=== PATIENT | male | born 1960 | race Native Hawaiian/Other Pacific Islander ===

== ENCOUNTER 2020-01-05 08:51 | Outpatient (REF) | payer OTHER, SELFPAY | END 2020-01-05 08:52 | disposition home or self-care (01) | LOC: HO.LAB 08:51 | PROVIDERS: Visit Provider Internal Medicine | DX: Z20.828 Contact with and (suspected) exposure to other viral communicable diseases (principal) | CPT/HCPCS: U0003 ==

== ENCOUNTER 2020-05-16 08:17 | Emergency (ER) | payer OTHER, SELFPAY ==
[2020-05-16 08:23] VITALS: BP 184/94; PULSE 60; RESP 16; TEMP 36.6; O2SAT 100; BMI 29.5
--- NOTE | 2020-05-16 08:33 | ED_ITS ---
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 States he had a salad with avocado and a heavy meal last night and feels that the avocado then settle well with him and thinks this is what is causing his symptoms this morning. States he had some mild cramping like discomfort this morning with the diarrhea but no abdominal pain. No fever or recent illness. No recent travel. Onset (ago): hour(s) (12) Radiation: non-radiation Severity: moderate Quality: aching Pain Consistency: constant Relieving factors: none Exacerbating factors: none Associated symptoms: denies other symptoms Treatments prior to arrival: none Related Data Previous Rx's Medication Instructions Recorded ondansetron HCl [Zofran] 4 mg PO Q8H PRN #10 tab 05/16/20 Allergies Allergy/AdvReac Type Severity Reaction Status Date / Time No Known Allergies Allergy Unverified 11/22/19 17:01 Review of Systems Review of Systems: Constitutional: No Weight loss, No Fever, No Chills, No Night Sweats, No Fatigue, No Malaise ENT/Mouth: No Hearing loss, No Ear Pain, No Nasal Congestion, No Sinus Pain, No Hoarseness, No sore throat, No Rhinorrhea, No Swallowing Difficulty Eyes: No Eye Pain, No Swelling, No Redness, No Foreign Body, No Discharge, No Vision Changes Cardiovascular: No Chest Pain, No SOB, No Dyspnea on Exertion, No Orthopnea, No Edema, No Palpitations Respiratory: No Cough, No Sputum, No Wheezing, No Smoke Exposure, No Dyspnea Gastrointestinal: No Nausea, No Vomiting, No Diarrhea, No Constipation, No abdominal Pain, No Hematochezia, No Melena Genitourinary: No Dysuria, No Urinary Frequency, No Hematuria, No Urinary Incontinence, No Urgency, No Flank Pain, No Urinary Flow Changes, No Hesitancy Musculoskeletal: No joint pain, No Myalgias, No Joint Swelling Skin: No Skin Lesions, No rash Neuro: No Weakness, No Numbness, No Paresthesias, No Loss of Consciousness, No Headache Psych: No Social Issues Heme/Lymph: No Bruising, No Bleeding,No Lymphadenopathy Endocrine: No Polyuria, No Polydipsia, No Temperature Intolerance Yes all other systems are reviewed and are negative [facility] Social History Social History Alcohol intake: never Smoking Status: Never smoker Use of substances other than those prescribed or required for medical reasons: No Advance Directives: No Advance Directives Information Provided: No Physical Exam Vital Signs: Vital Signs: Last Vital Signs Temp 97.9 F 05/16/20 08:23 Pulse 60 05/16/20 08:23 Resp 16 05/16/20 08:23 BP 184/94 H 05/16/20 08:23 Pulse Ox 100 05/16/20 08:23 Body Mass Index 29.5 Reviewed Const: Other: Found sitting up position on stretcher, no acute distress. General: cooperative and comfortable; No acute distress or intoxicated appearing Nutritional Appearance: average body habitus Orientation/consciousness: patient oriented x3 HENMT: Head: Yes normal to inspection Ears: hearing grossly normal b ilaterally Eyes: General: appearance normal, both eyes and all related structures Visual Waggoner: normal visual waggoner by confrontation Neck: Neck: Yes normal visual inspection, Yes no meningeal signs, No positive Brudzinski's sign, No positive Kernig's sign and No tender Thyroid: Thyroid normal Chest: Chest palpation & inspection: normal inspection of the chest Resp: Effort & Inspection: normal respiratory effort Auscultation: clear to auscultation bilaterally Cardio: Jugular venous distension: no JVD Rhythm: regular rhythm Heart sounds: S1 normal heart sound present and S2 normal heart sound present GI: Inspection: Yes normal to inspection Palpation (GI): Soft to palpation Percussion: Yes normal to percussion Auscultation: normal bowel sounds : General: Yes no CVA tenderness Back/Spine/Pelvis: Back: no CVA tenderness Skin: General skin exam: no rashes or lesions noted Neuro: General: patient oriented x3, gait normal, tone normal, moves all extremities, Normal light touch and pain sensation, no meningeal signs, no focal motor deficits and CN's II-XI intact bilaterally Cranial nerves: Yes CN's II-XII intact bilaterally Cognition (Neuro): normal cognition Gait exam (Neuro): Normal gait present Motor exam (neuro): 5/5 motor strength present throughout Sensory Exam: Normal double simultaneous stimulation for sensation Extrem: General: Yes normal to inspection NIH Stroke Scale Internal: Initial- Upon Arrival Level of Consciousness: Alert Level of Consciousness Questions: Answers both questions correctly Level of Consciousness Commands: Performs both tasks correctly Best Gaze: Normal Visual: No visual loss Facial Palsy: Normal Motor Arm (Right): No drift Motor Arm (Left): No drift Motor Leg (Right): No drift Motor Leg (Left): No drift Limb Ataxia: Absent Sensory: Normal Best Language: No aphasia Dysarthia: Normal Extinction and Inattention: No abnormality Score: 0 Medical Decision Making MDM Narrative Medical decision making narrative: AP consistent with mild gastroenteritis labs overall stable feels better after 1 L of fluid. BP stable ortho is negative. N o further diarrhea or nausea vomiting here in the ED. no dizziness. Initially said dizziness but that is not like his usual vertigo more in expression of feeling unwell. No focal neurological findings on exam. Will discharge home with supportive care, return, follow-up instructions. He verbalized understanding and comfortable plan. Stable for discharge. Medical Records Medical records reviewed: Yes I reviewed the patient's medical records. Medical records narrative: Similar type symptoms and visit in 12/24/2017 in ED Lab Data Lab results reviewed: Yes I reviewed the patient's lab results. Result diagrams: 05/16/20 09:15 05/16/20 09:15 Labs: Lab Results 05/16/20 05/16/20 05/16/20 Range/Units 09:15 09:15 09:15 WBC 7.9 (4.8-10.8) X10*3/uL RBC 4.57 L (4.60-5.80) X10*6/uL Hgb 14.5 (14.0-18.0) g/dl Hct 41.6 L (42-52) % MCV 91.0 (80-98) fL MCH 31.7 (27.0-33.0) pg MCHC 34.9 (31.0-36.0) g/dl RDW 12.3 (11.0-16.0) % Plt Count 217 (160-400) X10*3/uL MPV 11.1 (9.4-12.4) fL Immature Gran % (Auto) 0.4 (0.0-0.4) % Neut % (Auto) 69.9 (45-73) % Lymph % (Auto) 19.6 L (20-40) % [place] % (Auto) 8.7 (2-11) % Eos % (Auto) 1.0 (0-4) % Baso % (Auto) 0.4 (0-2) % Lymph # (Auto) 1.6 (1.2-4.9) X10*3/uL [place] # (Auto) 0.7 (0.1-1.2) X10*3/uL Eos # (Auto) 0.1 (0.0-0.4) X10*3/uL Baso # (Auto) 0.0 (0.0-0.2) X10*3/uL Abs Immat Gran (auto) 0.03 (0.00-0.03) X10*3/uL Absolute Neuts (auto) 5.5 (2.0-8.3) X10*3/uL Absolute Nucleated RBC 0.000 (0.0-0.012) X10*3/uL Nucleated RBC % (auto) 0.0 (0.0-0.2) /100WBC PT 12.5 (10.8-13.0) SEC INR 1.1 (0.9-1.1) APTT 33.5 (24.1-38.0) SEC Sodium 135 (135-145) mmol/L Potassium 4.5 (3.3-5.1) mmol/L Chloride 100 (96-108) mmol/L Carbon Dioxide 25 (22-29) mmol/L Anion Gap 15 (12-20) BUN 16 (9-16) mg/dL Creatinine 1.11 (0.5-1.4) mg/dL Estim Creat Clear Calc 79.7 Estimated GFR > 60 Random Glucose 192 H (60-115) mg/dL Calcium 9.1 (8.4-10.2) mg/dL Total Bilirubin 0.9 (0.0-1.0) mg/dL AST 18 (5-37) U/L ALT 22 (0-40) U/L Alkaline Phosphatase 113 (39-117) U/L Troponin I High Sens (<3.5-35.0) ng/L Total Protein 7.5 (6.5-8.0) g/dL Albumin 4.3 (3.5-5.0) g/dL Urine Color Urine Appearance Urine pH (5.0-8.0) Ur Specific [place] (1.005-1.025) Urine Protein (NEG-TRACE) MG/DL Urine Glucose (UA) (NEG) MG/DL Urine Ketones (NEG) MG/DL Urine Blood (NEG) Urine Nitrite (NEG) Ur Leukocyte Esterase (NEG) Urine RBC (0) /HPF Urine WBC (0-4) /HPF Ur Squamous Epith Cells /LPF Urine Bacteria /LPF Urine Mucus /LPF Coronavirus (PCR) (Negative) Influenza Type A (PCR) (Negative) Influenza Type B (PCR) (Negative) RSV RNA Qual (PCR) (Negative) 05/16/20 05/16/20 05/16/20 Range/Units 09:15 09:15 09:15 WBC (4.8-10.8) X10*3/uL RBC (4.60-5.80) X10*6/uL Hgb (14.0-18.0) g/dl Hct (42-52) % MCV (80-98) fL MCH (27.0-33.0) pg MCHC (31.0-36.0) g/dl RDW (11.0-16.0) % Plt Count (160-400) X10*3/uL MPV (9.4-12.4) fL Immature Gran % (Auto) (0.0-0.4) % Neut % (Auto) (45-73) % Lymph % (Auto) (20-40) % [place] % (Auto) (2-11) % Eos % (Auto) (0-4) % Baso % (Auto) (0-2) % Lymph # (Auto) (1.2-4.9) X10*3/uL [place] # (Auto) (0.1-1.2) X10*3/uL Eos # (Auto) (0.0-0.4) X10*3/uL Baso # (Auto) (0.0-0.2) X10*3/uL Abs Immat Gran (auto) (0.00-0.03) X10*3/uL Absolute Neuts (auto) (2.0-8.3) X10*3/uL Absolute Nucleated RBC (0.0-0.012) X10*3/uL Nucleated RBC % (auto) (0.0-0.2) /100WBC PT (10.8-13.0) SEC INR (0.9-1.1) APTT (24.1-38.0) SEC Sodium (135-145) mmol/L Potassium (3.3-5.1) mmol/L Chloride (96-108) mmol/L Carbon Dioxide (22-29) mmol/L Anion Gap (12-20) BUN (9-16) mg/dL Creatinine (0.5-1.4) mg/dL Estim Creat Clear Calc Estimated GFR Random Glucose (60-115) mg/dL Calcium (8.4-10.2) mg/dL Total Bilirubin (0.0-1.0) mg/dL AST (5-37) U/L ALT (0-40) U/L Alkaline Phosphatase (39-117) U/L Troponin I High Sens 4.6 (<3.5-35.0) ng/L Total Protein (6.5-8.0) g/dL Albumin (3.5-5.0) g/dL Urine Color YELLOW Urine Appearance CLEAR Urine pH 5.5 (5.0-8.0) Ur Specific [place] <= 1.005 (1.005-1.025) Urine Protein NEG (NEG-TRACE) MG/DL Urine Glucose (UA) NEG (NEG) MG/DL Urine Ketones NEG (NEG) MG/DL Urine Blood TRACE (NEG) Urine Nitrite NEG (NEG) Ur Leukocyte Esterase NEG (NEG) Urine RBC 0-2 (0) /HPF Urine WBC 0 (0-4) /HPF Ur Squamous Epith Cells TRACE /LPF Urine Bacteria NONE /LPF Urine Mucus TRACE /LPF Coronavirus (PCR) NEGATIVE (Negative) Influenza Type A (PCR) NEGATIVE (Negative) Influenza Type B (PCR) NEGATIVE (Negative) RSV RNA Qual (PCR) NEGATIVE (Negative) ECG Data Interpretation: Sinus Tee Rate [address] segment changes NC interval within normal limits No significant change from previous; Discharge Plan Discharge Clinical Impression: Gastroenteritis Patient Disposition: Home, Self-Care Instructions: Gastroenteritis (ED) Additional Instructions: Your blood work was overall stable today The symptoms you are experiencing is likely from the fluid that you ate last night Drink plenty of fluids Gradually increase her diet as tolerated Return if any concerns or worsening symptoms Thank you Prescriptions: New ondansetron HCl [Zofran] 4 mg tablet 4 mg PO Q8H PRN (Reason: nausea and vomiting) Qty: 10 RF: 0 Referrals: Gregg Cota MD [Primary Care Provider] - 1 week Interventions: ED Discharge Assessment Last Done: 05/16/20 11:21 Discharge Date/Time: 05/16/20 11:22
--- NOTE | 2020-05-16 08:35 | ECG_ITS ---
Test Reason : DIZZINESS Blood Pressure : / mmHG Vent. Rate : 057 BPM Atrial Rate : 057 BPM P-R Int : 168 ms QRS Dur : 074 ms QT Int : 412 ms P-R-T Axes : 025 016 011 degrees QTc Int : 401 ms Sinus bradycardia Otherwise normal ECG When compared to the previous EKG of No significant changes seen Referred By: Joaquin Hines Electronically Signed By:CRISPIN CLARKE MD
[2020-05-16 09:23] LABS: MANUAL DIFF FLAG NO
[2020-05-16] MEDS: 0.9 % Sodium Chloride 1,000 ML 999 ML IV (09:25)
[2020-05-16 09:27] LABS: Basophils Percent Auto 0.4 % (0-2); Eosinophils Absolute Auto 0.1 X10*3/uL (0.0-0.4); Hematocrit 41.6 % (42-52); Hemoglobin 14.5 g/dl (14.0-18.0); Imm Gran Abs Auto 0.03 X10*3/uL (0.00-0.03); Imm Gran Pct Auto 0.4 % (0.0-0.4); Lymphocytes Absolute Auto 1.6 X10*3/uL (1.2-4.9); Lymphocytes Percent Auto 19.6 % (20-40); Mean Corpuscular HGB Conc 34.9 g/dl (31.0-36.0); Mean Corpuscular Hemoglobin 31.7 pg (27.0-33.0); Mean Platelet Volume 11.1 fL (9.4-12.4); Monocytes Absolute Auto 0.7 X10*3/uL (0.1-1.2); Monocytes Percent Auto 8.7 % (2-11); Neutrophils Absolute Auto 5.5 X10*3/uL (2.0-8.3); Neutrophils Percent Auto 69.9 % (45-73); Platelet Count 217 X10*3/uL (160-400); Red Blood Count 4.57 X10*6/uL (4.60-5.80); Red Cell Distribution Width 12.3 % (11.0-16.0); White Blood Count 7.9 X10*3/uL (4.8-10.8)
[2020-05-16 09:29] LABS: Glucose Urine UA NEG (NEG); Leukocyte Esterase Urine NEG (NEG); Nitrite Urine NEG (NEG); PH 5.5 (5.0-8.0); Specific Gravity - Urine <= 1.005 (1.005-1.025); Urine Blood TRACE (NEG); Urine Ketones NEG (NEG); Urine Protein NEG (NEG-TRACE)
[2020-05-16 09:30] LABS: Appearance Urine CLEAR; Color Urine YELLOW
[2020-05-16 09:34] LABS: INTERNATIONAL NORM RATIO 1.1 (0.9-1.1); Prothrombin Time 12.5 SEC (10.8-13.0)
[2020-05-16 09:36] LABS: Partial Thromboplastin Time 33.5 SEC (24.1-38.0)
[2020-05-16 09:37] LABS: Mucus Urine TRACE /LPF; RBC Urine 0-2 /HPF (0); Squamous Epithelial Cell Urine TRACE /LPF; WBC Urine 0 /HPF (0-4)
[2020-05-16 10:05] LABS: Troponin-I High Sensitivity 4.6 ng/L (<3.5-35.0)
[2020-05-16 10:26] LABS: Influenza A PCR NEGATIVE (Negative); Influenza B PCR NEGATIVE (Negative); Resp Syncy Virus RNA Qual PCR NEGATIVE (Negative); SARS COV2 PCR INHOUSE NEGATIVE (Negative)
[2020-05-16 10:46] LABS: Alanine Aminotransferase 22 U/L (0-40); Albumin Level 4.3 g/dL (3.5-5.0); Alkaline Phosphatase 113 U/L (39-117); Anion Gap 15 (12-20); Aspartate Amino Transferase 18 U/L (5-37); Bilirubin Total 0.9 mg/dL (0.0-1.0); Blood Urea Nitrogen 16 mg/dL (9-16); Calcium 9.1 mg/dL (8.4-10.2); Carbon Dioxide 25 mmol/L (22-29); Chloride 100 mmol/L (96-108); Creatinine Clr Calc Pharmacy 79.7; Estimated Glomerular Filt Rate > 60; Glucose Random 192 mg/dL (60-115); Potassium 4.5 mmol/L (3.3-5.1); Sodium 135 mmol/L (135-145); Total Protein 7.5 g/dL (6.5-8.0)
== END 2020-05-16 11:22 | disposition home or self-care (01) ==
PROVIDERS: Nurse Practitioner Primary Care; Emergency Provider Emergency Medicine Emergency Medical Services; PCP Internal Medicine
DX: K52.9 Noninfective gastroenteritis and colitis, unspecified (principal); Z20.822 Contact with and (suspected) exposure to COVID-19; E11.9 Type 2 diabetes mellitus without complications; I10 Essential (primary) hypertension; E78.5 Hyperlipidemia, unspecified
CPT/HCPCS: 0241U; 36415; 80053; 81001; 84484; 85025; 85610; 85730; 93005; 96360; 99284

== ENCOUNTER 2020-05-27 08:04 | Inpatient (IN) | payer OTHER, SELFPAY ==
[2020-05-27] VITALS (13 sets, daily range): BP systolic 96–158; BP diastolic 51–117; PULSE 49–124; RESP 16–19; TEMP 36–36.6; O2SAT 97–100; BMI 29.7
--- NOTE | ~2020-05-27 | XR_ITS ---
EXAMINATION: XR CHEST CLINICAL INFORMATION: SOB COMPARISON: None TECHNIQUE: Frontal view of the chest was obtained. FINDINGS: The lungs are well-expanded and clear of acute process. The heart size and pulmonary vascularity is normal. No gross bony abnormality seen. XR/XR chest 1V IMPRESSION: Unremarkable chest exam.
--- NOTE | 2020-05-27 08:22 | ECG_ITS ---
Test Reason : PALP Blood Pressure : / mmHG Vent. Rate : 116 BPM Atrial Rate : 375 BPM P-R Int : 000 ms QRS Dur : 074 ms QT Int : 280 ms P-R-T Axes : 000 013 -11 degrees QTc Int : 389 ms Atrial fibrillation with rapid ventricular response Nonspecific T wave abnormality Abnormal ECG When compared to the previous EKG of 16 may 2020, rhythm change Referred By: Jazz Cain Electronically Signed By:DAVE ECHEVARRIA
[2020-05-27 08:28] LABS: MANUAL DIFF FLAG NO
[2020-05-27 08:29] LABS: Basophils Percent Auto 0.4 % (0-2); Eosinophils Absolute Auto 0.1 X10*3/uL (0.0-0.4); Eosinophils Percent Auto 0.9 % (0-4); Hematocrit 45.6 % (42-52); Hemoglobin 16.1 g/dl (14.0-18.0); Imm Gran Abs Auto 0.02 X10*3/uL (0.00-0.03); Imm Gran Pct Auto 0.3 % (0.0-0.4); Lymphocytes Absolute Auto 2.2 X10*3/uL (1.2-4.9); Lymphocytes Percent Auto 29.2 % (20-40); Mean Corpuscular HGB Conc 35.3 g/dl (31.0-36.0); Mean Corpuscular Hemoglobin 31.6 pg (27.0-33.0); Mean Corpuscular Volume 89.4 fL (80-98); Monocytes Absolute Auto 0.8 X10*3/uL (0.1-1.2); Monocytes Percent Auto 10.5 % (2-11); Neutrophils Absolute Auto 4.5 X10*3/uL (2.0-8.3); Neutrophils Percent Auto 58.7 % (45-73); Platelet Count 210 X10*3/uL (160-400); Red Cell Distribution Width 12.2 % (11.0-16.0); White Blood Count 7.6 X10*3/uL (4.8-10.8)
--- NOTE | 2020-05-27 08:35 | ED.ARRPALP ---
HPI - Arrhythmia/Palpitations General Chief Complaint: Arrhythmia/Palpitations Stated Complaint: rapid heart rate Time Seen by Provider: 05/27/20 08:21 Source: patient Mode of arrival: ambulatory Limitations: language barrier History of Present Illness HPI narrative: 60 y/o male with history of HTN, HLD, DM who presents with acute onset of palpitations that started 45 minutes prior to arrival. He states he was resting on his couch when he suddenly developed racing heartbeat and SOB. It was worse with walking. He states he had an episode similar to this several years ago but none since. He was recently seen here on 05/16 for diarrhea and dizziness, was diagnosed with gastroenteritis at that time. He denies any palpitations during that time. He has since recovered and has been eating and drinking normally. He denies history of heart arrythmias, no history of blood clots. He denies chest pain. His shortness of breath is very mild at rest and increases with exertion. On arrival patient is tachycardic to 120's in what appears to be atrial fibrillation on the monitor. MD complaint: heart racing and palpitations Onset (ago): hour(s) (1) Duration: constant Severity: moderate Context: occurred during rest Associated symptoms: shortness of breath and anxiety Related Data Home Medications Medication Instructions Recorded Confirmed aspirin 81 mg PO DAILY 05/27/20 05/27/20 atorvastatin 80 mg PO BEDTIME 05/27/20 05/27/20 lisinopril 40 mg PO DAILY 05/27/20 05/27/20 metformin 500 mg PO BIDWM 05/27/20 05/27/20 Allergies Allergy/AdvReac Type Severity Reaction Status Date / Time No Known Allergies Allergy Unverified 11/22/19 17:01 Review of Systems Review of Systems: Constitutional: No Fever, No Chills ENT/Mouth: No sore throat, No Rhinorrhea, No Swallowing Difficulty Eyes: No Eye Pain, No Swelling, No Redness Cardiovascular: No Chest Pain, + SOB, No Orthopnea, No Edema Respiratory: No Cough, No Sputum, No Wheezing, + dyspnea Gastrointestinal: No Nausea, No Vomiting, No Diarrhea, + abdominal Pain ( gas pain Genitourinary: No Dysuria, + Urinary Frequency, No Hematuria Musculoskeletal: No joint pain, No Myalgias Skin: No Skin Lesions, No rash Neuro: No Weakness, No Numbness, No Dizziness, No Headache Psych: + Anxiety/Panic, No Depression Heme/Lymph: No Bruising, No Lymphadenopathy Endocrine: No Polyuria, No Polydipsia PMFSH Past Medical History Attestation statement: The following information was validated with the patient. Medical History Diabetes mellitus High cholesterol HTN (hypertension) Social History Social History Alcohol intake: never Smoking Status: Never smoker Use of substances other than those prescribed or required for medical reasons: No Advance Directives: Yes Advance Directives Information Provided: Yes Advance Directives on File: No Physical Exam Vital Signs: Vital Signs: Last Vital Signs Temp 98 F 05/27/20 08:27 Pulse 84 05/27/20 11:25 Resp 16 05/27/20 11:25 BP 123/93 H 05/27/20 11:25 Pulse Ox 97 05/27/20 11:25 Body Mass Index 29.7 Appearance: Alert. Oriented X3. No acute distress. Eyes: Pupils equal, round and reactive to light. ENT: Pharynx normal. Neck: Normal inspection. Neck supple. CVS: trachycardic, irregularly irregular. Pulses normal. Respiratory: No respiratory distress. Breath sounds normal. Abdomen: Soft and nontender. +BS x4 Skin: Skin warm and dry. Normal skin color. Normal skin turgor. No rashes. Extremities: No lower extremity edema. Negative Clarke's sign Neuro: Oriented X 3. No motor deficit. No sensory deficit. Course Course Course Narrative: 60 y/o male presenting with palpitations found to be in new onset atrial fibrillation with rapid ventricular response. Also with BLAIR and SOB. Will check CXR, BNP, DDIMER. HR 110-140's. SBP stable - will give dose of IV Lopressor and reassess. CHADS-VASc score is 2 for HTN and DM - making him moderate-high risk for stroke with 2.2% yearly risk. Reevaluation(s) Reevaluation #1: HR improved to 90's after 5 mg IV Lopressor. SBP 120's. Patient is symptomatically improved. His CXR is negative, BNP normal. Troponin only mildly elevated at 7.1. Case was discussed with Dr. Saba who is recommending inpatient admission to the hospital for workup and management. Will discuss anticoagulation preference with hospitalist prior to initiating. Options were discussed with the patient and he is agreeable to whatever is decided. Consultations Consultation #1: Cardiology Dr. Saba [facility] - Arrhythmia/Palpitations Differential Diagnosis Differential diagnosis: Likely palpitations, anxiety, sinus tachycardia, artial fibrillation, artial flutter, ventricular premature beats and supraventricular tachycardia Medical Records Attestation: I reviewed the patient's medical records. Lab Data Attestation: I reviewed the patient's lab results. Result diagrams: 05/27/20 08:23 05/27/20 08:23 Labs: Lab Results 05/27/20 05/27/20 05/27/20 Range/Units 08:23 08:23 08:23 WBC 7.6 (4.8-10.8) X10*3/uL RBC 5.10 (4.60-5.80) X10*6/uL Hgb 16.1 (14.0-18.0) g/dl Hct 45.6 (42-52) % MCV 89.4 (80-98) fL MCH 31.6 (27.0-33.0) pg MCHC 35.3 (31.0-36.0) g/dl RDW 12.2 (11.0-16.0) % Plt Count 210 (160-400) X10*3/uL MPV 11.0 (9.4-12.4) fL Immature Gran % (Auto) 0.3 (0.0-0.4) % Neut % (Auto) 58.7 (45-73) % Lymph % (Auto) 29.2 (20-40) % [place] % (Auto) 10.5 (2-11) % Eos % (Auto) 0.9 (0-4) % Baso % (Auto) 0.4 (0-2) % Lymph # (Auto) 2.2 (1.2-4.9) X10*3/uL [place] # (Auto) 0.8 (0.1-1.2) X10*3/uL Eos # (Auto) 0.1 (0.0-0.4) X10*3/uL Baso # (Auto) 0.0 (0.0-0.2) X10*3/uL Abs Immat Gran (auto) 0.02 (0.00-0.03) X10*3/uL Absolute Neuts (auto) 4.5 (2.0-8.3) X10*3/uL Absolute Nucleated RBC 0.000 (0.0-0.012) X10*3/uL Nucleated RBC % (auto) 0.0 (0.0-0.2) /100WBC PT 12.1 (10.8-13.0) SEC INR 1.0 (0.9-1.1) APTT 32.9 (24.1-38.0) SEC D-Dimer < 200 NG/ML Hold Blue Top SEE NOTE Sodium 136 (135-145) mmol/L Potassium 3.9 (3.3-5.1) mmol/L Chloride 98 (96-108) mmol/L Carbon Dioxide 24 (22-29) mmol/L Anion Gap 18 (12-20) BUN 21 H (9-16) mg/dL Creatinine 1.33 (0.5-1.4) mg/dL Estim Creat Clear Calc 62.7 Estimated GFR 55 Random Glucose 269 H D (60-115) mg/dL Calcium 9.3 (8.4-10.2) mg/dL Magnesium 2.1 (1.6-2.6) mg/dL Troponin I High Sens (<3.5-35.0) ng/L B-Natriuretic Peptide (<100) pg/mL Hold Yellow Top Urine Color Urine Appearance Urine pH (5.0-8.0) Ur Specific [place] (1.005-1.025) Urine Protein (NEG-TRACE) MG/DL Urine Glucose (UA) (NEG) MG/DL Urine Ketones (NEG) MG/DL Urine Blood (NEG) Urine Nitrite (NEG) Ur Leukocyte Esterase (NEG) Urine RBC (0) /HPF Urine WBC (0-4) /HPF Ur Squamous Epith Cells /LPF Urine Bacteria /LPF COVID-19 ([facility]) (Negative) COVID-19 Clin Com 05/27/20 05/27/20 05/27/20 Range/Units 08:23 08:23 08:23 WBC (4.8-10.8) X10*3/uL RBC (4.60-5.80) X10*6/uL Hgb (14.0-18.0) g/dl Hct (42-52) % MCV (80-98) fL MCH (27.0-33.0) pg MCHC (31.0-36.0) g/dl RDW (11.0-16.0) % Plt Count (160-400) X10*3/uL MPV (9.4-12.4) fL Immature Gran % (Auto) (0.0-0.4) % Neut % (Auto) (45-73) % Lymph % (Auto) (20-40) % [place] % (Auto) (2-11) % Eos % (Auto) (0-4) % Baso % (Auto) (0-2) % Lymph # (Auto) (1.2-4.9) X10*3/uL [place] # (Auto) (0.1-1.2) X10*3/uL Eos # (Auto) (0.0-0.4) X10*3/uL Baso # (Auto) (0.0-0.2) X10*3/uL Abs Immat Gran (auto) (0.00-0.03) X10*3/uL Absolute Neuts (auto) (2.0-8.3) X10*3/uL Absolute Nucleated RBC (0.0-0.012) X10*3/uL Nucleated RBC % (auto) (0.0-0.2) /100WBC PT (10.8-13.0) SEC INR (0.9-1.1) APTT (24.1-38.0) SEC D-Dimer NG/ML Hold Blue Top Sodium (135-145) mmol/L Potassium (3.3-5.1) mmol/L Chloride (96-108) mmol/L Carbon Dioxide (22-29) mmol/L Anion Gap (12-20) BUN (9-16) mg/dL Creatinine (0.5-1.4) mg/dL Estim Creat Clear Calc Estimated GFR Random Glucose (60-115) mg/dL Calcium (8.4-10.2) mg/dL Magnesium (1.6-2.6) mg/dL Troponin I High Sens 7.1 D (<3.5-35.0) ng/L B-Natriuretic Peptide 62 (<100) pg/mL Hold Yellow Top See Note Urine Color Urine Appearance Urine pH (5.0-8.0) Ur Specific [place] (1.005-1.025) Urine Protein (NEG-TRACE) MG/DL Urine Glucose (UA) (NEG) MG/DL Urine Ketones (NEG) MG/DL Urine Blood (NEG) Urine Nitrite (NEG) Ur Leukocyte Esterase (NEG) Urine RBC (0) /HPF Urine WBC (0-4) /HPF Ur Squamous Epith Cells /LPF Urine Bacteria /LPF COVID-19 ([facility]) (Negative) COVID-19 Clin Com 05/27/20 05/27/20 Range/Units 08:55 08:55 WBC (4.8-10.8) X10*3/uL RBC (4.60-5.80) X10*6/uL Hgb (14.0-18.0) g/dl Hct (42-52) % MCV (80-98) fL MCH (27.0-33.0) pg MCHC (31.0-36.0) g/dl RDW (11.0-16.0) % Plt Count (160-400) X10*3/uL MPV (9.4-12.4) fL Immature Gran % (Auto) (0.0-0.4) % Neut % (Auto) (45-73) % Lymph % (Auto) (20-40) % [place] % (Auto) (2-11) % Eos % (Auto) (0-4) % Baso % (Auto) (0-2) % Lymph # (Auto) (1.2-4.9) X10*3/uL [place] # (Auto) (0.1-1.2) X10*3/uL Eos # (Auto) (0.0-0.4) X10*3/uL Baso # (Auto) (0.0-0.2) X10*3/uL Abs Immat Gran (auto) (0.00-0.03) X10*3/uL Absolute Neuts (auto) (2.0-8.3) X10*3/uL Absolute Nucleated RBC (0.0-0.012) X10*3/uL Nucleated RBC % (auto) (0.0-0.2) /100WBC PT (10.8-13.0) SEC INR (0.9-1.1) APTT (24.1-38.0) SEC D-Dimer NG/ML Hold Blue Top Sodium (135-145) mmol/L Potassium (3.3-5.1) mmol/L Chloride (96-108) mmol/L Carbon Dioxide (22-29) mmol/L Anion Gap (12-20) BUN (9-16) mg/dL Creatinine (0.5-1.4) mg/dL Estim Creat Clear Calc Estimated GFR Random Glucose (60-115) mg/dL Calcium (8.4-10.2) mg/dL Magnesium (1.6-2.6) mg/dL Troponin I High Sens (<3.5-35.0) ng/L B-Natriuretic Peptide (<100) pg/mL Hold Yellow Top Urine Color COLORLESS Urine Appearance CLEAR Urine pH 7.0 (5.0-8.0) Ur Specific [place] 1.010 (1.005-1.025) Urine Protein 1+ H (NEG-TRACE) MG/DL Urine Glucose (UA) 500 H (NEG) MG/DL Urine Ketones NEG (NEG) MG/DL Urine Blood TRACE (NEG) Urine Nitrite NEG (NEG) Ur Leukocyte Esterase NEG (NEG) Urine RBC 1-4 (0) /HPF Urine WBC 0 (0-4) /HPF Ur Squamous Epith Cells NONE /LPF Urine Bacteria NONE /LPF COVID-19 ([facility]) Negative (Negative) COVID-19 Clin Com See Note ECG Data Attestation: I personally reviewed and interpreted this ECG as follows: ECG interpretation date: 05/27/20 ECG interpretation time: 10:20 Interpretation: atrial fibrillation with rapid ventricular response, HR 116 bpm, normal QRS, normal QTc Critical Care Time Critical Care Time Critical Care Time: Yes Total Critical Care Time: 40 Attestation: I attest to critical care time spent caring for this patient with rapid afib, requiring IV rate controlling medications, continuous cardiac monitoring and frequent reassessment of cardiopulmonary status & hemodynamics. Time spent reviewing records and coordinating care. Discharge Plan Discharge Clinical Impression: Atrial fibrillation with rapid ventricular response Patient Disposition: Admitted As Inpatient
[2020-05-27] MEDS: Metoprolol Tartrate 5 MG/5 ML VIAL IVPUSH (08:51)
[2020-05-27 08:52] LABS: Anion Gap 18 (12-20); Blood Urea Nitrogen 21 mg/dL (9-16); Calcium 9.3 mg/dL (8.4-10.2); Carbon Dioxide 24 mmol/L (22-29); Chloride 98 mmol/L (96-108); Creatinine Clr Calc Pharmacy 62.7; Estimated Glomerular Filt Rate 55; Glucose Random 269 mg/dL (60-115); Magnesium 2.1 mg/dL (1.6-2.6); Potassium 3.9 mmol/L (3.3-5.1); Sodium 136 mmol/L (135-145)
[2020-05-27 08:58] LABS: Troponin-I High Sensitivity 7.1 ng/L (<3.5-35.0)
[2020-05-27 09:07] LABS: Prothrombin Time 12.1 SEC (10.8-13.0)
[2020-05-27 09:10] LABS: Partial Thromboplastin Time 32.9 SEC (24.1-38.0)
[2020-05-27 09:11] LABS: Glucose Urine UA 500 MG/DL (NEG); Leukocyte Esterase Urine NEG (NEG); Nitrite Urine NEG (NEG); Urine Blood TRACE (NEG); Urine Ketones NEG (NEG); Urine Protein 1+ MG/DL (NEG-TRACE)
[2020-05-27 09:13] LABS: Appearance Urine CLEAR; Color Urine COLORLESS
[2020-05-27 09:15] LABS: D Dimer < 200 NG/ML
[2020-05-27 09:19] LABS: COVID-19 Test Negative (Negative)
[2020-05-27 09:19] LABS: B Type Natriuretic Peptide 62 pg/mL (<100)
[2020-05-27 09:25] LABS: WBC Urine 0 /HPF (0-4)
[2020-05-27] MEDS: Apixaban 5 MG TABLET PO ×2 (11:23→20:56)
--- NOTE | 2020-05-27 12:10 | HP_ITS ---
DATE OF SERVICE: 05/27/2020 CHIEF COMPLAINT: Shortness of breath. HISTORY OF PRESENT ILLNESS: A 60-year-old man, presenting to the ER with complaints of shortness of breath and palpitations. He reports this morning around 6 a.m., he had gotten up from a chair and felt palpitations and also had some shortness of breath. He reports that he has had similar symptoms years ago, but never diagnosed with anything specific. He denies chest pain, fever, recent illness, nausea, vomiting, diarrhea, although he was recently diagnosed with gastroenteritis, which he did recover from. EKG in the ER showed atrial fibrillation with rapid ventricular response. He was treated with IV metoprolol and started on Eliquis. Labs showed flat troponin, BNP of 62. COVID-19 negative. Chest x-ray negative for consolidation or effusion. Magnesium 2.1. Vital signs stable. No signs of hypoxia. His blood pressure was mildly elevated at 144/117. The patient will be admitted for further management and treatment of acute onset of atrial fibrillation with rapid ventricular response. PAST MEDICAL HISTORY: 1. Hypertension. 2. Diabetes mellitus. 3. Hyperlipidemia. 4. Gastritis. PAST SURGICAL HISTORY: Reports none. FAMILY HISTORY: Mother and father with diabetes. Father had LA in his 50s. Grandfather had prostate cancer. SOCIAL HISTORY: Drinks 10 beers on the weekends. Denies tobacco or illicit drug use. LABORATORY DATA: WBC 7.6, hemoglobin 16.1, hematocrit 45.6, platelets 210. Sodium is 136, potassium is 3.9, chloride is 98, bicarb is 24, BUN is 21, creatinine is 1.33, glucose is 269. Troponin is 7.1. COVID-19 is negative. REVIEW OF SYSTEMS: CONSTITUTIONAL: Denies any recent fever, chills, or decrease in appetite. RESPIRATORY: See HPI. CARDIOVASCULAR: See HPI. GASTROINTESTINAL: Denies any dysphagia, abdominal pain, nausea, vomiting, or diarrhea. GENITOURINARY: Denies any dysuria, frequency, or hematuria. MUSCULOSKELETAL: Denies any joint pain or swelling. NEUROPSYCH: Denies any weakness or seizures. All other systems are reviewed and are negative. PHYSICAL EXAMINATION: CONSTITUTIONAL: Resting in bed, appearing in no acute distress. VITAL SIGNS: 120/87, 91, 16, 98% on room air. SKIN: Intact without rash or open sores. HEENT: Head is normocephalic, atraumatic. Eyes, pupils are PERRLA. Sclerae anicteric. Mouth and Throat: Mucous membranes are intact and moist. NECK: Supple. No lymphadenopathy. No JVD noted. CHEST: Clear to auscultation without wheezes, rhonchi, or rales. HEART: Irregularly irregular. ABDOMEN: Positive bowel sounds. No hepatomegaly or splenomegaly noted. NEURO: The patient is alert and oriented x3. Cranial nerves II through XII are grossly intact without focal deficits. ASSESSMENT AND PLAN: A 60-year-old man, who is being admitted with acute onset of atrial fibrillation with rapid ventricular response. The patient reports that he has been checking his blood pressures at home and they have seemed to be a little bit more elevated, however, reports compliance with his home medications. He also reports that he drinks about 10 beers on the weekends and denies daily heavy drinking. He denies any history of atrial fibrillation in the past, however, reports that he has had palpitations, but never diagnosed with anything. 1. Acute atrial fibrillation with rapid ventricular response. Heart rate better controlled. New onset. Blood pressure was elevated while in the ER. a. Start Cardizem 30 mg q.6 hours. b. Echocardiogram. c. Cardiology consultation. d. Eliquis, CHADS-VASc score is 2. 2. Hypertension. Elevated. a. Continue lisinopril. 3. Hyperlipidemia. a. Continue aspirin and statin. 4. Diabetes mellitus. a. Sliding scale, ADA diet, continue metformin. 5. Deep venous thrombosis prophylaxis with Eliquis. 6. Attending physician, Dr. Burt. 7. Full code. STEPHEN Torrez MD JR/TEJINDER / [phone]
[2020-05-27 12:36] LABS: Thyroid Stimulating Hormone 1.79 uIU/mL (0.32-4.0)
[2020-05-27 12:46] LABS: Glucose, Whole Blood 155 mg/dL (60-115)
[2020-05-27] MEDS: Insulin Lispro 100 UNIT/ML 3 ML VIAL SUBCUT ×2 (12:50→20:56)
--- NOTE | 2020-05-27 13:36 | PC.NURSE ---
call placed to c, will call back for report
[2020-05-27] MEDS: dilTIAZem HCL 30 MG TABLET PO ×2 (14:13→17:03)
--- NOTE | 2020-05-27 15:04 | PC.NURSE ---
echo being performed at bedside. awaiting call from floor to give report
--- NOTE | 2020-05-27 16:07 | PM.EVENT ---
Event Note Date of Service: 05/27/20 Event Note: Patient seen and examined independently and was present during mayorga portion of E/M service. Agree with Dao Ye NP''s history, physical, assessment, and plan. In brief, 60-year-old diabetic and hypertensive who presents to the hospital with palpitations and chest pressure when he woke up this morning. Patient denies any prior episodes of this. Found to be in AFib with RVR in the emergency room which responded to IV metoprolol. Has been subsequently started on oral Cardizem and Eliquis. Case discussed by the ED providers with Cardiology who recommended admission. Will need further workup.
[2020-05-27 16:15] LABS: Glucose, Whole Blood 134 mg/dL (60-115)
--- NOTE | 2020-05-27 17:00 | CA_ITS ---
Transthoracic Echocardiogram Patient (Last, First, Middle): Kanu Strong, Gender: Male Date of : 1960 Age: 60 Procedure Date: 05/27/2020 Procedure Type: Transthoracic Echocardiogram Location: ER Height: 170.18 cm Weight: 86.18 kg BSA: 1.98 m2 Heart Rate: bpm BP: 135 / 99 mmHg Pathology Tech: Referring MD: Babak Saba MD Symptoms: Atrial fibrillation Study Quality: Good ECG Rhythm: Atrial Fibrillation Conclusions: - The left ventricular systolic function is normal. The visually estimated ejection fraction is between 55-60%. - No obvious valvular pathology seen on this study. Findings Left Ventricle Normal left ventricular cavity size. There is severely increased left ventricular wall thickness. The left ventricular systolic function is normal. The visually estimated ejection fraction is between 55-60%. There is no evidence of regional wall motion abnormalities. Diastolic function is indeterminate on the basis of available data. Right Ventricle Normal right ventricular cavity size and systolic function. Atria Both atria are normal in size. Aortic Valve There is a normal trileaflet aortic valve. There is no aortic valve stenosis. There is trace (trivial) aortic valve regurgitation. Mitral Valve The mitral valve appears normal. There is trace mitral valve regurgitation. There is no mitral valve stenosis. Pulmonic Valve The pulmonic valve was not well visualized. Tricuspid Valve Normal tricuspid valve structure. There is trace tricuspid valve regurgitation. The pulmonary artery systolic pressure is normal. Great Vessels The aortic annulus, sinuses of valsalva, and asc aorta are normal in size. Venous The inferior vena cava is normal in size and collapses less than 50% with inspiration. Pericardium/Pleural There is no evidence of pericardial effusion. Prior Study Comparison No significant change compared to prior study dated: 02/09/2011. Recommendations, Care & Conclusions No obvious valvular pathology seen on this study. Measurements 2D Linear Measurements IVSd: 1.46 0.6-0.9/0.6-1.0 cm LVIDd: 3.85 3.9-5.3/4.2-5.9 cm LVIDd Index: 1.94 2.4-3.2/2.2-3.1 cm/m2 LVIDs: 2.43 2.0-3.6 cm LVPWd: 1.42 0.7-1.1 cm Ao Root: 3.20 2.1-3.5 cm LA Diam: 4.00 2.7-3.8/3.0-4.0 cm LAIDs Index: 2.02 1.5-2.3 cm/m2 LV Mass: 257.66 67-162/88-224 g LV Mass Index: 130.13 43-95/49-115 g/m2 LVOT Diam: 2.10 3.0+(-)1.3 cm Mitral Valve MV Pk E: 0.58 MV Decel Time: 148.00 E'Lateral: 14.50 E'Medial: 8.22 E/E' Med: 7.00 E/E' Lat: 4.00 PHT: 43.00 MVA PHT: 5.12 Decel [place]: 3.90 Aortic Valve AoV Pk Chas: 1.30 AoV Mn Chas: 0.84 AoV VTI: 0.23 AoV Pk Grad: 7.00 Aov Mn Grad: 3.00 CHIP Cont.VTI: 2.25 LVOT LVOT Pk Chas: 0.88 LVOT Mn Chas: 0.63 LVOT VTI: 0.15 LVOT Pk Grad: 3.00 LVOT Mn Grad: 2.00 LVOT Diam: 2.10 LVOT Area: 3.46 Diastolic Function MV Pk E: 0.58 E'Medial: 8.22 E/E' Med: 7.00 E' Laterial: 14.50 E/E' Lat: 4.00 Tricuspid Valve TR Pk Chas: 1.96 TR Pk Grad: 15.00 RA Press: 3.00 RVSP: 18.00 Great Vessels Aorta Ao Root-2D: 3.20 2.0-3.7 cm Ao Asc: 3.20 2.1-3.4 cm Pulmonary Valve PV Pk Chas: 0.77 Peak PV Grad: 2.00 Updated in Other Vendor System with Status of Final Babak Saab MD electronically signed on 05/27/2020 4:44:25 PM with status of Final
[2020-05-27] MEDS: metFORMIN HCl 500 MG TABLET PO (17:03)
[2020-05-27] MEDS: 0.9 % Sodium Chloride Flush 3 ML SYRINGE IVFLUSH ×2 (17:04→20:57)
[2020-05-27 19:34] LABS: Glucose, Whole Blood 180 mg/dL (60-115)
[2020-05-27] MEDS: Atorvastatin Calcium 80 MG TABLET PO (20:56)
[2020-05-28] VITALS: BP 109/72; PULSE 72; RESP 18; TEMP 36.5; O2SAT 97
[2020-05-28 03:59] VITALS: BP 108/64; PULSE 88; RESP 18; TEMP 36.5; O2SAT 97
[2020-05-28 05:02] LABS: MANUAL DIFF FLAG NO
[2020-05-28 05:05] LABS: Basophils Percent Auto 0.4 % (0-2); Eosinophils Absolute Auto 0.1 X10*3/uL (0.0-0.4); Eosinophils Percent Auto 1.1 % (0-4); Hematocrit 46.7 % (42-52); Hemoglobin 15.9 g/dl (14.0-18.0); Imm Gran Abs Auto 0.02 X10*3/uL (0.00-0.03); Imm Gran Pct Auto 0.3 % (0.0-0.4); Lymphocytes Absolute Auto 2.2 X10*3/uL (1.2-4.9); Lymphocytes Percent Auto 29.3 % (20-40); Mean Corpuscular Hemoglobin 30.8 pg (27.0-33.0); Mean Corpuscular Volume 90.5 fL (80-98); Mean Platelet Volume 11.2 fL (9.4-12.4); Monocytes Absolute Auto 0.8 X10*3/uL (0.1-1.2); Monocytes Percent Auto 10.6 % (2-11); Neutrophils Absolute Auto 4.4 X10*3/uL (2.0-8.3); Neutrophils Percent Auto 58.3 % (45-73); Platelet Count 226 X10*3/uL (160-400); Red Blood Count 5.16 X10*6/uL (4.60-5.80); Red Cell Distribution Width 12.4 % (11.0-16.0); White Blood Count 7.6 X10*3/uL (4.8-10.8)
[2020-05-28 05:44] LABS: Anion Gap 18 (12-20); Blood Urea Nitrogen 19 mg/dL (9-16); Calcium 8.7 mg/dL (8.4-10.2); Carbon Dioxide 23 mmol/L (22-29); Chloride 101 mmol/L (96-108); Cholesterol 192 mg/dL; Creatinine Clr Calc Pharmacy 71.8; Estimated Glomerular Filt Rate > 60; Glucose Random 151 mg/dL (60-115); HDL Cholesterol 37 mg/dL; LDL Cholesterol Calculated 128 mg/dl; Sodium 138 mmol/L (135-145); Triglycerides 136 mg/dL
[2020-05-28 07:26] LABS: Glucose, Whole Blood 151 mg/dL (60-115)
[2020-05-28 07:50] VITALS: BP 113/84; PULSE 81; RESP 20; TEMP 36.5; O2SAT 95
[2020-05-28] MEDS: Insulin Lispro 100 UNIT/ML 3 ML VIAL SUBCUT ×2 (08:23→11:47)
[2020-05-28 08:50] VITALS: BP 113/84; PULSE 81
[2020-05-28] MEDS: metFORMIN HCl 500 MG TABLET PO (08:50)
[2020-05-28] MEDS: Apixaban 5 MG TABLET PO (08:50)
[2020-05-28] MEDS: Aspirin Enteric Coated 81 MG TABLET.DR PO (08:50)
[2020-05-28] MEDS: dilTIAZem HCL 30 MG TABLET PO (08:50)
[2020-05-28] MEDS: lisinopriL 40 MG TABLET PO (08:50)
[2020-05-28] MEDS: 0.9 % Sodium Chloride Flush 3 ML SYRINGE IVFLUSH (08:51)
--- NOTE | 2020-05-28 09:28 | PC.NURSE ---
This RN ambulated with pt >200 ft. without assistance. Pt denies SOB. Pt back to bed with bed alarm on.
--- NOTE | 2020-05-28 10:26 | P.CONCA_ITS ---
History of Present Illness History of Present Illness Date of Service: 05/28/20 Consult reason: atrial fibrillation Chief complaint: AFIB RVR Narrative: This is a cardiology consultation regarding atrial fibrillation. Patient has a history of diabetes and hypertension. He also has some gastritis and hence constant sensation of bloating extra. However, there is no history of coronary disease or myocardial infarction or cardiomyopathy or any other cardiac issues. He states that he started having palpitations and shortness of breath that started yesterday morning. He presented to the ER for this. He has had some brief palpitations in the past but not this profound. He was detected to have atrial fibrillation with rapid rate. He has been given oral diltiazem and his rate has slowed down. He has also been commenced on anticoagulation. Today, he states that he is feeling better. Review of Systems Review of Systems: Yes all other systems are reviewed and are negative Cardiovascular: Cardiovascular: Reports as per HPI, Reports no additional c ardiovascular complaints, Denies acrocyanosis, Denies cool extremities, Denies painful fingertips, Denies chest pain, Denies chest pain at rest, Denies diap horesis, Denies syncope, Denies irregular heart rhythm, Denies claudication, Denies leg edema, Denies lightheadedness, Reports palpitations and Reports dyspnea Respiratory: Respiratory: Reports dyspnea Neurologic: Denies syncope Endocrine: Endocrine: Reports palpitations [facility] Past Medical History Medical History (Updated 05/28/20 @ 10:30 by Babak Saba MD) Diabetes mellitus Essential hypertension High cholesterol HTN (hypertension) Type 2 diabetes mellitus with unspecified complications Family History Pertinent family history: Mother and father with diabetes. Father had DC in his 50s. Social History Social History Household Members: Spouse Household Members Other:: 1 Housing: House Do you presently have visiting nurse or other home services: No Alcohol intake: never Smoking Status: Never smoker Use of substances other than those prescribed or required for medical reasons: No Have you been hit, kicked, punched, or otherwise hurt by someone within the past year? If so, by whom?: No Do you feel safe in your current relationship?: No Is there a partner from a previous relationship who is making you feel unsafe now?: No Are you made to feel afraid or neglected: No Advance Directives: Yes Advance Directives Information Provided: Yes Advance Directives on File: No Advance Directives Date on File: 05/27/20 Do you have thoughts of harming others: None Do you have a plan to hurt others: No Plan Recently lost weight without trying: No Meds Allergies Allergy/AdvReac Type Severity Reaction Status Date / Time No Known Allergies Allergy Unverified 11/22/19 17:01 Active Medications: Current Medications Generic Name Dose Route Start Last Admin Trade Name Freq PRN Reason Stop Dose Admin Acetaminophen 650 mg 05/27/20 11:28 Acetaminophen 325 Mg Tablet PO Q6H PRN Pain, Mild (Pain Scale 1-3) Apixaban 5 mg 05/27/20 10:35 05/28/20 08:50 Apixaban 5 Mg Tablet PO 5 mg BID QAMAR Administration Aspirin 81 mg 05/28/20 09:00 05/28/20 08:50 Aspirin Enteric Coated 81 Mg Tablet.Dr PO 81 mg DAILY QAMAR Administration Atorvastatin Calcium 80 mg 05/27/20 21:00 05/27/20 20:56 Atorvastatin Calcium 80 Mg Tablet PO 80 mg BEDTIME QAMAR Administration Diltiazem HCl 30 mg 05/27/20 13:00 05/28/20 08:50 Diltiazem Hcl 30 Mg Tablet PO 30 mg QID [facility] Administration Protocol Insulin Human Lispro 0 unit 05/27/20 11:30 05/28/20 08:23 Insulin Lispro 100 Unit/Ml 3 Ml Vial SUBCUT 2 unit QIDACHS [facility] Administration Protocol Lisinopril 40 mg 05/28/20 09:00 05/28/20 08:50 Lisinopril 40 Mg Tablet PO 40 mg DAILY QAMAR Administration Protocol Metformin HCl 500 mg 05/27/20 17:00 05/28/20 08:50 Metformin Hcl 500 Mg Tablet PO 500 mg BIDWM QAMAR Administration Ondansetron HCl 4 mg 05/27/20 11:28 Ondansetron Hcl 4 Mg/2 Ml Vial IVPUSH Q8H PRN Nausea and Vomiting Pharmacy Consult 1 each 05/27/20 10:07 Consult Rx Perform Med Rec MISCELLANE ONCE PRN Consult order Sodium Chloride 3 ml 05/27/20 16:00 05/28/20 08:51 0.9 % Sodium Chloride Flush 3 Ml Syringe IVFLUSH 3 ml QSHIFT QAMAR Administration Home Medications Medication Instructions Recorded Confirmed Last Taken Type aspirin 81 mg PO DAILY 05/27/20 05/27/20 Unknown History atorvastatin 80 mg PO BEDTIME 05/27/20 05/27/20 Unknown History lisinopril 40 mg PO DAILY 05/27/20 05/27/20 05/27/20 History metformin 500 mg PO BIDWM 05/27/20 05/27/20 Unknown History Physical Exam Vital Signs: Vital Signs: Last Vital Signs Temp 97.7 F 05/28/20 07:50 Pulse 81 05/28/20 08:50 Resp 20 05/28/20 07:50 BP 113/84 05/28/20 08:50 Pulse Ox 95 05/28/20 07:50 Body Mass Index 29.7 Const: General: cooperative, comfortable and no acute distress Orientation/consciousness: patient oriented x3 HENMT: Other: Unremarkable Neck: Neck: Yes normal visual inspection Chest: Chest palpation & inspection: normal inspection of the chest Resp: Auscultation: clear to auscultation bilaterally, no crackles and no wheezes Cardio: Jugular venous distension: no JVD Palpation: normal PMI Heart sounds: S1 normal heart sound present, S2 normal heart sound present, no gallops, no murmurs and no rubs GI: Palpation (GI): Soft to palpation Back/Spine/Pelvis: Other: unremarkable Skin: General skin exam: no rashes or lesions noted Neuro: General: patient oriented x3 Extrem: General: Yes no clubbing, cyanosis or edema Psych: Mental Status: mental status grossly normal Results Labs and Meds Result diagrams: 05/28/20 04:05 05/28/20 04:05 Lab results: Laboratory Results - last 24 hr 05/27/20 05/27/20 05/27/20 08:23 12:42 16:08 WBC RBC Hgb Hct MCV MCH MCHC RDW Plt Count MPV Immature Gran % (Auto) Neut % (Auto) Lymph % (Auto) Snyder % (Auto) Eos % (Auto) Baso % (Auto) Lymph # (Auto) Snyder # (Auto) Eos # (Auto) Baso # (Auto) Abs Immat Gran (auto) Absolute Neuts (auto) Absolute Nucleated RBC Nucleated RBC % (auto) Sodium Potassium Chloride Carbon Dioxide Anion Gap BUN Creatinine Estim Creat Clear Calc Estimated GFR POC Glucose 155 H 134 H Random Glucose Calcium Triglycerides Cholesterol LDL Cholesterol, Calc HDL Cholesterol TSH 1.79 05/27/20 05/28/20 05/28/20 19:27 04:05 04:05 WBC 7.6 RBC 5.16 Hgb 15.9 Hct 46.7 MCV 90.5 MCH 30.8 MCHC 34.0 RDW 12.4 Plt Count 226 MPV 11.2 Immature Gran % (Auto) 0.3 Neut % (Auto) 58.3 Lymph % (Auto) 29.3 Snyder % (Auto) 10.6 Eos % (Auto) 1.1 Baso % (Auto) 0.4 Lymph # (Auto) 2.2 Snyder # (Auto) 0.8 Eos # (Auto) 0.1 Baso # (Auto) 0.0 Abs Immat Gran (auto) 0.02 Absolute Neuts (auto) 4.4 Absolute Nucleated RBC 0.000 Nucleated RBC % (auto) 0.0 Sodium 138 Potassium 4.0 Chloride 101 Carbon Dioxide 23 Anion Gap 18 BUN 19 H Creatinine 1.16 Estim Creat Clear Calc 71.8 Estimated GFR > 60 POC Glucose 180 H Random Glucose 151 H D Calcium 8.7 D Triglycerides 136 Cholesterol 192 LDL Cholesterol, Calc 128 HDL Cholesterol 37 TSH 05/28/20 07:16 WBC RBC Hgb Hct MCV MCH MCHC RDW Plt Count MPV Immature Gran % (Auto) Neut % (Auto) Lymph % (Auto) Snyder % (Auto) Eos % (Auto) Baso % (Auto) Lymph # (Auto) Snyder # (Auto) Eos # (Auto) Baso # (Auto) Abs Immat Gran (auto) Absolute Neuts (auto) Absolute Nucleated RBC Nucleated RBC % (auto) Sodium Potassium Chloride Carbon Dioxide Anion Gap BUN Creatinine Estim Creat Clear Calc Estimated GFR POC Glucose 151 H Random Glucose Calcium Triglycerides Cholesterol LDL Cholesterol, Calc HDL Cholesterol TSH ECG Attestation: I personally reviewed and interpreted this ECG as follows: Interpretation: EKGs reviewed and show atrial fibrillation with rapid rate. Previously, he was in sinus rhythm based on EKG from 05/16/2020. Assessment and Plan (1) Atrial fibrillation with rapid ventricular response: Status: Acute (2) Essential hypertension: Status: Acute (3) Type 2 diabetes mellitus with unspecified complications: Status: Acute Shortness of breath and palpitations due to atrial fibrillation with rapid rate which is new onset. He may have had some paroxysmal episodes before based on periodic palpitations. Continue long-acting diltiazem. Continue Eliquis. It seems that he may have had some hemorrhoidal bleed at times and hence we will need to watch for any recurrences. Echocardiogram with preserved LVEF and no significant valvular pathology. May be discharged home today. We will arrange followup.
--- NOTE | 2020-05-28 11:18 | MHC.CM.PN ---
IMM 05/28/20 MALE 60 DX AFIB RVR. Pt lives with his . He is independent all functional mobility. DP home with [facility] private transport.
[2020-05-28 11:19] LABS: Glucose, Whole Blood 190 mg/dL (60-115)
[2020-05-28 11:40] VITALS: BP 141/97; PULSE 95; RESP 18; TEMP 36.3; O2SAT 96
--- NOTE | 2020-05-28 11:51 | PM.DS ---
DS: Providers Provider Date of Service: 05/28/20 <LEIDY Mcfarlane - Last Filed: 05/28/20 13:13> 05/28/20 <Sander Burt MD - Last Filed: 05/28/20 14:28> Date of admission: 05/27/20 11:28 <LEIDY Mcfarlane - Last Filed: 05/28/20 13:13> Primary care physician: Gregg Cota MD <LEIDY Mcfarlane - Last Filed: 05/28/20 13:13> Consults: 05/27/20 11:28 Consult to Cardiology Routine Consulting Provider: Babak Saba Reason for consultation: new onset afib rvr Has provider been notified: No <LEIDY Mcfarlane - Last Filed: 05/28/20 13:13> DS: Diagnosis Discharge Diagnosis (1) Atrial fibrillation with rapid ventricular response: Status: Acute <LEDIY Mcfarlane - Last Filed: 05/28/20 13:13> (2) Essential hypertension: Status: Acute <LEIDY Mcfarlane - Last Filed: 05/28/20 13:13> (3) Type 2 diabetes mellitus with unspecified complications: Status: Acute <LEIDY Mcfarlane - Last Filed: 05/28/20 13:13> DS: Medications Discharge Medications Home Medications: Home Medications Medication Instructions Recorded Confirmed aspirin 81 mg PO DAILY 05/27/20 05/27/20 atorvastatin 80 mg PO BEDTIME 05/27/20 05/27/20 lisinopril 40 mg PO DAILY 05/27/20 05/27/20 metformin 500 mg PO BIDWM 05/27/20 05/27/20 <LEIDY Mcfarlane - Last Filed: 05/28/20 13:13> DS: Summary Hospital Course Hospital Course: This is a 60 year old male admitted with new onset rapid afib. New onset atrial fibrillation: He was given IV metoprolol in the ED in his heart rate improved. He was started on oral diltiazem. His heart rate has remained controlled since admission. He was seen by Cardiology, who recommended to start long-acting diltiazem and anticoagulation with Eliquis and to stop aspirin. The benefits and risks of anticoagulation were discussed with the patient and he understands and is in agreement. He underwent an echocardiogram which showed preserved LVEF and no significant valvular pathology. He should follow up with Cardiology as an outpatient. Attending Attestation: Patient seen and examined independently and I was present during [place] portion of E/M service. Agree with LEIDY Carney's history, physical, assessment, and plan. 60 yo M admitted for new-onset A. Fib wit RVR. Required IV metoprolol and subsequently transitioned to oral cardizem. OAC with Eliquzahra, CHADSVASC 2 (HTN + DM), asa discontinued. F/u with cardiology in the clinic. <LEIDY Mcfarlane Last Filed: 05/28/20 13:13> Time Spent with Patient Time attestation: Total time spent providing and/or coordinating discharge services: <LEIDY Mcfarlane - Last Filed: 05/28/20 13:13> Discharge coordination time: Greater than 30 minutes <LEIDY Mcfarlane Last Filed: 05/28/20 13:13> Physical Exam Vital Signs: Vital Signs: Last Vital Signs Temp 97.3 F 05/28/20 11:40 Pulse 95 05/28/20 11:40 Resp 18 05/28/20 11:40 BP 141/97 H 05/28/20 11:40 Pulse Ox 96 05/28/20 11:40 Body Mass Index 29.7 <LEIDY Mcfarlane - Last Filed: 05/28/20 13:13> Const: Nutritional Appearance: well nourished <LEIDY Mcfarlane Last Filed: 05/28/20 13:13> Orientation/consciousness: patient oriented x3 <LEIDY Mcfarlane Last Filed: 05/28/20 13:13> HENMT: Head: Yes normocephalic and Yes atraumatic <LEIDY Mcfarlane Last Filed: 05/28/20 13:13> Eyes: Sclerae: sclerae normal <LEIDY Mcfarlane Last Filed: 05/28/20 13:13> Chest: Chest palpation & inspection: normal inspection of the chest <LEIDY Mcfarlane Last Filed: 05/28/20 13:13> Resp: Effort & Inspection: normal respiratory effort and no respiratory distress <LEIDY Mcfarlane - Last Filed: 05/28/20 13:13> Cardio: Rhythm: abnormal rhythm (irregular) <LEIDY Mcfarlane - Last Filed: 05/28/20 13:13> GI: Palpation (GI): Soft to palpation and nontender <LEIDY Mcfarlane - Last Filed: 05/28/20 13:13> Neuro: General: patient oriented x3 <LEIDY Mcfarlane - Last Filed: 05/28/20 13:13> Cranial nerves: Yes CN's II-XII intact bilaterally and Yes Bilaterally intact EOM present <LEIDY Mcfarlane - Last Filed: 05/28/20 13:13> Extrem: General: Yes normal to inspection <LEIDY Mcfarlane - Last Filed: 05/28/20 13:13> DS: Data Data Completed and Pending Labs on day of discharge: Laboratory Results - last 24 hr 05/27/20 05/27/20 05/27/20 08:23 12:42 16:08 WBC RBC Hgb Hct MCV MCH MCHC RDW Plt Count MPV Immature Gran % (Auto) Neut % (Auto) Lymph % (Auto) [place] % (Auto) Eos % (Auto) Baso % (Auto) Lymph # (Auto) [place] # (Auto) Eos # (Auto) Baso # (Auto) Abs Immat Gran (auto) Absolute Neuts (auto) Absolute Nucleated RBC Nucleated RBC % (auto) Sodium Potassium Chloride Carbon Dioxide Anion Gap BUN Creatinine Estim Creat Clear Calc Estimated GFR POC Glucose 155 H 134 H Random Glucose Calcium Triglycerides Cholesterol LDL Cholesterol, Calc HDL Cholesterol TSH 1.79 05/27/20 05/28/20 05/28/20 19:27 04:05 04:05 WBC 7.6 RBC 5.16 Hgb 15.9 Hct 46.7 MCV 90.5 MCH 30.8 MCHC 34.0 RDW 12.4 Plt Count 226 MPV 11.2 Immature Gran % (Auto) 0.3 Neut % (Auto) 58.3 Lymph % (Auto) 29.3 [place] % (Auto) 10.6 Eos % (Auto) 1.1 Baso % (Auto) 0.4 Lymph # (Auto) 2.2 [place] # (Auto) 0.8 Eos # (Auto) 0.1 Baso # (Auto) 0.0 Abs Immat Gran (auto) 0.02 Absolute Neuts (auto) 4.4 Absolute Nucleated RBC 0.000 Nucleated RBC % (auto) 0.0 Sodium 138 Potassium 4.0 Chloride 101 Carbon Dioxide 23 Anion Gap 18 BUN 19 H Creatinine 1.16 Estim Creat Clear Calc 71.8 Estimated GFR > 60 POC Glucose 180 H Random Glucose 151 H D Calcium 8.7 D Triglycerides 136 Cholesterol 192 LDL Cholesterol, Calc 128 HDL Cholesterol 37 TSH 05/28/20 05/28/20 07:16 11:10 WBC RBC Hgb Hct MCV MCH MCHC RDW Plt Count MPV Immature Gran % (Auto) Neut % (Auto) Lymph % (Auto) [place] % (Auto) Eos % (Auto) Baso % (Auto) Lymph # (Auto) [place] # (Auto) Eos # (Auto) Baso # (Auto) Abs Immat Gran (auto) Absolute Neuts (auto) Absolute Nucleated RBC Nucleated RBC % (auto) Sodium Potassium Chloride Carbon Dioxide Anion Gap BUN Creatinine Estim Creat Clear Calc Estimated GFR POC Glucose 151 H 190 H Random Glucose Calcium Triglycerides Cholesterol LDL Cholesterol, Calc HDL Cholesterol TSH <LEIDY Mcfarlane - Last Filed: 05/28/20 13:13> Discharge Plan Discharge Patient Disposition: Home, Self-Care <LEIDY Mcfarlane - Last Filed: 05/28/20 13:13> Referrals: Gregg Cota MD [Primary Care Provider] - <LEIDY Mcfarlane - Last Filed: 05/28/20 13:13> Discharge Medications: New Eliquis 5 mg Tablet 5 mg PO BID 30 Days Qty: 60 RF: 0 diltiazem HCl [Cardizem CD] 120 mg Capsule,Extended Release 24hr 120 mg PO DAILY 30 Days Qty: 30 RF: 0 Continued lisinopril 40 mg Tablet 40 mg PO DAILY RF: 0 atorvastatin 80 mg Tablet 80 mg PO BEDTIME RF: 0 metformin 500 mg Tablet 500 mg PO BIDWM RF: 0 Discontinued aspirin 81 mg Tablet,Delayed Release (Dr/Ec) 81 mg PO DAILY RF: 0 <LEIDY Mcfarlane - Last Filed: 05/28/20 13:13> Discharge Orders: Discharge Order (Routine); Ordered 05/28/20 Ordered By: Ailyn Xie <LEIDY Mcfarlane - Last Filed: 05/28/20 13:13> Diet: advance to usual diet <LEIDY Mcfarlane - Last Filed: 05/28/20 13:13> advance to usual diet <Sander Burt MD - Last Filed: 05/28/20 14:28> Activity on Discharge: As tolerated <LEIDY Mcfarlane - Last Filed: 05/28/20 13:13> As tolerated <Sander Burt MD - Last Filed: 05/28/20 14:28> Stand Alone Forms: Patient Portal Discharge page <LEIDY Mcfarlane - Last Filed: 05/28/20 13:13> Care Plan Goals: See Below <LEIDY Mcfarlane - Last Filed: 05/28/20 13:13> Health Concerns: Atrial fibrillation <LEIDY Mcfarlane - Last Filed: 05/28/20 13:13> Plan of Treatment: Atrial fibrillation with rapid ventricular response. Your heart rate is now controlled. You have been started on a blood thinner Eliquis and a medication to control your heart rate. The microbiology lab manager office will call you to schedule a follow-up appointment. <LEIDY Mcfarlane - Last Filed: 05/28/20 13:13>
--- NOTE | 2020-05-28 13:20 | MHC.CM.PN ---
IMM 05/28/20 Male 60 DX AFIB RVR is discharged to home today no services family will provide transportation.
== END 2020-05-28 15:00 | disposition home or self-care (01) | DRG 310 ==
LOC: HO.ED 10:25 → HO.EDOVER 11:38 → HO.IMC 12:54
PROVIDERS: Nurse Practitioner Acute Care; Physician Assistant; Admitting Provider Family Medicine; Emergency Provider Emergency Medicine Emergency Medical Services; PCP Internal Medicine; Visit Provider Family Medicine
DX: I48.91 Unspecified atrial fibrillation (principal); E78.5 Hyperlipidemia, unspecified; K29.70 Gastritis, unspecified, without bleeding; I10 Essential (primary) hypertension; E11.9 Type 2 diabetes mellitus without complications; Z20.822 Contact with and (suspected) exposure to COVID-19; Z79.01 Long term (current) use of anticoagulants; Z79.84 Long term (current) use of oral hypoglycemic drugs; Z79.899 Other long term (current) drug therapy
CPT/HCPCS: 36415; 71045; 80048; 80061; 81001; 82947; 83735; 83880; 84443; 84484; 85025; 85379; 85610; 85730; 87635; 93005; 93306; 96374; 99285; 99291

== ENCOUNTER → 2020-06-17 14:26 | Outpatient (BNVA) | payer OTHER, SELFPAY | PROVIDERS: PCP Internal Medicine; Visit Provider Internal Medicine | DX: I48.0 Paroxysmal atrial fibrillation (principal); I10 Essential (primary) hypertension; E11.8 Type 2 diabetes mellitus with unspecified complications | CPT/HCPCS: 99212 ==

== ENCOUNTER 2020-08-06 13:46 | Emergency (ER) | payer OTHER, SELFPAY ==
[2020-08-06 14:52] VITALS: BP 155/89; PULSE 62; RESP 18; TEMP 36.7; O2SAT 99; BMI 29.7
--- NOTE | 2020-08-06 14:56 | ECG_ITS ---
Test Reason : WEAK Blood Pressure : / mmHG Vent. Rate : 056 BPM Atrial Rate : 056 BPM P-R Int : 156 ms QRS Dur : 072 ms QT Int : 398 ms P-R-T Axes : 044 -02 001 degrees QTc Int : 384 ms Sinus bradycardia Nonspecific T wave abnormality Abnormal ECG When compared to the previous EKG of Sinus bradycardia present Referred By: Generic ED Physician Electronically Signed By:Henrique Wolfe
[2020-08-06 14:57] LABS: Glucose, Whole Blood 196 mg/dL (60-115)
[2020-08-06 15:07] LABS: MANUAL DIFF FLAG NO
[2020-08-06 15:10] LABS: Basophils Percent Auto 0.2 % (0-2); Eosinophils Absolute Auto 0.1 X10*3/uL (0.0-0.4); Eosinophils Percent Auto 0.8 % (0-4); Hematocrit 39.2 % (42-52); Hemoglobin 13.3 g/dl (14.0-18.0); Imm Gran Abs Auto 0.01 X10*3/uL (0.00-0.03); Imm Gran Pct Auto 0.2 % (0.0-0.4); Lymphocytes Absolute Auto 1.2 X10*3/uL (1.2-4.9); Lymphocytes Percent Auto 19.3 % (20-40); Mean Corpuscular HGB Conc 33.9 g/dl (31.0-36.0); Mean Corpuscular Hemoglobin 30.9 pg (27.0-33.0); Mean Platelet Volume 11.2 fL (9.4-12.4); Monocytes Absolute Auto 0.7 X10*3/uL (0.1-1.2); Monocytes Percent Auto 10.8 % (2-11); Neutrophils Absolute Auto 4.3 X10*3/uL (2.0-8.3); Neutrophils Percent Auto 68.7 % (45-73); Platelet Count 178 X10*3/uL (160-400); Red Blood Count 4.31 X10*6/uL (4.60-5.80); Red Cell Distribution Width 12.8 % (11.0-16.0); White Blood Count 6.3 X10*3/uL (4.8-10.8)
[2020-08-06 15:15] LABS: INTERNATIONAL NORM RATIO 1.2 (0.9-1.1); Prothrombin Time 14.1 SEC (10.8-13.0)
[2020-08-06 15:39] LABS: Anion Gap 13 (12-20); Blood Urea Nitrogen 16 mg/dL (9-16); Calcium 8.6 mg/dL (8.4-10.2); Carbon Dioxide 26 mmol/L (22-29); Chloride 100 mmol/L (96-108); Creatinine Clr Calc Pharmacy 56.3; Estimated Glomerular Filt Rate 51; Glucose Random 211 mg/dL (60-115); Potassium 3.9 mmol/L (3.3-5.1); Sodium 135 mmol/L (135-145)
[2020-08-06 15:41] LABS: Troponin-I High Sensitivity 5.8 ng/L (<3.5-35.0)
[2020-08-06 16:00] VITALS: BP 149/85; PULSE 57; RESP 17; O2SAT 97
--- NOTE | 2020-08-06 16:12 | ED_ITS ---
HPI - Weakness General Chief complaint: Weakness Stated complaint: diabetic, no energy Time Seen by Provider: 08/06/20 16:11 Source: patient Mode of arrival: ambulatory Limitations: language barrier History of Present Illness HPI Narrative: Patient with history of diabetes atrial fibrillation been feeling weak for last few days with cold symptoms also having diarrhea today had 3 bowel movements feel nauseated no focal abdominal pain is diffuse cramping, no fever no chills no cough or shortness of breath patient's is also sick with same symptoms patient has not received COVID vaccine Related Data Home Medications Medication Instructions Recorded Confirmed atorvastatin 80 mg PO BEDTIME 05/27/20 06/17/20 lisinopril 40 mg PO DAILY 05/27/20 06/17/20 metformin 500 mg PO BIDWM 05/27/20 06/17/20 Previous Rx's Medication Instructions Recorded diltiazem HCl 120 mg 120 mg PO DAILY 90 Days #90 cap 06/26/20 capsule,extended release 24 hr apixaban 5 mg tablet 5 mg PO BID 90 Days #180 tab 06/30/20 ondansetron 4 mg PO Q6-8H PRN #12 tab 08/06/20 Allergies Allergy/AdvReac Type Severity Reaction Status Date / Time No Known Allergies Allergy Verified 06/17/20 15:03 Review of Systems Review of Systems: Constitutional : No Weight loss, No Fever, No Chills ENT/Mouth : No sore throat, No Rhinorrhea Eyes: No Eye Pain, No Swelling Cardiovascular : No Chest Pain, no palpitations Respiratory : No Cough, No Sputum, no shortness of breath Gastrointestinal : + Nausea, No Vomiting, + Diarrhea, + abdominal Pain, no black stools Genitourinary : No Dysuria, No Urinary Frequency Musculoskeletal : No joint pain, No Myalgias, No Joint Swelling Skin : No Skin Lesions, No rash Neuro : +Weakness, No Numbness, No Dizziness, No Headache Psych : No Anxiety/Panic, No Depression Heme/Lymph: No Bruising, No Lymphadenopathy Endocrine : No Polyuria, No Polydipsia All other systems reviewed and are negative [facility] Past Medical History Medical History Diabetes mellitus Essential hypertension High cholesterol HTN (hypertension) PAF (paroxysmal atrial fibrillation) Type 2 diabetes mellitus with unspecified complications Social History Social History Household Members: Spouse Household Members Other:: 1 Housing: House Do you presently have visiting nurse or other home services: No Alcohol intake: never Patient Tobacco Use Status: Never used Tobacco Use of substances other than those prescribed or required for medical reasons: No Advance Directives: Yes Advance Directives on File: Yes Advance Directives Date on File: 05/27/20 service: No Current occupational status: unemployed Physical Exam Vital Signs: Vital Signs: Last Vital Signs Temp 98.0 F 08/06/20 14:52 Pulse 54 08/06/20 17:08 Resp 16 08/06/20 17:08 BP 147/84 H 08/06/20 17:08 Pulse Ox 98 08/06/20 17:08 Body Mass Index 29.7 Appearance: Alert. Oriented X3. No acute distress. Eyes: PERRLA, No Nystagmus ENT: Pharynx normal. Oral Mucosa moist Neck: Normal inspection. Neck supple. CVS: Normal heart rate and rhythm. Pulses normal. Respiratory: No respiratory distress. Equal air entry bilateral, no wheezing/rales/rhonchi Abdomen: Soft and nontender. Bowel sounds are present, no mass palpable, no CVA tenderness Skin: Skin warm and dry. Normal skin color. Normal skin turgor. Extremities: No lower extremity edema. No calf tenderness Neuro: Oriented X 3. No motor deficit. No sensory deficit.No cerebellar signs , cranial nerves II-XII intact MDM - Weakness MDM Narrative Medical decision making narrative: Patient COVID positive saturating 99% at room air lungs are clear patient advised to self isolate report to the ER if shortnes s of breath Lab Data Attestation: I reviewed the patient's lab results. Result diagrams: 08/06/20 15:02 08/06/20 15:02 Labs: Lab Results 08/06/20 08/06/20 08/06/20 Range/Units 14:50 15:02 15:02 WBC 6.3 (4.8-10.8) X10*3/uL RBC 4.31 L (4.60-5.80) X10*6/uL Hgb 13.3 L (14.0-18.0) g/dl Hct 39.2 L (42-52) % MCV 91.0 (80-98) fL MCH 30.9 (27.0-33.0) pg MCHC 33.9 (31.0-36.0) g/dl RDW 12.8 (11.0-16.0) % Plt Count 178 (160-400) X10*3/uL MPV 11.2 (9.4-12.4) fL Immature Gran % (Auto) 0.2 (0.0-0.4) % Neut % (Auto) 68.7 (45-73) % Lymph % (Auto) 19.3 L (20-40) % [place] % (Auto) 10.8 (2-11) % Eos % (Auto) 0.8 (0-4) % Baso % (Auto) 0.2 (0-2) % Lymph # (Auto) 1.2 (1.2-4.9) X10*3/uL [place] # (Auto) 0.7 (0.1-1.2) X10*3/uL Eos # (Auto) 0.1 (0.0-0.4) X10*3/uL Baso # (Auto) 0.0 (0.0-0.2) X10*3/uL Abs Immat Gran (auto) 0.01 (0.00-0.03) X10*3/uL Absolute Neuts (auto) 4.3 (2.0-8.3) X10*3/uL Absolute Nucleated RBC 0.000 (0.0-0.012) X10*3/uL Nucleated RBC % (auto) 0.0 (0.0-0.2) /100WBC PT (10.8-13.0) SEC INR (0.9-1.1) Sodium 135 (135-145) mmol/L Potassium 3.9 (3.3-5.1) mmol/L Chloride 100 (96-108) mmol/L Carbon Dioxide 26 (22-29) mmol/L Anion Gap 13 (12-20) BUN 16 (9-16) mg/dL Creatinine 1.43 H (0.5-1.4) mg/dL Estim Creat Clear Calc 56.3 Estimated GFR 51 POC Glucose 196 H (60-115) mg/dL Random Glucose 211 H D (60-115) mg/dL Calcium 8.6 (8.4-10.2) mg/dL Troponin I High Sens (<3.5-35.0) ng/L COVID-19 ([facility]) (Negative) COVID-19 Clin Com 08/06/20 08/06/20 08/06/20 Range/Units 15:02 15:02 17:48 WBC (4.8-10.8) X10*3/uL RBC (4.60-5.80) X10*6/uL Hgb (14.0-18.0) g/dl Hct (42-52) % MCV (80-98) fL MCH (27.0-33.0) pg MCHC (31.0-36.0) g/dl RDW (11.0-16.0) % Plt Count (160-400) X10*3/uL MPV (9.4-12.4) fL Immature Gran % (Auto) (0.0-0.4) % Neut % (Auto) (45-73) % Lymph % (Auto) (20-40) % [place] % (Auto) (2-11) % Eos % (Auto) (0-4) % Baso % (Auto) (0-2) % Lymph # (Auto) (1.2-4.9) X10*3/uL [place] # (Auto) (0.1-1.2) X10*3/uL Eos # (Auto) (0.0-0.4) X10*3/uL Baso # (Auto) (0.0-0.2) X10*3/uL Abs Immat Gran (auto) (0.00-0.03) X10*3/uL Absolute Neuts (auto) (2.0-8.3) X10*3/uL Absolute Nucleated RBC (0.0-0.012) X10*3/uL Nucleated RBC % (auto) (0.0-0.2) /100WBC PT 14.1 H (10.8-13.0) SEC INR 1.2 H (0.9-1.1) Sodium (135-145) mmol/L Potassium (3.3-5.1) mmol/L Chloride (96-108) mmol/L Carbon Dioxide (22-29) mmol/L Anion Gap (12-20) BUN (9-16) mg/dL Creatinine (0.5-1.4) mg/dL Estim Creat Clear Calc Estimated GFR POC Glucose (60-115) mg/dL Random Glucose (60-115) mg/dL Calcium (8.4-10.2) mg/dL Troponin I High Sens 5.8 (<3.5-35.0) ng/L COVID-19 ([facility]) Positive A (Negative) COVID-19 Clin Com See Note Discharge Plan Discharge Clinical Impression: COVID-19 Patient Disposition: Home, Self-Care Instructions: COVID-19 (Coronavirus Disease 2019) (ED) Additional Instructions: Drink plenty of fluids report to ER if increased shortness of breath Prescriptions: New ondansetron 4 mg tablet,disintegrating 4 mg PO Q6-8H PRN (Reason: Vomiting) Qty: 12 RF: 0 No Action diltiazem HCl [Cardizem CD] 120 mg capsule,extended release 24hr 120 mg PO DAILY 90 Days Qty: 90 RF: 3 Eliquis 5 mg tablet 5 mg PO BID 90 Days Qty: 180 RF: 1 lisinopril 40 mg Tablet 40 mg PO DAILY RF: 0 atorvastatin 80 mg Tablet 80 mg PO BEDTIME RF: 0 metformin 500 mg Tablet 500 mg PO BIDWM RF: 0 Print Language: [place]
[2020-08-06 17:08] VITALS: BP 147/84; PULSE 54; RESP 16; O2SAT 98
[2020-08-06] MEDS: 0.9 % Sodium Chloride 1,000 ML 999 ML IVCONT (17:08)
[2020-08-06 18:08] LABS: COVID-19 Test Positive (Negative); IDNOW Serial# 9DD0AD1C
== END 2020-08-06 18:33 | disposition home or self-care (01) ==
PROVIDERS: Emergency Provider Internal Medicine; PCP Internal Medicine
DX: U07.1 COVID-19 (principal); R53.1 Weakness; E11.9 Type 2 diabetes mellitus without complications; I10 Essential (primary) hypertension; E78.5 Hyperlipidemia, unspecified; I48.0 Paroxysmal atrial fibrillation; Z79.02 Long term (current) use of antithrombotics/antiplatelets; Z79.84 Long term (current) use of oral hypoglycemic drugs; Z79.899 Other long term (current) drug therapy
CPT/HCPCS: 36415; 80048; 82947; 84484; 85025; 85610; 87635; 93005; 96360; 99284

== ENCOUNTER 2020-08-13 07:30 | Inpatient (IN) | payer OTHER, SELFPAY ==
--- NOTE | ~2020-08-13 | CT_ITS ---
EXAMINATION: CT CHEST WITHOUT CONTRAST CLINICAL INFORMATION: Shortness of breath and hypoxia. COVID infection. COMPARISON: Previous chest x-rays most recent earlier the same day. TECHNIQUE: Multidetector volumetric CT imaging of the chest was done. Axial MIP volume rendering provided. Sagittal and coronal reformatted images were obtained. This CT examination was performed using dose optimization techniques as appropriate, variously including the following: *Automated exposure control *Adjustment of mA and/or kV according to patient size (this includes techniques or standardized protocols for targeted exams where dose is matched to indication/reason for exam; i.e. extremities or head) *Use of iterative reconstruction technique DLP: 277 mGy-cm. FINDINGS: LUNGS: There are bilateral peripheral mixed ground-glass attenuation and more solid-appearing infiltrates. This is greatest at the lung bases. Findings are compatible with COVID infection. MEDIASTINUM: The heart is upper normal in size. There are small mediastinal lymph nodes. There is very minimal coronary artery calcification. The mediastinum is otherwise normal. PLEURA: There is no pleural effusion. No pleural mass or thickening. AXILLA: No lymphadenopathy. UPPER ABDOMEN: The spleen is not completely imaged but appears prominent. OSSEOUS STRUCTURES: There are degenerative changes of the spine. CT/CT chest wo con IMPRESSION: Bilateral peripheral ground-glass attenuation and more solid-appearing infiltrates compatible with COVID infection. Upper normal-size heart. Question prominent spleen.
--- NOTE | ~2020-08-13 | XR_ITS ---
EXAMINATION: XR CHEST CLINICAL INFORMATION: Hypoxia.] Positive. COMPARISON: Chest 05/27/2020 TECHNIQUE: Frontal view of the chest was obtained. FINDINGS: The lungs are hypoexpanded with new bibasilar patchy opacities suggestive of developing infiltrates. The upper lungs are clear. The heart size is borderline normal. Pulmonary vascularity is normal. No gross bony abnormality. XR/XR chest 1V IMPRESSION: Bibasilar patchy opacities developing infiltrates. There are new since previous study 05/27/2020 and
--- NOTE | ~2020-08-13 | XR_ITS ---
EXAMINATION: XR CHEST CLINICAL INFORMATION: Shortness of breath COMPARISON: 08/13/2020 TECHNIQUE: Frontal view of the chest was obtained. FINDINGS: Lung volumes are symmetric. Patchy opacities in the left lung base appear mildly decreased from 08/13/2020. Persistent patchy opacities of the mid to lower right lung. No evidence of pneumothorax or significant pleural effusion. The cardiomediastinal contour is unremarkable. No acute osseous findings are seen. XR/XR chest 1V IMPRESSION: Redemonstrated patchy bibasilar opacities, slightly improved on the left since 08/13/2020.
--- NOTE | ~2020-08-13 | CT_ITS ---
EXAMINATION: CT ABDOMEN AND PELVIS WITHOUT CONTRAST CLINICAL INFORMATION: Left-sided abdominal pain, nausea, vomiting, diarrhea for 9 days. COMPARISON: Chest radiographs 08/13/2020, abdominal ultrasound 01/22/2015 TECHNIQUE: Multidetector volumetric imaging was performed from the superior aspect of the liver through the pubic symphysis. Sagittal and coronal reformatted images were obtained on the technologist's workstation. CT chest also performed and described in separate report. This CT examination was performed using dose optimization techniques as appropriate, variously including the following: *Automated exposure control *Adjustment of mA and/or kV according to patient size (this includes techniques or standardized protocols for targeted exams where dose is matched to indication/reason for exam; i.e. extremities or head) *Use of iterative reconstruction technique DLP: 277 mGy-cm FINDINGS: LUNG BASES: There are patchy bilateral basilar airspace opacities extending beyond field of view. No effusion. See CT chest for further evaluation. LIVER, GALLBLADDER, AND BILIARY TREE: The liver is normal in size, shape, and attenuation. No focal hepatic lesion or biliary ductal dilatation is present. The gallbladder is unremarkable with no evidence of radiopaque gallstones, gallbladder wall thickening, or obvious pericholecystic inflammatory changes. PANCREAS: Unremarkable. SPLEEN: Unremarkable. ADRENAL GLANDS: Unremarkable. KIDNEYS AND URETERS: The kidneys are normal in size and contour. There are no urinary tract calculi. No hydronephrosis or perinephric stranding. There are 2 probable small cysts left kidney, each just under 1 cm. BLADDER: Unremarkable. GASTROINTESTINAL TRACT: There is no bowel obstruction or focal inflammatory changes. No bowel wall thickening and pneumatosis or free air. Appendix unremarkable. No ascites or fluid collection. ABDOMINAL WALL: No significant hernia is appreciated. LYMPH NODES: No lymphadenopathy. VASCULAR: Unremarkable. PELVIC VISCERA: Unremarkable. OSSEOUS STRUCTURES: No acute bony abnormality. CT/CT abdomen pelvis wo con IMPRESSION: 1. No bowel obstruction or inflammatory changes in abdomen or pelvis. 2. No urinary tract calculi, hydronephrosis, or perinephric stranding. 3. Bibasilar patchy airspace opacities. See CT chest for further information.
[2020-08-13 07:44] VITALS: BP 128/72; PULSE 78; RESP 18; TEMP 39.3; O2SAT 92; BMI 29.8
[2020-08-13] MEDS: 0.9 % Sodium Chloride 1,000 ML 999 ML IVCONT (08:12)
[2020-08-13] MEDS: Acetaminophen 325 MG TABLET 975 MG PO (08:13)
--- NOTE | 2020-08-13 08:27 | ED.GENADULT ---
HPI - General Adult General Chief complaint: General Medical Stated complaint: abd pain, weakness, covid + Time Seen by Provider: 08/13/20 08:01 Source: patient Mode of arrival: ambulatory Limitations: no limitations History of Present Illness HPI narrative: 60 y/o male with history of paroxysmal atrial fibrillation on Eliquis, HTN, HLD, DM who was diagnosed with COVID-19 on 08/06 presents to the ER with ongoing abdominal pain, nausea, vomiting, diarrhea for the last 8 days. He also reports SOB, cough and post tussive vomiting episodes. He has a pounding headache as well. He has not been able to eat in several days. He is short of breath with exertion and bringing up clear phlegm. No chest pain. SpO2 90-92% on room air at rest on arrival. No respiratory distress. MD complaint: abdominal pain, N/V/D, SOB Onset (ago): day(s) (10-13) Location: head Radiation: non-radiation Severity: moderate Quality: aching Pain Consistency: constant Relieving factors: none Exacerbating factors: none Associated symptoms: cough, fever/chills, headaches, loss of appetite, malaise, nausea/vomiting, shortness of breath and weakness Treatments prior to arrival: none Related Data Home Medications Medication Instructions Recorded Confirmed atorvastatin 80 mg PO BEDTIME 05/27/20 06/17/20 lisinopril 40 mg PO DAILY 05/27/20 06/17/20 metformin 500 mg PO BIDWM 05/27/20 06/17/20 Previous Rx's Medication Instructions Recorded diltiazem HCl 120 mg 120 mg PO DAILY 90 Days #90 cap 06/26/20 capsule,extended release 24 hr apixaban 5 mg tablet 5 mg PO BID 90 Days #180 tab 06/30/20 ondansetron 4 mg PO Q6-8H PRN #12 tab 08/06/20 Allergies Allergy/AdvReac Type Severity Reaction Status Date / Time No Known Allergies Allergy Verified 06/17/20 15:03 Review of Systems Review of Systems: Constitutional: +Fever, + Chills ENT/Mouth: No sore throat, No Rhinorrhea, No Swallowing Difficulty Eyes: No Eye Pain, No Swelling, No Redness Cardiovascular: No Chest Pain, No SOB, No Orthopnea, No Edema Respiratory: + Cough, + Sputum, No Wheezing, + dyspnea Gastrointestinal: + Nausea, + Vomiting, + Diarrhea, + abdominal Pain, No Hematochezia, No Melena Genitourinary: No Dysuria, No Urinary Frequency, No Hematuria Musculoskeletal: No joint pain, + Myalgias Skin: No Skin Lesions, No rash Neuro: + Weakness, No Numbness, No Dizziness, + Headache Psych: No Anxiety/Panic, No Depression Heme/Lymph: No Bruising, No Lymphadenopathy Endocrine: No Polyuria, No Polydipsia [facility] Past Medical History Attestation statement: The following information was validated with the patient. Medical History Diabetes mellitus Essential hypertension High cholesterol HTN (hypertension) PAF (paroxysmal atrial fibrillation) Type 2 diabetes mellitus with unspecified complications Social History Social History Household Members: Spouse Household Members Other:: 1 Housing: House Do you presently have visiting nurse or other home services: No Alcohol intake: never Patient Tobacco Use Status: Never used Tobacco Advance Directives: No Advance Directives Information Provided: No Advance Directives Date on File: 05/27/20 service: No Current occupational status: unemployed Physical Exam Vital Signs: Vital Signs: Last Vital Signs Temp 101.4 F H 08/13/20 09:10 Pulse 68 08/13/20 09:10 Resp 18 08/13/20 09:10 BP 118/65 08/13/20 09:10 Pulse Ox 94 08/13/20 09:12 Body Mass Index 29.8 Appearance: Alert. Oriented X3. Diaphoretic Eyes: Pupils equal, round and reactive to light. ENT: Pharynx with dry mucus membranes. Neck: Normal inspection. Neck supple. CVS: Normal heart rate and rhythm. Pulses normal. Respiratory: No respiratory distress. Breath sounds coarse at the bilateral bases. Abdomen: Softly distended with epigastric tenderness to deep palpation. +BS x4 Skin: Skin warm and dry. Normal skin color. Normal skin turgor. No rashes. Extremities: No lower extremity edema. Negative Clarke's sign Neuro: Oriented X 3. No motor deficit. No sensory deficit. Generalized weakness noted. Course Course Course Narrative: 60 y/o male with known COVID-19 diagnosed on 08/06 (had symptoms for several day prior to diagnosis) presenting with ongoing abdominal pain, inability to tolerate PO and hypoxia. SpO2 90% at rest on room air, placed on supplemental oxygen. He is anticoagulated with Eliquis for PAF and has been compliant. Doubt PE. Will get CXR, labs and CT scans for further evalution. Febrile to 102.7 on arrival - due to COVID infection, not bacterial process. No evidence of severe sepsis at this time. Will require admission. Reevaluation(s) Reevaluation #1: CXR with patchy opacities. IV decadron ordered as well as GI cocktail for burning abdominal pain. CT abd is unremarkable. CT chest showing patchy infiltrates. On 1-2L NC with SpO2 in the low-mid 90's. Will plan for admission. TT Dr. Valero for admission. Medical Decision Making Lab Data Result diagrams: 08/13/20 08:58 08/13/20 08:57 Labs: Lab Results 08/13/20 08/13/20 08/13/20 Range/Units 08:56 08:57 08:57 WBC (4.8-10.8) X10*3/uL RBC (4.60-5.80) X10*6/uL Hgb (14.0-18.0) g/dl Hct (42-52) % MCV (80-98) fL MCH (27.0-33.0) pg MCHC (31.0-36.0) g/dl RDW (11.0-16.0) % Plt Count (160-400) X10*3/uL MPV (9.4-12.4) fL Immature Gran % (Auto) (0.0-0.4) % Neut % (Auto) (45-73) % Lymph % (Auto) (20-40) % [place] % (Auto) (2-11) % Eos % (Auto) (0-4) % Baso % (Auto) (0-2) % Lymph # (Auto) (1.2-4.9) X10*3/uL [place] # (Auto) (0.1-1.2) X10*3/uL Eos # (Auto) (0.0-0.4) X10*3/uL Baso # (Auto) (0.0-0.2) X10*3/uL Abs Immat Gran (auto) (0.00-0.03) X10*3/uL Absolute Neuts (auto) (2.0-8.3) X10*3/uL Absolute Nucleated RBC (0.0-0.012) X10*3/uL Nucleated RBC % (auto) (0.0-0.2) /100WBC Hold Blue Top SEE NOTE Sodium 136 (135-145) mmol/L Potassium 3.6 (3.3-5.1) mmol/L Chloride 101 (96-108) mmol/L Carbon Dioxide 27 (22-29) mmol/L Anion Gap 12 (12-20) BUN 10 (9-16) mg/dL Creatinine 1.14 (0.5-1.4) mg/dL Estim Creat Clear Calc 70.9 Estimated GFR > 60 Random Glucose 128 H D (60-115) mg/dL Lactic Acid 1.2 (0.5-2.0) mmol/L Calcium 7.8 L D (8.4-10.2) mg/dL Magnesium 1.6 (1.6-2.6) mg/dL Total Bilirubin 0.6 (0.0-1.0) mg/dL Direct Bilirubin 0.3 (0.0-0.5) mg/dL AST 64 H (5-37) U/L ALT 55 H (0-40) U/L Alkaline Phosphatase 78 D (39-117) U/L Total Protein 6.5 (6.5-8.0) g/dL Albumin 3.5 (3.5-5.0) g/dL Procalcitonin ng/mL Urine Color Urine Appearance Urine pH (5.0-8.0) Ur Specific [place] (1.005-1.025) Urine Protein (NEG-TRACE) MG/DL Urine Glucose (UA) (NEG) MG/DL Urine Ketones (NEG) MG/DL Urine Blood (NEG) Urine Nitrite (NEG) Ur Leukocyte Esterase (NEG) Urine RBC (0) /HPF Urine WBC (0-4) /HPF Ur Squamous Epith Cells /LPF Urine Bacteria /LPF COVID-19 (TAIWO) (Negative) COVID-19 Clin Com 08/13/20 08/13/20 08/13/20 Range/Units 08:57 08:57 08:57 WBC (4.8-10.8) X10*3/uL RBC (4.60-5.80) X10*6/uL Hgb (14.0-18.0) g/dl Hct (42-52) % MCV (80-98) fL MCH (27.0-33.0) pg MCHC (31.0-36.0) g/dl RDW (11.0-16.0) % Plt Count (160-400) X10*3/uL MPV (9.4-12.4) fL Immature Gran % (Auto) (0.0-0.4) % Neut % (Auto) (45-73) % Lymph % (Auto) (20-40) % [place] % (Auto) (2-11) % Eos % (Auto) (0-4) % Baso % (Auto) (0-2) % Lymph # (Auto) (1.2-4.9) X10*3/uL [place] # (Auto) (0.1-1.2) X10*3/uL Eos # (Auto) (0.0-0.4) X10*3/uL Baso # (Auto) (0.0-0.2) X10*3/uL Abs Immat Gran (auto) (0.00-0.03) X10*3/uL Absolute Neuts (auto) (2.0-8.3) X10*3/uL Absolute Nucleated RBC (0.0-0.012) X10*3/uL Nucleated RBC % (auto) (0.0-0.2) /100WBC Hold Blue Top Sodium (135-145) mmol/L Potassium (3.3-5.1) mmol/L Chloride (96-108) mmol/L Carbon Dioxide (22-29) mmol/L Anion Gap (12-20) BUN (9-16) mg/dL Creatinine (0.5-1.4) mg/dL Estim Creat Clear Calc Estimated GFR Random Glucose (60-115) mg/dL Lactic Acid (0.5-2.0) mmol/L Calcium (8.4-10.2) mg/dL Magnesium (1.6-2.6) mg/dL Total Bilirubin (0.0-1.0) mg/dL Direct Bilirubin (0.0-0.5) mg/dL AST (5-37) U/L ALT (0-40) U/L Alkaline Phosphatase (39-117) U/L Total Protein (6.5-8.0) g/dL Albumin (3.5-5.0) g/dL Procalcitonin 0.20 ng/mL Urine Color YELLOW Urine Appearance CLEAR Urine pH 6.0 (5.0-8.0) Ur Specific [place] <= 1.005 (1.005-1.025) Urine Protein 1+ H (NEG-TRACE) MG/DL Urine Glucose (UA) NEG (NEG) MG/DL Urine Ketones NEG (NEG) MG/DL Urine Blood 1+ H (NEG) Urine Nitrite NEG (NEG) Ur Leukocyte Esterase NEG (NEG) Urine RBC 1-4 (0) /HPF Urine WBC 0-2 (0-4) /HPF Ur Squamous Epith Cells TRACE /LPF Urine Bacteria NONE /LPF COVID-19 (TAIWO) Positive A (Negative) COVID-19 Clin Com See Note 08/13/20 Range/Units 08:58 WBC 7.4 (4.8-10.8) X10*3/uL RBC 3.72 L (4.60-5.80) X10*6/uL Hgb 11.4 L (14.0-18.0) g/dl Hct 33.2 L (42-52) % MCV 89.2 (80-98) fL MCH 30.6 (27.0-33.0) pg MCHC 34.3 (31.0-36.0) g/dl RDW 12.9 (11.0-16.0) % Plt Count 144 L (160-400) X10*3/uL MPV 10.8 (9.4-12.4) fL Immature Gran % (Auto) 0.4 (0.0-0.4) % Neut % (Auto) 79.6 H (45-73) % Lymph % (Auto) 13.3 L (20-40) % [place] % (Auto) 6.6 (2-11) % Eos % (Auto) 0.0 (0-4) % Baso % (Auto) 0.1 (0-2) % Lymph # (Auto) 1.0 L (1.2-4.9) X10*3/uL [place] # (Auto) 0.5 (0.1-1.2) X10*3/uL Eos # (Auto) 0.0 (0.0-0.4) X10*3/uL Baso # (Auto) 0.0 (0.0-0.2) X10*3/uL Abs Immat Gran (auto) 0.03 (0.00-0.03) X10*3/uL Absolute Neuts (auto) 5.9 (2.0-8.3) X10*3/uL Absolute Nucleated RBC 0.000 (0.0-0.012) X10*3/uL Nucleated RBC % (auto) 0.0 (0.0-0.2) /100WBC Hold Blue Top Sodium (135-145) mmol/L Potassium (3.3-5.1) mmol/L Chloride (96-108) mmol/L Carbon Dioxide (22-29) mmol/L Anion Gap (12-20) BUN (9-16) mg/dL Creatinine (0.5-1.4) mg/dL Estim Creat Clear Calc Estimated GFR Random Glucose (60-115) mg/dL Lactic Acid (0.5-2.0) mmol/L Calcium (8.4-10.2) mg/dL Magnesium (1.6-2.6) mg/dL Total Bilirubin (0.0-1.0) mg/dL Direct Bilirubin (0.0-0.5) mg/dL AST (5-37) U/L ALT (0-40) U/L Alkaline Phosphatase (39-117) U/L Total Protein (6.5-8.0) g/dL Albumin (3.5-5.0) g/dL Procalcitonin ng/mL Urine Color Urine Appearance Urine pH (5.0-8.0) Ur Specific [place] (1.005-1.025) Urine Protein (NEG-TRACE) MG/DL Urine Glucose (UA) (NEG) MG/DL Urine Ketones (NEG) MG/DL Urine Blood (NEG) Urine Nitrite (NEG) Ur Leukocyte Esterase (NEG) Urine RBC (0) /HPF Urine WBC (0-4) /HPF Ur Squamous Epith Cells /LPF Urine Bacteria /LPF COVID-19 (TAIWO) (Negative) COVID-19 Clin Com Discharge Plan Discharge Clinical Impression: COVID-19 Patient Disposition: Admitted As Inpatient
[2020-08-13] MEDS: dexAMETHasone sod phosphate 4 MG/ML VIAL 6 MG IVPUSH (09:08)
[2020-08-13] MEDS: ondansetron HCL 4 MG/2 ML VIAL IVPUSH (09:08)
[2020-08-13 09:10] VITALS: BP 118/65; PULSE 68; RESP 18; TEMP 38.6; O2SAT 90
[2020-08-13 09:12] VITALS: O2SAT 94
[2020-08-13 09:15] LABS: MANUAL DIFF FLAG NO
[2020-08-13 09:16] LABS: Basophils Percent Auto 0.1 % (0-2); Hematocrit 33.2 % (42-52); Hemoglobin 11.4 g/dl (14.0-18.0); Imm Gran Abs Auto 0.03 X10*3/uL (0.00-0.03); Imm Gran Pct Auto 0.4 % (0.0-0.4); Lymphocytes Percent Auto 13.3 % (20-40); Mean Corpuscular HGB Conc 34.3 g/dl (31.0-36.0); Mean Corpuscular Hemoglobin 30.6 pg (27.0-33.0); Mean Corpuscular Volume 89.2 fL (80-98); Mean Platelet Volume 10.8 fL (9.4-12.4); Monocytes Absolute Auto 0.5 X10*3/uL (0.1-1.2); Monocytes Percent Auto 6.6 % (2-11); Neutrophils Absolute Auto 5.9 X10*3/uL (2.0-8.3); Neutrophils Percent Auto 79.6 % (45-73); Platelet Count 144 X10*3/uL (160-400); Red Blood Count 3.72 X10*6/uL (4.60-5.80); Red Cell Distribution Width 12.9 % (11.0-16.0); White Blood Count 7.4 X10*3/uL (4.8-10.8)
[2020-08-13 09:18] LABS: Glucose Urine UA NEG (NEG); Leukocyte Esterase Urine NEG (NEG); Nitrite Urine NEG (NEG); Specific Gravity - Urine <= 1.005 (1.005-1.025); Urine Blood 1+ (NEG); Urine Ketones NEG (NEG); Urine Protein 1+ MG/DL (NEG-TRACE)
[2020-08-13 09:19] LABS: Appearance Urine CLEAR; Color Urine YELLOW
[2020-08-13 09:29] LABS: Squamous Epithelial Cell Urine TRACE /LPF; WBC Urine 0-2 /HPF (0-4)
[2020-08-13 09:33] LABS: Lactic Acid 1.2 mmol/L (0.5-2.0)
[2020-08-13 09:37] LABS: COVID-19 Test Positive (Negative)
[2020-08-13 10:12] LABS: Alanine Aminotransferase 55 U/L (0-40); Albumin Level 3.5 g/dL (3.5-5.0); Alkaline Phosphatase 78 U/L (39-117); Anion Gap 12 (12-20); Aspartate Amino Transferase 64 U/L (5-37); Bilirubin Direct 0.3 mg/dL (0.0-0.5); Bilirubin Total 0.6 mg/dL (0.0-1.0); Blood Urea Nitrogen 10 mg/dL (9-16); Calcium 7.8 mg/dL (8.4-10.2); Carbon Dioxide 27 mmol/L (22-29); Chloride 101 mmol/L (96-108); Creatinine Clr Calc Pharmacy 70.9; Estimated Glomerular Filt Rate > 60; Glucose Random 128 mg/dL (60-115); Magnesium 1.6 mg/dL (1.6-2.6); Potassium 3.6 mmol/L (3.3-5.1); Sodium 136 mmol/L (135-145); Total Protein 6.5 g/dL (6.5-8.0)
[2020-08-13 12:00] VITALS: BP 118/66; PULSE 67; RESP 18; TEMP 37.1; O2SAT 97
[2020-08-13 18:39] LABS: Lactate Dehydrogenase 420 U/L (118-273)
[2020-08-13 19:02] LABS: Ferritin 701 ng/mL (20-250)
[2020-08-13 20:09] VITALS: BP 149/78; PULSE 80; RESP 20; TEMP 36.8; O2SAT 93
[2020-08-13 20:21] LABS: Glucose, Whole Blood 313 mg/dL (60-115)
[2020-08-13 20:44] LABS: D Dimer 389 NG/ML
--- NOTE | 2020-08-13 20:54 | HP_ITS ---
DATE OF SERVICE: 08/13/2020 CHIEF COMPLAINT: Cough and general malaise. HISTORY OF PRESENT ILLNESS: 60-year-old [place]ican-speaking male presenting with complaint of shortness of breath, cough with white sputum, abdominal pain, nausea, vomiting, and diarrhea. He was diagnosed with COVID-19 on 08/06/2020, and had symptoms several days prior to that. He was not noted to be hypoxic. He was placed on supplemental oxygen in the ER. He was febrile to 102.7, stable blood pressure. All other labs within acceptable limits. Chest CT showed bilateral peripheral ground-glass attenuation and more solid-appearing infiltrates compatible with COVID-19 infection. Abdominal and pelvic CT showed no bowel obstruction or inflammatory changes. The patient was given Decadron, Zofran, Tylenol, 1 L of IV fluids. PAST MEDICAL HISTORY: 1. Atrial fibrillation. 2. Hypertension. 3. Diabetes. 4. Hyperlipidemia. 5. Gastritis. SURGICAL HISTORY: He reports none. FAMILY HISTORY: Mother and father with diabetes. Father had NE in his 50s. Grandfather had prostate cancer. SOCIAL HISTORY: He drinks 4 beers usually on the weekends. Denies tobacco or illicit drug use. ALLERGIES: NO KNOWN ALLERGIES. MEDICATIONS: 1. Apixaban 5 mg b.i.d. 2. Atorvastatin 80 mg at bedtime. 3. Diltiazem 120 mg daily. 4. Lisinopril 20 mg p.o. daily. 5. Metformin 1000 mg p.o. daily. 6. Ondansetron 4 mg p.o. q.6-8 hours p.r.n. for nausea and vomiting. REVIEW OF SYSTEMS: CONSTITUTIONAL: Reports fever and chills. No decrease in appetite. RESPIRATORY: See HPI. CARDIOVASCULAR: No chest pain, orthopnea, PND, or edema. GASTROINTESTINAL: See HPI. GENITOURINARY: Denies any dysuria, frequency, or hematuria. MUSCULOSKELETAL: Denies joint pain or swelling. NEUROPSYCH: Denies any weakness or seizures. All other systems are reviewed and are negative. PHYSICAL EXAMINATION: CONSTITUTIONAL: Resting in bed. No acute distress. VITAL SIGNS: 98.7, 67, 18, 118/66, 97% on 1 L. HEENT: Head is normocephalic, atraumatic. Eyes, pupils are PERRLA. Sclerae anicteric. Mouth and throat, mucous membranes are intact and moist. NECK: Supple. No lymphadenopathy. No JVD noted. CHEST: Clear to auscultation without wheezes, rhonchi, or rales. HEART: Regular rate and rhythm. ABDOMEN: Positive bowel sounds. No tenderness. NEURO: The patient is alert and oriented x3. No focal deficits noted. LABORATORY DATA: WBC 7.4, hemoglobin 11.4, hematocrit 33.2, platelets 144. Sodium is 136, potassium 3.6, chloride is 101, bicarb 27, BUN is 12, creatinine is 1.14. Procalcitonin 0.20. ASSESSMENT AND PLAN: 60-year-old [place]ican-speaking male admitted with COVID-19. with no hypoxia or difficulty breathing at this time. We will monitor patient closely for worsening symptoms including hypoxia, since have multiple risk factors of hypertension hyperlipidemia diabetes. 1. COVID-19 infection with high-grade fever, weakness decreased by mouth intake, nausea and vomiting We will check LDH, ferritin, D-dimer. Procalcitonin is 0.20. Continue IV Decadron,will order some DuoNeb which may help Consult ID. 2. Atrial fibrillation. Continue apixaban and diltiazem. Continue tele monitor 3. Hypertension. Continue lisinopril follow blood pressure. 4. Hyperlipidemia. Continue statin. 5. Diabetes mellitus. Sliding scale. ADA diet. Hold metformin for now . 6. Deep vein thrombosis prophylaxis with Eliquis. 7. Case discussed with Dr. Head. 8. Full code. STEPHEN Torrez MD JR/MODL / [id number] Patient seen examined with APC, plan of care discussed agree with above plan 60-year-old gentleman with multiple medical issues including newly diagnosed atrial fibrillation on Eliquis, diabetes mellitus hypertension hyperlipidemia diagnosed to have COVID 1 week ago presented with high-grade fever generalized weakness decreased by mouth intake Continue IV Decadron ,symptomatic care obtain ID consult MTDD
[2020-08-13] MEDS: Atorvastatin Calcium 80 MG TABLET PO (21:45)
[2020-08-13] MEDS: Insulin Lispro 100 UNIT/ML 3 ML VIAL SUBCUT (21:45)
[2020-08-13] MEDS: Apixaban 5 MG TABLET PO (21:45)
[2020-08-13 23:09] VITALS: PULSE 80; O2SAT 93
[2020-08-13] MEDS: traMADoL HCL 50 MG TABLET 25 MG PO (23:09)
[2020-08-13] MEDS: Albuterol Sulfate 90 MCG 8 GM INHALER 4 PUFF INHALE (23:09)
[2020-08-14] VITALS (7 sets, daily range): BP systolic 116–147; BP diastolic 66–75; PULSE 52–92; RESP 18–30; TEMP 36–37.5; O2SAT 91–99
[2020-08-14] MEDS: 0.9 % Sodium Chloride Flush 3 ML SYRINGE IVFLUSH ×4 (00:32→21:26)
[2020-08-14 07:12] LABS: MANUAL DIFF FLAG NO
[2020-08-14 07:14] LABS: Basophils Percent Auto 0.1 % (0-2); Hematocrit 37.8 % (42-52); Hemoglobin 12.9 g/dl (14.0-18.0); Imm Gran Abs Auto 0.07 X10*3/uL (0.00-0.03); Imm Gran Pct Auto 0.6 % (0.0-0.4); Lymphocytes Percent Auto 8.4 % (20-40); Mean Corpuscular HGB Conc 34.1 g/dl (31.0-36.0); Mean Corpuscular Hemoglobin 30.5 pg (27.0-33.0); Mean Corpuscular Volume 89.4 fL (80-98); Mean Platelet Volume 10.7 fL (9.4-12.4); Monocytes Absolute Auto 0.8 X10*3/uL (0.1-1.2); Monocytes Percent Auto 6.5 % (2-11); Neutrophils Percent Auto 84.4 % (45-73); Platelet Count 163 X10*3/uL (160-400); Red Blood Count 4.23 X10*6/uL (4.60-5.80); Red Cell Distribution Width 12.6 % (11.0-16.0); White Blood Count 11.8 X10*3/uL (4.8-10.8)
[2020-08-14 07:42] LABS: Anion Gap 13 (12-20); Blood Urea Nitrogen 13 mg/dL (9-16); Calcium 8.5 mg/dL (8.4-10.2); Carbon Dioxide 29 mmol/L (22-29); Chloride 98 mmol/L (96-108); Creatinine Clr Calc Pharmacy 84.1; Estimated Glomerular Filt Rate > 60; Glucose Random 201 mg/dL (60-115); Potassium 3.7 mmol/L (3.3-5.1); Sodium 136 mmol/L (135-145)
[2020-08-14 07:48] LABS: Glucose, Whole Blood 208 mg/dL (60-115)
[2020-08-14] MEDS: Insulin Lispro 100 UNIT/ML 3 ML VIAL SUBCUT ×4 (07:52→21:26)
[2020-08-14] MEDS: dilTIAZem HCL CD 120 MG CAP.ER.DEG PO (07:55)
[2020-08-14] MEDS: lisinopriL 40 MG TABLET PO (07:56)
[2020-08-14] MEDS: Apixaban 5 MG TABLET PO ×2 (07:56→21:26)
--- NOTE | 2020-08-14 10:08 | P.PNIM_ITS ---
Subjective Subjective Date of Service: 08/14/20 Interval History: Complaining of shortness of breath, cough, unable to take deep breath, denies fever, chills, no fevers since admission, no nausea vomiting. General no headache , no dizziness no fever chills. CVS no chest pain, no palpitation. Respiratory cough,+ sob . Gastrointestinal no nausea, no vomiting, no abdominal pain Physical Exam Vital Signs: Vital Signs: Last Vital Signs Temp 98.4 F 08/14/20 07:43 Pulse 66 08/14/20 07:43 Resp 22 H 08/14/20 07:43 BP 122/75 08/14/20 07:43 Pulse Ox 95 08/14/20 07:43 Body Mass Index 29.8 General sick appearing, no acute distress. Neck supple no JVD. CVS regular rate rhythm, Respiratory lungs coarse breath sound, rhonchorous, diminished at bases. Gastrointestinal abdomen soft, nontender, bowel sounds audible,no guarding , no rigidity. Extremities no edema. Neuro nonfocal Skin no rash Objective Data Current Medications Generic Name Dose Route Start Last Admin Trade Name Freq PRN Reason Stop Dose Admin Albuterol Sulfate 2.5 mg 08/13/20 17:13 Albuterol Sulfate (0.083%) 2.5 Mg/3 Ml Vial.Neb INHALE RQ4H PRN Wheezing Albuterol Sulfate 4 puff 08/13/20 21:57 08/13/20 23:09 Albuterol Sulfate 90 Mcg 8 Gm Inhaler INHALE 4 puff Q2H PRN Administration Shortness of Breath/Wheezing Apixaban 5 mg 08/13/20 21:00 08/14/20 07:56 Apixaban 5 Mg Tablet PO 5 mg BID QAMAR Administration Atorvastatin Calcium 80 mg 08/13/20 21:00 08/13/20 21:45 Atorvastatin Calcium 80 Mg Tablet PO 80 mg BEDTIME QAMAR Administration Diltiazem HCl 120 mg 08/14/20 09:00 08/14/20 07:55 Diltiazem Hcl Cd 120 Mg Cap.Er.Deg PO 120 mg DAILY QAMAR Administration Protocol Guaifenesin/Dextromethorphan 10 ml 08/14/20 10:15 Guaifenesin Dm 200/20/10 Ml 10 Ml Syrup PO Q6H [facility] Dexamethasone Sodium Phosphate 50.6 mls @ 208 mls/hr 08/14/20 10:15 6 mg/ Sodium Chloride IV DAILY [facility] Insulin Human Lispro 0 unit 08/13/20 21:00 08/14/20 07:52 Insulin Lispro 100 Unit/Ml 3 Ml Vial SUBCUT 4 unit QIDACHS QAMAR Administration Protocol Lisinopril 40 mg 08/14/20 09:00 08/14/20 07:56 Lisinopril 40 Mg Tablet PO 40 mg DAILY QAMAR Administration Protocol Pharmacy Consult 1 each 08/13/20 11:04 Consult Rx Perform Med Rec MISCELLANE ONCE PRN Consult order Sodium Chloride 3 ml 08/14/20 00:00 08/14/20 07:52 0.9 % Sodium Chloride Flush 3 Ml Syringe IVFLUSH 3 ml QSHIFT QAMAR Administration Tramadol HCl 25 mg 08/13/20 22:52 08/13/20 23:09 Tramadol Hcl 50 Mg Tablet PO 25 mg Q6H PRN Administration [facility] Labs CBC & Chem 7: 08/14/20 06:53 08/14/20 06:53 Assessment and Plan (1) Acute respiratory failure with hypoxia: Status: Acute (2) COVID-19: Status: Acute (3) PAF (paroxysmal atrial fibrillation): Status: Acute Assessment and Plan: 60-year-old [place] Leonean-speaking male admitted with COVID-19. with no hypoxia or difficulty breathing at this time. We will monitor patient closely for worsening symptoms including hypoxia, since have multiple risk factors of hypertension hyperlipidemia diabetes. 1. Acute hypoxic respiratory failure due to COVID-19 infection Patient oxygenation dropped to 90 last night, complaining of shortness of breath and difficulty taking deep breath No recurrent high-grade fever since admission, elevated WBC likely due to steroids,Procalcitonin is 0.20 hold antibiotic. Continue IV Decadron day 2, add cough medication, incentive spirometry Recommend frequent position change. Elevated D-dimer ferritin and LDH, on Eliquis follow labs Consult ID for need for remdesivir 2. Atrial fibrillation. Stable ventricular rate Continue apixaban and diltiazem. Continue tele monitor 3. Hypertension. Continue lisinopril stable blood pressure. 4. Hyperlipidemia. Continue statin. 5. Diabetes mellitus. Blood sugar around 200 likely due to steroids, Continue Sliding scale. ADA diet, take metformin at home currently on hold . 6. Deep vein thrombosis prophylaxis with Eliquis. 7. Full code.
[2020-08-14] MEDS: Albuterol Sulfate 90 MCG 8 GM INHALER 4 PUFF INHALE ×2 (10:59→16:27)
[2020-08-14] MEDS: guaiFENesin DM 200/20/10 ML 10 ML SYRUP PO ×3 (11:03→21:26)
[2020-08-14 11:34] LABS: Glucose, Whole Blood 206 mg/dL (60-115)
--- NOTE | 2020-08-14 13:23 | MHC.CM.PN ---
Patient is COVID POSITIVE and unreachable by phone; CM spoke with /HCP/Olga Lidia at [phone] and addressed IMM with her with the assistance of a [employer]. The original IMM will be mailed certified letter to Olga Lidia and a copy has been placed on the chart.Patient lives in a house with his and he was functionally independent (no prior services nor DME). Home/no services is the goal for dc and CM has initiated and will follow for dc planning. PCP is Dr. Gregg Cota.
[2020-08-14 14:24] LABS: Glucose, Whole Blood 175 mg/dL (60-115)
[2020-08-14 16:21] LABS: Glucose, Whole Blood 250 mg/dL (60-115)
[2020-08-14 20:08] LABS: Glucose, Whole Blood 247 mg/dL (60-115)
[2020-08-14] MEDS: Atorvastatin Calcium 80 MG TABLET PO (21:26)
--- NOTE | 2020-08-14 21:48 | P.CNID_ITS ---
History of Present Illness Data of Consult Service Date: 08/14/20 Requesting physician: Nitesh Valero Primary Care Provider: Gregg Cota MD [facility] Reason for consult: shortness of breath He started with COVID symptoms around 08/04-08/05 He tested positive COVID on 08/06 He presents with GI discomfort,diarrhea He is hypoxic on admission but now 98% 3l He has no fever or chills now Review of Systems Review of Systems: Yes all other systems are reviewed and are negative [facility] Past Medical History Medical History Diabetes mellitus Essential hypertension High cholesterol HTN (hypertension) PAF (paroxysmal atrial fibrillation) Type 2 diabetes mellitus with unspecified complications Family History Family history: reviewed and not pertinent Social History Social History Household Members: Spouse Household Members Other:: 1 Housing: Unknown / Unable to assess Do you presently have visiting nurse or other home services: No Alcohol intake: never Patient Tobacco Use Status: Never used Tobacco Smoked in Last 30 Days: No Second Hand Smoke Exposure: No Use of substances other than those prescribed or required for medical reasons: No Currently Displaying Signs/Symptoms of Drug Intoxication Withdrawal: No Have you been hit, kicked, punched, or otherwise hurt by someone within the past year? If so, by whom?: No Do you feel safe in your current relationship?: No Is there a partner from a previous relationship who is making you feel unsafe now?: No Are you made to feel afraid or neglected: No Advance Directives: No Advance Directives Information Provided: No Advance Directives on File: No Advance Directives Date on File: 05/27/20 Do you have thoughts of harming others: None Do you have a plan to hurt others: No Plan Recently lost weight without trying: Unsure Nutrition Risks: No Nutritional Risk Poor oral hygiene: No service: No Current occupational status: unemployed Meds Allergies Allergy/AdvReac Type Severity Reaction Status Date / Time No Known Allergies Allergy Verified 06/17/20 15:03 Active Medications: Current Medications Generic Name Dose Route Start Last Admin Trade Name Freq PRN Reason Stop Dose Admin Albuterol Sulfate 2.5 mg 08/13/20 17:13 Albuterol Sulfate (0.083%) 2.5 Mg/3 Ml Vial.Neb INHALE RQ4H PRN Wheezing Albuterol Sulfate 4 puff 08/13/20 21:57 08/14/20 16:27 Albuterol Sulfate 90 Mcg 8 Gm Inhaler INHALE 4 puff Q2H PRN Administration Shortness of Breath/Wheezing Apixaban 5 mg 08/13/20 21:00 08/14/20 21:26 Apixaban 5 Mg Tablet PO 5 mg BID QAMAR Administration Atorvastatin Calcium 80 mg 08/13/20 21:00 08/14/20 21:26 Atorvastatin Calcium 80 Mg Tablet PO 80 mg BEDTIME QAMAR Administration Diltiazem HCl 120 mg 08/14/20 09:00 08/14/20 07:55 Diltiazem Hcl Cd 120 Mg Cap.Er.Deg PO 120 mg DAILY QAMAR Administration Protocol Guaifenesin/Dextromethorphan 10 ml 08/14/20 10:15 08/14/20 21:26 Guaifenesin Dm 200/20/10 Ml 10 Ml Syrup PO 10 ml Q6H QAMAR Administration Dexamethasone Sodium Phosphate 50.6 mls @ 208 mls/hr 08/14/20 11:00 08/14/20 11:16 6 mg/ Sodium Chloride IV Infused DAILY QAMAR Infusion Insulin Human Lispro 0 unit 08/13/20 21:00 08/14/20 21:26 Insulin Lispro 100 Unit/Ml 3 Ml Vial SUBCUT 4 unit QIDACHS QAMAR Administration Protocol Lisinopril 40 mg 08/14/20 09:00 08/14/20 07:56 Lisinopril 40 Mg Tablet PO 40 mg DAILY QAMAR Administration Protocol Pharmacy Consult 1 each 08/13/20 11:04 Consult Rx Perform Med Rec MISCELLANE ONCE PRN Consult order Sodium Chloride 3 ml 08/14/20 00:00 08/14/20 21:26 0.9 % Sodium Chloride Flush 3 Ml Syringe IVFLUSH 3 ml QSHIFT QAMAR Administration Tramadol HCl 25 mg 08/13/20 22:52 08/13/20 23:09 Tramadol Hcl 50 Mg Tablet PO 25 mg Q6H PRN Administration Breakthrough Pain Home Medications Medication Instructions Recorded Confirmed Last Taken Type atorvastatin 80 mg PO BEDTIME 05/27/20 08/13/20 Unknown History lisinopril 40 mg PO DAILY 05/27/20 08/13/20 05/27/20 History metformin 1,000 mg PO DAILY@1700 05/27/20 08/13/20 Unknown History Physical Exam Vital Signs: Vital Signs: Last Vital Signs Temp 96.8 F 08/14/20 19:08 Pulse 57 08/14/20 19:08 Resp 20 08/14/20 19:08 BP 120/73 08/14/20 19:08 Pulse Ox 98 08/14/20 19:08 Body Mass Index 29.8 Const: General: cooperative HENMT: Head: Yes normal to inspection Mouth: Normal oral and palatal mucosa present Resp: Effort & Inspection: able to speak in complete sentences Cardio: Rate: regular rate Rhythm: regular rhythm GI: Palpation (GI): Soft to palpation and nontender Skin: General skin exam: no rashes or lesions noted Results Labs CBC & Chem 7: 08/14/20 06:53 08/14/20 06:53 Labs: Short CBC 08/14/20 Range/Units 06:53 WBC 11.8 H (4.8-10.8) X10*3/uL Hgb 12.9 L (14.0-18.0) g/dl Hct 37.8 L (42-52) % Plt Count 163 (160-400) X10*3/uL BMP 08/14/20 06:53 Sodium 136 Potassium 3.7 Chloride 98 Carbon Dioxide 29 BUN 13 Creatinine 0.96 Calcium 8.5 D Microbiology Microbiology Results: Microbiology 08/13/20 08:59 Blood - Venous Blood Culture - Preliminary No growth after 24 hours. 08/13/20 08:57 Blood - Venous Blood Culture - Preliminary No growth after 24 hours. Assessment and Plan (1) Acute respiratory failure with hypoxia: Status: Acute He is over 10 days initiation of symptoms of COVID He has some hypoxia Would give Dexamethasone but no Remdesivir due to duration symptoms Oxygen as needed to maintain saturation over 93% (2) COVID-19: Status: Acute
[2020-08-15] VITALS (9 sets, daily range): BP systolic 127–151; BP diastolic 69–87; PULSE 55–68; RESP 18–20; TEMP 36–36.8; O2SAT 90–98
[2020-08-15] MEDS: guaiFENesin DM 200/20/10 ML 10 ML SYRUP PO ×4 (02:20→21:38)
[2020-08-15 07:54] LABS: Glucose, Whole Blood 211 mg/dL (60-115)
[2020-08-15] MEDS: lisinopriL 40 MG TABLET PO (08:06)
[2020-08-15] MEDS: Insulin Lispro 100 UNIT/ML 3 ML VIAL SUBCUT ×4 (08:06→21:39)
[2020-08-15] MEDS: 0.9 % Sodium Chloride Flush 3 ML SYRINGE IVFLUSH ×3 (08:07→23:47)
[2020-08-15] MEDS: dilTIAZem HCL CD 120 MG CAP.ER.DEG PO (08:07)
[2020-08-15] MEDS: Apixaban 5 MG TABLET PO ×2 (08:07→21:38)
[2020-08-15] MEDS: dexAMETHasone sod phosphate 4 MG/ML VIAL 6 MG IVPUSH (08:10)
[2020-08-15 11:52] LABS: Glucose, Whole Blood 218 mg/dL (60-115)
--- NOTE | 2020-08-15 14:56 | MHC.CM.PN ---
EMR REVIEWED, PER ID RECOMMENDATIONS PT STARTED ON IV DEXAMETHASONE, PT CONT'S ON 4L O2 VIA NC, NO PLAN FOR D/C TODAY, CM TO CONT TO FOLLOW D/C NEEDS. D/C PLAN: HOME NO SERVICES, TO TRANSPORT.
[2020-08-15 16:11] LABS: Glucose, Whole Blood 237 mg/dL (60-115)
--- NOTE | 2020-08-15 16:13 | P.PNIM_ITS ---
Subjective Subjective Date of Service: 08/15/20 Interval History: pt seen and examined at bedside. he still requiring 3 L of O2. No abdominal pain, no chest pain. still has SOB. Physical Exam Vital Signs: Vital Signs: Last Vital Signs Temp 96.8 F 08/15/20 15:20 Pulse 66 08/15/20 15:20 Resp 20 08/15/20 15:20 BP 140/83 H 08/15/20 15:20 Pulse Ox 92 08/15/20 15:20 Body Mass Index 29.8 Const: General: cooperative and no acute distress Eyes: General: appearance normal, both eyes and all related structures Resp: Effort & Inspection: normal respiratory effort and able to speak in complete sentences Cardio: Rate: regular rate Rhythm: regular rhythm GI: Palpation (GI): Soft to palpation Auscultation: normal bowel sounds Neuro: Cognition (Neuro): normal cognition Extrem: General: Yes normal to inspection and Yes no pedal edema Objective Data Current Medications Generic Name Dose Route Start Last Admin Trade Name Freq PRN Reason Stop Dose Admin Albuterol Sulfate 2.5 mg 08/13/20 17:13 Albuterol Sulfate (0.083%) 2.5 Mg/3 Ml Vial.Neb INHALE RQ4H PRN Wheezing Albuterol Sulfate 4 puff 08/13/20 21:57 08/14/20 16:27 Albuterol Sulfate 90 Mcg 8 Gm Inhaler INHALE 4 puff Q2H PRN Administration Shortness of Breath/Wheezing Apixaban 5 mg 08/13/20 21:00 08/15/20 08:07 Apixaban 5 Mg Tablet PO 5 mg BID QAMAR Administration Atorvastatin Calcium 80 mg 08/13/20 21:00 08/14/20 21:26 Atorvastatin Calcium 80 Mg Tablet PO 80 mg BEDTIME QAMAR Administration Dexamethasone Sodium Phosphate 6 mg 08/15/20 09:00 08/15/20 08:10 Dexamethasone Sod Phosphate 4 Mg/Ml Vial IVPUSH 6 mg DAILY QAMAR Administration Diltiazem HCl 120 mg 08/14/20 09:00 08/15/20 08:07 Diltiazem Hcl Cd 120 Mg Cap.Er.Deg PO 120 mg DAILY QAMAR Administration Protocol Guaifenesin/Dextromethorphan 10 ml 08/14/20 10:15 08/15/20 08:11 Guaifenesin Dm 200/20/10 Ml 10 Ml Syrup PO 10 ml Q6H QAMAR Administration Insulin Human Lispro 0 unit 08/13/20 21:00 08/15/20 12:03 Insulin Lispro 100 Unit/Ml 3 Ml Vial SUBCUT 4 unit QIDACHS QAMAR Administration Protocol Lisinopril 40 mg 08/14/20 09:00 08/15/20 08:06 Lisinopril 40 Mg Tablet PO 40 mg DAILY QAMAR Administration Protocol Pharmacy Consult 1 each 08/13/20 11:04 Consult Rx Perform Med Rec MISCELLANE ONCE PRN Consult order Sodium Chloride 3 ml 08/14/20 00:00 08/15/20 08:07 0.9 % Sodium Chloride Flush 3 Ml Syringe IVFLUSH 3 ml QSHIFT QAMAR Administration Tramadol HCl 25 mg 08/13/20 22:52 08/13/20 23:09 Tramadol Hcl 50 Mg Tablet PO 25 mg Q6H PRN Administration Breakthrough [facility] Labs CBC & Chem 7: 08/14/20 06:53 08/14/20 06:53 Microbiology Microbiology Results: Microbiology 08/13/20 08:59 Blood - Venous Blood Culture - Preliminary No growth after 48 hours. 08/13/20 08:57 Blood - Venous Blood Culture - Preliminary No growth after 48 hours. Assessment and Plan (1) Acute respiratory failure with hypoxia: Status: Acute (2) COVID-19: Status: Acute (3) PAF (paroxysmal atrial fibrillation): Status: Acute Assessment and Plan: 60-year-old Cameroonian-speaking male admitted with COVID-19. with no hypoxia or difficulty breathing at this time. We will monitor patient closely for worsening symptoms including hypoxia, since have multiple risk factors of hypertension hyperlipidemia diabetes. # Acute hypoxic respiratory failure due to COVID-19 infection - Pt currently on 4 L of O2. continues to be SOB - Continue IV Decadron day 3/7, add cough medication, incentive spirometry - Continue frequent position change. - Elevated D-dimer, ferritin and LDH, most likely due to COVID infection- pt already on therapeutic Eliquis - ID seen pt- recommends against Remdesivir given the duration of his symptoms # Atrial fibrillation - Stable ventricular rate - Continue apixaban and diltiazem - Continue tele monitor # Hypertension. Continue lisinopril stable blood pressure. # Hyperlipidemia. Continue statin. # Diabetes mellitus. Blood sugar around 200 likely due to steroids, Continue Sliding scale. ADA diet, take metformin at home currently on hold . Deep vein thrombosis prophylaxis with Eliquis. Full code.
[2020-08-15 20:17] LABS: Glucose, Whole Blood 266 mg/dL (60-115)
[2020-08-15] MEDS: Atorvastatin Calcium 80 MG TABLET PO (21:38)
[2020-08-16] VITALS (9 sets, daily range): BP systolic 114–163; BP diastolic 58–88; PULSE 50–87; RESP 18–19; TEMP 36.4–37; O2SAT 90–96
--- NOTE | 2020-08-16 03:43 | PC.NURSE ---
vs reported to o2 sat 89-90 on 4 l pt is having large amounts of phlegm ORDER RCVED FOR IV ABX LEVOQUIN AND X-RAY
[2020-08-16] MEDS: levoFLOXacin/D5W 750 MG/150 ML PIGGYBACK 100 MG IV (04:24)
[2020-08-16] MEDS: guaiFENesin DM 200/20/10 ML 10 ML SYRUP PO ×4 (04:24→20:55)
[2020-08-16 07:17] LABS: Glucose, Whole Blood 197 mg/dL (60-115)
[2020-08-16] MEDS: 0.9 % Sodium Chloride Flush 3 ML SYRINGE IVFLUSH ×3 (07:40→20:55)
[2020-08-16] MEDS: Insulin Lispro 100 UNIT/ML 3 ML VIAL SUBCUT ×4 (07:40→20:55)
[2020-08-16] MEDS: lisinopriL 40 MG TABLET PO (07:40)
[2020-08-16] MEDS: Apixaban 5 MG TABLET PO ×2 (07:40→20:55)
[2020-08-16] MEDS: dexAMETHasone sod phosphate 4 MG/ML VIAL 6 MG IVPUSH (07:40)
[2020-08-16 09:50] LABS: Hematocrit 39.6 % (42-52); Hemoglobin 13.4 g/dl (14.0-18.0); Imm Gran Abs Auto 0.08 X10*3/uL (0.00-0.03); Imm Gran Pct Auto 0.6 % (0.0-0.4); Lymphocytes Absolute Auto 0.9 X10*3/uL (1.2-4.9); Lymphocytes Percent Auto 7.2 % (20-40); MANUAL DIFF FLAG SCAN; Mean Corpuscular HGB Conc 33.8 g/dl (31.0-36.0); Mean Corpuscular Hemoglobin 30.4 pg (27.0-33.0); Mean Corpuscular Volume 89.8 fL (80-98); Monocytes Absolute Auto 0.9 X10*3/uL (0.1-1.2); Monocytes Percent Auto 7.4 % (2-11); Neutrophils Absolute Auto 10.6 X10*3/uL (2.0-8.3); Neutrophils Percent Auto 84.8 % (45-73); Platelet Count 259 X10*3/uL (160-400); Red Blood Count 4.41 X10*6/uL (4.60-5.80); Red Cell Distribution Width 12.3 % (11.0-16.0); SCAN SMEAR FLAG 1; White Blood Count 12.5 X10*3/uL (4.8-10.8)
[2020-08-16 10:11] LABS: SLIDE REVIEW VERIFIED
[2020-08-16 10:16] LABS: Anion Gap 15 (12-20); Blood Urea Nitrogen 16 mg/dL (9-16); Calcium 8.3 mg/dL (8.4-10.2); Carbon Dioxide 29 mmol/L (22-29); Chloride 96 mmol/L (96-108); Creatinine Clr Calc Pharmacy 89.8; Estimated Glomerular Filt Rate > 60; Glucose Random 261 mg/dL (60-115); Potassium 4.3 mmol/L (3.3-5.1); Sodium 136 mmol/L (135-145)
[2020-08-16 11:45] LABS: Glucose, Whole Blood 224 mg/dL (60-115)
--- NOTE | 2020-08-16 14:08 | P.PNIM_ITS ---
Subjective Subjective Date of Service: 08/16/20 Interval History: Patient seen and examined at bedside. He is complaining chest pain that is below the left breast that only occurs with coughing. The pain is burning in sensation. He otherwise denies any palpitations, no worsening shortness of breath. He feels that his shortness of breath is improving. He has no abdominal pain, no diarrhea. No urinary symptoms. Physical Exam Vital Signs: Vital Signs: Last Vital Signs Temp 97.5 F 08/16/20 12:37 Pulse 64 08/16/20 12:37 Resp 18 08/16/20 12:37 BP 141/75 H 08/16/20 12:37 Pulse Ox 94 08/16/20 12:43 Body Mass Index 29.8 Const: General: cooperative and no acute distress Orientation/consciousness: patient oriented x3 Resp: Effort & Inspection: normal respiratory effort and able to speak in complete sentences Cardio: Rate: regular rate Rhythm: regular rhythm GI: Palpation (GI): Soft to palpation Auscultation: normal bowel sounds Neuro: General: patient oriented x3 Cognition (Neuro): normal cognition Extrem: General: Yes normal to inspection and Yes no pedal edema Objective Data Current Medications Generic Name Dose Route Start Last Admin Trade Name Freq PRN Reason Stop Dose Admin Albuterol Sulfate 2.5 mg 08/13/20 17:13 Albuterol Sulfate (0.083%) 2.5 Mg/3 Ml Vial.Neb INHALE RQ4H PRN Wheezing Albuterol Sulfate 4 puff 08/13/20 21:57 08/14/20 16:27 Albuterol Sulfate 90 Mcg 8 Gm Inhaler INHALE 4 puff Q2H PRN Administration Shortness of Breath/Wheezing Apixaban 5 mg 08/13/20 21:00 08/16/20 07:40 Apixaban 5 Mg Tablet PO 5 mg BID QAMAR Administration Atorvastatin Calcium 80 mg 08/13/20 21:00 08/15/20 21:38 Atorvastatin Calcium 80 Mg Tablet PO 80 mg BEDTIME QAMAR Administration Dexamethasone Sodium Phosphate 6 mg 08/15/20 09:00 08/16/20 07:40 Dexamethasone Sod Phosphate 4 Mg/Ml Vial IVPUSH 6 mg DAILY QAMAR Administration Diltiazem HCl 120 mg 08/14/20 09:00 08/16/20 07:41 Diltiazem Hcl Cd 120 Mg Cap.Er.Deg PO Not Given DAILY QAMAR Protocol Guaifenesin/Dextromethorphan 10 ml 08/14/20 10:15 08/16/20 09:27 Guaifenesin Dm 200/20/10 Ml 10 Ml Syrup PO 10 ml Q6H [facility] Administration Levofloxacin 750 mg in 150 mls @ 100 mls/hr 08/16/20 03:15 08/16/20 07:27 Levaquin IV Infused Q24H QAMAR Infusion Insulin Human Lispro 0 unit 08/13/20 21:00 08/16/20 12:08 Insulin Lispro 100 Unit/Ml 3 Ml Vial SUBCUT 4 unit QIDACHS [facility] Administration Protocol Lisinopril 40 mg 08/14/20 09:00 08/16/20 07:40 Lisinopril 40 Mg Tablet PO 40 mg DAILY [facility] Administration Protocol Pharmacy Consult 1 each 08/13/20 11:04 Consult Rx Perform Med Rec MISCELLANE ONCE PRN Consult order Sodium Chloride 3 ml 08/14/20 00:00 08/16/20 07:40 0.9 % Sodium Chloride Flush 3 Ml Syringe IVFLUSH 3 ml QSHIFT [facility] Administration Tramadol HCl 25 mg 08/13/20 22:52 08/13/20 23:09 Tramadol Hcl 50 Mg Tablet PO 25 mg Q6H PRN Administration [facility] Labs CBC & Chem 7: 08/16/20 09:35 08/16/20 09:35 Microbiology Microbiology Results: Microbiology 08/13/20 08:59 Blood - Venous Blood Culture - Preliminary No growth after 48 hours. 08/13/20 08:57 Blood - Venous Blood Culture - Preliminary No growth after 48 hours. Assessment and Plan (1) COVID-19: Status: Acute (2) Acute respiratory failure with hypoxia: Status: Acute (3) PAF (paroxysmal atrial fibrillation): Status: Acute Assessment and Plan: 60-year-old Albanian-speaking male admitted with COVID-19 pneumonia # Acute hypoxic respiratory failure due to COVID-19 infection - Pt currently on 2 L of O2. with improvement of his O2 requirements - Continue IV Decadron day 4, add cough medication, incentive spirometry - Continue frequent position change. - Elevated D-dimer, ferritin and LDH, most likely due to COVID infection- pt already on therapeutic Eliquis - ID seen pt- recommends against Remdesivir given the duration of his symptoms # Atrial fibrillation - Stable ventricular rate - Continue apixaban and diltiazem - Continue tele monitor # pleuretic chest pain - possibly to covid pna vs heart burn - burning in sensation and occurs only with coughing - will start him on maalox prn as well as adding additional cough medicine # Hypertension. Continue lisinopril stable blood pressure. # Hyperlipidemia. Continue statin. # Diabetes mellitus. Blood sugar around 200 likely due to steroids, Continue Sliding scale. ADA diet, take metformin at home currently on hold . Deep vein thrombosis prophylaxis with Eliquis. Full code. Dispo: If Able to titrate off O2, can be discharge home tomorrow vs Mnday
--- NOTE | 2020-08-16 14:48 | PM.EVENT ---
Event Note Date of Service: 08/16/20 Event Note: He was started on Levaquin Do not see very high leukocytosis or fever with COVID (on steroids) CXR better Hold antibiotics unless lobar infiltrate,new fever Can give po steroids
[2020-08-16 16:30] LABS: Glucose, Whole Blood 266 mg/dL (60-115)
[2020-08-16 20:23] LABS: Glucose, Whole Blood 305 mg/dL (60-115)
[2020-08-16] MEDS: Atorvastatin Calcium 80 MG TABLET PO (20:55)
[2020-08-16] MEDS: Magnesium Hydrox/Alum Hydrox 30 ML ORAL.SUSP 15 ML PO (20:57)
[2020-08-17 03:58] VITALS: BP 147/78; PULSE 61; RESP 18; TEMP 36.8; O2SAT 91
[2020-08-17] MEDS: guaiFENesin DM 200/20/10 ML 10 ML SYRUP PO ×2 (03:58→09:36)
[2020-08-17 07:54] LABS: Glucose, Whole Blood 159 mg/dL (60-115)
[2020-08-17 08:00] VITALS: BP 139/78; PULSE 67; RESP 20; TEMP 36.4; O2SAT 94
[2020-08-17] MEDS: Insulin Lispro 100 UNIT/ML 3 ML VIAL SUBCUT ×2 (09:36→11:43)
[2020-08-17] MEDS: lisinopriL 40 MG TABLET PO (09:37)
[2020-08-17] MEDS: dexAMETHasone 6 MG TABLET PO (09:37)
[2020-08-17] MEDS: Apixaban 5 MG TABLET PO (09:37)
[2020-08-17] MEDS: dilTIAZem HCL CD 120 MG CAP.ER.DEG PO (09:37)
[2020-08-17] MEDS: 0.9 % Sodium Chloride Flush 3 ML SYRINGE IVFLUSH (09:37)
--- NOTE | 2020-08-17 09:59 | P.DS_ITS ---
DS: Providers Provider Date of Service: 08/17/20 Date of admission: 08/14/20 09:15 Primary care physician: Gregg Cota MD Consults: 08/14/20 08:34 Consult to Infectious Diseases Routine Consulting Provider: Tania Hillman Reason for consultation: covid Has provider been notified: No DS: Diagnosis Discharge Diagnosis (1) COVID-19: Status: Acute (2) Acute respiratory failure with hypoxia: Status: Acute (3) PAF (paroxysmal atrial fibrillation): Status: Acute DS: Medications Discharge Medications Home Medications: Home Medications Medication Instructions Recorded Confirmed atorvastatin 80 mg PO BEDTIME 05/27/20 08/13/20 lisinopril 40 mg PO DAILY 05/27/20 08/13/20 metformin 1,000 mg PO DAILY@1700 05/27/20 08/13/20 Previous Rx's Medication Instructions Recorded diltiazem HCl 120 mg 120 mg PO DAILY 90 Days #90 cap 06/26/20 capsule,extended release 24 hr apixaban 5 mg tablet 5 mg PO BID 90 Days #180 tab 06/30/20 ondansetron 4 mg PO Q6-8H PRN #12 tab 08/06/20 dexamethasone 6 mg PO DAILY #3 tab 08/17/20 DS: Summary Hospital Course Hospital Course: History of presenting illness 60-year-old Faroese-speaking male presenting with complaint of shortness of breath, cough with white sputum, abdominal pain, nausea, vomiting, and diarrhea. He was diagnosed with COVID-19 on 08/06/2020, and had symptoms several days prior to that. He was not noted to be hypoxic. He was placed on supplemental oxygen in the ER. He was febrile to 102.7, stable blood pressure. All other labs within acceptable limits. Chest CT showed bilateral peripheral ground-glass attenuation and more solid-appearing infiltrates compatible with COVID-19 infection. Abdominal and pelvic CT showed no bowel obstruction or inflammatory changes. The patient was given Decadron, Zofran, Tylenol, 1 L of IV fluids. PAST MEDICAL HISTORY: 1. Atrial fibrillation. 2. Hypertension. 3. Diabetes. 4. Hyperlipidemia. 5. Gastritis. Hospital course 60-year-old Faroese-speaking male admitted with COVID-19 pneumonia and Acute hypoxic respiratory failure patient treated with IV Decadron , cough medication and oxygen patient's symptoms gradually improved with above treatment patient procalcitonin level was low did not require antibiotic treatment was seen by infectious disease and did not qualify for remdesivir Patient currently is doing well room-air oxygenation is being discharged home on 3 more days of by mouth Decadron recommended to continue isolation for few more days drink plenty of fluids and rest In regard to chronic medical issues including atrial fibrillation, hypertension, diabetes and hyperlipidemia he has been continued on all of his baseline medications. Time Spent with Patient Time attestation: Total time spent providing and/or coordinating discharge services: Discharge coordination time: Greater than 30 minutes Quality: Stroke Does the patient have a stroke diagnosis?: No Physical Exam Vital Signs: Vital Signs: Last Vital Signs Temp 97.6 F 08/17/20 08:00 Pulse 67 08/17/20 08:00 Resp 20 08/17/20 08:00 BP 139/78 08/17/20 08:00 Pulse Ox 94 08/17/20 08:00 Body Mass Index 29.8 General no acute distress. Neck supple no JVD. CVS regular rate rhythm, Respiratory lungs coarse breath sound, no respiratory distress Gastrointestinal abdomen soft, nontender, bowel sounds audible Extremities no edema. Neuro nonfocal ,speech clear. Skin no rash Psych appropriate affect DS: Data Data Completed and Pending Labs on day of discharge: Laboratory Results - last 24 hr 08/16/20 08/16/20 08/16/20 09:35 09:35 11:25 WBC 12.5 H RBC 4.41 L Hgb 13.4 L Hct 39.6 L MCV 89.8 MCH 30.4 MCHC 33.8 RDW 12.3 Plt Count 259 D MPV 11.0 Immature Gran % (Auto) 0.6 H Neut % (Auto) 84.8 H Lymph % (Auto) 7.2 L Schleicher % (Auto) 7.4 Eos % (Auto) 0.0 Baso % (Auto) 0.0 Lymph # (Auto) 0.9 L Schleicher # (Auto) 0.9 Eos # (Auto) 0.0 Baso # (Auto) 0.0 Abs Immat Gran (auto) 0.08 H Absolute Neuts (auto) 10.6 H Absolute Nucleated RBC 0.000 Nucleated RBC % (auto) 0.0 Smear Tech's Comments VERIFIED Sodium 136 Potassium 4.3 Chloride 96 Carbon Dioxide 29 Anion Gap 15 BUN 16 Creatinine 0.90 Estim Creat Clear Calc 89.8 Estimated GFR > 60 POC Glucose 224 H Random Glucose 261 H Calcium 8.3 L 08/16/20 08/16/20 08/17/20 16:23 20:00 07:50 WBC RBC Hgb Hct MCV MCH MCHC RDW Plt Count MPV Immature Gran % (Auto) Neut % (Auto) Lymph % (Auto) Schleicher % (Auto) Eos % (Auto) Baso % (Auto) Lymph # (Auto) Schleicher # (Auto) Eos # (Auto) Baso # (Auto) Abs Immat Gran (auto) Absolute Neuts (auto) Absolute Nucleated RBC Nucleated RBC % (auto) Smear Tech's Comments Sodium Potassium Chloride Carbon Dioxide Anion Gap BUN Creatinine Estim Creat Clear Calc Estimated GFR POC Glucose 266 H 305 H 159 H Random Glucose Calcium Preliminary micro results at discharge 08/13/20 08:59 Blood Culture - Preliminary Blood - Venous No growth after 48 hours. 08/13/20 08:57 Blood Culture - Preliminary Blood - Venous No growth after 48 hours. Discharge Plan Discharge Patient Disposition: Home, Self-Care Discharge Diagnosis: Acute respiratory failure with hypoxia COVID-19 infection Referrals: Gregg Cota MD [Primary Care Provider] - 1 Week Discharge Medications: New dexamethasone 6 mg Tablet 6 mg PO DAILY Qty: 3 RF: 0 Continued diltiazem HCl [Cardizem CD] 120 mg capsule,extended release 24hr 120 mg PO DAILY 90 Days Qty: 90 RF: 3 Eliquis 5 mg tablet 5 mg PO BID 90 Days Qty: 180 RF: 1 ondansetron 4 mg tablet,disintegrating 4 mg PO Q6-8H PRN (Reason: Vomiting) Qty: 12 RF: 0 lisinopril 40 mg Tablet 40 mg PO DAILY RF: 0 atorvastatin 80 mg Tablet 80 mg PO BEDTIME RF: 0 metformin 500 mg Tablet 1,000 mg PO DAILY@1700 RF: 0 Discharge Orders: Discharge Order (Routine); Ordered 08/17/20 Ordered By: Helena Head Diet: diabetic diet and low fat, low cholesterol Activity on Discharge: As tolerated Stand Alone Forms: Patient Portal Discharge page Care Plan Goals: You have COVID-19 infection, Take Decadron for 3 more days drink plenty of fluids, rest, continue isolation 5 more days Health Concerns: Continue all home medications as before Plan of Treatment: Outpatient follow-up with primary care physician Assessment: As above
--- NOTE | 2020-08-17 10:15 | MHC.CM.PN ---
PT CLEARED TO DC HOME TODAY WITH NO SERVICES. PT TO SELF ARRANGE TRANSPORT
[2020-08-17 11:22] LABS: Glucose, Whole Blood 245 mg/dL (60-115)
== END 2020-08-17 12:30 | disposition home or self-care (01) | DRG 177 ==
LOC: HO.ED 10:59 → HO.EDOVER 17:16 → HO.IMC 17:24
PROVIDERS: Internal Medicine; Physician Assistant; Admitting Provider Nurse Practitioner Acute Care; Emergency Provider Emergency Medicine; PCP Internal Medicine; Visit Provider Hospitalist
DX: U07.1 COVID-19 (principal); J96.01 Acute respiratory failure with hypoxia; J12.82 Pneumonia due to coronavirus disease 2019; I48.0 Paroxysmal atrial fibrillation; E78.5 Hyperlipidemia, unspecified; I10 Essential (primary) hypertension; E11.9 Type 2 diabetes mellitus without complications; Z79.01 Long term (current) use of anticoagulants; Z79.899 Other long term (current) drug therapy
CPT/HCPCS: 36415; 71045; 71250; 74176; 80048; 80076; 81001; 82728; 82947; 83605; 83615; 83735; 84145; 85025; 85379; 87040; 87635; 94640; 94664; 99285; J1100; J1956; J2405; J8540

== ENCOUNTER 2020-12-14 04:08 | Emergency (ER) | payer OTHER, SELFPAY ==
--- NOTE | ~2020-12-14 | XR_ITS ---
EXAMINATION: XR CHEST CLINICAL INFORMATION: Palpitations. Dyspnea. COMPARISON: 08/16/2020 TECHNIQUE: Frontal view of the chest was obtained. FINDINGS: Cardiac leads overlie the chest. The lungs are well expanded. Minimal left basilar opacity. No dense consolidation. No edema or effusion. No pneumothorax. The cardiomediastinal silhouette is normal in size with a tortuous aorta. Mild degenerative changes of the spine. XR/XR chest 1V IMPRESSION: Minimal opacity at the left base is nonspecific. This may be infectious or inflammatory.
[2020-12-14 04:12] VITALS: BP 159/98; PULSE 106; RESP 16; TEMP 37; O2SAT 100; BMI 23.6
--- NOTE | 2020-12-14 04:20 | ECG_ITS ---
Test Reason : PALPATATIONS Blood Pressure : / mmHG Vent. Rate : 093 BPM Atrial Rate : 326 BPM P-R Int : 000 ms QRS Dur : 088 ms QT Int : 352 ms P-R-T Axes : 000 028 053 degrees QTc Int : 437 ms Atrial fibrillation Nonspecific T wave abnormality Abnormal ECG Atrial fibrillation is new Referred By: Generic ED Physician Electronically Signed By:ROSALINDA FLOWER MD
--- NOTE | 2020-12-14 04:34 | ED.ARRPALP ---
HPI - Arrhythmia/Palpitations General Chief Complaint: Arrhythmia/Palpitations Stated Complaint: chest pain Time Seen by Provider: 12/14/20 04:25 Source: patient and family Mode of arrival: ambulatory Limitations: no limitations History of Present Illness HPI narrative: Patient comes emergency room complaining of palpitations and shortness of breath. Patient states that approximately 1 hour ago patient was sleeping, he turned around from side to side, started feeling palpitations and shortness of breath. Patient denies chest pain. Patient states that he has noticed that with exertion he feels short of breath and it has been going on for several months. At this time, patient states that he does not have palpitations. Patient states that he takes diltiazem 120 mg in the afternoon and 180 mg at night. Reviewing patient's supervisor electronic coils's note, patient is supposed to take only 120 mg. Related Data Home Medications Medication Instructions Recorded Confirmed atorvastatin 80 mg tablet 80 mg PO BEDTIME 05/27/20 08/13/20 lisinopril 40 mg tablet 40 mg PO DAILY 05/27/20 08/13/20 metformin 500 mg tablet 1,000 mg PO DAILY@1700 05/27/20 08/13/20 Previous Rx's Medication Instructions Recorded diltiazem HCl 120 mg 120 mg PO DAILY 90 Days #90 cap 06/26/20 capsule,extended release 24 hr (Cardizem CD) apixaban 5 mg tablet (Eliquis) 5 mg PO BID 90 Days #180 tab 06/30/20 ondansetron 4 mg disintegrating 4 mg PO Q6-8H PRN #12 tab 08/06/20 tablet dexamethasone 6 mg tablet 6 mg PO DAILY #3 tab 08/17/20 diltiazem HCl 300 mg 300 mg PO DAILY #30 cap 12/14/20 capsule,extended release 24 hr Allergies Allergy/AdvReac Type Severity Reaction Status Date / Time No Known Allergies Allergy Verified 12/14/20 04:11 Review of Systems Review of Systems: Constitutional : No Weight loss, No Fever, No Chills, No Night Sweats, No Fatigue, No Malaise ENT/Mouth : No Hearing loss, No Ear Pain, No Nasal Congestion, No Sinus Pain, No Hoarseness, No sore throat, No Rhinorrhea, No Swallowing Difficulty Eyes: No Eye Pain, No Swelling, No Redness, No Foreign Body, No Discharge, No Vision Changes Cardiovascular : No Chest Pain, complaining of exertional shortness of breath, no orthopnea, complaining of palpitations Respiratory : No Cough, No Sputum, No Wheezing, No Smoke Exposure, No Dyspnea Gastrointestinal : No Nausea, No Vomiting, No Diarrhea, No Constipation, No abdominal Pain, No Hematochezia, No Melena Genitourinary : no irregular bleeding, No Dysuria, No Urinary Frequency, No Hematuria, No Urinary Incontinence, No Urgency, No Flank Pain, No Urinary Flow Changes, No Hesitancy Musculoskeletal : No joint pain, No Myalgias, No Joint Swelling Skin : No Skin Lesions, No rash Neuro : No Weakness, No Numbness, No Paresthesias, No Loss of Consciousness, No Dizziness, No Headache Psych : No Anxiety/Panic, No Depression, No SI/HI/AH/VH, No Social Issues, Heme/Lymph: No Bruising, No Bleeding,No Lymphadenopathy Endocrine : No Polyuria, No Polydipsia, No Temperature Intolerance PMFSH Past Medical History Medical History Diabetes mellitus Essential hypertension High cholesterol HTN (hypertension) PAF (paroxysmal atrial fibrillation) Type 2 diabetes mellitus with unspecified complications Social History Social History Household Members: Spouse Household Members Other:: 1 Housing: Unknown / Unable to assess Do you presently have visiting nurse or other home services: No Alcohol intake: never Patient Tobacco Use Status: Never used Tobacco Second Hand Smoke Exposure: No Advance Directives: No Advance Directives Information Provided: Yes Advance Directives Date on File: 05/27/20 service: No Current occupational status: unemployed Physical Exam Vital Signs: Vital Signs: Last Vital Signs Temp 97.7 F 12/14/20 06:00 Pulse 90 12/14/20 06:00 Resp 18 12/14/20 06:00 BP 134/99 H 12/14/20 06:00 Pulse Ox 97 12/14/20 06:00 Body Mass Index 23.6 Const: Other: Appearance: Alert. Oriented X3. No acute distress. Eyes: Pupils equal, round and reactive to light. ENT: Pharynx normal. Neck: Normal inspection. Neck supple. No lymph nodes noted. No crepitus CVS: Irregularly irregular heart rate, Pulses normal. Normal S1 and S2 Respiratory: No respiratory distress. Breath sounds normal. No Wheezing. No rales Abdomen: Soft and nontender. No rigidity. No distention. good BS x4 Skin: Skin warm and dry. Normal skin color. Normal skin turgor. Extremities: No lower extremity edema. No Lacerations. No Rash Neuro: Oriented X 3. No motor deficit. No sensory deficit. Moving all extermities. No slurred speech. Course Course Course Narrative: Patient is asymptomatic. I discussed the patient with Dr. Wolfe. Patient is supposed to be taking 180 mg of Cardizem, but as stated above, patient has accidentally been taking 300 mg in total (120 mg in the morning and 180 mg in the afternoon). Patient will be discharged with a prescription of 300 mg Cardizem and will follow up with Dr. Sarah MAGDALENO - Arrhythmia/Palpitations Lab Data Result diagrams: 12/14/20 04:46 12/14/20 04:46 Labs: Lab Results 12/14/20 12/14/20 12/14/20 Range/Units 04:46 04:46 04:46 WBC 7.4 (4.8-10.8) X10*3/uL RBC 4.69 (4.60-5.80) X10*6/uL Hgb 14.8 (14.0-18.0) g/dl Hct 41.2 L (42-52) % MCV 87.8 (80-98) fL MCH 31.6 (27.0-33.0) pg MCHC 35.9 (31.0-36.0) g/dl RDW 12.5 (11.0-16.0) % Plt Count 208 (160-400) X10*3/uL MPV 10.9 (9.4-12.4) fL Immature Gran % (Auto) 0.3 (0.0-0.4) % Neut % (Auto) 64.0 (45-73) % Lymph % (Auto) 25.0 (20-40) % [place] % (Auto) 9.5 (2-11) % Eos % (Auto) 0.9 (0-4) % Baso % (Auto) 0.3 (0-2) % Lymph # (Auto) 1.8 (1.2-4.9) X10*3/uL [place] # (Auto) 0.7 (0.1-1.2) X10*3/uL Eos # (Auto) 0.1 (0.0-0.4) X10*3/uL Baso # (Auto) 0.0 (0.0-0.2) X10*3/uL Abs Immat Gran (auto) 0.02 (0.00-0.03) X10*3/uL Absolute Neuts (auto) 4.7 (2.0-8.3) X10*3/uL Absolute Nucleated RBC 0.000 (0.0-0.012) X10*3/uL Nucleated RBC % (auto) 0.0 (0.0-0.2) /100WBC Sodium 136 (135-145) mmol/L Potassium 3.6 (3.3-5.1) mmol/L Chloride 102 (96-108) mmol/L Carbon Dioxide 21 L (22-29) mmol/L Anion Gap 17 (12-20) BUN 15 (9-16) mg/dL Creatinine 1.16 (0.5-1.4) mg/dL Estim Creat Clear Calc 66.3 Estimated GFR > 60 Random Glucose 326 H (60-115) mg/dL Calcium 9.0 D (8.4-10.2) mg/dL Total Bilirubin 1.0 (0.0-1.0) mg/dL Direct Bilirubin 0.3 (0.0-0.5) mg/dL AST 16 D (5-37) U/L ALT 18 (0-40) U/L Alkaline Phosphatase 102 D (39-117) U/L Troponin I High Sens 5.2 (<3.5-35.0) ng/L B-Natriuretic Peptide 38 (<100) pg/mL Total Protein 7.6 (6.5-8.0) g/dL Albumin 4.4 D (3.5-5.0) g/dL TSH 2.68 (0.32-4.0) uIU/mL Imaging Data Chest x-ray: Radiologist's impression: Cardiac leads overlie the chest. The lungs are well expanded. Minimal left basilar opacity. No dense consolidation. No edema or effusion. No pneumothorax. The cardiomediastinal silhouette is normal in size with a tortuous aorta. Mild degenerative changes of the spine. XR/XR chest 1V IMPRESSION: Minimal opacity at the left base is nonspecific. This may be infectious or inflammatory. Discharge Plan Discharge Clinical Impression: Palpitations, Acute hyperglycemia Patient Disposition: Home, Self-Care Instructions: Heart Palpitations (ED) Additional Instructions: Please only take the newly prescribed dose of diltiazem (300mg). Please discard her other tablets of diltiazem. follow-up with your primary care physician tomorrow. If you have any worsening or new symptoms, please return to the emergency room or call 911 Prescriptions: New diltiazem HCl 300 mg capsule,extended release 24hr 300 mg PO DAILY Qty: 30 RF: 0 No Action diltiazem HCl [Cardizem CD] 120 mg capsule,extended release 24hr 120 mg PO DAILY 90 Days Qty: 90 RF: 3 Eliquis 5 mg tablet 5 mg PO BID 90 Days Qty: 180 RF: 1 ondansetron 4 mg tablet,disintegrating 4 mg PO Q6-8H PRN (Reason: Vomiting) Qty: 12 RF: 0 lisinopril 40 mg Tablet 40 mg PO DAILY RF: 0 atorvastatin 80 mg Tablet 80 mg PO BEDTIME RF: 0 metformin 500 mg Tablet 1,000 mg PO DAILY@1700 RF: 0 dexamethasone 6 mg Tablet 6 mg PO DAILY Qty: 3 RF: 0 Referrals: Babak Saba MD [Physician] - 2 days
[2020-12-14 04:50] VITALS: PULSE 95
[2020-12-14 04:56] LABS: Basophils Percent Auto 0.3 % (0-2); Eosinophils Absolute Auto 0.1 X10*3/uL (0.0-0.4); Eosinophils Percent Auto 0.9 % (0-4); Hematocrit 41.2 % (42-52); Hemoglobin 14.8 g/dl (14.0-18.0); Imm Gran Abs Auto 0.02 X10*3/uL (0.00-0.03); Imm Gran Pct Auto 0.3 % (0.0-0.4); Lymphocytes Absolute Auto 1.8 X10*3/uL (1.2-4.9); MANUAL DIFF FLAG NO; Mean Corpuscular HGB Conc 35.9 g/dl (31.0-36.0); Mean Corpuscular Hemoglobin 31.6 pg (27.0-33.0); Mean Corpuscular Volume 87.8 fL (80-98); Mean Platelet Volume 10.9 fL (9.4-12.4); Monocytes Absolute Auto 0.7 X10*3/uL (0.1-1.2); Monocytes Percent Auto 9.5 % (2-11); Neutrophils Absolute Auto 4.7 X10*3/uL (2.0-8.3); Platelet Count 208 X10*3/uL (160-400); Red Blood Count 4.69 X10*6/uL (4.60-5.80); Red Cell Distribution Width 12.5 % (11.0-16.0); White Blood Count 7.4 X10*3/uL (4.8-10.8)
[2020-12-14 05:11] LABS: Alanine Aminotransferase 18 U/L (0-40); Albumin Level 4.4 g/dL (3.5-5.0); Alkaline Phosphatase 102 U/L (39-117); Anion Gap 17 (12-20); Aspartate Amino Transferase 16 U/L (5-37); Bilirubin Direct 0.3 mg/dL (0.0-0.5); Blood Urea Nitrogen 15 mg/dL (9-16); Carbon Dioxide 21 mmol/L (22-29); Chloride 102 mmol/L (96-108); Creatinine Clr Calc Pharmacy 66.3; Estimated Glomerular Filt Rate > 60; Glucose Random 326 mg/dL (60-115); Potassium 3.6 mmol/L (3.3-5.1); Sodium 136 mmol/L (135-145); Total Protein 7.6 g/dL (6.5-8.0)
[2020-12-14 05:15] LABS: B Type Natriuretic Peptide 38 pg/mL (<100); Troponin-I High Sensitivity 5.2 ng/L (<3.5-35.0)
[2020-12-14 05:30] LABS: TSH reflex Free T4 2.68 uIU/mL (0.32-4.0)
[2020-12-14 06:00] VITALS: BP 134/99; PULSE 90; RESP 18; TEMP 36.5; O2SAT 97
[2020-12-14] MEDS: Insulin Regular, Human 100 UNIT/ML 3 ML VIAL 10 UNIT IVPUSH (06:11)
[2020-12-14 06:51] LABS: Glucose, Whole Blood 84 mg/dL (60-115)
[2020-12-14 07:01] VITALS: BP 135/94; PULSE 70; RESP 14; TEMP 37.1; O2SAT 98
[2020-12-14 07:21] LABS: Glucose, Whole Blood 109 mg/dL (60-115)
== END 2020-12-14 07:23 | disposition home or self-care (01) ==
PROVIDERS: Emergency Medicine; Emergency Provider Emergency Medicine
DX: R00.2 Palpitations (principal); E11.65 Type 2 diabetes mellitus with hyperglycemia; R06.02 Shortness of breath; I48.0 Paroxysmal atrial fibrillation; I10 Essential (primary) hypertension; Z79.01 Long term (current) use of anticoagulants; Z79.84 Long term (current) use of oral hypoglycemic drugs; Z79.899 Other long term (current) drug therapy
CPT/HCPCS: 36415; 71045; 80048; 80076; 82947; 83880; 84443; 84484; 85025; 93005; 96374; 99284

== ENCOUNTER 2021-05-26 04:38 | Emergency (ER) | payer OTHER, SELFPAY ==
--- NOTE | ~2021-05-26 | CT_ITS ---
CT ANGIOGRAM NECK WITH CONTRAST CT ANGIOGRAM BRAIN WITH CONTRAST CLINICAL INFORMATION: Dizziness. COMPARISON: Head CT 12/24/2017. TECHNIQUE: Test bolus sequences followed by intravenous administration 70 mL of Omnipaque 350. Helical imaging was performed in the axial plane from the thoracic inlet to the skull vertex. Delayed postcontrast imaging of the head was also performed. The data was processed at the mining engineering technologist workstation for generation of MIP sequences. Angled MIPs and volume rendered reformatted images were also generated at an offline 3D workstation under concurrent supervision. Stenoses are assessed in accordance with NASCET criteria unless otherwise indicated. This CT examination was performed using dose optimization techniques as appropriate, variously including the following: *Automated exposure control *Adjustment of mA and/or kV according to patient size (this includes techniques or standardized protocols for targeted exams where dose is matched to indication/reason for exam; i.e. extremities or head) *Use of iterative reconstruction technique FINDINGS: BRAIN: [There is no intracranial hemorrhage, hydrocephalus, extra-axial surface collection, midline shift, or other herniation pattern. [place] to white matter differentiation is diffusely maintained without evidence of an evolved acute territorial infarct. The basilar cisterns are preserved. No significant soft tissue abnormality. No acute osseous abnormality. The paranasal sinuses and the mastoid air cells are well aerated.] CERVICAL SOFT TISSUES AND LUNG APICES: [Unremarkable. ] NECK CTA: [There is a classic 3 vessel configuration of the aortic arch. Proximal arch vessels are non-stenotic. The vertebral arteries are codominant. No significant ostial stenosis is visualized on either side. Both vertebral arteries are widely patent throughout their extracranial cervical course. Both common and internal carotid arteries are normal in course and caliber.] BRAIN CTA: [There is normal opacification of major intracranial arteries. No focal flow-limiting stenosis nor discrete proximal large artery occlusion. No aneurysm. Timing of the contrast bolus allows assessment of the major dural venous sinuses, which all opacify normally] CT/CT angio head neck IMPRESSION: No acute intracranial findings. No acute arterial occlusions and no significant arterial stenoses within the head or neck.
--- NOTE | ~2021-05-26 | XR_ITS ---
EXAMINATION: XR CHEST CLINICAL INFORMATION: Chest pain COMPARISON: 08/16/2020 TECHNIQUE: Frontal view of the chest was obtained. FINDINGS: EKG leads overlie the chest. Lungs are clear. No consolidation, pneumothorax, or pleural effusion. Cardiac and mediastinal contours are normal. Pulmonary vasculature is normal. Minor degenerative spondylosis in the thoracic spine. XR/XR chest 1V IMPRESSION: No acute cardiopulmonary findings.
[2021-05-26 04:47] VITALS: BP 154/92; PULSE 63; RESP 16; TEMP 37.2; O2SAT 98; BMI 29.4
--- NOTE | 2021-05-26 05:09 | ECG_ITS ---
Test Reason : DIZZNESS Blood Pressure : / mmHG Vent. Rate : 054 BPM Atrial Rate : 054 BPM P-R Int : 190 ms QRS Dur : 082 ms QT Int : 406 ms P-R-T Axes : 012 -01 005 degrees QTc Int : 385 ms Sinus bradycardia Otherwise normal ECG When compared with ECG of 14-DEC-2020 04:33, Sinus rhythm has replaced Atrial fibrillation Vent. rate has decreased BY 39 BPM QT has shortened Referred By: Mimi Sanchez Electronically Signed By:Henrique Wolfe
--- NOTE | 2021-05-26 05:14 | ED_ITS ---
HPI - Dizziness General Chief Complaint: Dizziness Stated Complaint: dizziness Time Seen by Provider: 05/26/21 05:07 Source: patient Mode of arrival: EMS History of Present Illness HPI Narrative: 61-year-old male with history diabetes, hypertension, currently on anticoagulation who presents via EMS for recurrent and worsening feeling as t danielle the room is spinning the point that he has difficulty walking in a straight line and has to ?hang onto something? or he may fall. This has not been associated with any double vision/blurry vision/loss of vision and he denies any change in hearing or speech and denies any extremity numbness/ti ngling/weakness. Patient otherwise denies any recent fever, chills, shortness of breath/chest pain/palpitations and states that although this has been a recurring feeling for him he has not discussed of his primary care provider, has never been prescribed medication for, and states that at this time it is worse. Related Data Home Medications Medication Instructions Recorded Confirmed atorvastatin 80 mg tablet 80 mg PO BEDTIME 05/27/20 08/13/20 lisinopril 40 mg tablet 40 mg PO DAILY 05/27/20 08/13/20 metformin 500 mg tablet 1,000 mg PO DAILY@1700 05/27/20 08/13/20 Previous Rx's Medication Instructions Recorded diltiazem HCl 120 mg 120 mg PO DAILY 90 Days #90 cap 06/26/20 capsule,extended release 24 hr (Cardizem CD) apixaban 5 mg tablet (Eliquis) 5 mg PO BID 90 Days #180 tab 06/30/20 ondansetron 4 mg disintegrating 4 mg PO Q6-8H PRN #12 tab 08/06/20 tablet dexamethasone 6 mg tablet 6 mg PO DAILY #3 tab 08/17/20 diltiazem HCl 300 mg 300 mg PO DAILY #30 cap 12/14/20 capsule,extended release 24 hr Allergies Allergy/AdvReac Type Severity Reaction Status Date / Time No Known Allergies Allergy Verified 05/26/21 04:57 Review of Systems Review of Systems: Pertinent positives and negatives as stated in HPI 10 point review of systems is otherwise negative. PMFSH Past Medical History Source: nursing notes reviewed Medical History Diabetes mellitus Essential hypertension High cholesterol HTN (hypertension) PAF (paroxysmal atrial fibrillation) Type 2 diabetes mellitus with unspecified complications Social History Social History Household Members: Spouse Household Members Other:: 1 Housing: Unknown / Unable to assess Do you presently have visiting nurse or other home services: No Alcohol intake: never Patient Tobacco Use Status: Never used Tobacco Second Hand Smoke Exposure: No Advance Directives: Yes Advance Directives on File: Yes Advance Directives Date on File: 05/27/20 service: No Current occupational status: unemployed Physical Exam Vital Signs: Vital Signs: Last Vital Signs Temp 99 F 05/26/21 04:47 Pulse 56 05/26/21 06:09 Resp 16 05/26/21 06:09 BP 135/83 05/26/21 06:09 Pulse Ox 98 05/26/21 04:47 BMI result Body Mass Index 29.4 VITAL SIGNS: Reviewed. GENERAL: Well developed, well nourished, in no acute distress. HEAD: Normocephalic/atraumatic EYES: PERRLA, EOMI without nystagmus EARS: Ext canals without abnormality, TMs non-bulging and non-erythematous on the right, but noted cerumen impaction on the left NOSE: Nares patent bilateral OROPHARYNX: no oral lesions noted, posterior pharynx clear NECK: Supple, no adenopathy LUNGS: Normal breath sounds. No adventitious sounds or accessory muscle use. SpO2<98> CARDIOVASCULAR: Regular rate and rhythm without noted murmurs, no JVD or lower extremity edema. ABDOMEN: Soft, non-tender, non-distended with bowel sounds. MUSCULOSKELETAL: No tenderness, deformities, or effusions noted on gross ins pection. EXTREMITIES: No cyanosis, clubbing or edema. SKIN: Inspection of the skin reveals no rashes NEUROLOGIC: Alert and oriented x 4. Strength and sensation to light touch were grossly intact x 4, no facial asymmetry, no pronator drift, cranial nerves 2-12 are grossly intact, heel to nathan is without deficit as well as pass pointing being intact. In addition, when patient asked to lift his head off of the pillow he does not report any dizziness, on asking patient to set up there is no evidence of truncal ataxia. Course Course Course Narrative: 61-year-old male with history and clinical presentation dizziness/vertigo, low clinical suspicion for posterior event given current exam. Will evaluate for evidence of infection, anemia, metabolic derangement, as well as obtaining imaging studies of the head. Review of all investigations without acute findings to suggest infection, anemia, volume depletion. Patient provided with initial dose meclizine and will re-evaluate Signed out to Dr Molina: f/u CT head, CTA angio head/neck, re-eval if meclizine helped. MDM - Dizziness Lab Data Result diagrams: 05/26/21 05:27 05/26/21 05:27 Labs: Lab Results 05/26/21 05/26/21 05/26/21 Range/Units 05:27 05:27 05:27 WBC 7.0 (4.8-10.8) X10*3/uL RBC 4.44 L (4.60-5.80) X10*6/uL Hgb 13.9 L (14.0-18.0) g/dl Hct 40.7 L (42.0-52.0) % MCV 91.7 (80.0-98.0) fL MCH 31.3 (27.0-33.0) pg MCHC 34.2 (31.0-36.0) g/dl RDW 12.7 (11.0-16.0) % Plt Count 206 (160-400) X10*3/uL MPV 10.7 (9.4-12.4) fL Immature Gran % (Auto) 0.3 (0.0-0.4) % Neut % (Auto) 63.2 (45-73) % Lymph % (Auto) 25.9 (20-40) % [place] % (Auto) 9.3 (2-11) % Eos % (Auto) 0.9 (0-4) % Baso % (Auto) 0.4 (0-2) % Lymph # (Auto) 1.8 (1.2-4.9) X10*3/uL [place] # (Auto) 0.7 (0.1-1.2) X10*3/uL Eos # (Auto) 0.1 (0.0-0.4) X10*3/uL Baso # (Auto) 0.0 (0.0-0.2) X10*3/uL Abs Immat Gran (auto) 0.02 (0.00-0.03) X10*3/uL Absolute Neuts (auto) 4.4 (2.0-8.3) x10*3/uL Absolute Nucleated RBC 0.000 (0.0-0.012) X10*3/uL Nucleated RBC % (auto) 0.0 (0.0-0.2) /100WBC PT (9.9-13.0) SEC INR (0.9-1.1) Sodium 138 (135-145) mmol/L Potassium 4.3 (3.3-5.1) mmol/L Chloride 101 (96-108) mmol/L Carbon Dioxide 29 (22-29) mmol/L Anion Gap 12 (12-20) BUN 19 H (9-16) mg/dL Creatinine 1.12 (0.5-1.4) mg/dL Estim Creat Clear Calc 73.1 Estimated GFR > 60 Random Glucose 172 H D (60-115) mg/dL Calcium 9.4 (8.4-10.2) mg/dL Total Bilirubin 1.0 (0.0-1.0) mg/dL AST 15 (5-37) U/L ALT 19 (0-40) U/L Alkaline Phosphatase 107 (39-117) U/L Troponin I High Sens 3.6 (<3.5-35.0) ng/L Total Protein 7.6 (6.5-8.0) g/dL Albumin 4.4 (3.5-5.0) g/dL Urine Color Urine Appearance Urine pH (5.0-8.0) Ur Specific [place] (1.005-1.025) Urine Protein (NEG-TRACE) MG/DL Urine Glucose (UA) (NEG) MG/DL Urine Ketones (NEG) MG/DL Urine Blood (NEG) Urine Nitrite (NEG) Ur Leukocyte Esterase (NEG) Urine RBC (0) /HPF Urine WBC (0-4) /HPF Ur Squamous Epith Cells /LPF Urine Bacteria /LPF Acetone, Qual (Negative) Influenza Type A (PCR) (Negative) Influenza Type B (PCR) (Negative) RSV RNA Qual (PCR) (Negative) SARS-CoV-2 RNA (RT-PCR) (Negative) 05/26/21 05/26/21 05/26/21 Range/Units 05:27 05:27 05:27 WBC (4.8-10.8) X10*3/uL RBC (4.60-5.80) X10*6/uL Hgb (14.0-18.0) g/dl Hct (42.0-52.0) % MCV (80.0-98.0) fL MCH (27.0-33.0) pg MCHC (31.0-36.0) g/dl RDW (11.0-16.0) % Plt Count (160-400) X10*3/uL MPV (9.4-12.4) fL Immature Gran % (Auto) (0.0-0.4) % Neut % (Auto) (45-73) % Lymph % (Auto) (20-40) % [place] % (Auto) (2-11) % Eos % (Auto) (0-4) % Baso % (Auto) (0-2) % Lymph # (Auto) (1.2-4.9) X10*3/uL [place] # (Auto) (0.1-1.2) X10*3/uL Eos # (Auto) (0.0-0.4) X10*3/uL Baso # (Auto) (0.0-0.2) X10*3/uL Abs Immat Gran (auto) (0.00-0.03) X10*3/uL Absolute Neuts (auto) (2.0-8.3) x10*3/uL Absolute Nucleated RBC (0.0-0.012) X10*3/uL Nucleated RBC % (auto) (0.0-0.2) /100WBC PT 14.5 H (9.9-13.0) SEC INR 1.3 H (0.9-1.1) Sodium (135-145) mmol/L Potassium (3.3-5.1) mmol/L Chloride (96-108) mmol/L Carbon Dioxide (22-29) mmol/L Anion Gap (12-20) BUN (9-16) mg/dL Creatinine (0.5-1.4) mg/dL Estim Creat Clear Calc Estimated GFR Random Glucose (60-115) mg/dL Calcium (8.4-10.2) mg/dL Total Bilirubin (0.0-1.0) mg/dL AST (5-37) U/L ALT (0-40) U/L Alkaline Phosphatase (39-117) U/L Troponin I High Sens (<3.5-35.0) ng/L Total Protein (6.5-8.0) g/dL Albumin (3.5-5.0) g/dL Urine Color Urine Appearance Urine pH (5.0-8.0) Ur Specific [place] (1.005-1.025) Urine Protein (NEG-TRACE) MG/DL Urine Glucose (UA) (NEG) MG/DL Urine Ketones (NEG) MG/DL Urine Blood (NEG) Urine Nitrite (NEG) Ur Leukocyte Esterase (NEG) Urine RBC (0) /HPF Urine WBC (0-4) /HPF Ur Squamous Epith Cells /LPF Urine Bacteria /LPF Acetone, Qual Negative (Negative) Influenza Type A (PCR) NEGATIVE (Negative) Influenza Type B (PCR) NEGATIVE (Negative) RSV RNA Qual (PCR) NEGATIVE (Negative) SARS-CoV-2 RNA (RT-PCR) NEGATIVE (Negative) 05/26/21 Range/Units 06:20 WBC (4.8-10.8) X10*3/uL RBC (4.60-5.80) X10*6/uL Hgb (14.0-18.0) g/dl Hct (42.0-52.0) % MCV (80.0-98.0) fL MCH (27.0-33.0) pg MCHC (31.0-36.0) g/dl RDW (11.0-16.0) % Plt Count (160-400) X10*3/uL MPV (9.4-12.4) fL Immature Gran % (Auto) (0.0-0.4) % Neut % (Auto) (45-73) % Lymph % (Auto) (20-40) % [place] % (Auto) (2-11) % Eos % (Auto) (0-4) % Baso % (Auto) (0-2) % Lymph # (Auto) (1.2-4.9) X10*3/uL [place] # (Auto) (0.1-1.2) X10*3/uL Eos # (Auto) (0.0-0.4) X10*3/uL Baso # (Auto) (0.0-0.2) X10*3/uL Abs Immat Gran (auto) (0.00-0.03) X10*3/uL Absolute Neuts (auto) (2.0-8.3) x10*3/uL Absolute Nucleated RBC (0.0-0.012) X10*3/uL Nucleated RBC % (auto) (0.0-0.2) /100WBC PT (9.9-13.0) SEC INR (0.9-1.1) Sodium (135-145) mmol/L Potassium (3.3-5.1) mmol/L Chloride (96-108) mmol/L Carbon Dioxide (22-29) mmol/L Anion Gap (12-20) BUN (9-16) mg/dL Creatinine (0.5-1.4) mg/dL Estim Creat Clear Calc Estimated GFR Random Glucose (60-115) mg/dL Calcium (8.4-10.2) mg/dL Total Bilirubin (0.0-1.0) mg/dL AST (5-37) U/L ALT (0-40) U/L Alkaline Phosphatase (39-117) U/L Troponin I High Sens (<3.5-35.0) ng/L Total Protein (6.5-8.0) g/dL Albumin (3.5-5.0) g/dL Urine Color YELLOW Urine Appearance CLEAR Urine pH 6.0 (5.0-8.0) Ur Specific [place] 1.010 (1.005-1.025) Urine Protein NEG (NEG-TRACE) MG/DL Urine Glucose (UA) NEG (NEG) MG/DL Urine Ketones NEG (NEG) MG/DL Urine Blood TRACE (NEG) Urine Nitrite NEG (NEG) Ur Leukocyte Esterase NEG (NEG) Urine RBC 0-2 (0) /HPF Urine WBC 0-2 (0-4) /HPF Ur Squamous Epith Cells TRACE /LPF Urine Bacteria NONE /LPF Acetone, Qual (Negative) Influenza Type A (PCR) (Negative) Influenza Type B (PCR) (Negative) RSV RNA Qual (PCR) (Negative) SARS-CoV-2 RNA (RT-PCR) (Negative) ECG Data Attestation: I personally reviewed and interpreted this ECG as follows: Prior ECG tracings: available for review Interpretation: Sinus bradycardia, HR-54, no STEMI, PA/QRS/QTC are within normal limits. Discharge Plan Discharge Clinical Impression: Vertigo Patient Disposition: Still a Patient Prescriptions: No Action diltiazem HCl [Cardizem CD] 120 mg capsule,extended release 24hr 120 mg PO DAILY 90 Days Qty: 90 3RF Protocol: Hold for SBP/HR < HOLD for SBP < : 90 HOLD for HR < : 60 Eliquis 5 mg tablet 5 mg PO BID 90 Days Qty: 180 1RF ondansetron 4 mg tablet,disintegrating 4 mg PO Q6-8H PRN (Reason: Vomiting) Qty: 12 0RF lisinopril 40 mg Tablet 40 mg PO DAILY 0RF atorvastatin 80 mg Tablet 80 mg PO BEDTIME 0RF metformin 500 mg Tablet 1,000 mg PO DAILY@1700 0RF dexamethasone 6 mg Tablet 6 mg PO DAILY Qty: 3 0RF diltiazem HCl 300 mg capsule,extended release 24hr 300 mg PO DAILY Qty: 30 0RF
[2021-05-26 05:33] LABS: Basophils Percent Auto 0.4 % (0-2); Eosinophils Absolute Auto 0.1 X10*3/uL (0.0-0.4); Eosinophils Percent Auto 0.9 % (0-4); Hematocrit 40.7 % (42.0-52.0); Hemoglobin 13.9 g/dl (14.0-18.0); Imm Gran Abs Auto 0.02 X10*3/uL (0.00-0.03); Imm Gran Pct Auto 0.3 % (0.0-0.4); Lymphocytes Absolute Auto 1.8 X10*3/uL (1.2-4.9); Lymphocytes Percent Auto 25.9 % (20-40); MANUAL DIFF FLAG NO; Mean Corpuscular HGB Conc 34.2 g/dl (31.0-36.0); Mean Corpuscular Hemoglobin 31.3 pg (27.0-33.0); Mean Corpuscular Volume 91.7 fL (80.0-98.0); Mean Platelet Volume 10.7 fL (9.4-12.4); Monocytes Absolute Auto 0.7 X10*3/uL (0.1-1.2); Monocytes Percent Auto 9.3 % (2-11); Neutrophils Absolute Auto 4.4 x10*3/uL (2.0-8.3); Neutrophils Percent Auto 63.2 % (45-73); Platelet Count 206 X10*3/uL (160-400); Red Blood Count 4.44 X10*6/uL (4.60-5.80); Red Cell Distribution Width 12.7 % (11.0-16.0)
[2021-05-26 05:39] LABS: INTERNATIONAL NORM RATIO 1.3 (0.9-1.1); Prothrombin Time 14.5 SEC (9.9-13.0)
[2021-05-26 05:44] LABS: Acetone, serum QL Negative (Negative)
[2021-05-26 05:54] LABS: Alanine Aminotransferase 19 U/L (0-40); Albumin Level 4.4 g/dL (3.5-5.0); Alkaline Phosphatase 107 U/L (39-117); Anion Gap 12 (12-20); Aspartate Amino Transferase 15 U/L (5-37); Blood Urea Nitrogen 19 mg/dL (9-16); Calcium 9.4 mg/dL (8.4-10.2); Carbon Dioxide 29 mmol/L (22-29); Chloride 101 mmol/L (96-108); Creatinine Clr Calc Pharmacy 73.1; Estimated Glomerular Filt Rate > 60; Glucose Random 172 mg/dL (60-115); Potassium 4.3 mmol/L (3.3-5.1); Sodium 138 mmol/L (135-145); Total Protein 7.6 g/dL (6.5-8.0)
[2021-05-26 05:55] LABS: Troponin-I High Sensitivity 3.6 ng/L (<3.5-35.0)
[2021-05-26 06:09] VITALS: BP 135/83; PULSE 56; RESP 16
[2021-05-26 06:11] LABS: Influenza A PCR NEGATIVE (Negative); Influenza B PCR NEGATIVE (Negative); Resp Syncy Virus RNA Qual PCR NEGATIVE (Negative); SARS COV2 PCR INHOUSE NEGATIVE (Negative)
--- NOTE | 2021-05-26 06:20 | PC.NURSE ---
pt ambulated to BR with standby contact guard. pt demonstrated steady gait
[2021-05-26 06:33] LABS: Appearance Urine CLEAR; Color Urine YELLOW; Glucose Urine UA NEG (NEG); Leukocyte Esterase Urine NEG (NEG); Nitrite Urine NEG (NEG); UACC Culture Trigger NO; Urine Blood TRACE (NEG); Urine Ketones NEG (NEG); Urine Protein NEG (NEG-TRACE)
[2021-05-26 06:39] LABS: RBC Urine 0-2 /HPF (0); Squamous Epithelial Cell Urine TRACE /LPF; WBC Urine 0-2 /HPF (0-4)
[2021-05-26] MEDS: iohexoL 350 MG/ML 100 ML INFUS..BTL 70 ML IV (06:48)
[2021-05-26] MEDS: Meclizine HCl 25 MG TABLET PO (07:02)
[2021-05-26 08:53] VITALS: BP 139/75; PULSE 53; RESP 16; O2SAT 98
--- NOTE | 2021-05-26 08:55 | PC.NURSE ---
PATIENT REPORTS NO LONGER DIZZY AFTER TAKING MECLIZINE
== END 2021-05-26 09:38 | disposition home or self-care (01) ==
PROVIDERS: Student in an Organized Health Care Education/Training Program; Emergency Provider Emergency Medicine Emergency Medical Services
DX: R42 Dizziness and giddiness (principal); Z20.822 Contact with and (suspected) exposure to COVID-19; E11.9 Type 2 diabetes mellitus without complications; I11.0 Hypertensive heart disease with heart failure; E78.5 Hyperlipidemia, unspecified; I48.0 Paroxysmal atrial fibrillation; Z79.01 Long term (current) use of anticoagulants; Z79.02 Long term (current) use of antithrombotics/antiplatelets
CPT/HCPCS: 0241U; 36415; 70496; 70498; 71045; 80053; 81001; 82009; 84484; 85025; 85610; 93005; 99284; Q9967

== ENCOUNTER 2021-09-30 07:45 | Emergency (ER) | payer OTHER, SELFPAY ==
[2021-09-30 07:51] VITALS: BP 128/81; PULSE 120; RESP 18; TEMP 36.9; O2SAT 99; BMI 28.5
--- NOTE | 2021-09-30 07:57 | ECG_ITS ---
Test Reason : palp Blood Pressure : / mmHG Vent. Rate : 096 BPM Atrial Rate : 000 BPM P-R Int : 000 ms QRS Dur : 082 ms QT Int : 328 ms P-R-T Axes : 000 025 022 degrees QTc Int : 414 ms Atrial fibrillation Nonspecific T wave abnormality Abnormal ECG When compared to the previous EKG of 26 may 2021, rhythm change Referred By: Generic ED Physician Electronically Signed By:DAVE ECHEVARRIA
[2021-09-30 09:02] LABS: MANUAL DIFF FLAG NO
[2021-09-30 09:05] LABS: Basophils Percent Auto 0.3 % (0-2); Eosinophils Absolute Auto 0.1 X10*3/uL (0.0-0.4); Eosinophils Percent Auto 0.6 % (0-4); Hematocrit 42.6 % (42.0-52.0); Imm Gran Abs Auto 0.03 X10*3/uL (0.00-0.03); Imm Gran Pct Auto 0.3 % (0.0-0.4); Mean Corpuscular HGB Conc 35.2 g/dl (31.0-36.0); Mean Corpuscular Hemoglobin 31.9 pg (27.0-33.0); Mean Corpuscular Volume 90.6 fL (80.0-98.0); Mean Platelet Volume 10.7 fL (9.4-12.4); Monocytes Absolute Auto 0.9 X10*3/uL (0.1-1.2); Monocytes Percent Auto 9.2 % (2-11); Neutrophils Absolute Auto 6.5 x10*3/uL (2.0-8.3); Neutrophils Percent Auto 68.6 % (45-73); Platelet Count 238 X10*3/uL (160-400); Red Cell Distribution Width 12.5 % (11.0-16.0); White Blood Count 9.4 X10*3/uL (4.8-10.8)
[2021-09-30 09:30] LABS: Anion Gap 13 (12-20); Blood Urea Nitrogen 22 mg/dL (9-16); Calcium 8.8 mg/dL (8.4-10.2); Carbon Dioxide 26 mmol/L (22-29); Chloride 99 mmol/L (96-108); Creatinine Clr Calc Pharmacy 56.4; Estimated Glomerular Filt Rate 50; Glucose Random 272 mg/dL (60-115); Potassium 4.1 mmol/L (3.3-5.1); Sodium 134 mmol/L (135-145)
[2021-09-30 09:32] LABS: Troponin-I High Sensitivity 5.4 ng/L (<3.5-35.0)
[2021-09-30 11:10] VITALS: BP 107/76; PULSE 70; RESP 16; O2SAT 98
--- NOTE | 2021-09-30 12:02 | ED.ARRPALP ---
HPI - Arrhythmia/Palpitations General Chief Complaint: Arrhythmia/Palpitations Stated Complaint: irr heart beat sob Time Seen by Provider: 09/30/21 11:33 Source: patient and family Mode of arrival: ambulatory Limitations: no limitations History of Present Illness HPI narrative: Patient comes to the emergency room complaining of palpitations intermittently. Patient states that he does not get any chest pain or shortness of breath, it is just uncomfortable to feel the intermittent palpitations that last for a few seconds to a few minutes and then the self resolve. Patient is on Eliquis b.i.d.. Patient states that he does not take any medication for rate control. Related Data Home Medications Medication Instructions Recorded Confirmed atorvastatin 80 mg tablet 80 mg PO BEDTIME 05/27/20 08/13/20 lisinopril 40 mg tablet 40 mg PO DAILY 05/27/20 08/13/20 metformin 500 mg tablet 1,000 mg PO DAILY@1700 05/27/20 08/13/20 Previous Rx's Medication Instructions Recorded diltiazem HCl 120 mg 120 mg PO DAILY 90 days #90 caps 06/26/20 capsule,extended release 24 hr (Cardizem CD) ondansetron 4 mg disintegrating 4 mg PO Q6-8H PRN Vomiting #12 tabs 08/06/20 tablet dexamethasone 6 mg tablet 6 mg PO DAILY #3 tabs 08/17/20 diltiazem HCl 300 mg 300 mg PO DAILY #30 caps 12/14/20 capsule,extended release 24 hr meclizine 25 mg tablet (Dramamine 25 mg PO TID PRN dizziness #20 tabs 05/26/21 Less Drowsy) apixaban 5 mg tablet (Eliquis) 5 mg PO BID 90 days #180 tabs 08/20/21 diltiazem HCl 120 mg 120 mg PO DAILY #30 caps 09/30/21 capsule,extended release 24 hr Allergies Allergy/AdvReac Type Severity Reaction Status Date / Time No Known Allergies Allergy Verified 05/26/21 04:57 Review of Systems Review of Systems: Constitutional : No Weight loss, No Fever, No Chills, No Night Sweats, No Fatigue, No Malaise ENT/Mouth : No Hearing loss, No Ear Pain, No Nasal Congestion, No Sinus Pain, No Hoarseness, No sore throat, No Rhinorrhea, No Swallowing Difficulty Eyes: No Eye Pain, No Swelling, No Redness, No Foreign Body, No Discharge, No Vision Changes Cardiovascular : No Chest Pain, No SOB, No Dyspnea on Exertion, No Orthopnea, No Edema, complaining of intermittent Palpitations Respiratory : No Cough, No Sputum, No Wheezing, No Smoke Exposure, No Dyspnea Gastrointestinal : No Nausea, No Vomiting, No Diarrhea, No Constipation, No abdominal Pain, No Hematochezia, No Melena Genitourinary : no irregular bleeding, No Dysuria, No Urinary Frequency, No Hematuria, No Urinary Incontinence, No Urgency, No Flank Pain, No Urinary Flow Changes, No Hesitancy Musculoskeletal : No joint pain, No Myalgias, No Joint Swelling Skin : No Skin Lesions, No rash Neuro : No Weakness, No Numbness, No Paresthesias, No Loss of Consciousness, No Dizziness, No Headache Psych : No Anxiety/Panic, No Depression, No SI/HI/AH/VH, No Social Issues, Heme/Lymph: No Bruising, No Bleeding,No Lymphadenopathy Endocrine : No Polyuria, No Polydipsia, No Temperature Intolerance [facility] Past Medical History Medical History Diabetes mellitus Essential hypertension High cholesterol HTN (hypertension) PAF (paroxysmal atrial fibrillation) Type 2 diabetes mellitus with unspecified complications Social History Social History Household Members: Spouse Household Members Other:: 1 Housing: Unknown / Unable to assess Do you presently have visiting nurse or other home services: No Alcohol intake: never Patient Tobacco Use Status: Never used Tobacco Second Hand Smoke Exposure: No Use of substances other than those prescribed or required for medical reasons: No Advance Directives: No Advance Directives Information Provided: Yes Advance Directives Date on File: 05/27/20 service: No Current occupational status: unemployed Physical Exam Vital Signs: Vital Signs: Last Vital Signs Temp 98.5 F 09/30/21 07:51 Pulse 70 09/30/21 11:10 Resp 16 09/30/21 11:10 BP 107/76 09/30/21 11:10 Pulse Ox 98 09/30/21 11:10 O2 Del Method 09/30/21 11:10 BMI result Body Mass Index 28.5 Const: Other: Appearance: Alert. Oriented X3. No acute distress. Eyes: Pupils equal, round and reactive to light. ENT: Pharynx normal. Neck: Normal inspection. Neck supple. No lymph nodes noted. No crepitus CVS: Irregularly irregular, rate control in the 80s. Pulses normal. Normal S1 and S2 Respiratory: No respiratory distress. Breath sounds normal. No Wheezing. No rales Abdomen: Soft and nontender. No rigidity. No distention. Skin: Skin warm and dry. Normal skin color. Normal skin turgor. Extremities: No lower extremity edema. No Lacerations. No Rash Neuro: Oriented X 3. No motor deficit. No sensory deficit. Moving all extremities. No slurred speech. CN 2 through 12 grossly intact Psych: calm, cooperative, normal affect Course Course Course Narrative: Patient's EKG does show atrial fibrillation, rate controlled. Patient does not have any chest pain or shortness of breath, troponin is at baseline. I discussed with the patient to continue taking Eliquis b.i.d. patient does not take any medication for rate control, which seems a bit strange. I reviewed patient's records, patient was seen by Cardiology in June of 2020. Back then, patient was on Cardizem 120 mg daily. Patient states that he was not aware that he was supposed to continue taking this medications. Patient never followed up with his primary care physician or Cardiology and never had refills for this medication. We will go ahead and start Cardizem 120 mg, and he will be provided with the phone number for Cardiology for follow-up. MDM - Arrhythmia/Palpitations Lab Data Result diagrams: 09/30/21 08:57 09/30/21 08:57 Labs: Lab Results 09/30/21 09/30/21 09/30/21 Range/Units 08:57 08:57 08:57 WBC 9.4 (4.8-10.8) X10*3/uL RBC 4.70 (4.60-5.80) X10*6/uL Hgb 15.0 (14.0-18.0) g/dl Hct 42.6 (42.0-52.0) % MCV 90.6 (80.0-98.0) fL MCH 31.9 (27.0-33.0) pg MCHC 35.2 (31.0-36.0) g/dl RDW 12.5 (11.0-16.0) % Plt Count 238 (160-400) X10*3/uL MPV 10.7 (9.4-12.4) fL Immature Gran % (Auto) 0.3 (0.0-0.4) % Neut % (Auto) 68.6 (45-73) % Lymph % (Auto) 21.0 (20-40) % Towns % (Auto) 9.2 (2-11) % Eos % (Auto) 0.6 (0-4) % Baso % (Auto) 0.3 (0-2) % Lymph # (Auto) 2.0 (1.2-4.9) X10*3/uL Towns # (Auto) 0.9 (0.1-1.2) X10*3/uL Eos # (Auto) 0.1 (0.0-0.4) X10*3/uL Baso # (Auto) 0.0 (0.0-0.2) X10*3/uL Abs Immat Gran (auto) 0.03 (0.00-0.03) X10*3/uL Absolute Neuts (auto) 6.5 (2.0-8.3) x10*3/uL Absolute Nucleated RBC 0.000 (0.0-0.012) X10*3/uL Nucleated RBC % (auto) 0.0 (0.0-0.2) /100WBC Sodium 134 L (135-145) mmol/L Potassium 4.1 (3.3-5.1) mmol/L Chloride 99 (96-108) mmol/L Carbon Dioxide 26 (22-29) mmol/L Anion Gap 13 (12-20) BUN 22 H (9-16) mg/dL Creatinine 1.43 H (0.5-1.4) mg/dL Estim Creat Clear Calc 56.4 Estimated GFR 50 Random Glucose 272 H D (60-115) mg/dL Calcium 8.8 D (8.4-10.2) mg/dL Troponin I High Sens 5.4 (<3.5-35.0) ng/L Discharge Plan Discharge Clinical Impression: Atrial fibrillation Patient Disposition: Home, Self-Care Instructions: A-fib (Atrial Fibrillation) (ED) Additional Instructions: Por favor llame a la oficina de cardiologia para hacer bhavna shaye. Please follow-up with your primary care physician tomorrow. If you have any worsening or new symptoms, please return to the emergency room or call 911 Prescriptions: New diltiazem HCl 120 mg capsule,extended release 24hr 120 mg PO DAILY Qty: 30 3RF No Action diltiazem HCl [Cardizem CD] 120 mg capsule,extended release 24hr 120 mg PO DAILY 90 Days Qty: 90 3RF Protocol: Hold for SBP/HR < HOLD for SBP < : 90 HOLD for HR < : 60 Eliquis 5 mg tablet 5 mg PO BID 90 Days Qty: 180 0RF Rx Instructions: Please call and schedule cardiology appt for refills ondansetron 4 mg tablet,disintegrating 4 mg PO Q6-8H PRN (Reason: Vomiting) Qty: 12 0RF lisinopril 40 mg Tablet 40 mg PO DAILY atorvastatin 80 mg Tablet 80 mg PO BEDTIME metformin 500 mg Tablet 1,000 mg PO DAILY@1700 dexamethasone 6 mg Tablet 6 mg PO DAILY Qty: 3 0RF diltiazem HCl 300 mg capsule,extended release 24hr 300 mg PO DAILY Qty: 30 0RF meclizine [Dramamine Less Drowsy] 25 mg tablet 25 mg PO TID PRN (Reason: dizziness) Qty: 20 0RF Referrals: Babak Saba MD [Physician] - 2 days (Atrial fibrillation)
== END 2021-09-30 12:32 | disposition home or self-care (01) ==
PROVIDERS: Emergency Provider Emergency Medicine; PCP Internal Medicine
DX: I48.0 Paroxysmal atrial fibrillation (principal); R00.2 Palpitations; E11.9 Type 2 diabetes mellitus without complications; I10 Essential (primary) hypertension; E78.5 Hyperlipidemia, unspecified; Z79.02 Long term (current) use of antithrombotics/antiplatelets; Z79.84 Long term (current) use of oral hypoglycemic drugs; Z79.899 Other long term (current) drug therapy; Z79.01 Long term (current) use of anticoagulants
CPT/HCPCS: 36415; 80048; 84484; 85025; 93005; 99283; 99285

== ENCOUNTER → 2021-10-28 13:33 | Outpatient (BNVA) | payer OTHER, SELFPAY | PROVIDERS: PCP Internal Medicine; Referring Provider Internal Medicine; Visit Provider Internal Medicine | DX: I48.0 Paroxysmal atrial fibrillation (principal); I10 Essential (primary) hypertension; E11.8 Type 2 diabetes mellitus with unspecified complications; Z79.01 Long term (current) use of anticoagulants; Z79.899 Other long term (current) drug therapy | CPT/HCPCS: 99212 ==

== ENCOUNTER → 2021-12-17 11:02 | Outpatient (REF) | payer OTHER, SELFPAY ==
--- NOTE | 2021-12-17 11:04 | HM_ITS ---
* Total monitoring time 2 days and 16 hours. * Underlying rhythm is sinus. * Average rate 62/Min. Range 44 to 125/Min. * Rare supraventricular and ventricular ectopy. * No atrial fibrillation noted. * No significant pauses or AV blocks. * No patient diary. MTDD
== END ==
LOC: HO.CARD 11:02
PROVIDERS: Visit Provider Internal Medicine
DX: I48.0 Paroxysmal atrial fibrillation (principal); R00.2 Palpitations
CPT/HCPCS: 93242

== ENCOUNTER → 2022-01-13 09:44 | Outpatient (BNVA) | payer OTHER, SELFPAY | PROVIDERS: PCP Internal Medicine; Referring Provider Internal Medicine; Visit Provider Internal Medicine | DX: I48.0 Paroxysmal atrial fibrillation (principal); E11.8 Type 2 diabetes mellitus with unspecified complications; I10 Essential (primary) hypertension | CPT/HCPCS: 99212 ==

== ENCOUNTER 2022-12-07 08:24 | Outpatient (REF) | payer OTHER, SELFPAY ==
[2022-12-07 12:23] LABS: Alanine Aminotransferase 23 U/L (0-40); Albumin Level 4.4 g/dL (3.5-5.0); Alkaline Phosphatase 92 U/L (39-117); Anion Gap 13 (12-20); Aspartate Amino Transferase 21 U/L (5-37); Bilirubin Direct 0.3 mg/dL (0.0-0.5); Bilirubin Total 0.8 mg/dL (0.0-1.0); Blood Urea Nitrogen 20 mg/dL (9-16); Calcium 9.6 mg/dL (8.4-10.2); Carbon Dioxide 30 mmol/L (22-29); Chloride 100 mmol/L (96-108); Estimated Glomerular Filt Rate 58; Glucose Random 124 mg/dL (60-115); Potassium 4.1 mmol/L (3.3-5.1); Sodium 139 mmol/L (135-145); Total Protein 7.8 g/dL (6.5-8.0)
[2022-12-07 12:26] LABS: Cholesterol 176 mg/dL (<200); HDL Cholesterol 41 mg/dL (>40); LDL Cholesterol Calculated 116 mg/dL (<100); Triglycerides 95 mg/dL (<150)
[2022-12-07 12:28] LABS: Reflex LDLD? No
[2022-12-07 12:33] LABS: Microalbum/Creatinine Ratio Ur 5.2 ug/mg cr (<30)
[2022-12-07 12:37] LABS: HIV AB/AG Nonreactive (Nonreactive); HIV Num 1 0.05 S/CO (0.00-0.99); ~Hepatitis C Antibody Nonreactive (Nonreactive)
[2022-12-07 12:41] LABS: Prostate Specific Antigen 1.52 ng/mL (<0.05-4.0); TSH reflex Free T4 1.25 uIU/mL (0.32-4.0)
== END 2022-12-07 08:25 | disposition home or self-care (01) ==
LOC: HO.HHCL 08:24
PROVIDERS: Visit Provider Internal Medicine
DX: I10 Essential (primary) hypertension (principal); E11.9 Type 2 diabetes mellitus without complications; E78.2 Mixed hyperlipidemia; Z12.5 Encounter for screening for malignant neoplasm of prostate
CPT/HCPCS: 36415; 80048; 80061; 80076; 82043; 82570; 84153; 84443; 86803; 87389

== ENCOUNTER 2023-02-01 08:44 | Outpatient (AMB) | payer OTHER, SELFPAY ==
--- NOTE | 2023-02-01 09:04 | A.OFFVIS_ITS ---
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 In May 2020, admitted for the same. Then was taking Diltiazem, but it seemed he may not have taken it consistently. More recently came to the ER for palpitations and again found to be in atrial fibrillation. He has been on a higher dose of diltiazem at 300 mg daily. He is also on Eliquis. Overall, he feels fine. Still gets occasional palpitations but nothing persistent or profound. Otherwise no chest pains or any other cardiac symptoms. [facility] Medical History PAF (paroxysmal atrial fibrillation) Type 2 diabetes mellitus with unspecified complications Essential hypertension High cholesterol Diabetes mellitus HTN (hypertension) Surgical History (Updated 02/01/23 @ 09:08 by Lore Parker) No pertinent past surgical history Family History Mother Hyperlipidemia Hypertension Diabetes Father Diabetes (Updated 02/01/23 @ 09:08 by Lore Parker) Household Members: Spouse Household Members Other:: 1 Housing: Unknown / Unable to assess Do you presently have visiting nurse or other home services: No Alcohol intake: current Alcohol intake frequency: a few times a week Alcohol type: beer and hard liquor Patient Tobacco Use Status: Never used Tobacco Second Hand Smoke Exposure: No Advance Directives Date on File: 05/27/20 service: No Current occupational status: unemployed Review of Systems Const Denies weakness ENT Denies dizziness Card Denies chest pain, Denies chest pain with activity, Denies syncope, Denies rapid heart rate, Denies pedal edema, Denies edema, Denies leg edema, Denies lightheadedness, Denies palpitations, Denies dyspnea, Denies dyspnea on exertion and Denies orthopnea Resp Denies cough, Denies dyspnea and Denies dyspnea on exertion GI Denies hematochezia and Denies change in stool character Musc Denies abnormal gait, Denies muscle cramps, Denies muscle weakness, Denies numbness, Denies radiating pain into limb and Denies tingling Neuro Denies abnormal gait, Denies dizziness, Denies syncope, Denies numbness, Denies tingling and Denies weakness Endo Denies palpitations Physical Exam Vital Signs: Last Vital Signs Pulse 64 02/01/23 09:05 BP 120/66 02/01/23 09:05 BMI result Body Mass Index 29.0 Const General: comfortable and no acute distress Orientation/consciousness: patient oriented x3 HEENT Other: Unremarkable Head: Yes normal to inspection Neck Neck: Yes normal visual inspection Chest Chest palpation & inspection: normal inspection of the chest Resp Auscultation: clear to auscultation bilaterally Cardio Palpation: normal PMI Heart sounds: S1 normal heart sound present, S2 normal heart sound present, no gallops, Murmur heart sound present systolic I/ and at the right sternal border and no rubs GI Palpation (GI): Soft to palpation Back/Spine/Pelvis Other: unremarkable Skin General skin exam: no rashes or lesions noted Neuro General: patient oriented x3 Extrem General: Yes normal to inspection Psych Mental Status: mental status grossly normal Office Procedures EKG Details: EKG with sinus rhythm at 64/Min; no significant ST-T changes and otherwise unremarkable. [place]. [id number], Complete Assessment & Plan Assessment & Plan (1) PAF (paroxysmal atrial fibrillation): Code(s): I48.0 - Paroxysmal atrial fibrillation Plan: Echocardiogram from 2020 with LVEF of 55-60%; severe left ventricular hypertrophy but otherwise unremarkable. Last Holter shows underlying sinus rhythm with an average rate of 62/Min but no evidence of atrial fibrillation. Rare supraventricular/ventricular ectopy. Overall, continue diltiazem without changes. Continue Eliquis. Due to recurrent palpitations, we will repeat his Holter. (2) Essential hypertension: Code(s): I10 - Essential (primary) hypertension Plan: Prior echocardiogram at shown severe left ventricular hypertrophy. He does have hypertension. No clinical symptoms or signs of congestive heart failure. (3) Type 2 diabetes mellitus with unspecified complications: Code(s): E11.8 - Type 2 diabetes mellitus with unspecified complications Plan: On metformin. No recent hemoglobin A1c in our system. Recorded random sugars have high as well as normal values at different times. Plan Total time spent including review of data, counseling, documentation, coordination of care-33 minutes. Orders: Orders ECG 14 day holter monitor Today I48.0 - Paroxysmal atrial fibrillation, R00.2 - Palpitations CA echo transthoracic complete Today I48.0 - Paroxysmal atrial fibrillation Coding Level of Care Code Est Pt Level 4 (94309) Diagnoses PAF (paroxysmal atrial fibrillation) I48.0 Essential hypertension I10 Type 2 diabetes mellitus with unspecified complications E11.8 CPT Codes EKG - CPT: 70041-[id number], Complete ([id number])
[2023-02-01 09:05] VITALS: BP 120/66; PULSE 64; BMI 29.0
== END 2023-02-01 09:24 | disposition home or self-care (01) ==
PROVIDERS: PCP Internal Medicine; Visit Provider Internal Medicine
DX: I48.0 Paroxysmal atrial fibrillation (principal); I10 Essential (primary) hypertension; E11.8 Type 2 diabetes mellitus with unspecified complications
CPT/HCPCS: 93010; 99214

== ENCOUNTER → 2023-02-01 08:44 | Outpatient (BNVA) | payer OTHER, SELFPAY | PROVIDERS: PCP Internal Medicine; Visit Provider Internal Medicine | DX: I48.0 Paroxysmal atrial fibrillation (principal); I10 Essential (primary) hypertension; E11.8 Type 2 diabetes mellitus with unspecified complications | CPT/HCPCS: 93005; 99212 ==

== ENCOUNTER → 2023-02-23 12:40 | Outpatient (REF) | payer OTHER, SELFPAY ==
--- NOTE | 2023-02-23 12:44 | CA_ITS ---
Transthoracic Echocardiogram Patient (Last, First, Middle): Kanu Jain, Gender: Male Date of : 1960 Age: 62 Procedure Date: 02/23/2023 Procedure Type: Transthoracic Echocardiogram Location: OP Height: 170.18 cm Weight: 84.37 kg BSA: 1.96 m2 Heart Rate: 65 bpm BP: 122 / 64 mmHg Cutter Apprentice Hand: CLEVE Referring MD: Babak Saba MD Network Operations Specialist: Rosendo Smith MD Symptoms: I48.0 - Paroxysmal atrial fibrillation Study Quality: Adequate ECG Rhythm: Sinus Conclusions: - Essentially normal study Findings Left Ventricle Normal left ventricular size, thickness, and systolic function. The visually estimated ejection fraction is between 60-65%. Spectral Doppler is indicative of a normal filling pattern. Peak GLS is -19.4%, within normal limits. Right Ventricle Normal right ventricular cavity size and systolic function. Atria The left atrium is likely dilated. Interatrial shunt cannot be excluded. The right atrium is normal in size. Aortic Valve Normal aortic valve structure and function. There is no aortic valve stenosis. There is no aortic valve regurgitation. Mitral Valve Normal mitral valve structure and function. There is trace mitral valve regurgitation. There is no mitral valve stenosis. Pulmonic Valve The pulmonic valve is likely normal. Tricuspid Valve Normal tricuspid valve structure. There is trace tricuspid valve regurgitation. The right ventricular systolic pressure is normal. The right ventricular systolic pressure is 26 mmHg. Normal right atrial pressure. There is no evidence of pulmonary hypertension. Great Vessels All visible segments of the aorta are normal in size. The pulmonary artery was not well visualized. Venous The inferior vena cava is normal in size and collapses greater than 50% with inspiration. Pericardium/Pleural There is no evidence of pericardial effusion. Measurements 2D Linear Measurements IVSd: 1.03 0.6-0.9/0.6-1.0 cm LVIDd: 5.14 3.9-5.3/4.2-5.9 cm LVIDd Index: 2.62 2.4-3.2/2.2-3.1 cm/m2 LVIDs: 3.32 2.0-3.6 cm LVPWd: 1.06 0.7-1.1 cm LA Diam: 4.10 2.7-3.8/3.0-4.0 cm LAIDs Index: 2.09 1.5-2.3 cm/m2 LV Mass: 251.82 67-162/88-224 g LV Mass Index: 128.48 43-95/49-115 g/m2 LVOT Diam: 2.10 3.0+(-)1.3 cm 2D Systolic Function EF 4C: 64.40 >55% EF 2C: 58.50 >55% EF BiP: 60.70 >55% Mitral Valve MV Pk E: 0.81 MV PK A: 0.79 MV Decel Time: 173.00 E/A: 1.00 E'Lateral: 10.40 E'Medial: 8.16 E/E' Med: 9.90 E/E' Lat: 7.80 PHT: 51.00 MVA PHT: 4.31 Decel [place]: 4.67 Aortic Valve AoV Pk Chas: 1.46 AoV Pk Grad: 9.00 CHIP: 3.20 LVOT LVOT Pk Chas: 1.42 LVOT Mn Chas: 0.95 LVOT VTI: 0.28 LVOT Pk Grad: 8.00 LVOT Mn Grad: 4.00 LVOT Diam: 2.10 LVOT Area: 3.46 Diastolic Function MV Pk E: 0.81 MV Pk A: 0.79 E/A: 1.00 E'Medial: 8.16 E/E' Med: 9.90 E' Laterial: 10.40 E/E' Lat: 7.80 Right Ventricle TAPSE (mm): 23.80 TVS' Chas: 12.50 Tricuspid Valve TR Pk Chas: 2.42 TR Pk Grad: 23.00 RA Press: 3.00 RVSP: 26.00 Great Vessels Aorta Sinus of Valsalva: 3.40 2.0-3.5 cm Ao Asc: 3.00 2.1-3.4 cm Pulmonary Veins Pulm Vein S/D 1.50 Pulmonary Valve PV Pk Chas: 0.94 Peak PV Grad: 4.00 Updated in Other Vendor System with Status of Final Rosendo Smith MD electronically signed on 02/24/2023 1:03:38 PM with status of Final
== END ==
LOC: HO.CARD 12:40
PROVIDERS: PCP Internal Medicine; Visit Provider Internal Medicine
DX: I48.0 Paroxysmal atrial fibrillation (principal); R00.2 Palpitations
CPT/HCPCS: 93246; 93306; 93356

== ENCOUNTER → 2023-02-23 12:44 | Outpatient (BNV) | payer OTHER, SELFPAY | PROVIDERS: PCP Internal Medicine; Visit Provider Internal Medicine Cardiovascular Disease | DX: I49.1 Atrial premature depolarization (principal) | CPT/HCPCS: 93248; 93306 ==

== ENCOUNTER 2023-03-22 10:12 | Observation (INO) | payer OTHER, SELFPAY ==
[2023-03-22] VITALS (14 sets, daily range): BP systolic 99–144; BP diastolic 61–89; PULSE 48–100; RESP 12–20; TEMP 36–36.8; O2SAT 94–107; BMI 29.1
--- NOTE | 2023-03-22 10:15 | ECG_ITS ---
Test Reason : palpitations Blood Pressure : / mmHG Vent. Rate : 113 BPM Atrial Rate : 000 BPM P-R Int : 000 ms QRS Dur : 074 ms QT Int : 312 ms P-R-T Axes : 000 008 009 degrees QTc Int : 427 ms Atrial fibrillation with rapid ventricular response Abnormal ECG When compared with ECG of 30-SEP-2021 08:14, No significant changes seen Referred By: Generic ED Physician Electronically Signed By:DAVE ECHEVARRIA
[2023-03-22 10:33] LABS: MANUAL DIFF FLAG NO
[2023-03-22 10:44] LABS: Basophils Absolute Auto 0.1 X10*3/uL (0.0-0.2); Basophils Percent Auto 0.6 % (0-2); Eosinophils Absolute Auto 0.1 X10*3/uL (0.0-0.4); Eosinophils Percent Auto 0.8 % (0-4); Hematocrit 40.7 % (42.0-52.0); Hemoglobin 14.6 g/dl (14.0-18.0); Imm Gran Abs Auto 0.01 X10*3/uL (0.00-0.03); Imm Gran Pct Auto 0.1 % (0.0-0.4); Lymphocytes Absolute Auto 2.8 X10*3/uL (1.2-4.9); Lymphocytes Percent Auto 36.5 % (20-40); Mean Corpuscular HGB Conc 35.9 g/dl (31.0-36.0); Mean Corpuscular Hemoglobin 32.2 pg (27.0-33.0); Mean Corpuscular Volume 89.8 fL (80.0-98.0); Mean Platelet Volume 11.1 fL (9.4-12.4); Monocytes Absolute Auto 0.9 X10*3/uL (0.1-1.2); Monocytes Percent Auto 10.9 % (2-11); Neutrophils Percent Auto 51.1 % (45-73); Platelet Count 242 X10*3/uL (160-400); Red Blood Count 4.53 X10*6/uL (4.60-5.80); Red Cell Distribution Width 12.7 % (11.0-16.0); White Blood Count 7.8 X10*3/uL (4.8-10.8)
[2023-03-22 10:50] LABS: Anion Gap 17 (12-20); Blood Urea Nitrogen 18 mg/dL (9-16); Calcium 10.1 mg/dL (8.4-10.2); Carbon Dioxide 27 mmol/L (22-29); Chloride 98 mmol/L (96-108); Creatinine Clr Calc Pharmacy 61.4; Estimated Glomerular Filt Rate 56; Glucose Random 143 mg/dL (60-115); Magnesium 1.9 mg/dL (1.6-2.6); Potassium 3.8 mmol/L (3.3-5.1); Sodium 138 mmol/L (135-145)
[2023-03-22 10:54] LABS: INTERNATIONAL NORM RATIO 1.2 (0.9-1.1)
[2023-03-22 10:56] LABS: Partial Thromboplastin Time 31.6 SEC (26.0-36.4); Troponin-I High Sensitivity 7.5 ng/L (<3.5-35.0)
--- NOTE | 2023-03-22 12:10 | ECG_ITS ---
Test Reason : AFIB Blood Pressure : / mmHG Vent. Rate : 053 BPM Atrial Rate : 000 BPM P-R Int : 000 ms QRS Dur : 082 ms QT Int : 400 ms P-R-T Axes : 000 -04 010 degrees QTc Int : 375 ms Atrial fibrillation with slow ventricular response Abnormal ECG When compared with ECG of 22-MAR-2023 10:19, Vent. rate has decreased BY 60 BPM Referred By: Inocencio Tim Electronically Signed By:DAVE ECHEVARRIA
--- NOTE | 2023-03-22 12:15 | ED.GENADULT ---
HPI - General Adult General Chief complaint: General Medical Stated complaint: Heart palpitations Time Seen by Provider: 03/22/23 11:35 Source: patient, family (Spouse) and medical interpreter Mode of arrival: ambulatory Limitations: no limitations History of Present Illness HPI narrative: A 62-year-old male came in for evaluation of dizziness and feeling palpitation since this morning patient is known to have paroxysmal atrial fibrillation already on apixaban 5 mg daily with diltiazem 300 mg and lisinopril 40 mg, patient found initially to have heart rate of 101st EKG showed atrial fibrillation at 113, that is resolved shortly while being in the emergency department. Patient also reported high blood pressure in the morning at home. No CP, no SOB, improvement of of the patient's symptoms. Related Data Home Medications Medication Instructions Recorded Confirmed atorvastatin 80 mg tablet 80 mg PO BEDTIME 05/27/20 02/01/23 lisinopril 40 mg tablet 40 mg PO BEDTIME 05/27/20 02/01/23 apixaban 5 mg tablet (Eliquis) 5 mg PO BID@1200,2100 03/22/23 cetirizine 10 mg tablet 10 mg PO DAILY 03/22/23 diltiazem HCl 300 mg 300 mg PO DAILY@1200 03/22/23 capsule,extended release 24 hr famotidine 40 mg tablet 40 mg PO BEDTIME 03/22/23 fluticasone propionate 50 1 spray intranasal DAILY 03/22/23 mcg/actuation nasal spray,suspension hydrochlorothiazide 12.5 mg tablet 12.5 mg PO DAILY@1200 03/22/23 metformin 500 mg tablet,extended 1,000 mg PO BID 03/22/23 release 24 hr omeprazole 20 mg capsule,delayed 20 mg PO BID 03/22/23 release Allergies Allergy/AdvReac Type Severity Reaction Status Date / Time No Known Allergies Allergy Verified 02/01/23 09:06 Review of Systems Review of Systems: All other systems are reviewed and are negative Constitutional: Reports as per HPI and Reports no additional constitutional complaints Eyes: Reports as per HPI and Reports no additional eye complaints Reports system reviewed and no additional complaints, except as documented Cardiovascular: Reports as per HPI and Reports no additional cardiovascular complaints Respiratory: Reports as per HPI and Reports no additional respiratory complaints Gastrointestinal: Reports as per HPI and Reports no additional gastrointestinal complaints Genitourinary: Reports no additional female genitourinary complaints Musculoskeletal: Reports no additional musculoskeletal complaints Skin/Breast: Reports system reviewed and no additional complaints, except as docu Psychiatric: Reports no additional psychiatric complaints Endocrine: Reports no additional endocrine complaints Hematologic/Lymphatic: Reports no additional hematologic/lymphatic complaints Allergic/Immunologic: Reports no additional allergic/immunologic complaints Reports system reviewed and no additional complaints, except as documented and Reports Abnormal speech present PMFSH Past Medical History Onset Date is defined in the Problem List Problems that require an onset date and time if occurred within 24 hrs of arrival to the ED Aortic Dissection and Rupture; Neurologic impairment; Cardiopulmonary Arrest; Endotracheal Intubation; Insertion or Replacement of Mechanical Circulatory Assist Device Medical History PAF (paroxysmal atrial fibrillation) Type 2 diabetes mellitus with unspecified complications Essential hypertension High cholesterol Diabetes mellitus HTN (hypertension) Surgical History No pertinent past surgical history Family History Family History Mother Hyperlipidemia Hypertension Diabetes Father Diabetes Social History Social History Household Members: Spouse Household Members Other:: 1 Housing: Unknown / Unable to assess Do you presently have visiting nurse or other home services: No Alcohol intake: current Alcohol intake frequency: a few times a week Alcohol type: beer and hard liquor Patient Tobacco Use Status: Never used Tobacco Second Hand Smoke Exposure: No Advance Directives: Yes Advance Directives on File: Yes Advance Directives Date on File: 05/27/20 service: No Current occupational status: unemployed Physical Exam ED Vital Signs: Vital Signs - 24 hr 03/22/23 10:23 03/22/23 11:21 03/22/23 11:59 Temperature 98.3 F Pulse Rate 100 71 67 Respiratory Rate 16 20 18 Blood Pressure 144/89 H 103/73 111/80 Pulse Oximetry 107 H 94 97 Oxygen Delivery Method Room Air Room Air Room Air 03/22/23 13:01 03/22/23 13:13 03/22/23 13:15 Temperature Pulse Rate 60 58 65 Respiratory Rate 14 12 Blood Pressure 112/62 100/64 105/69 Pulse Oximetry 94 96 96 Oxygen Delivery Method Room Air Room Air Room Air 03/22/23 13:30 03/22/23 13:45 03/22/23 14:00 Temperature Pulse Rate 48 L 60 63 Respiratory Rate 16 16 14 Blood Pressure 101/66 111/61 105/73 Pulse Oximetry 97 95 97 Oxygen Delivery Method Room Air Room Air Room Air BMI result Body Mass Index 29.1 Vital signs have been reviewed and appear to be correct. Blood pressure elevated. Heart rate normal. Respiratory rate normal. Temperature normal. Oxygen saturation normal. Appearance: Alert. Oriented X3. No acute distress. Head: Normal external exam. Normocephalic. Atraumatic. No Morales signs noted. No raccoon eyes noted Eyes: PERRLA. EOMI. Conjunctiva and sclera normal. Eyelids normal. ENT: TM's Normal. Pharynx normal. Uvula midline. Moist mucous membranes. No trismus noted. No drooling noted. No muffled voice noted. Neck: Normal inspection. Neck supple. FROM. No adenopathy. Thyroid Normal. No meningeal signs. No neck mass noted. CVS: Irregular irregular rate. Respiratory: No respiratory distress. Painless inspiration. Breath sounds normal. No wheezes/rales/rhonchi noted. Chest nontender. No accessory muscle usage noted or decreased air movement noted. Abdomen: Soft and nontender. Bowel sounds normal in all 4 quadrants. No distention noted. No organomegaly noted. No visible injury noted. Back: No CVA tenderness. Full range of motion noted. Skin: Skin warm and dry. Normal skin color. Normal skin turgor. No rashes/lesions/lacerations noted. Extremities: No lower extremity edema. Extremities exhibit normal range of motion. Extremities nontender. Neuro: Oriented X 3. Cranial nerve exam: II-XII are grossly intact No motor deficit. No sensory deficit. Reflexes normal. Course Reevaluation(s) Reevaluation #1: Patient presented for evaluation of dizziness and palpitation patient with a history of paroxysmal AFib initially patient had AFib with RVR then slowed down without administrating any medication or intervention, while patient was on the monitor had multiple pause of asystole the longest one was 3.2 seconds. The case was discussed with Dr. Saba who recommended to admit the patient. Time: 14:46 Medical Decision Making Differential Diagnosis Differential Diagnoses: The differential diagnosis associated with the presentation includes (AFib with RVR, ACS, electrolyte abnormality, dehydration, severe anemia, ventricular dysrhythmia, SSS.) Admission/Observation Consideration of admission/observation: Escalation of care including admission/observation considered Consult Healthcare Provider Management of the patient was discussed with: Hospitalist (Dr. Trent) and Field Checker (Dr. Saba.) Lab Data MDM Lab Attestation statement: I reviewed the patient's lab results. 03/22/23 10:28 03/22/23 10: Labs: Lab Results 03/22/23 03/22/23 Range/Units 10: 13:37 WBC 7.8 (4.8-10.8) X10*3/uL RBC 4.53 L (4.60-5.80) X10*6/uL Hgb 14.6 (14.0-18.0) g/dl Hct 40.7 L (42.0-52.0) % MCV 89.8 (80.0-98.0) fL MCH 32.2 (27.0-33.0) pg MCHC 35.9 (31.0-36.0) g/dl RDW 12.7 (11.0-16.0) % Plt Count 242 (160-400) X10*3/uL MPV 11.1 (9.4-12.4) fL Immature Gran % (Auto) 0.1 (0.0-0.4) % Neut % (Auto) 51.1 (45-73) % Lymph % (Auto) 36.5 (20-40) % [place] % (Auto) 10.9 (2-11) % Eos % (Auto) 0.8 (0-4) % Baso % (Auto) 0.6 (0-2) % Lymph # (Auto) 2.8 (1.2-4.9) X10*3/uL [place] # (Auto) 0.9 (0.1-1.2) X10*3/uL Eos # (Auto) 0.1 (0.0-0.4) X10*3/uL Baso # (Auto) 0.1 (0.0-0.2) X10*3/uL Abs Immat Gran (auto) 0.01 (0.00-0.03) X10*3/uL Absolute Neuts (auto) 4.0 (2.0-8.3) x10*3/uL Absolute Nucleated RBC 0.000 (0.0-0.012) X10*3/uL Nucleated RBC % (auto) 0.0 (0.0-0.2) /100WBC PT 15.0 H (11.1-13.3) SEC INR 1.2 H (0.9-1.1) APTT 31.6 (26.0-36.4) SEC Sodium 138 (135-145) mmol/L Potassium 3.8 (3.3-5.1) mmol/L Chloride 98 (96-108) mmol/L Carbon Dioxide 27 (22-29) mmol/L Anion Gap 17 (12-20) BUN 18 H (9-16) mg/dL Creatinine 1.31 (0.5-1.4) mg/dL Estim Creat Clear Calc 61.4 Estimated GFR 56 Random Glucose 143 H (60-115) mg/dL Calcium 10.1 (8.4-10.2) mg/dL Magnesium 1.9 (1.6-2.6) mg/dL Troponin I High Sens 7.5 7.2 (<3.5-35.0) ng/L Independent Interpretation I performed an independent interpretation of an: Rhythm Strip and Plain X-Ray (Chest no acute intrathoracic pathology.) Radiology Impression Discussion of test interpretation with radiology: I have reviewed the radiologist's reading. Discharge Plan Discharge Clinical Impression: PAF (paroxysmal atrial fibrillation), Cardiac asystole Patient Disposition: Admitted As Inpatient
[2023-03-22 14:21] LABS: Troponin-I High Sensitivity 7.2 ng/L (<3.5-35.0)
--- NOTE | 2023-03-22 15:23 | PHA.MEDREC ---
Pharmacy Consult ? Medication Reconciliation Pharmacy has completed the medication reconciliation. Risk Assessment Analyst Thor confirmed medications with patient with Supply Chain Logistics Manager services. Lizett De La Cruz, IrlandaD
--- NOTE | 2023-03-22 15:40 | P.HPHOSP_ITS ---
<Statement entered by Arnaldo Trent MD - 03/30/23 15:55> The patient was seen and evaluated with LEIDY Velez. I agree with her note, assessment and plan with the following. In summary, a 62-year-old male with history of HTN, HLD, DMII, Afib on Eliquis to be observed for symptomatic bradycardia. Symtomatic bradycardia in setting of afib with tachy/nivia syndrome patient asymptomatic HR in high 40s with associated lightheadedness and 3.2 sec pause Hold diltiazen, continue eliquis Cardiology consult monitor on tele Rest of evaluations by LEIDY note. History of Present Illness Date of Service: 03/22/23 Attending physician on admission: Arnaldo Trent Chief Complaint: palpitations, htn 62-year-old male with history of hypertension, hyperlipidemia, [id number] type 2 diabetes, and paroxysmal atrial fibrillation anticoagulated with Eliquis presented to the ED earlier today for evaluation of fatigue, palpitations, and elevated blood pressure of 187/105. He also describes some mild air hunger. Denies any headache, vision changes, chest pain. On arrival, was found to be in AFib RVR with EKG showing AFib, rate 115. Without intervention, patient developed AFib with slow ventricular rate with heart rates down to 48. Patient reports associated lightheadedness during this episodes. He is currently asymptomatic. Vitals otherwise stable, blood pressure is somewhat soft at 105/73 on admission. Patient reports compliance with all medications. He does reports excess alcohol use on weekends with up to 10 beers consumed per day but otherwise does not consume any alcohol during the week. He denies any cigarette smoking or illicit drug use. Hematology studies unremarkable. Renal function baseline, electrolyte levels normal. Troponins flat and within normal limits. ED provider did discuss case with Cardiology recommending admission to medicine. Review of Systems 2 Review of Systems: General: No fevers, malaise, unintentional weight loss HEENT: No blurred vision, diplopia. No sore throat, nasal congestion, rhinorrhea, sinus pain, ear pain Cardiovascular: +cp, +lightheadedness, +palpitations. No leg edema Respiratory: +sob. No wheezing, cough GI: No abdominal pain, nausea, vomiting, diarrhea : No dysuria, hematuria, increased urinary frequency MSK: No myalgia, back pain Neuro: No headaches, weakness, paresthesias Skin: No rashes or lesions [facility] Medical History PAF (paroxysmal atrial fibrillation) Type 2 diabetes mellitus with unspecified complications Essential hypertension High cholesterol Diabetes mellitus HTN (hypertension) Family History Mother Hyperlipidemia Hypertension Diabetes Father Diabetes Surgical History No pertinent past surgical history Social History Household Members: Spouse Household Members Other:: 1 Housing: Unknown / Unable to assess Do you presently have visiting nurse or other home services: No Alcohol intake: current Alcohol intake frequency: a few times a week Alcohol type: beer and hard liquor Patient Tobacco Use Status: Never used Tobacco Second Hand Smoke Exposure: No Advance Directives: Yes Advance Directives on File: Yes Advance Directives Date on File: 05/27/20 service: No Current occupational status: unemployed Meds Allergies Allergy/AdvReac Type Severity Reaction Status Date / Time No Known Allergies Allergy Verified 02/01/23 09:06 Active Medications: Current Medications Acetaminophen (Acetaminophen 325 Mg Tablet) 650 mg PO Q6H PRN PRN Reason: Pain, Mild (Pain Scale 1-3) Ondansetron HCl (Ondansetron Hcl 4 Mg/2 Ml Vial) 4 mg IVPUSH Q8H PRN PRN Reason: Nausea and Vomiting Senna (Sennosides 8.6 Mg Tablet) 17.2 mg PO BEDTIME PRN PRN Reason: Constipation Sodium Chloride (0.9 % Sodium Chloride Flush 3 Ml Syringe) 3 [facility] Medications Medication Instructions Recorded Confirmed Last Taken Type atorvastatin 80 mg tablet 80 mg PO BEDTIME 05/27/20 03/22/23 03/21/22 History lisinopril 40 mg tablet 40 mg PO BEDTIME 05/27/20 03/22/23 03/21/22 History apixaban 5 mg tablet (Eliquis) 5 mg PO BID@1200,2100 03/22/23 03/22/23 03/21/22 History cetirizine 10 mg tablet 10 mg PO DAILY 03/22/23 03/22/23 03/22/22 History diltiazem HCl 300 mg 300 mg PO DAILY@1200 03/22/23 03/22/23 03/21/22 History capsule,extended release 24 hr famotidine 40 mg tablet 40 mg PO BEDTIME 03/22/23 03/22/23 03/21/22 History fluticasone propionate 50 1 spray intranasal DAILY 03/22/23 03/22/23 03/22/22 History mcg/actuation nasal spray,suspension hydrochlorothiazide 12.5 mg tablet 12.5 mg PO DAILY@1200 03/22/23 03/22/23 03/21/22 History metformin 500 mg tablet,extended 1,000 mg PO BID 03/22/23 03/22/23 03/22/22 History release 24 hr omeprazole 20 mg capsule,delayed 20 mg PO BID 03/22/23 03/22/23 03/22/22 History release Physical Exam 2 Vital Signs and Narrative: Vital Signs: Last Vital Signs Temp 98.3 F 03/22/23 10:23 Pulse 63 03/22/23 14:00 Resp 14 03/22/23 14:00 BP 105/73 03/22/23 14:00 Pulse Ox 97 03/22/23 14:00 O2 Del Method Room Air 03/22/23 14:00 BMI result Body Mass Index 29.1 Constitutional - Awake and Alert, No apparent distress Eyes - PERRLA, EOMI Cardiovascular - S1S2, RRR, No edema Respiratory - Normal lung expansion, Normal respiratory effort, No respiratory distress, CTA bilaterally Gastrointestinal - NT / ND; +BS; No rebound or guarding Extremities - no calf tenderness bilaterally, no swelling Skin - Warm/Dry Neurological - Alert & oriented x3 Results Labs 03/22/23 10:28 03/22/23 10:28 Labs: Laboratory Results - last 24 hr 03/22/23 10:28 MCV 89.8 MCH 32.2 MCHC 35.9 RDW 12.7 Plt Count 242 MPV 11.1 Immature Gran % (Auto) 0.1 Neut % (Auto) 51.1 Lymph % (Auto) 36.5 [place] % (Auto) 10.9 Eos % (Auto) 0.8 Baso % (Auto) 0.6 Lymph # (Auto) 2.8 [place] # (Auto) 0.9 Eos # (Auto) 0.1 Baso # (Auto) 0.1 Abs Immat Gran (auto) 0.01 Absolute Neuts (auto) 4.0 Absolute Nucleated RBC 0.000 Nucleated RBC % (auto) 0.0 PT 15.0 H INR 1.2 H APTT 31.6 Anion Gap 17 Estim Creat Clear Calc 61.4 Estimated GFR 56 Random Glucose 143 H Calcium 10.1 Magnesium 1.9 Assessment and Plan (1) Symptomatic bradycardia: Status: Acute (2) PAF (paroxysmal atrial fibrillation): Status: Acute Plan 62-year-old male with history of hypertension, hyperlipidemia, [id number] type 2 diabetes, and paroxysmal atrial fibrillation anticoagulated with Eliquis to be observed for symptomatic bradycardia. #Symtomatic bradycardia in setting of afib with tachy/nivia syndrome -rate currently controlled, patient asymptomatic -HR in high 40s with associated lightheadedness and 3.2 sec pause -Hold diltiazen -continue eliquis -last echo 02/26 with normal LV systolic fx with EF 55-60% -Cardiology consult -[facility] -monitor on tele #HTN -bp's soft -hold diltiazem as above -continue lisinopril and hctz #HLD -continue statin #Non insulin dependent type 2 diabetes- without hyperglycemia -poc glucose, diabetic diet -humalog on sliding scale -hold metformin DVT prophylaxis- on eliquis Full code Quality Stroke Does the patient have a stroke diagnosis?: No VTE Prior VTE?: No VTE Risk Level:: Medical - moderate - high VTE Device Contraindication: Treatment Not Indicated VTE Drug Contraindication: N/A - Med Ordered
[2023-03-22 18:00] LABS: Glucose, Whole Blood 203 mg/dL (60-115)
[2023-03-22] MEDS: Insulin Lispro 100 UNIT/ML 3 ML VIAL SUBCUT ×2 (18:20→20:56)
[2023-03-22] MEDS: Omeprazole 20 MG CAPSULE.DR PO (18:20)
[2023-03-22] MEDS: 0.9 % Sodium Chloride Flush 3 ML SYRINGE IVFLUSH (18:21)
--- NOTE | 2023-03-22 19:47 | MHC.EDTECH ---
Patient received dinner tray
[2023-03-22 20:40] LABS: Glucose, Whole Blood 263 mg/dL (60-115)
[2023-03-22] MEDS: Atorvastatin Calcium 80 MG TABLET PO (20:55)
[2023-03-22] MEDS: Famotidine 20 MG TABLET 40 MG PO (20:55)
[2023-03-22] MEDS: lisinopriL 40 MG TABLET PO (20:55)
[2023-03-22] MEDS: Apixaban 5 MG TABLET PO (20:55)
[2023-03-23] MEDS: 0.9 % Sodium Chloride Flush 3 ML SYRINGE IVFLUSH ×4 (00:15→20:53)
[2023-03-23 03:36] VITALS: BP 107/70; PULSE 67; RESP 20; TEMP 36.3; O2SAT 97
[2023-03-23] MEDS: Omeprazole 20 MG CAPSULE.DR PO ×2 (06:04→17:01)
[2023-03-23 07:30] LABS: MANUAL DIFF FLAG NO
[2023-03-23 07:36] VITALS: BP 111/84; PULSE 98; RESP 18; TEMP 36.3; O2SAT 95
[2023-03-23 07:44] LABS: Basophils Percent Auto 0.3 % (0-2); Eosinophils Absolute Auto 0.1 X10*3/uL (0.0-0.4); Eosinophils Percent Auto 0.6 % (0-4); Hematocrit 45.9 % (42.0-52.0); Hemoglobin 16.1 g/dl (14.0-18.0); Imm Gran Abs Auto 0.03 X10*3/uL (0.00-0.03); Imm Gran Pct Auto 0.4 % (0.0-0.4); Lymphocytes Percent Auto 25.7 % (20-40); Mean Corpuscular HGB Conc 35.1 g/dl (31.0-36.0); Mean Corpuscular Volume 91.3 fL (80.0-98.0); Mean Platelet Volume 11.2 fL (9.4-12.4); Monocytes Absolute Auto 0.8 X10*3/uL (0.1-1.2); Monocytes Percent Auto 10.6 % (2-11); Neutrophils Absolute Auto 4.9 x10*3/uL (2.0-8.3); Neutrophils Percent Auto 62.4 % (45-73); Platelet Count 246 X10*3/uL (160-400); Red Blood Count 5.03 X10*6/uL (4.60-5.80); Red Cell Distribution Width 12.7 % (11.0-16.0); White Blood Count 7.8 X10*3/uL (4.8-10.8)
[2023-03-23 07:45] LABS: Glucose, Whole Blood 171 mg/dL (60-115)
[2023-03-23 07:58] LABS: Anion Gap 14 (12-20); Blood Urea Nitrogen 18 mg/dL (9-16); Carbon Dioxide 32 mmol/L (22-29); Chloride 97 mmol/L (96-108); Creatinine Clr Calc Pharmacy 56.7; Estimated Glomerular Filt Rate 51; Glucose Random 174 mg/dL (60-115); Potassium 4.3 mmol/L (3.3-5.1); Sodium 139 mmol/L (135-145)
[2023-03-23] MEDS: Loratadine 10 MG TABLET PO (08:14)
[2023-03-23] MEDS: Insulin Lispro 100 UNIT/ML 3 ML VIAL SUBCUT ×4 (08:14→20:53)
--- NOTE | 2023-03-23 09:35 | P.CONCA_ITS ---
History of Present Illness History of Present Illness Date of Service: 03/23/23 Chief complaint: symptomatic bradycardia Narrative: This is a cardiology consultation regarding atrial fibrillation. Patient was last seen in the clinic about 2 months ago. History of atrial fibrillation. He has had a few episodes over the last couple of years. Most recently, he is made on diltiazem 300 mg daily and also on Eliquis. He was doing fine but apparently he suddenly noticed palpitations, elevated blood pressure. Then found to be in atrial fibrillation with slightly rapid rate. Then there was spontaneously slowing of the rate into the 40s. However, he remained in atrial fibrillation then he was subsequently admitted. He has not gotten any further diltiazem it seems. He still feels the palpitations but otherwise okay. States that he is very compliant with medications. Review of Systems 2 Review of Systems: Yes all other systems are reviewed and are negative Constitutional: Constitutional: Reports as per HPI and Reports no additional constitutional complaints Eyes: Eyes: Reports as per HPI and Denies no additional eye complaints ENT: Denies system reviewed and no additional complaints, except as documented and Reports as per HPI Cardiovascular: Cardiovascular: Reports as per HPI, Reports no additional cardiovascular complaints, Denies acrocyanosis, Denies cool extremities, Denies chest pain, Denies leg edema, Denies lightheadedness, Reports palpitations and Denies dyspnea Respiratory: Respiratory: Reports as per HPI, Denies no additional respiratory complaints and Denies dyspnea Gastrointestinal: Gastrointestinal: Reports as per HPI and Denies no additional gastrointestinal complaints Genitourinary: Genitourinary: Reports no additional male genitourinary complaints and Reports as per HPI Musculoskeletal: Musculoskeletal: Reports no additional musculoskeletal complaints and Reports as per HPI Integumentary/Breasts: Skin/Breast: Reports system reviewed and no additional complaints, except as docu Neurologic: Reports system reviewed and no additional complaints, except as documented and Reports as per HPI Psychiatric: Psychiatric: Reports no additional psychiatric complaints and Reports as per HPI Endocrine: Endocrine: Reports no additional endocrine complaints, Reports as per HPI and Reports palpitations Hematologic/Lymphatic: Hematologic/Lymphatic: Reports no additional hematologic/lymphatic complaints and Reports as per HPI Allergic/Immunologic: Allergic/Immunologic: Reports no additional allergic/immunologic complaints and Reports as per HPI PMFSH Past Medical History Medical History PAF (paroxysmal atrial fibrillation) Type 2 diabetes mellitus with unspecified complications Essential hypertension High cholesterol Diabetes mellitus HTN (hypertension) Family History Family History Mother Hyperlipidemia Hypertension Diabetes Father Diabetes Surgical History Surgical History No pertinent past surgical history Social History Social History Household Members: Spouse Household Members Other:: 1 Housing: Unknown / Unable to assess Do you presently have visiting nurse or other home services: No Alcohol intake: current Alcohol intake frequency: a few times a week Alcohol type: beer and hard liquor Patient Tobacco Use Status: Never used Tobacco Second Hand Smoke Exposure: No Advance Directives: Yes Advance Directives on File: Yes Advance Directives Date on File: 05/27/20 Nutrition Risks: No Nutritional Risk service: No Current occupational status: unemployed Meds Allergies Allergy/AdvReac Type Severity Reaction Status Date / Time No Known Allergies Allergy Verified 02/01/23 09:06 Active Medications: Current Medications Acetaminophen (Acetaminophen 325 Mg Tablet) 650 mg PO Q6H PRN PRN Reason: Pain, Mild (Pain Scale 1-3) Apixaban (Apixaban 5 Mg Tablet) 5 mg PO BID@1200,2100 [facility] Last Admin: 03/22/23 20:55 Dose: 5 mg Atorvastatin Calcium (Atorvastatin Calcium 80 Mg Tablet) 80 mg PO BEDTIME [facility] Last Admin: 03/22/23 20:55 Dose: 80 mg Dextrose (Dextrose 50 % 25 Gm/50 Ml Syringe) 25 gm IVPUSH Q15M PRN; Protocol PRN Reason: per Hypoglycemia Standing Ord. Famotidine (Famotidine 20 Mg Tablet) 40 mg PO BEDTIME [facility] Last Admin: 03/22/23 20:55 Dose: 40 mg Fluticasone Propionate (Fluticasone Propionate Nasal 16 Gm [place]) 1 spray NOSTRIL-B DAILY [facility] Glucose (Glucose Gel 15 Gm Gel..Gram.) 15 gm PO Q15M PRN; Protocol PRN Reason: per Hypoglycemia Standing Ord. Hydrochlorothiazide (Hydrochlorothiazide 12.5 Mg Tablet) 12.5 mg PO DAILY@1200 [facility]; Protocol Insulin Human Lispro (Insulin Lispro 100 Unit/Ml 3 Ml Vial) 0 unit SUBCUT QIDACHS [facility]; Protocol Last Admin: 03/23/23 08:14 Dose: 2 unit Lisinopril (Lisinopril 40 Mg Tablet) 40 mg PO BEDTIME [facility]; Protocol Last Admin: 03/22/23 20:55 Dose: 40 mg Loratadine (Loratadine 10 Mg Tablet) 10 mg PO DAILY [facility] Last Admin: 03/23/23 08:14 Dose: 10 mg Omeprazole (Omeprazole 20 Mg Capsule.Dr) 20 mg PO BID@0630,1630 [facility] Last Admin: 03/23/23 06:04 Dose: 20 mg Ondansetron HCl (Ondansetron Hcl 4 Mg/2 Ml Vial) 4 mg IVPUSH Q8H PRN PRN Reason: Nausea and Vomiting Senna (Sennosides 8.6 Mg Tablet) 17.2 mg PO BEDTIME PRN PRN Reason: Constipation Sodium Chloride (0.9 % Sodium Chloride Flush 3 Ml Syringe) 3 ml IVFLUSH QSHIFT [facility] Last Admin: 03/23/23 08:14 Dose: 3 ml Home Medications Medication Instructions Recorded Confirmed Last Taken Type atorvastatin 80 mg tablet 80 mg PO BEDTIME 05/27/20 03/22/23 03/21/22 History lisinopril 40 mg tablet 40 mg PO BEDTIME 05/27/20 03/22/23 03/21/22 History apixaban 5 mg tablet (Eliquis) 5 mg PO BID@1200,2100 03/22/23 03/22/23 03/21/22 History cetirizine 10 mg tablet 10 mg PO DAILY 03/22/23 03/22/23 03/22/22 History diltiazem HCl 300 mg 300 mg PO DAILY@1200 03/22/23 03/22/23 03/21/22 History capsule,extended release 24 hr famotidine 40 mg tablet 40 mg PO BEDTIME 03/22/23 03/22/23 03/21/22 History fluticasone propionate 50 1 spray intranasal DAILY 03/22/23 03/22/23 03/22/22 History mcg/actuation nasal spray,suspension hydrochlorothiazide 12.5 mg tablet 12.5 mg PO DAILY@1200 03/22/23 03/22/23 03/21/22 History metformin 500 mg tablet,extended 1,000 mg PO BID 01/03/22/23 03/22/22 History release 24 hr omeprazole 20 mg capsule,delayed 20 mg PO BID 03/22/23 03/22/23 03/22/22 History release Physical Exam 2 Vital Signs: Vital Signs: Last Vital Signs Temp 97.4 F 03/23/23 07:36 Pulse 98 03/23/23 07:36 Resp 18 03/23/23 07:36 BP 111/84 03/23/23 07:36 Pulse Ox 95 03/23/23 07:36 O2 Del Method Room Air 03/23/23 07:36 BMI result Body Mass Index 29.1 Const: General: comfortable and no acute distress O rientation/consciousness: patient oriented x3 HEENT: Other: Unremarkable Head: Yes normal to inspection Neck: Neck: Yes normal visual inspection Chest: Chest palpation & inspection: normal inspection of the chest Resp: Auscultation: clear to auscultation bilaterally Cardio: Palpation: normal PMI Heart sounds: S1 normal heart sound present, S2 normal heart sound present, no gallops, no murmurs and no rubs GI: Palpation (GI): Soft to palpation Back/Spine/Pelvis: Other: unremarkable Skin: General skin exam: no rashes or lesions noted Neuro: General: patient oriented x3 Extrem: General: Yes normal to inspection Psych: Mental Status: mental status grossly normal Objective Labs and Meds 03/23/23 07:24 03/23/23 07:24 Lab results: Laboratory Results - last 24 hr 03/22/23 03/22/23 03/22/23 10:28 13:37 17:55 WBC 7.8 RBC 4.53 L Hgb 14.6 Hct 40.7 L MCV 89.8 MCH 32.2 MCHC 35.9 RDW 12.7 Plt Count 242 MPV 11.1 Immature Gran % (Auto) 0.1 Neut % (Auto) 51.1 Lymph % (Auto) 36.5 [place] % (Auto) 10.9 Eos % (Auto) 0.8 Baso % (Auto) 0.6 Lymph # (Auto) 2.8 [place] # (Auto) 0.9 Eos # (Auto) 0.1 Baso # (Auto) 0.1 Abs Immat Gran (auto) 0.01 Absolute Neuts (auto) 4.0 Absolute Nucleated RBC 0.000 Nucleated RBC % (auto) 0.0 PT 15.0 H INR 1.2 H APTT 31.6 Sodium 138 Potassium 3.8 Chloride 98 Carbon Dioxide 27 Anion Gap 17 BUN 18 H Creatinine 1.31 Estim Creat Clear Calc 61.4 Estimated GFR 56 POC Glucose 203 H Random Glucose 143 H Calcium 10.1 Magnesium 1.9 Troponin I High Sens 7.5 7.2 03/22/23 03/23/23 03/23/23 20:37 07:24 07:35 WBC 7.8 RBC 5.03 Hgb 16.1 Hct 45.9 MCV 91.3 MCH 32.0 MCHC 35.1 RDW 12.7 Plt Count 246 MPV 11.2 Immature Gran % (Auto) 0.4 Neut % (Auto) 62.4 Lymph % (Auto) 25.7 [place] % (Auto) 10.6 Eos % (Auto) 0.6 Baso % (Auto) 0.3 Lymph # (Auto) 2.0 [place] # (Auto) 0.8 Eos # (Auto) 0.1 Baso # (Auto) 0.0 Abs Immat Gran (auto) 0.03 Absolute Neuts (auto) 4.9 Absolute Nucleated RBC 0.000 Nucleated RBC % (auto) 0.0 PT INR APTT Sodium 139 Potassium 4.3 Chloride 97 Carbon Dioxide 32 H Anion Gap 14 BUN 18 H Creatinine 1.42 H Estim Creat Clear Calc 56.7 Estimated GFR 51 POC Glucose 263 H 171 H Random Glucose 174 H Calcium 10.0 Magnesium Troponin I High Sens ECG Interpretation: EKG on admission shows atrial fibrillation with slightly rapid rate at 113/Min. In the subsequent EKG, rate was much slower at 53/Min. Assessment and Plan (1) PAF (paroxysmal atrial fibrillation): Status: Acute (2) Symptomatic bradycardia: Status: Acute Plan Most recent echocardiogram with LVEF of 60-65% with normal wall thickness and normal peak global longitudinal strain. Otherwise unremarkable. Recent Holter shows underlying sinus rhythm with an average rate of 64/Min. Rare PACs. Currently, he is in atrial fibrillation with slightly rapid rate but not too rapid. At times, he does slow down but again not too bradycardic. No significant pauses. We can try to use flecainide and see if he converts. If not, may need cardioversion. Continue anticoagulation. Discussed with Dr. Valero. Procedures Date of Service Date of Service: 03/23/23
[2023-03-23] MEDS: Flecainide Acetate 50 MG TABLET 150 MG PO (09:54)
--- NOTE | 2023-03-23 09:59 | MHC.CM.PN ---
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 PT'S GOAL FOR DC IS HOME NO SERVICES. PT EDUCATED ON AND COMPLETED A HCP NAMING HIS ANTONIO HIS HCA AND NO ALTERNATE, PT PROVIDED W/EDUCATIONAL HANDOUT IN [place], ORIGINAL AND 2 COPIES, COPY UPLOADED TO [facility] AND PLACED IN CHART. PT COVID VACC X2 AND PCP ON FILE VERIFIED.
--- NOTE | 2023-03-23 10:50 | HO.PM.IMPN ---
Subjective Subjective Date of Service: 03/23/23 Interval History: palpitations Physical Exam Vital Signs: Vital Signs: Last Vital Signs Temp 97.4 F 03/23/23 07:36 Pulse 98 03/23/23 07:36 Resp 18 03/23/23 07:36 BP 111/84 03/23/23 07:36 Pulse Ox 95 03/23/23 07:36 O2 Del Method Room Air 03/23/23 07:36 BMI result Body Mass Index 29.1 General: AO X 3, no acute distress Resp: CTA bilateral, no accessory muscles used CVS: S1,S2, irregular GI: soft, non tender, non distended Neuro: motor grossly intact, alert Psych: appropriate affect, appropriate insight Objective Data Active Medications Acetaminophen (Acetaminophen 325 Mg Tablet) 650 mg PO Q6H PRN PRN Reason: Pain, Mild (Pain Scale 1-3) Apixaban (Apixaban 5 Mg Tablet) 5 mg PO BID@1200,2100 ON [facility] OF [facility] Last Admin: 03/22/23 20:55 Dose: 5 mg Documented By: SHARRON Atorvastatin Calcium (Atorvastatin Calcium 80 Mg Tablet) 80 mg PO BEDTIME ON LICENSE OF [facility] Last Admin: 03/22/23 20:55 Dose: 80 mg Documented By: SHARRON Dextrose (Dextrose 50 % 25 Gm/50 Ml Syringe) 25 gm IVPUSH Q15M PRN; Protocol PRN Reason: per Hypoglycemia Standing Ord. Famotidine (Famotidine 20 Mg Tablet) 40 mg PO BEDTIME ON [facility] OF [facility] Last Admin: 03/22/23 20:55 Dose: 40 mg Documented By: SHARRON Fluticasone Propionate (Fluticasone Propionate Nasal 16 Gm [place]) 1 spray NOSTRIL-B DAILY [facility] OF [facility] Last Admin: 03/23/23 10:45 Dose: Not Given Documented By: ALEX Non-Admin Reason: Not In Room Glucose (Glucose Gel 15 Gm Gel..Gram.) 15 gm PO Q15M PRN; Protocol PRN Reason: per Hypoglycemia Standing Ord. Hydrochlorothiazide (Hydrochlorothiazide 12.5 Mg Tablet) 12.5 mg PO DAILY@1200 ON [facility] OF [facility]; Protocol Insulin Human Lispro (Insulin Lispro 100 Unit/Ml 3 Ml Vial) 0 unit SUBCUT QIDACHS ON [facility] OF [facility]; Protocol Last Admin: 03/23/23 08:14 Dose: 2 unit Documented By: ALEX Lisinopril (Lisinopril 40 Mg Tablet) 40 mg PO BEDTIME [facility] OF [facility]; Protocol Last Admin: 03/22/23 20:55 Dose: 40 mg Documented By: SHARRON Loratadine (Loratadine 10 Mg Tablet) 10 mg PO DAILY [facility] OF [facility] Last Admin: 03/23/23 08:14 Dose: 10 mg Documented By: ALEX Omeprazole (Omeprazole 20 Mg Capsule.Dr) 20 mg PO BID@0630,1630 ON [facility] OF [facility] Last Admin: 03/23/23 06:04 Dose: 20 mg Documented By: ZULEYKA Ondansetron HCl (Ondansetron Hcl 4 Mg/2 Ml Vial) 4 mg IVPUSH Q8H PRN PRN Reason: Nausea and Vomiting Senna (Sennosides 8.6 Mg Tablet) 17.2 mg PO BEDTIME PRN PRN Reason: Constipation Sodium Chloride (0.9 % Sodium Chloride Flush 3 Ml Syringe) 3 ml IVFLUSH QSHIFT ON LICENSE OF [facility] Last Admin: 03/23/23 08:14 Dose: 3 ml Documented By: ALEX Labs 03/23/23 07:24 03/23/23 07:24 Labs: Laboratory Results - last 24 hr 03/22/23 03/22/23 03/22/23 10:28 17:55 20:37 MCV MCH MCHC RDW Plt Count MPV Immature Gran % (Auto) Neut % (Auto) Lymph % (Auto) [place] % (Auto) Eos % (Auto) Baso % (Auto) Lymph # (Auto) [place] # (Auto) Eos # (Auto) Baso # (Auto) Abs Immat Gran (auto) Absolute Neuts (auto) Absolute Nucleated RBC Nucleated RBC % (auto) PT 15.0 H INR 1.2 H APTT 31.6 Anion Gap 17 Estim Creat Clear Calc 61.4 Estimated GFR 56 POC Glucose 203 H 263 H Random Glucose 143 H Calcium 10.1 Magnesium 1.9 03/23/23 03/23/23 07:24 07:35 MCV 91.3 MCH 32.0 MCHC 35.1 RDW 12.7 Plt Count 246 MPV 11.2 Immature Gran % (Auto) 0.4 Neut % (Auto) 62.4 Lymph % (Auto) 25.7 [place] % (Auto) 10.6 Eos % (Auto) 0.6 Baso % (Auto) 0.3 Lymph # (Auto) 2.0 [place] # (Auto) 0.8 Eos # (Auto) 0.1 Baso # (Auto) 0.0 Abs Immat Gran (auto) 0.03 Absolute Neuts (auto) 4.9 Absolute Nucleated RBC 0.000 Nucleated RBC % (auto) 0.0 PT INR APTT Anion Gap 14 Estim Creat Clear Calc 56.7 Estimated GFR 51 POC Glucose 171 H Random Glucose 174 H Calcium 10.0 Magnesium Assessment and Plan (1) PAF (paroxysmal atrial fibrillation): Status: Acute Plan 62M PMH hypertension, hyperlipidemia, [id number] type 2 diabetes, and paroxysmal atrial fibrillation anticoagulated with Eliquis presented with palpitations, found to have afib with svr Symtomatic bradycardia in setting of paroxysmal afib with tachy/nivia syndrome holding diltiazem, continue eliquis heart rate now high-normal cardio appreciated, plan for flecainide 150mg once, if doesnt convert may need cardioversion HTN hold diltiazem as above lisinopril and hctz HLD continue statin Non insulin dependent type 2 diabetes- without hyperglycemia poc glucose, diabetic diet humalog on sliding scale hold metformin DVT prophylaxis- on eliquis Full code reason for continued hospitalization:symptomatic afib Quality Stroke Does the patient have a stroke diagnosis?: No VTE Prior VTE?: No VTE Risk Level:: Medical - moderate - high VTE Device Contraindication: Treatment Not Indicated VTE Drug Contraindication: N/A - Med Ordered
[2023-03-23 11:14] VITALS: BP 119/74; PULSE 66; RESP 18; TEMP 36.4; O2SAT 98
[2023-03-23 11:28] LABS: Glucose, Whole Blood 196 mg/dL (60-115)
[2023-03-23] MEDS: hydroCHLOROthiazide 12.5 MG TABLET PO (12:08)
[2023-03-23] MEDS: Apixaban 5 MG TABLET PO ×2 (12:08→20:51)
[2023-03-23 15:16] VITALS: BP 116/78; PULSE 63; RESP 18; TEMP 36.8; O2SAT 99
[2023-03-23 16:18] LABS: Glucose, Whole Blood 182 mg/dL (60-115)
[2023-03-23 19:40] VITALS: BP 116/72; PULSE 56; RESP 20; TEMP 36.6; O2SAT 97
[2023-03-23 19:49] LABS: Glucose, Whole Blood 204 mg/dL (60-115)
[2023-03-23] MEDS: Famotidine 20 MG TABLET 40 MG PO (20:51)
[2023-03-23] MEDS: Flecainide Acetate 50 MG TABLET PO (20:51)
[2023-03-23] MEDS: Atorvastatin Calcium 80 MG TABLET PO (20:51)
[2023-03-23] MEDS: lisinopriL 40 MG TABLET PO (20:51)
[2023-03-23 23:33] VITALS: BP 116/71; PULSE 60; RESP 18; TEMP 36.7; O2SAT 99
[2023-03-24 03:22] VITALS: BP 95/57; PULSE 52; RESP 18; TEMP 36.6; O2SAT 98
[2023-03-24] MEDS: Omeprazole 20 MG CAPSULE.DR PO (05:27)
[2023-03-24] MEDS: Acetaminophen 325 MG TABLET 650 MG PO (05:27)
[2023-03-24 07:08] LABS: Hematocrit 42.5 % (42.0-52.0); Hemoglobin 14.6 g/dl (14.0-18.0); Mean Corpuscular HGB Conc 34.4 g/dl (31.0-36.0); Mean Corpuscular Hemoglobin 31.1 pg (27.0-33.0); Mean Corpuscular Volume 90.6 fL (80.0-98.0); Platelet Count 244 X10*3/uL (160-400); Red Blood Count 4.69 X10*6/uL (4.60-5.80); Red Cell Distribution Width 12.8 % (11.0-16.0); White Blood Count 6.8 X10*3/uL (4.8-10.8)
[2023-03-24 07:09] LABS: Glucose, Whole Blood 155 mg/dL (60-115)
[2023-03-24 07:25] LABS: Anion Gap 13 (12-20); Blood Urea Nitrogen 21 mg/dL (9-16); Calcium 9.7 mg/dL (8.4-10.2); Carbon Dioxide 30 mmol/L (22-29); Chloride 99 mmol/L (96-108); Creatinine Clr Calc Pharmacy 54.7; Estimated Glomerular Filt Rate 49; Glucose Fasting 167 mg/dL (60-99); Potassium 4.1 mmol/L (3.3-5.1); Sodium 138 mmol/L (135-145)
[2023-03-24 07:31] VITALS: BP 102/74; PULSE 54; RESP 18; TEMP 36.1; O2SAT 98
[2023-03-24] MEDS: Loratadine 10 MG TABLET PO (08:51)
[2023-03-24] MEDS: Insulin Lispro 100 UNIT/ML 3 ML VIAL SUBCUT (08:51)
[2023-03-24] MEDS: Flecainide Acetate 50 MG TABLET PO (08:51)
--- NOTE | 2023-03-24 08:59 | PM.DS ---
DS: Providers Provider Date of Service: 03/24/23 Date of admission: 03/22/23 15:34 Primary care physician: rGegg Cota MD Consults: 03/22/23 15:34 Consult to Cardiology Routine Consulting Provider: [facility] Cardi[facility] Services Reason for consultation: symptomatic nivia, afib tachy/nivia DS: Diagnosis Discharge Diagnosis (1) PAF (paroxysmal atrial fibrillation): Status: Acute DS: Summary Hospital Course Hospital Course: from initial hpi: 62-year-old male with history of hypertension, hyperlipidemia, cly-seutufp-yhtxlcrmh type 2 diabetes, and paroxysmal atrial fibrillation anticoagulated with Eliquis presented to the ED earlier today for evaluation of fatigue, palpitations, and elevated blood pressure of 187/105. He also describes some mild air hunger. Denies any headache, vision changes, chest pain. On arrival, was found to be in AFib RVR with EKG showing AFib, rate 115. Without intervention, patient developed AFib with slow ventricular rate with heart rates down to 48. Patient reports associated lightheadedness during this episodes. He is currently asymptomatic. Vitals otherwise stable, blood pressure is somewhat soft at 105/73 on admission. Patient reports compliance with all medications. He does reports excess alcohol use on weekends with up to 10 beers consumed per day but otherwise does not consume any alcohol during the week. He denies any cigarette smoking or illicit drug use. Hematology studies unremarkable. Renal function baseline, electrolyte levels normal. Troponins flat and within normal limits. ED provider did discuss case with Cardiology recommending admission to medicine. hospital course: Patient was admitted for symptomatic paroxysmal atrial fibrillation with tachy-nivia syndrome. He was continued on apixaban, his diltiazem was held. He was seen by Cardiology recommended flecainide. Patient converted to normal sinus rhythm and will continue on flecainide 50 mg b.i.d. for hypertension was continued on lisinopril and hydrochlorothiazide. For hyperlipidemia is continue on statin. For diabetes was continued on insulin sliding scale. Patient is feeling better will be discharged home. Time Attestation Discharge coordination time: Greater than 30 minutes Quality: Safe Use of Opioids Does Pt have an Active Cancer Diagnosis on the Problem List?: No Quality: Stroke Does the patient have a stroke diagnosis?: No Physical Exam Vital Signs: Vital Signs: Last Vital Signs Temp 97.0 F 03/24/23 07:31 Pulse 54 03/24/23 07:31 Resp 18 03/24/23 07:31 BP 102/74 03/24/23 07:31 Pulse Ox 98 03/24/23 07:31 O2 Del Method Room Air 03/24/23 07:31 BMI result Body Mass Index 29.1 General: AO X 3, no acute distress Resp: CTA bilateral, no accessory muscles used CVS: S1,S2,RRR GI: soft, non tender, non distended Neuro: motor grossly intact, alert Psych: appropriate affect, appropriate insight DS: Data Data Completed and Pending Labs on day of discharge: Laboratory Results - last 24 hr 03/23/23 03/23/23 03/23/23 11:13 16:14 19:46 WBC RBC Hgb Hct MCV MCH MCHC RDW Plt Count MPV Absolute Nucleated RBC Nucleated RBC % (auto) Sodium Potassium Chloride Carbon Dioxide Anion Gap BUN Creatinine Estim Creat Clear Calc Estimated GFR POC Glucose 196 H 182 H 204 H Fasting Glucose Calcium 03/24/23 03/24/23 06:28 07:05 WBC 6.8 RBC 4.69 Hgb 14.6 Hct 42.5 MCV 90.6 MCH 31.1 MCHC 34.4 RDW 12.8 Plt Count 244 MPV 11.0 Absolute Nucleated RBC 0.000 Nucleated RBC % (auto) 0.0 Sodium 138 Potassium 4.1 Chloride 99 Carbon Dioxide 30 H Anion Gap 13 BUN 21 H Creatinine 1.47 H Estim Creat Clear Calc 54.7 Estimated GFR 49 POC Glucose 155 H Fasting Glucose 167 H Calcium 9.7 Discharge Plan Discharge Anticipated Discharge Date/Time: 03/24/23 08:57 Patient Disposition: Home, Self-Care Discharge Diagnosis: afib tachy nivia Referrals: Gregg Cota MD [Primary Care Provider] - 1 Week Discharge Medications: New flecainide 50 mg Tablet 50 mg PO BID Qty: 60 0RF Continued lisinopril 40 mg Tablet 40 mg PO BEDTIME atorvastatin 80 mg Tablet 80 mg PO BEDTIME cetirizine 10 mg tablet 10 mg PO DAILY famotidine 40 mg tablet 40 mg PO BEDTIME omeprazole 20 mg capsule,delayed release(DR/EC) 20 mg PO BID fluticasone propionate 50 mcg/actuation spray,suspension 1 spray intranasal DAILY metformin 500 mg tablet extended release 24 hr 1,000 mg PO BID hydrochlorothiazide 12.5 mg tablet 12.5 mg PO DAILY@1200 Eliquis 5 mg tablet 5 mg PO BID@1200,2100 Discontinued diltiazem HCl 300 mg capsule,extended release 24hr 300 mg PO DAILY@1200 Discharge Orders: Discharge Order (Routine); Ordered 03/24/23 Ordered By: Nitesh Valero Diet: Advance to usual diet Activity on Discharge: As tolerated Stand Alone Forms: Patient Portal Discharge page Care Plan Goals: avoid afib Health Concerns: afib tachy nivia Plan of Treatment: dc diltiazem, start flecanide Assessment: see above
--- NOTE | 2023-03-24 09:05 | MHC.CM.PN ---
PT MEDICALLY CLEARED FOR DC HOME SELF CARE, PT WILL ARRANGE TRANSPORT
[2023-03-24 10:56] LABS: Glucose, Whole Blood 245 mg/dL (60-115)
--- NOTE | 2023-03-24 11:02 | PM.PNCARD ---
Subjective Subjective Date of Service: 03/24/23 Interval history: He states he is feeling fine. He got flecainide and then went back to sinus rhythm. No new symptoms. Review of Systems Review of Systems Yes all other systems are reviewed and are negative Constitutional: Reports as per HPI and Reports no additional constitutional complaints Eyes: Reports as per HPI and Denies no additional eye complaints Denies system reviewed and no additional complaints, except as documented and Reports as per HPI Cardiovascular: Reports as per HPI, Reports no additional cardiovascular complaints, Denies acrocyanosis, Denies cool extremities, Denies chest pain, Denies leg edema, Denies lightheadedness, Denies palpitations and Denies dyspnea Respiratory: Reports as per HPI, Denies no additional respiratory complaints and Denies dyspnea Gastrointestinal: Reports as per HPI and Denies no additional gastrointestinal complaints Genitourinary: Reports no additional male genitourinary complaints and Reports as per HPI Musculoskeletal: Reports no additional musculoskeletal complaints and Reports as per HPI Skin/Breast: Reports system reviewed and no additional complaints, except as docu Reports system reviewed and no additional complaints, except as documented and Reports as per HPI Psychiatric: Reports no additional psychiatric complaints and Reports as per HPI Endocrine: Reports no additional endocrine complaints, Reports as per HPI and Denies palpitations Hematologic/Lymphatic: Reports no additional hematologic/lymphatic complaints and Reports as per HPI Allergic/Immunologic: Reports no additional allergic/immunologic complaints and Reports as per HPI Physical Exam Vital Signs: Last Vital Signs Temp 97.0 F 03/24/23 07:31 Pulse 54 03/24/23 07:31 Resp 18 03/24/23 07:31 BP 102/74 03/24/23 07:31 Pulse Ox 98 03/24/23 07:31 O2 Del Method Room Air 03/24/23 07:31 BMI result Body Mass Index 29.1 Const General: comfortable and no acute distress Orientation/consciousness: patient oriented x3 HEENT Other: Unremarkable Head: Yes normal to inspection Neck Neck: Yes normal visual inspection Chest Chest palpation & inspection: normal inspection of the chest Resp Auscultation: clear to auscultation bilaterally Cardio Palpation: normal PMI Heart sounds: S1 normal heart sound present, S2 normal heart sound present, no gallops, no murmurs and no rubs GI Palpation (GI): Soft to palpation Back/Spine/Pelvis Other: unremarkable Skin General skin exam: no rashes or lesions noted Neuro General: patient oriented x3 Extrem General: Yes normal to inspection Psych Mental Status: mental status grossly normal Objective Labs and Meds 03/24/23 06:28 03/24/23 06:28 Lab results: Laboratory Results - last 24 hr 03/23/23 03/23/23 03/23/23 11:13 16:14 19:46 WBC RBC Hgb Hct MCV MCH MCHC RDW Plt Count MPV Absolute Nucleated RBC Nucleated RBC % (auto) Sodium Potassium Chloride Carbon Dioxide Anion Gap BUN Creatinine Estim Creat Clear Calc Estimated GFR POC Glucose 196 H 182 H 204 H Fasting Glucose Calcium 03/24/23 03/24/23 03/24/23 06:28 07:05 10:52 WBC 6.8 RBC 4.69 Hgb 14.6 Hct 42.5 MCV 90.6 MCH 31.1 MCHC 34.4 RDW 12.8 Plt Count 244 MPV 11.0 Absolute Nucleated RBC 0.000 Nucleated RBC % (auto) 0.0 Sodium 138 Potassium 4.1 Chloride 99 Carbon Dioxide 30 H Anion Gap 13 BUN 21 H Creatinine 1.47 H Estim Creat Clear Calc 54.7 Estimated GFR 49 POC Glucose 155 H 245 H Fasting Glucose 167 H Calcium 9.7 Progress Note: A&P Assessment and plan (1) Atrial fibrillation with rapid ventricular response: Status: Resolved (2) Symptomatic bradycardia: Status: Acute Plan He had initially atrial fibrillation with slightly rapid rate and then spontaneous slowing of ventricular rates but no major pauses. Then got flecainide 150 mg and converted back to sinus rhythm. He has essentially been in sinus rhythm/mild sinus bradycardia over the last 24 hours or so. We can keep him on flecainide 50 mg b.i.d. for now. Due to bradycardia, hold off on the diltiazem till we can get a Holter. Continue anticoagulation with Eliquis. Follow-up will be arranged. Discussed with Dr. Valero. Time Spent With Patient Time: Total time managing care of this patient today ____ minutes. Progress Note: Quality Stroke Does the patient have a stroke diagnosis?: No Procedures Date of Service Date of Service: 03/24/23
[2023-03-24 11:15] VITALS: BP 118/70; PULSE 59; RESP 18; TEMP 36.4; O2SAT 97
== END 2023-03-24 13:01 | disposition home or self-care (01) ==
LOC: HO.ED 14:46 → HO.EDOVER 16:20 → HO.IMC 18:22
PROVIDERS: Admitting Provider Physician Assistant; Emergency Provider Emergency Medicine; PCP Internal Medicine; Visit Provider Internal Medicine
DX: I48.0 Paroxysmal atrial fibrillation (principal); I49.5 Sick sinus syndrome; R00.2 Palpitations; E11.9 Type 2 diabetes mellitus without complications; E78.5 Hyperlipidemia, unspecified; R53.83 Other fatigue; I10 Essential (primary) hypertension; R42 Dizziness and giddiness; I46.2 Cardiac arrest due to underlying cardiac condition; Z79.01 Long term (current) use of anticoagulants; Z79.899 Other long term (current) drug therapy
CPT/HCPCS: 36415; 80048; 82947; 83735; 84484; 85025; 85027; 85610; 85730; 93005; 99222; 99285

== ENCOUNTER → 2023-03-22 10:15 | Outpatient (BNV) | payer OTHER, SELFPAY | PROVIDERS: Emergency Provider Emergency Medicine; PCP Internal Medicine; Visit Provider Internal Medicine | DX: I48.91 Unspecified atrial fibrillation (principal) | CPT/HCPCS: 93010 ==

== ENCOUNTER → 2023-03-22 15:34 | Outpatient (BNV) | payer OTHER, SELFPAY | PROVIDERS: Admitting Provider Physician Assistant; Emergency Provider Emergency Medicine; PCP Internal Medicine; Visit Provider Internal Medicine | DX: R00.1 Bradycardia, unspecified (principal); I48.0 Paroxysmal atrial fibrillation | CPT/HCPCS: 99223; 99232; 99239 ==

== ENCOUNTER → 2023-03-22 15:34 | Outpatient (BNV) | payer OTHER, SELFPAY | PROVIDERS: Admitting Provider Physician Assistant; Emergency Provider Emergency Medicine; PCP Internal Medicine; Visit Provider Internal Medicine | DX: I48.91 Unspecified atrial fibrillation (principal); R00.1 Bradycardia, unspecified | CPT/HCPCS: 99223; 99233 ==

== ENCOUNTER → 2023-03-30 09:14 | Outpatient (REF) | payer OTHER, SELFPAY ==
--- NOTE | 2023-03-30 09:16 | HM_ITS ---
* Total monitoring time 2 days. * Underlying rhythm is sinus with an average rate of 63/Min. Range 41 to 113/min. * No supraventricular or ventricular ectopy. * No sustained arrhythmias. * No significant pauses or AV blocks. * Patient marker used once, in association with sinus rhythm. * No diary events. MTDD
== END ==
LOC: HO.CARD 09:14
PROVIDERS: PCP Internal Medicine; Visit Provider Internal Medicine
DX: R00.2 Palpitations (principal); I48.0 Paroxysmal atrial fibrillation; R00.1 Bradycardia, unspecified
CPT/HCPCS: 93242

== ENCOUNTER → 2023-03-30 09:16 | Outpatient (BNV) | payer OTHER, SELFPAY | PROVIDERS: PCP Internal Medicine; Visit Provider Internal Medicine | DX: R00.2 Palpitations (principal) | CPT/HCPCS: 93244 ==

== ENCOUNTER 2023-05-09 09:28 | Outpatient (AMB) | payer OTHER, SELFPAY ==
--- NOTE | 2023-05-09 10:11 | MHC.OFFVIS ---
Intake Vital Signs 05/09/23 10:12 Height 5 ft 7 in Weight 180 lb 12.465 oz BMI 28.3 BP 114/72 Blood Pressure Location Lt brachial Position Sitting Pulse 74 Pulse Source Monitor Intake Visit Reasons: f/u per HS Home Health Care Physician Required: Yes Home Health Care Physician Language: Thai Behaviour Support Teacher: Behaviour Support Teacher Present Allergies No Known Allergies Allergy (Verified 05/09/23 10:16) Medication List - Last Reconciled 05/09/23 by Caren Olivia NP-C apixaban (Eliquis) 5 mg PO BID@1200,2100 atorvastatin 80 mg PO BEDTIME cetirizine 10 mg PO DAILY famotidine 40 mg PO BEDTIME flecainide 50 mg PO BID fluticasone propionate 50 mcg/actuation 1 spray intranasal DAILY hydrochlorothiazide 12.5 mg PO DAILY@1200 lisinopril 40 mg PO BEDTIME metformin ER 1,000 mg PO BID omeprazole 20 mg PO BID HPI f/u per HS HPI Details Kanu is a 63-year-old male with past medical history of hypertension, hyperlipidemia, paroxysmal atrial fibrillation who was recently admitted to [facility] with heart palpitations and treated for AFib RVR. Prior to treatment he did have a slowing of his heart rate down to 48. His diltiazem was then stopped and was given a dose of flecainide which converted him to sinus rhythm. He was then put on maintenance dose of 50 mg b.i.d.. Today he reports that since his hospital discharge he has had a few episodes where he feels anxious and fluttering in his chest that can last seconds. He has not had any longer sustained episodes. No chest discomfort at rest or with activity. No lightheadedness, presyncope, syncope, falls. No concerning shortness of breath, PND, orthopnea or edema. No bleeding issues reported. Taking the flecainide 50 mg b.i.d. as well as his anticoagulation without interruption. Leaving for [place] tomorrow and will be gone till 05/25/2023. present. Certified butadiene converter utility operator used. [facility] Medical History (Updated 05/09/23 @ 10:44 by JHON ChristopherC) PAF (paroxysmal atrial fibrillation) Type 2 diabetes mellitus with unspecified complications Essential hypertension High cholesterol Diabetes mellitus HTN (hypertension) Surgical History No pertinent past surgical history Family History Mother Hyperlipidemia Hypertension Diabetes Father Diabetes Social History Household Members: Spouse Household Members Other:: 1 Housing: Unknown / Unable to assess Do you presently have visiting nurse or other home services: No Alcohol intake: current Alcohol intake frequency: a few times a week Alcohol type: beer and hard liquor Patient Tobacco Use Status: Never used Tobacco Second Hand Smoke Exposure: No Advance Directives Date on File: 05/27/20 service: No Current occupational status: unemployed Review of Systems Const All systems reviewed & are unremarkable except as noted in HPI and below ENT Denies dizziness Card Denies chest pain, Denies chest pain at rest, Denies chest pain with activity, Reports rapid heart rate, Denies pedal edema, Denies edema, Denies leg edema, Denies lightheadedness, Denies palpitations, Denies dyspnea, Denies dyspnea on exertion and Denies orthopnea Resp Denies cough, Denies dyspnea and Denies dyspnea on exertion GI Denies hematochezia and Denies change in stool character Musc Denies abnormal gait, Denies limited range of motion, Reports muscle cramps, Denies muscle weakness, Denies numbness, Denies radiating pain into limb, Denies stiffness and Denies tingling Neuro Denies abnormal gait, Denies dizziness, Denies numbness and Denies tingling Endo Denies palpitations Physical Exam Vital Signs: Last Vital Signs Pulse 74 05/09/23 10:12 BP 114/72 05/09/23 10:12 BMI result Body Mass Index 28.3 Const General: cooperative, healthy appearing, comfortable and no acute distress Orientation/consciousness: patient oriented x3 Neck Neck: Yes normal visual inspection and Yes no JVD Resp Effort & Inspection: normal respiratory effort Auscultation: clear to auscultation bilaterally, no crackles, no rales, no rhonchi and no wheezes Cardio Jugular venous distension: no JVD Rate: regular rate Rhythm: regular rhythm Heart sounds: S1 normal heart sound present, S2 normal heart sound present, no murmurs and no rubs Neuro General: patient oriented x3 Extrem General: Yes normal to inspection, No no pedal edema and No calf tenderness Psych Appearance: grossly normal Mental Status: mental status grossly normal Speech and movement: Normal speech and movement present Office Procedures EKG Details: Today, read by me, SR with nonspecific T wave abn, rate 74 [id number], Complete Assessment & Plan Assessment & Plan (1) PAF (paroxysmal atrial fibrillation): Code(s): I48.0 - Paroxysmal atrial fibrillation Plan: History of paroxysmal atrial fibrillation. Previously suppressed with just diltiazem. He did have recurrent symptoms and presented to [facility] [id number]. He initially had AFib RVR then had a slowing of his rate down to 48. His diltiazem was stopped. He was given flecainide and he converted to sinus rhythm. He was then started on flecainide 50 mg b.i.d.. Diltiazem was not restarted. An outpatient Holter monitor done on 03/30/2023 4 2 days showed sinus rhythm with average heart rate 63, heart rate range 41 to 113. Today he reports he has had a few episodes of brief heart palpitations since his hospital discharge, lasting seconds. EKG done today showing normal sinus rhythm, nonspecific T-wave abnormality, rate 74, QTC [address] Saba. Will start on metoprolol XL 25 mg daily in addition to the current flecainide. Continue Eliquis. Will check a CTA of the coronary arteries to evaluate for any significant coronary artery stenosis. He denies any anginal symptoms. Emergency care if needed for sustained heart palpitations. Cardiology follow-up 3 months, sooner if needed. (2) Symptomatic bradycardia: Code(s): R00.1 - Bradycardia, unspecified Plan: Brief episode in the emergency room as above with AFib slow ventricular response. Currently denies any lightheadedness, presyncope, syncope, falls. (3) HTN (hypertension): Code(s): I10 - Essential (primary) hypertension Plan: Well controlled at present. Adding low-dose metoprolol as above (4) High cholesterol: Code(s): E78.00 - Pure hypercholesterolemia, unspecified Plan: [place] LDL goal less than 70 in patient with diabetes. No known history of CAD at this time. Labs done 12/07/2022 showed LDL 116. He is currently on atorvastatin 80 mg daily. Recommend start of Zetia 10 mg daily. Will forward this to his PCP Plan Time spent on chart review, documentation, interview and assessment Orders: Orders CT Cardiac Coronary Angio Today I48.0 - Paroxysmal atrial fibrillation Basic Metabolic Panel Today I48.0 - Paroxysmal atrial fibrillation Medications: New metoprolol succinate ER 25 mg PO DAILY 90 tabs 3RF Coding Level of Care Code Est Pt Level 4 (96015) Diagnoses PAF (paroxysmal atrial fibrillation) I48.0 Symptomatic bradycardia R00.1 HTN (hypertension) I10 High cholesterol E78.00 CPT Codes EKG - CPT: 71741-[id number], Complete ([id number]) Time Spent (min) 30
[2023-05-09 10:12] VITALS: BP 114/72; PULSE 74; BMI 28.3
== END 2023-05-09 10:51 | disposition home or self-care (01) ==
PROVIDERS: PCP Internal Medicine; Visit Provider Nurse Practitioner Family
DX: I48.0 Paroxysmal atrial fibrillation (principal); R00.1 Bradycardia, unspecified; I10 Essential (primary) hypertension; E78.00 Pure hypercholesterolemia, unspecified
CPT/HCPCS: 93010; 99214

== ENCOUNTER → 2023-05-09 09:28 | Outpatient (BNVA) | payer OTHER, SELFPAY | PROVIDERS: PCP Internal Medicine; Visit Provider Nurse Practitioner Family | DX: I48.0 Paroxysmal atrial fibrillation (principal); I10 Essential (primary) hypertension; R00.1 Bradycardia, unspecified; E78.00 Pure hypercholesterolemia, unspecified | CPT/HCPCS: 93005; 99212 ==

== ENCOUNTER 2023-08-12 08:59 | Outpatient (REF) | payer OTHER, SELFPAY ==
[2023-08-12 11:31] LABS: Anion Gap 10 (12-20); Blood Urea Nitrogen 21 mg/dL (9-16); Calcium 9.3 mg/dL (8.4-10.2); Carbon Dioxide 32 mmol/L (22-29); Chloride 100 mmol/L (96-108); Estimated Glomerular Filt Rate 55; Glucose Random 193 mg/dL (60-115); Potassium 3.6 mmol/L (3.3-5.1); Sodium 138 mmol/L (135-145)
== END 2023-08-12 09:00 | disposition home or self-care (01) ==
LOC: HO.HHCL 08:59
PROVIDERS: Visit Provider Nurse Practitioner Family
DX: I48.0 Paroxysmal atrial fibrillation (principal)
CPT/HCPCS: 36415; 80048

== ENCOUNTER 2023-08-29 09:15 | Outpatient (AMB) | payer OTHER, SELFPAY ==
--- NOTE | 2023-08-29 10:09 | MHC.OFFVIS ---
Vital Signs 08/29/23 10:10 Height 5 ft 7 in Weight 178 lb 9.191 oz BMI 28.0 BP 114/60 Blood Pressure Location Lt brachial Position Sitting Pulse 61 Pulse Source Monitor Intake Visit Reasons: f/u after CTA Producer Assistant Required: Yes Producer Assistant Language: Georgian Security Assurance Specialist: Security Assurance Specialist Present Allergies No Known Allergies Allergy (Verified 08/29/23 10:12) Medication List - Last Reconciled 08/29/23 by MARIA T Christopher apixaban (Eliquis) 5 mg PO BID 90 days atorvastatin 80 mg PO BEDTIME cetirizine 10 mg PO DAILY famotidine 40 mg PO BEDTIME flecainide 50 mg PO BID 90 days fluticasone propionate 50 mcg/actuation 1 spray intranasal DAILY hydrochlorothiazide 12.5 mg PO DAILY@1200 lisinopril 40 mg PO BEDTIME metformin ER 1,000 mg PO BID metoprolol succinate ER 25 mg PO DAILY omeprazole 20 mg PO BID HPI HPI f/u after CTA: Details: Kanu is a 63-year-old male with past medical history of hypertension, hyperlipidemia, paroxysmal atrial fibrillation who was recently admitted to [facility] with heart palpitations and treated for AFib RVR. Prior to treatment he did have a slowing of his heart rate down to 48. His diltiazem was then stopped and was given a dose of flecainide which converted him to sinus rhythm. He was then put on maintenance dose of 50 mg b.i.d.. On follow-up visit metoprolol XL was added and a CTA of the coronary arteries was ordered. Today he reports that he will notice brief heart palpitations lasting only seconds. This does not occur daily but can happen 2 to 3 times a week. Has not had any episodes that last a minute or more. No chest discomfort at rest or with activity. No lightheadedness, presyncope, syncope, falls. No concerning shortness of breath, PND, orthopnea or edema. No bleeding issues reported. Taking meds as directed. Admits to drinking 2-3 caffeinated beverages per day. present. Certified quarantine officer used. [facility] Medical History PAF (paroxysmal atrial fibrillation) Type 2 diabetes mellitus with unspecified complications Essential hypertension High cholesterol Diabetes mellitus HTN (hypertension) Surgical History No pertinent past surgical history Family History Mother Hyperlipidemia Hypertension Diabetes Father Diabetes Social History Household Members: Spouse Household Members Other:: 1 Housing: Unknown / Unable to assess Do you presently have visiting nurse or other home services: No Alcohol intake: current Alcohol intake frequency: a few times a week Alcohol type: beer and hard liquor Patient Tobacco Use Status: Never used Tobacco Second Hand Smoke Exposure: No Advance Directives Date on File: 05/27/20 service: No Current occupational status: unemployed Review of Systems Const All systems reviewed & are unremarkable except as noted in HPI and below ENT Denies dizziness Card Details: brief palpitations Denies chest pain, Denies chest pain at rest, Denies chest pain with activity, Denies rapid heart rate, Denies pedal edema, Denies edema, Denies leg edema, Denies lightheadedness, Denies palpitations, Denies dyspnea, Denies dyspnea on exertion and Denies orthopnea Resp Denies cough, Denies dyspnea and Denies dyspnea on exertion GI Denies hematochezia and Denies change in stool character Musc Denies abnormal gait, Denies limited range of motion, Denies muscle cramps, Denies muscle weakness, Denies numbness, Denies radiating pain into limb, Denies stiffness and Denies tingling Neuro Denies abnormal gait, Denies dizziness, Denies numbness and Denies tingling Endo Denies palpitations Physical Exam Vital Signs: Last Vital Signs Pulse 61 08/29/23 10:10 BP 114/60 08/29/23 10:10 BMI result Body Mass Index 28.0 Const General: cooperative, healthy appearing, comfortable and no acute distress Orientation/consciousness: patient oriented x3 Neck Neck: Yes normal visual inspection and Yes no JVD Resp Effort & Inspection: normal respiratory effort Auscultation: clear to auscultation bilaterally, no crackles, no rales, no rhonchi and no wheezes Cardio Jugular venous distension: no JVD Rate: regular rate Rhythm: regular rhythm Heart sounds: S1 normal heart sound present, S2 normal heart sound present, no murmurs and no rubs Neuro General: patient oriented x3 Extrem General: Yes normal to inspection, No no pedal edema and No calf tenderness Psych Appearance: grossly normal Mental Status: mental status grossly normal Speech and movement: Normal speech and movement present Office Procedures EKG Details: Today, read by me, SR, nonspecific T wave abn, rate 61, QTc 396ms [id number], Complete Assessment & Plan Assessment & Plan (1) PAF (paroxysmal atrial fibrillation): Code(s): I48.0 - Paroxysmal atrial fibrillation Category: Medical Plan: History of paroxysmal atrial fibrillation. Previously suppressed with just diltiazem. He did have recurrent symptoms and presented to [facility] 03/22/23. He initially had AFib RVR then had a slowing of his rate down to 48 prior to administration of meds. His diltiazem was stopped. He was given flecainide and he converted to sinus rhythm. He was then started on flecainide 50 mg b.i.d.. Diltiazem was not restarted. An outpatient Holter monitor done on 03/30/2023 for 2 days showed sinus rhythm with average heart rate 63, heart rate range 41 to 113. On last visit he continued to report brief heart palpitations, lasting seconds. Reviewed with Dr. Saba and he was started on metoprolol XL 25 mg daily in addition to the current flecainide. Today he continues to report brief heart palpitations, lasting seconds. Pulse is regular on examination. EKG today showing sinus rhythm with nonspecific T-wave abnormality, rate 61, QTC 396 milliseconds. Last echo done 02/23/2023 was normal study. He did have a CTA of the coronary arteries done on 08/17/2023 showing no hemodynamically significant coronary artery disease, mild calcific plaque in the proximal LAD causing less than 25% stenosis. Since he is prone to have bradycardia will avoid increase in meds at this time. Will continue on same metoprolol XL and flecainide. Instructed him to call this office or seek emergency care if needed for sustained rapid palpitations. No bleeding issues reported. Will have him continue Eliquis for anticoagulation. Labs done 08/12/2023 showed creatinine 1.31. Due to his AFib Will check a CTA of the coronary arteries to evaluate for any significant coronary artery stenosis. He denies any anginal symptoms. Emergency care if needed for sustained heart palpitations. Cardiology follow-up 3 months, sooner if needed. (2) Symptomatic bradycardia: Code(s): R00.1 - Bradycardia, unspecified Category: Medical Plan: Brief episode in the emergency room as above with AFib slow ventricular response. Currently denies any lightheadedness, presyncope, syncope, falls. (3) HTN (hypertension): Code(s): I10 - Essential (primary) hypertension Category: Medical Plan: Well controlled at present. Adding low-dose metoprolol as above (4) High cholesterol: Code(s): E78.00 - Pure hypercholesterolemia, unspecified Category: Medical Plan: [place] LDL goal less than 70 in patient with diabetes. Labs done 12/07/2022 showed LDL 116. He is currently on atorvastatin 80 mg daily. New finding of mild nonobstructive CAD. Recommend recheck of lipid profile and add Zetia if LDL not at goal. Will forward this to his PCP (5) CAD (coronary artery disease): Code(s): I25.10 - Atherosclerotic heart disease of [place] coronary artery without angina pectoris Category: Medical Plan: Mild nonobstructive LAD stenosis as seen on recent CTA of the coronary arteries. Continue with risk factor modification. LDL goal less than 70. Hemoglobin A1c goal less than 7. Blood pressure goal less than 130/85. Plan Time spent on chart review, documentation, interview and assessment Coding Level of Care Code Est Pt Level 4 (91756) Diagnoses PAF (paroxysmal atrial fibrillation) I48.0 Symptomatic bradycardia R00.1 HTN (hypertension) I10 High cholesterol E78.00 CAD (coronary artery disease) I25.10 CPT Codes EKG - CPT: [id number], Complete ([id number]) Time Spent (min) 28
[2023-08-29 10:10] VITALS: BP 114/60; PULSE 61; BMI 28.0
== END 2023-08-29 10:29 | disposition home or self-care (01) ==
PROVIDERS: PCP Internal Medicine; Visit Provider Nurse Practitioner Family
DX: I48.0 Paroxysmal atrial fibrillation (principal); R00.1 Bradycardia, unspecified; I10 Essential (primary) hypertension; E78.00 Pure hypercholesterolemia, unspecified; I25.10 Atherosclerotic heart disease of native coronary artery without angina pectoris
CPT/HCPCS: 93010; 99214

== ENCOUNTER → 2023-08-29 09:15 | Outpatient (BNVA) | payer OTHER, SELFPAY | PROVIDERS: PCP Internal Medicine; Visit Provider Nurse Practitioner Family | DX: I48.0 Paroxysmal atrial fibrillation (principal); I10 Essential (primary) hypertension; R00.1 Bradycardia, unspecified; E78.00 Pure hypercholesterolemia, unspecified; I25.10 Atherosclerotic heart disease of native coronary artery without angina pectoris; Z79.899 Other long term (current) drug therapy | CPT/HCPCS: 93005; 99212 ==

== ENCOUNTER → 2023-12-07 11:10 | Outpatient (REF) | payer OTHER, SELFPAY ==
--- NOTE | 2023-12-07 11:15 | HM_ITS ---
Conclusion: 1. Patient was monitored for total period of 13 days 2. Baseline was normal sinus rhythm with average heart rate of 64 beats per minute 3. No significant pauses noted 4. Occasional PACs noted 5. No patient reported events MTDD
== END ==
LOC: HO.CARD 11:10
PROVIDERS: Visit Provider Internal Medicine
DX: I48.0 Paroxysmal atrial fibrillation (principal)
CPT/HCPCS: 93242

== ENCOUNTER → 2023-12-07 11:15 | Outpatient (BNV) | payer OTHER, SELFPAY | PROVIDERS: Visit Provider Internal Medicine Cardiovascular Disease | DX: I49.1 Atrial premature depolarization (principal) | CPT/HCPCS: 93248 ==

== ENCOUNTER 2024-06-07 09:14 | Outpatient (AMB) | payer OTHER, SELFPAY ==
--- NOTE | 2024-06-07 09:35 | A.OFFVIS_ITS ---
Vital Signs 06/07/24 09:36 Height 5 ft 7 in Weight 180 lb 12.465 oz BMI 28.3 BP 100/72 Blood Pressure Location Lt brachial Position Sitting Pulse 60 Pulse Source Monitor Intake Visit Reasons: CAD (coronary artery disease) Timber Appraiser Required: Yes Timber Appraiser Language: Spa Receptionist Name: voice umaña [phone] Parts And Service Manager: Parts And Service Manager Present Allergies No Known Allergies Allergy (Verified 06/07/24 09:38) Medication List - Last Reconciled 06/07/24 by Caren Olivia NP-C apixaban (Eliquis) 5 mg PO BID 90 days atorvastatin 80 mg PO BEDTIME cetirizine 10 mg PO DAILY famotidine 40 mg PO BEDTIME flecainide 50 mg PO BID fluticasone propionate 50 mcg/actuation 1 spray intranasal DAILY hydrochlorothiazide 12.5 mg PO DAILY@1200 lisinopril 40 mg PO BEDTIME metformin ER 1,000 mg PO BID metoprolol succinate ER 25 mg PO DAILY omeprazole 20 mg PO BID HPI HPI CAD (coronary artery disease): Details: Kanu is a 64-year-old male with past medical history of hypertension, hyperlipidemia, paroxysmal atrial fibrillation who presents for follow-up. Today he reports that he will still notice brief heart palpitations lasting only seconds. This happens periodically and does not cause him much concern. He has not had any sustained rapid or irregular heart rates. No chest discomfort at rest or with activity. No lightheadedness, presyncope, syncope, falls. No concerning shortness of breath, PND, orthopnea or edema. No bleeding issues reported. Taking meds as directed. Admits to still drinking 2-3 caffeinated beverages per day. present. 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 [facility] Medical History PAF (paroxysmal atrial fibrillation) Type 2 diabetes mellitus with unspecified complications Essential hypertension High cholesterol Diabetes mellitus HTN (hypertension) Surgical History No pertinent past surgical history Family History Mother Hyperlipidemia Hypertension Diabetes Father Diabetes Social History Household Members: Spouse Household Members Other:: 1 Housing: Unknown / Unable to assess Do you presently have visiting nurse or other home services: No Alcohol intake: current Alcohol intake frequency: a few times a week Alcohol type: beer and hard liquor Patient Tobacco Use Status: Never used Tobacco Second Hand Smoke Exposure: No Advance Directives Date on File: 05/27/20 service: No Current occupational status: unemployed Review of Systems Const All systems reviewed & are unremarkable except as noted in HPI and below ENT Denies dizziness Card Details: brief palpitations Denies chest pain, Denies chest pain at rest, Denies chest pain with activity, Denies rapid heart rate, Denies pedal edema, Denies edema, Denies leg edema, Denies lightheadedness, Denies palpitations, Denies dyspnea, Denies dyspnea on exertion and Denies orthopnea Resp Denies cough, Denies dyspnea and Denies dyspnea on exertion GI Denies hematochezia and Denies change in stool character Musc Denies abnormal gait, Denies limited range of motion, Denies muscle cramps, Denies muscle weakness, Denies numbness, Denies radiating pain into limb, Denies stiffness and Denies tingling Neuro Denies abnormal gait, Denies dizziness, Denies numbness and Denies tingling Endo Denies palpitations Physical Exam Vital Signs: Last Vital Signs Pulse 60 06/07/24 09:36 BP 100/72 06/07/24 09:36 BMI result Body Mass Index 28.3 Const General: cooperative, healthy appearing, comfortable and no acute distress Orientation/consciousness: patient oriented x3 Neck Neck: Yes normal visual inspection and Yes no JVD Resp Effort & Inspection: normal respiratory effort Auscultation: clear to auscultation bilaterally, no crackles, no rales, no rhonchi and no wheezes Cardio Jugular venous distension: no JVD Rate: regular rate Rhythm: regular rhythm Heart sounds: S1 normal heart sound present, S2 normal heart sound present, no murmurs and no rubs Neuro General: patient oriented x3 Extrem General: Yes normal to inspection, No no pedal edema and No calf tenderness Psych Appearance: grossly normal Mental Status: mental status grossly normal Speech and movement: Normal speech and movement present Office Procedures EKG Details: Today, read by me, normal sinus rhythm, possible inferior infarct, rate 60, QTC 388 millisecond [id number], Complete Assessment & Plan Assessment & Plan (1) PAF (paroxysmal atrial fibrillation): Code(s): I48.0 - Paroxysmal atrial fibrillation Category: Medical Plan: History of paroxysmal atrial fibrillation that is currently suppressed with flecainide and metoprolol. EKG done today shows sinus rhythm, rate 60, QTC 388 milliseconds. He will get very brief heart palpitations lasting seconds. Last echo done 02/23/2023 was normal study. CTA of the coronary arteries done on 08/17/2023 showing no hemodynamically significant coronary artery disease, mild calcific plaque in the proximal LAD causing less than 25% stenosis. Since he is prone to have bradycardia will avoid increase in meds at this time. Will continue on same flecainide 50 mg b.i.d. and metoprolol XL 25 mg daily. He is on Eliquis for anticoagulation. Biannual renal function nathan should be pursued. Labs 12/16/2023 showed creatinine 1.21. Instructed to reduce caffiene intake to 1 daily. Cardiology follow-up 6 months, sooner if needed. (2) Symptomatic bradycardia: Code(s): R00.1 - Bradycardia, unspecified Category: Medical Plan: Has had in the past. No recent episodes. (3) HTN (hypertension): Code(s): I10 - Essential (primary) hypertension Category: Medical Plan: Well controlled at present. Currently low normal, asymptomatic. Continue metoprolol, lisinopril, hydrochlorothiazide. (4) High cholesterol: Code(s): E78.00 - Pure hypercholesterolemia, unspecified Category: Medical Plan: [place] LDL goal less than 70 in patient with diabetes. Labs done 12/16/23 showed LDL 99. He is currently on atorvastatin 80 mg daily. Will add Zetia 10 mg daily for optimal LDL control. (5) CAD (coronary artery disease): Code(s): I25.10 - Atherosclerotic heart disease of [place] coronary artery without angina pectoris Category: Medical Plan: Mild nonobstructive LAD stenosis as seen on recent CTA of the coronary arteries. Continue with risk factor modification. LDL goal less than 70. Hemoglobin A1c goal less than 7. Blood pressure goal less than 130/80. Plan Time spent on chart review, documentation, interview and assessment Medications: New ezetimibe (Zetia) Cholesterol lowering agent 10 mg PO DAILY 90 tabs 3RF Coding Level of Care Code Est Pt Level 4 (48866) Complex EM visit Add On G2211 Diagnoses PAF (paroxysmal atrial fibrillation) I48.0 Symptomatic bradycardia R00.1 HTN (hypertension) I10 High cholesterol E78.00 CAD (coronary artery disease) I25.10 CPT Codes EKG - CPT: 13720-[id number], Complete ([id number])
[2024-06-07 09:36] VITALS: BP 100/72; PULSE 60; BMI 28.3
== END 2024-06-07 10:06 | disposition home or self-care (01) ==
PROVIDERS: PCP Internal Medicine; Visit Provider Nurse Practitioner Family
DX: I48.0 Paroxysmal atrial fibrillation (principal); R00.1 Bradycardia, unspecified; I10 Essential (primary) hypertension; E78.00 Pure hypercholesterolemia, unspecified; I25.10 Atherosclerotic heart disease of native coronary artery without angina pectoris
CPT/HCPCS: 93010; 99214; G2211

== ENCOUNTER → 2024-06-07 09:14 | Outpatient (BNVA) | payer OTHER, SELFPAY | PROVIDERS: PCP Internal Medicine; Visit Provider Nurse Practitioner Family | DX: I25.10 Atherosclerotic heart disease of native coronary artery without angina pectoris (principal); I48.0 Paroxysmal atrial fibrillation; I10 Essential (primary) hypertension; R00.1 Bradycardia, unspecified; E78.00 Pure hypercholesterolemia, unspecified | CPT/HCPCS: 93005; 99212 ==

== ENCOUNTER 2024-08-05 08:30 | Emergency (ER) | payer OTHER, SELFPAY ==
--- NOTE | ~2024-08-05 | CT_ITS ---
CLINICAL HISTORY: abdominal bloating, eoth use CT abdomen and pelvis with contrast Comparison: None Findings: Mild dependent right basilar atelectasis. Unremarkable gallbladder. Hoxv-pu-hvnkjqfq pancreatic atrophy. A few left renal cysts and too small to characterize right renal hypodensities. No hydronephrosis or urinary tract stone. No bowel obstruction, pneumoperitoneum, or pneumatosis. Borderline prostatomegaly measuring 50 mm in width. Distended urinary bladder. Mild colonic diverticulosis without diverticulitis. Normal appendix. The bones are intact. Spinal degenerative changes. Mild atherosclerotic calcifications. Rest of the abdominopelvic viscera are unremarkable. IMPRESSION: No acute findings. No bowel obstruction. Borderline prostatomegaly. This document has been electronically signed by: Katya Elizondo MD on 08/05/2024 10:55:30
--- NOTE | ~2024-08-05 | XR_ITS ---
CLINICAL HISTORY: palpitations 2 view chest x-ray Comparison: None Findings: The lungs are clear. Heart size is normal. No acute fracture. IMPRESSION: 1. No acute findings. This document has been electronically signed by: Katya Elizondo MD on 08/05/2024 11:24:46
--- NOTE | 2024-08-05 08:31 | ECG_ITS ---
Test Reason : PAPL Blood Pressure : */* mmHG Vent. Rate : 69 BPM Atrial Rate : 69 BPM P-R Int : 168 ms QRS Dur : 82 ms QT Int : 394 ms P-R-T Axes : 44 -4 21 degrees QTcB Int : 422 ms Normal sinus rhythm Possible Inferior infarct , age undetermined Abnormal ECG When compared with ECG of 22-Mar-2023 12:47, Sinus rhythm has replaced Atrial fibrillation Referred By: Generic ED Physician Electronically Signed By: CRISPIN CLARKE MD
[2024-08-05 08:50] VITALS: BP 112/77; PULSE 72; RESP 18; TEMP 36.2; O2SAT 100; BMI 28.3
--- NOTE | 2024-08-05 08:55 | ED_ITS ---
HPI - Arrhythmia/Palpitations General Chief Complaint: Arrhythmia/Palpitations Stated Complaint: palpitations Time Seen by Provider: 08/05/24 08:54 Source: patient Mode of arrival: ambulatory Limitations: no limitations History of Present Illness ED Provider: GEOVANNA VILLALBA PA-C HPI narrative: 64 year old Lithuanian-speaking male with pmhx significant for paroxysmal T2DM, atrial fibrillation, HTN, HLD and CAD presents to the ED today for evaluation of palpitations. Reports intermittent palpitations x7 years. Reports history of atrial fibrillation. He is compliant with his metoprolol and Eliquis. No missed doses. He does state that over the last week, his palpitations have been becoming more frequent, occurring at random times. Palpitations will last anywhere from 5-10 minutes before completely resolving. Denies any associated chest pain/discomfort. No recent travel or long car rides. Additionally reports abdominal bloating x1 week. Admits to history of similar, resolved on its own, was never medically evaluated for this. Admits to heavy drinking on the weekends only. Reports consuming approximately 10 beers a day. Reports his abdomen feels so distended that it is making him feel short of breath. Denies any nausea, vomiting, diarrhea or constipation. Reports normal BM this morning. Related Data Home Medications ?Medication ?Instructions ?Recorded ?Confirmed atorvastatin 80 mg tablet 80 mg PO BEDTIME 05/27/20 06/07/24 lisinopril 40 mg tablet 40 mg PO BEDTIME 05/27/20 06/07/24 cetirizine 10 mg tablet 10 mg PO DAILY 03/22/23 06/07/24 famotidine 40 mg tablet 40 mg PO BEDTIME 03/22/23 06/07/24 fluticasone propionate 50 1 spray intranasal DAILY 03/22/23 06/07/24 mcg/actuation nasal spray,suspension hydrochlorothiazide 12.5 mg tablet 12.5 mg PO DAILY@1200 03/22/23 06/07/24 metformin 500 mg tablet,extended 1,000 mg PO BID 03/22/23 06/07/24 release 24 hr omeprazole 20 mg capsule,delayed 20 mg PO BID 03/22/23 06/07/24 release Previous Rx's ?Medication ?Instructions ?Recorded metoprolol succinate 25 mg 25 mg PO DAILY for blood pressure 05/11/24 tablet,extended release 24 hr #90 tabs flecainide 50 mg tablet 50 mg PO BID for blood pressure 05/31/24 #180 tabs ezetimibe 10 mg tablet (Zetia) 10 mg PO DAILY #90 tabs 06/07/24 apixaban 5 mg tablet (Eliquis) 5 mg PO BID #180 tabs 08/03/24 dicyclomine 10 mg capsule 10 mg PO BID PRN abdominal pain #5 08/05/24 caps Allergies Allergy/AdvReac Type Severity Reaction Status Date / Time No Known Allergies Allergy Verified 08/05/24 08:53 Review of Systems 2 Review of Systems: Constitutional: No fever, chills, fatigue, night sweats, weight changes ENT/Mouth: No ear pain, hearing loss, nasal congestion, sinus pain, rhinorrhea, sore throat Eyes: No eye pain, swelling, redness, vision changes, discharge Cardio: No chest pain, palpitations, BLAIR, orthopnea, peripheral edema, + palpitations Pulm: No SOB, cough, sputum, wheezing, dyspnea, hemoptysis GI: No nausea, vomiting, hematemesis, abdominal pain, diarrhea, constipation, hematochezia, melena, +abd distension : No irregular bleeding, dysuria, frequency, urgency, hesitancy, hematuria, flank pain, urinary flow changes, urinary incontinence or retention MSK: No back pain, neck pain, joint pain, myalgias Skin: No lesions, rashes Neuro: No weakness, numbness, paresthesias, LOC, dizziness, headache Psych: No anxiety/panic, depression, SI/HI, AH/VH All other systems reviewed and are negative. Yes all other systems are reviewed and are negative [facility] Past Medical History Attestation statement: The following information was validated with the patient. Source: old records reviewed and nursing notes reviewed Medical History PAF (paroxysmal atrial fibrillation) Type 2 diabetes mellitus with unspecified complications Essential hypertension High cholesterol Diabetes mellitus HTN (hypertension) Surgical History No pertinent past surgical history Family History Family History Mother Hyperlipidemia Hypertension Diabetes Father Diabetes Social History Social History Household Members: Spouse Household Members Other:: 1 Housing: Unknown / Unable to assess Do you presently have visiting nurse or other home services: No Alcohol intake: current Alcohol intake frequency: a few times a week Alcohol type: beer and hard liquor Patient Tobacco Use Status: Never used Tobacco Second Hand Smoke Exposure: No Advance Directives Date on File: 05/27/20 service: No Current occupational status: unemployed Physical Exam 2 Vital Signs: Vital Signs: Last Vital Signs Temp 97.1 F 08/05/24 12:06 Pulse 69 08/05/24 12:06 Resp 18 08/05/24 12:06 BP 111/75 08/05/24 12:06 Pulse Ox 98 08/05/24 12:06 O2 Del Method Room Air 08/05/24 12:06 BMI result Body Mass Index 28.3 Vital signs stable General: Well appearing, in no acute distress. Skin: Warm, dry, intact. No rashes or lesions. Head: Normocephalic, atraumatic. EENT: Hearing is intact b/l. Conjunctiva clear. Sclera is anicteric. PERRLA. EOM intact. Moist mucous membranes.? Neck: Supple without LA Cardiac: Chest wall symmetric. RRR Lungs: Normal respiratory effort without accessory muscle use. CTA bilaterally Abdomen: Soft, mildly distended, nontender to palpation. No rebound or guarding. Active bowel sounds throughout. No CVAT. Back: No midline spinous or paraspinal tenderness. No step off deformity. Ext: Upper and lower extremities atraumatic, without tenderness, deformity, swelling or erythema. No peripheral edema. No calf tenderness bilaterally. Neuro: AOx3. Normal speech. Ambulating with steady gait. Course Course Course Narrative: CBC without leukocytosis or left shift. H&H stable. Chemistry without acute electrolyte abnormality requiring intervention. BUN slightly elevated to 21 with normal creatinine. Appears to be around patient's baseline. Random glucose 204, no anion gap. Normal liver function. BNP wnl - no concern for fluid overload, CHF. Troponin WNL at 4.8. EKG showing normal sinus rhythm, rate of 69 beats per minute, no acute ischemic changes or ST elevations. No evidence of atrial fibrillation. Lipase WNL. Normal TSH/free T4. Unlikely thyroid etiology. Urine negative for infection. Negative COVID, flu, RSV. Chest x-ray without evidence of pneumonia or effusion. CT a/p without evidence of acute process, no bowel obstruction, no liver pathology. > vital signs are stable. he is not tachycardic or hypoxic. he has not had any episodes of afib while in ED. he is well appearing, in NAD. no pain at present. > discussed all work up results with patient. advised cardiology follow up as I have suspicion he is going in/out of afib. he is rate controlled and compliant with his AC. he states he plans to see his hot metal mixer operator helper tomorrow. > will trial bentyl for abdominal bloating/ gas pain. patient agreeable. > Patient has remained stable throughout ED visit today. Discussed worrisome signs and symptoms and when to return to the ED. All questions answered at this time. Patient is agreeable with disposition and stable for discharge. Medications Administered Discontinued Medications Generic Name Dose Route Start Last Admin Trade Name Freq PRN Reason Stop Dose Admin Iohexol 100 ml 08/05/24 10:16 08/05/24 10:16 Iohexol 350 Mg/Ml 100 Ml Infus..Btl IV 08/05/24 10:17 85 ml ONCE ONE Administration Medical Decision Making Medical Decision Making MDM Narrative: 64 year old Lithuanian-speaking male with pmhx significant for paroxysmal T2DM, atrial fibrillation, HTN, HLD and CAD presents to the ED today for evaluation of palpitations and abdominal bloating. vitals are stable. he is well appearing and in NAD. RRR, no peripheral edema, no calf tenderness b/l. no respiratory distress, no tripoding. No increased effort of breathing. Lungs are CTA bilaterally, no adventitious breath sounds. Abdomen is soft, mildly distended, nontender to palpation. No rebound or guarding. Active bowel sounds throughout. Differential diagnosis includes anemia, electrolyte abnormality, arrhythmia, atrial fibrillation, ACS, constipation, etoh hepatitis Unlikely bowel obstruction, viscous perforation, ischemic bowel, acute abdomen. Unlikely PE. Plan for labs, ekg, imaging, re-evaluation. Placed on continuous cardiac monitoring. Differential Diagnosis Differential Diagnoses: The differential diagnosis associated with the presentation includes as above Admission/Observation Not indicated Lab Data MDM Lab Attestation statement: I reviewed the patient's lab results. As above 08/05/24 09:05 08/05/24 09:05 Labs: Lab Results 08/05/24 08/05/24 Range/Units 09:05 09:55 WBC 9.2 (4.8-10.8) X10*3/uL RBC 4.53 L (4.60-5.80) X10*6/uL Hgb 14.2 (14.0-18.0) g/dl Hct 39.7 L (42.0-52.0) % MCV 87.6 (80.0-98.0) fL MCH 31.3 (27.0-33.0) pg MCHC 35.8 (31.0-36.0) g/dl RDW 13.2 (11.0-16.0) % Plt Count 206 (160-400) X10*3/uL MPV 10.7 (9.4-12.4) fL Immature Gran % (Auto) 0.2 (0.0-0.4) % Neut % (Auto) 64.0 (45-73) % Lymph % (Auto) 24.2 (20-40) % Burt % (Auto) 10.5 (2-11) % Eos % (Auto) 0.8 (0-4) % Baso % (Auto) 0.3 (0-2) % Lymph # (Auto) 2.2 (1.2-4.9) X10*3/uL Burt # (Auto) 1.0 (0.1-1.2) X10*3/uL Eos # (Auto) 0.1 (0.0-0.4) X10*3/uL Baso # (Auto) 0.0 (0.0-0.2) X10*3/uL Abs Immat Gran (auto) 0.02 (0.00-0.03) X10*3/uL Absolute Neuts (auto) 5.9 (2.0-8.3) x10*3/uL Absolute Nucleated RBC 0.000 (0.0-0.012) X10*3/uL Nucleated RBC % (auto) 0.0 (0.0-0.2) /100WBC Sodium 137 (135-145) mmol/L Potassium 4.0 (3.3-5.1) mmol/L Chloride 102 (96-108) mmol/L Carbon Dioxide 25 (22-29) mmol/L Anion Gap 14 (12-20) BUN 21 H (9-16) mg/dL Creatinine 1.25 (0.5-1.4) mg/dL Estim Creat Clear Calc 61.9 Estimated GFR 58 Random Glucose 204 H (60-115) mg/dL Calcium 9.1 (8.4-10.2) mg/dL Total Bilirubin 0.6 (0.0-1.0) mg/dL Direct Bilirubin 0.2 (0.0-0.5) mg/dL AST 26 (5-37) U/L ALT 25 (0-40) U/L Alkaline Phosphatase 114 (39-117) U/L Troponin I High Sens 4.8 (<3.5-35.0) ng/L B-Natriuretic Peptide 12 (<100) pg/mL Total Protein 7.8 (6.5-8.0) g/dL Albumin 4.3 (3.5-5.0) g/dL Lipase 37 (8-78) U/L TSH 0.64 (0.32-4.0) uIU/mL Free T4 0.85 (0.71-1.85) ng/dL Urine Color Yellow Urine Appearance Clear Urine pH 5.5 (5.0-9.0) Ur Specific [place] 1.015 (1.005-1.025) Urine Protein Negative (Neg-Trace) mg/dL Urine Glucose (UA) Negative (Negative) mg/dL Urine Ketones Negative (Negative) mg/dL Urine Blood Negative (Negative) Urine Nitrite Negative (Negative) Ur Leukocyte Esterase Negative (Negative) Influenza Type A (PCR) NEGATIVE (Negative) Influenza Type B (PCR) NEGATIVE (Negative) RSV RNA Qual (PCR) NEGATIVE (Negative) SARS-CoV-2 RNA (RT-PCR) NEGATIVE (Negative) Independent Interpretation I performed an independent interpretation of an: EKG, Plain X-Ray and CT Scan Interpretation: Chest x-ray without infiltrate or consolidation CT abdomen/pelvis without bowel obstruction EKG showing normal sinus rhythm, rate of 69 beats per minute, no acute ischemic changes or ST elevations. No AFib. Radiology Impression Discussion of test interpretation with radiology: I have reviewed the radiologist's reading. Radiologist Impression: Date of Service: 08/05/24 Procedure(s): XR chest 2V Accession Number(s): [id number] cc: Gregg Cota MD; Geovanna Villalba~ CLINICAL HISTORY: palpitations 2 view chest x-ray Comparison: None Findings: The lungs are clear. Heart size is normal. No acute fracture. IMPRESSION: 1. No acute findings. This document has been electronically signed by: Katya Elizondo MD on 08/05/2024 11:24:46 Date of Service: 08/05/24 Procedure(s): CT abdomen pelvis w IV con Accession Number(s): [id number] cc: Gregg Cota MD; Geovanna Villalba~ Report Number: [id number]: Total DLP = 530.00 mGy-cm CLINICAL HISTORY: abdominal bloating, eoth use CT abdomen and pelvis with contrast Comparison: None Findings: Mild dependent right basilar atelectasis. Unremarkable gallbladder. [id number]-[id number] pancreatic atrophy. A few left renal cysts and too small to characterize right renal hypodensities. No hydronephrosis or urinary tract stone. No bowel obstruction, pneumoperitoneum, or pneumatosis. Borderline prostatomegaly measuring 50 mm in width. Distended urinary bladder. Mild colonic diverticulosis without diverticulitis. Normal appendix. The bones are intact. Spinal degenerative changes. Mild atherosclerotic calcifications. Rest of the abdominopelvic viscera are unremarkable. IMPRESSION: No acute findings. No bowel obstruction. Borderline prostatomegaly. This document has been electronically signed by: Katya Elizondo MD on 08/05/2024 10:55:30 Independent Historian Clinical information obtained from an independent historian. History obtained from or confirmed by: Spouse External Record Review External record reviewed: Inpatient record Prescription Management I considered prescription management with: Other (bentyl) Chronic Conditions Patient?s care impacted by: Diabetes and Hypertension Social Determinants Patient?s care significantly limited by Social Determinants of Health including: Other Social Determinant of Health Critical Care Time Critical Care Time Critical Care Time: No Discharge Plan Discharge Clinical Impression: Heart palpitations, Abdominal bloating Patient Disposition: Home, Self-Care Instructions: Heart Palpitations (ED), Gas and Bloating (ED) Additional Instructions: You were evaluated in the ED today for heart palpitations and abdominal bloating. Your workup today is quite reassuring. I have suspicion that you were going in and out of atrial fibrillation. Continue taking your blood thinner and metoprolol as prescribed. You have plans to follow up with your hot metal mixer operator helper tomorrow. Please touch base with them regarding today's visit. Regarding your abdominal bloating, your labs and CT scan of your abdomen are reassuring. No acute findings. I am sending Odilia to your pharmacy for you to take as needed for gas pain/bloating. Follow up with your outpatient providers. Return with new or worsening symptoms. In the case of an emergency call 911. Prescriptions: New dicyclomine 10 mg capsule 10 mg PO BID PRN (Reason: abdominal pain) Qty: 5 0RF No Action metoprolol succinate 25 mg tablet extended release 24 hr 25 mg PO DAILY Qty: 90 3RF flecainide 50 mg tablet 50 mg PO BID Qty: 180 3RF Eliquis 5 mg tablet 5 mg PO BID Qty: 180 3RF lisinopril 40 mg Tablet 40 mg PO BEDTIME atorvastatin 80 mg Tablet 80 mg PO BEDTIME cetirizine 10 mg tablet 10 mg PO DAILY famotidine 40 mg tablet 40 mg PO BEDTIME omeprazole 20 mg capsule,delayed release(DR/EC) 20 mg PO BID fluticasone propionate 50 mcg/actuation spray,suspension 1 spray intranasal DAILY metformin 500 mg tablet extended release 24 hr 1,000 mg PO BID hydrochlorothiazide 12.5 mg tablet 12.5 mg PO DAILY@1200 ezetimibe [Zetia] 10 mg tablet 10 mg PO DAILY Qty: 90 3RF Rx Instructions: Cholesterol lowering agent Referrals: [facility] [Provider Group] Gregg Cota MD [Primary Care Provider] - Interventions: ED Discharge Assessment Last Done: 08/05/24 12:06 Discharge Date/Time: 08/05/24 12:07 Print Language: Lithuanian
[2024-08-05 09:10] LABS: Basophils Percent Auto 0.3 % (0-2); Eosinophils Absolute Auto 0.1 X10*3/uL (0.0-0.4); Eosinophils Percent Auto 0.8 % (0-4); Hematocrit 39.7 % (42.0-52.0); Hemoglobin 14.2 g/dl (14.0-18.0); Imm Gran Abs Auto 0.02 X10*3/uL (0.00-0.03); Imm Gran Pct Auto 0.2 % (0.0-0.4); Lymphocytes Absolute Auto 2.2 X10*3/uL (1.2-4.9); Lymphocytes Percent Auto 24.2 % (20-40); MANUAL DIFF FLAG NO; Mean Corpuscular HGB Conc 35.8 g/dl (31.0-36.0); Mean Corpuscular Hemoglobin 31.3 pg (27.0-33.0); Mean Corpuscular Volume 87.6 fL (80.0-98.0); Mean Platelet Volume 10.7 fL (9.4-12.4); Monocytes Percent Auto 10.5 % (2-11); Neutrophils Absolute Auto 5.9 x10*3/uL (2.0-8.3); Platelet Count 206 X10*3/uL (160-400); Red Blood Count 4.53 X10*6/uL (4.60-5.80); Red Cell Distribution Width 13.2 % (11.0-16.0); White Blood Count 9.2 X10*3/uL (4.8-10.8)
--- OUTSIDE RECORDS SUMMARY | 2024-08-05 09:19 | XMS_ITS | Encounter Summary ---
Author Organization [employer] Address [address] [facility] [address] [place] [address] Care Team Providers Care Dike Supervisor Name Role Phone Gregg Nelson MD Primary Care Provide r Kaz Cespedes PharmD Unavailable [phone] Reason for Visit * Reason Comments Med Refill Encounter Details Date Type Department Care Team ([facility] st Contact Info) Description 07/31/2024 Refill [facility] [address] [place] [address] Gregg Nelson MD [address] [place] [address] Type 2 diabetes mellitus without complication, without long-term current use of insulin ([facility]) Social History Tobacco Use Types Packs/Day Years Used Date Smoking Tobacco: Never Passive Smoke Exposure: Never Smokeless Tobacco: Never Alcohol Use Standard Drinks/Week Comments Yes 10 (1 standard drink = 0.6 oz pu re alcohol) Depression Answer Date Recorded Patient Health Questionnaire-9 Score 0 08/18/2023 Patient Health Questionnaire-9 Score 0 08/18/2023 Last PHQ-9: Questionnaire Data Not on file 0 08/18/2023 Housing Stability Answer Date Recorded What is your housing situation today? I have foster boogie 03/27/[address] you li ve. Do you have problems with any of the following? None of the above 03/27/2024 Food Insecurity Answer Date Recorded Within the past 12 months, y ou worried that your food would run out before you got money to buy more: Never True 03/27/2024 Within the past 12 months,th e food you bought just didn't last and you didn't have enough money to get more: Never True Transportation Answer Date Recorded In the past 12 months, has l ack of transportation kept you from medical appts, meetings, work or from getting things needed for daily living? No 03/27/2024 Utilities Answer Date Recorded In the past 12 months, has t he electric, gas, oil or water company threatened to shut off services in your home? No 03/27/2024 Depression Answer Date Recorded Patient Health Questionnaire-2 Score 0 08/18/2023 Internet Access Answer Date Recorded Internet Access Q1 I am not sure 03/27/2024 Internet Access Q2 Not on file 03/27/2024 Sex and Gender Information Value Date Recorded Sex Assigned at Male 01/04/2022 10:15 AM EDT Legal Sex Male 10:15 AM EDT Gender Identity Male 01/04/2022 10:15 AM EDT Sexual Orientation Choose not to disclose 2021 10:15 AM EDT documented as of this encounter Plan of Treatment Upcoming Encounters Date Type Department Care Team (Late st Contact Info) Description 08/31/2024 11:30 AM EDT Office Visit [facility] [address] [place] [id number] Rod Rashid MD [address] [place] [id number] documented as of this encounter Goals Goal Patient Goal Type Associated Problems Recent Progress Patient-Stated? Author Blood Pressure < 140/90 Blood Pressure Hypertension 124/75(2024 10:00 AM EST) No Kaz Cespedes, PharmD documented as of this encounter Visit Diagnoses Diagnosis Type 2 diabetes mellitus without complication, without long-term current use of insulin ([facility]) documented in this encounter Additional Health Concerns Assessment Noted Time PHQ-9 Depression Total Score: 0 08/18/19 24 10:07 AM EDT documented as of this encounter Care Teams Dike Supervisor Relationship Specialty Start Date End Date Gregg Nelson MD [address] [place] [phone] PCP - General Internal Medicine 8/11/17 Kaz Cespedes, IrlandaD [address] [place] [phone] Pharmacist Internal Medicine 01/24/23 documented as of this encounter
[2024-08-05 09:24] LABS: Alanine Aminotransferase 25 U/L (0-40); Albumin Level 4.3 g/dL (3.5-5.0); Alkaline Phosphatase 114 U/L (39-117); Anion Gap 14 (12-20); Aspartate Amino Transferase 26 U/L (5-37); Bilirubin Direct 0.2 mg/dL (0.0-0.5); Bilirubin Total 0.6 mg/dL (0.0-1.0); Blood Urea Nitrogen 21 mg/dL (9-16); Calcium 9.1 mg/dL (8.4-10.2); Carbon Dioxide 25 mmol/L (22-29); Chloride 102 mmol/L (96-108); Creatinine Clr Calc Pharmacy 61.9; Estimated Glomerular Filt Rate 58; Glucose Random 204 mg/dL (60-115); Lipase 37 U/L (8-78); Sodium 137 mmol/L (135-145); Total Protein 7.8 g/dL (6.5-8.0)
[2024-08-05 09:29] LABS: B Type Natriuretic Peptide 12 pg/mL (<100)
[2024-08-05 09:31] LABS: Troponin-I High Sensitivity 4.8 ng/L (<3.5-35.0)
[2024-08-05 10:07] LABS: Appearance Urine Clear; Color Urine Yellow; Glucose Urine UA Negative (Negative); Leukocyte Esterase Urine Negative (Negative); Nitrite Urine Negative (Negative); PH 5.5 (5.0-9.0); Specific Gravity - Urine 1.015 (1.005-1.025); Urine Blood Negative (Negative); Urine Ketones Negative (Negative); Urine Protein Negative (Neg-Trace)
--- NOTE | 2024-08-05 10:10 | PC.NURSE ---
Pt arrived to ED from [facility] for reports of palpitations since last tuesday, alert and oriented. Denies pain at this time. NSR on monitor. #20 IV placed on LAC. Pt awaiting CT.
[2024-08-05] MEDS: iohexoL 350 MG/ML 100 ML INFUS..BTL IV (10:16)
[2024-08-05 10:38] LABS: Influenza A PCR NEGATIVE (Negative); Influenza B PCR NEGATIVE (Negative); Resp Syncy Virus RNA Qual PCR NEGATIVE (Negative); SARS COV2 PCR INHOUSE NEGATIVE (Negative)
[2024-08-05 12:06] VITALS: BP 111/75; PULSE 69; RESP 18; TEMP 36.2; O2SAT 98
[2024-08-05 12:11] LABS: Free T4 (Free Thyroxine) 0.85 ng/dL (0.71-1.85); Thyroid Stimulating Hormone 0.64 uIU/mL (0.32-4.0)
== END 2024-08-05 12:07 | disposition home or self-care (01) ==
PROVIDERS: Physician Assistant Medical; Emergency Provider Emergency Medicine; PCP Internal Medicine
DX: R00.2 Palpitations (principal); R14.0 Abdominal distension (gaseous); I48.0 Paroxysmal atrial fibrillation; E11.9 Type 2 diabetes mellitus without complications; I10 Essential (primary) hypertension; E78.5 Hyperlipidemia, unspecified; I25.10 Atherosclerotic heart disease of native coronary artery without angina pectoris; Z79.01 Long term (current) use of anticoagulants; Z79.899 Other long term (current) drug therapy; Z03.818 Encounter for observation for suspected exposure to other biological agents ruled out
CPT/HCPCS: 0241U; 36415; 71046; 74177; 80048; 80076; 81003; 83690; 83880; 84439; 84443; 84484; 85025; 93005; 99284; Q9967

== ENCOUNTER → 2024-08-05 08:31 | Outpatient (BNV) | payer OTHER, SELFPAY | PROVIDERS: Emergency Provider Emergency Medicine; PCP Internal Medicine; Visit Provider Internal Medicine Cardiovascular Disease | DX: R94.31 Abnormal electrocardiogram [ECG] [EKG] (principal); R00.2 Palpitations | CPT/HCPCS: 93010 ==

== ENCOUNTER → 2024-08-05 09:30 | Outpatient (BNV) | payer OTHER, SELFPAY | PROVIDERS: Emergency Provider Emergency Medicine; PCP Internal Medicine; Visit Provider Radiology Diagnostic Radiology | DX: K57.30 Diverticulosis of large intestine without perforation or abscess without bleeding (principal); R00.2 Palpitations | CPT/HCPCS: 71046; 74177 ==

== ENCOUNTER 2024-12-14 08:29 | Outpatient (REF) | payer OTHER, SELFPAY ==
[2024-12-14 12:12] LABS: Cholesterol 136 mg/dL (<200); HDL Cholesterol 41 mg/dL (>40); Triglycerides 108 mg/dL (<150)
== END 2024-12-14 08:30 | disposition home or self-care (01) ==
LOC: HO.10HDL 08:29
PROVIDERS: Visit Provider Internal Medicine
DX: Z00.00 Encounter for general adult medical examination without abnormal findings (principal); Z12.5 Encounter for screening for malignant neoplasm of prostate; E78.2 Mixed hyperlipidemia
CPT/HCPCS: 36415; 80061; 84153

== ENCOUNTER 2024-12-27 08:40 | Outpatient (AMB) | payer OTHER, SELFPAY ==
--- OUTSIDE RECORDS SUMMARY | 2024-12-27 09:11 | XMS_ITS | Encounter Summary ---
Author Organization [employer] Address [address] [facility] [address] [place] [address] Care Team Providers Care Wind Turbine Blade Repair Technician Name Role Phone Gregg Nelson MD Primary Care Provide r Kaz Cespedes PharmD Unavailable [phone] Reason for Visit * Reason Comments Med Refill Encounter Details Date Type Department Care Team ([facility] st Contact Info) Description 03/09/2024 Refill [facility] [address] [place] [address] Gregg Nelson MD [address] [place] [address] Social History Tobacco Use Types Packs/Day Years [...] your housing situation today? I have foster hyman 12/21/[address] you li ve. Do you have problems with any of the following? None of the above 12/21/2022 Food Insecurity Answer Date Recorded Within the past 12 months, y ou worried that your food would run out before you got money to buy more: Never True 12/21/2022 Within the past 12 months,th e food you bought just didn't last and you didn't have enough money to get more: Never True Transportation Answer Date Recorded In the past 12 months, has l ack of transportation kept you from medical appts, meetings, work or from getting things needed for daily living? No 12/21/2022 Utilities Answer Date Recorded In the past 12 months, has t he electric, gas, oil or water company threatened to shut off services in your home? No 12/21/2022 Depression Answer Date Recorded Patient Health Questionnaire-2 Score 0 08/18/2023 Sex and Gender Information Value Date Recorded Sex Assigned at Male 01/04/2022 10:15 AM EDT Legal Sex Male 10:15 AM EDT Gender Identity Male 01/04/2022 10:15 AM EDT Sexual Orientation Choose not to disclose 2021 10:15 AM EDT documented as of this encounter Plan of Treatment Not on file documented as of this encounter Goals Goal Patient Goal Type Associated Problems Recent Progress Patient-Stated? Author Blood Pressure < 140/90 Blood Pressure Hypertension 120/74(2024 3:04 PM EDT) No Kaz eCspedes, PharmD documented as of this encounter Visit Diagnoses Not on filedocumented in this encounter Additional Health Concerns Assessment Noted Time PHQ-9 Depression Total Score: 0 08/18/19 24 10:07 AM EDT documented as of this encounter Care Teams Wind Turbine Blade Repair Technician Relationship Specialty Start Date End Date Gregg Nelson MD [address] [place] [address] PCP - General Internal Medicine 10/15/16 Kaz Cespedes, PharmD [address] [place] [address] Pharmacist Internal Medicine 01/24/23 documented as of this encounter
--- OUTSIDE RECORDS SUMMARY | 2024-12-27 09:11 | XMS_ITS | Clinical Summary ---
Author Organization [employer] Address [address] [place] [address] Care Team Providers Care Personal Lines Insurance Agent Name Role Phone Gregg Nelson MD Primary Care Provide r Kaz Cespedes PharmD Unavailable [phone] Allergies No known active allergies Medications apixaban (Eliquis) 5 MG tablet take 1 tablet by oral route 2 times every day 07/30/19 21 Active Blood Glucose Monitoring Suppl (MiSiedo Lite) w/Device kit TEST BLOOD SUGAR TWICE DAILY 11/26/19 22 Active Multiple Vitamins-Mineral s (MULTIVITAMIN ADULTS 50+ PO) Patient purchasing OTC - as directed Active Oral Medication Containers misc USE DIRECTED 06/17/19 23 Active V-R GAS RELIEF 80 MG chewable tablet CHEW 1 TABLET BY MOUTH EVERY 6 HOURS NEEDED FOR GAS 06/17/19 23 Active meclizine (Antivert) 25 MG tabletIndication s:Vertigo Take 1 tablet (25 mg) by mouth if needed in the morning, at noon, and at bedtime for dizziness. 30 tablet 07/14/19 23 Active flecainide (Tambocor) 50 MG tabletIndication s:Paroxysmal atrial fibrillation (CMS/HCC) (HCC) Take 1 tablet (50 mg) by mouth 2 times daily. 60 tablet 04/05/19 24 Active metoprolol succinate XL (Toprol-XL) 25 MG 24 hr tablet Take 25 mg by mouth Once per day. 08/15/19 24 Active cetirizine (ZyrTEC) 10 MG tablet TAKE 1 TABLET BY MOUTH EVERY MORNING 30 tablet 11 01/17/20 24 Active hydroCHLOROthiaz caro (HYDRODiuril) 25 MG tablet Take 1 tablet (25 mg) by mouth Once per day. 30 tablet 11 02/17/20 24 025 Active ammonium lactate (Lac-Hydrin) 12 % lotion APPLY TO THE AFFECTED AREA(S) TWICE DAILY 400 g 4 02/21/20 24 Active Blood Pressure kit 1 each 2 times daily. 1 kit 02/27/20 24 025 Active LORazepam (Ativan) 0.5 MG tabletIndication s:Fear associated with healthcare Take 1 tab 30 minutes prior to MRI, may repeat x 1 if still anxious while having the MRI 2 tablet 03/27/19 25 Active omeprazole (PriLOSEC) [address] capsuleIndicatio ns:Nausea TAKE 1 CAPSULE BY MOUTH TWICE DAILY IN THE MORNING AND IN THE EVENING BEFORE MEALS 180 capsule 3 04/10/19 25 Active TRUEplus Lancets 33G misc USE TO TEST BLOOD SUGAR THREE TIMES A DAY 100 each 11 04/10/19 25 Active lisinopril 40 MG tabletIndication s:Essential hypertension TAKE 1 TABLET BY MOUTH EVERY EVENING 90 tablet 3 05/09/19 25 Active FREESTYLE LITE test stripIndications :Type 2 diabetes mellitus without complication, unspecified whether usp insulin use TEST BLOOD SUGAR THREE TIMES DAILY 100 strip 11 08/08/19 25 Active famotidine (Pepcid) 40 MG tabletIndication s:Epigastric pain TAKE 1/2 TABLET BY MOUTH AT BEDTIME 45 tablet 1 09/05/19 25 Active metFORMIN XR (Glucophage-XR) 500 MG 24 hr tablet TAKE 2 TABLETS BY MOUTH TWICE DAILY AT NOON AND IN THE EVENING 360 tablet 10/09/19 25 Active fluticasone (Flonase) 50 MCG/ACT nasal sprayIndications :Allergic rhinitis, unspecified seasonality, unspecified trigger INSTILL 1 SPRAY IN EACH NOSTRIL ONCE DAILY 16 g 2 10/30/19 25 Active Dulaglutide (Trulicity) 3 MG/0.5ML solution auto-injectorInd ications:Type 2 diabetes mellitus without complication, without long-term current use of insulin (HCC) Inject 3 mg under the skin 1 (one) time per week. 0.5 mL 3 11/21/19 25 Active atorvastatin (Lipitor) 80 MG tablet TAKE 1 TABLET BY MOUTH EVERY EVENING 90 tablet 1 12/05/19 25 Active atorvastatin (Lipitor) 80 MG tablet TAKE 1 TABLET EVERY EVENING 90 tablet 1 06/01/19 25 025 Discontinued Active Problems Problem Noted Date Diagnosed Date Seborrheic keratosis 03/27/2024 Assessment & Plan (03/27/2024 11:08 AM EST): Will refer to Derm Gastroesophageal reflux disease without esophagi tis 07/13/2022 Assessment & Plan (07/13/2022 9:34 AM EDT): previously he had c/o this, currently not complaining Pt had been scheduled for EGD but last minute cancelled. last visit he told me he was finally ready to have it done given persistence of symptoms Previous GI doctor refused to see him again due to no shows Last visit he was referred to a different GI doctor for EGD. Unfortunately he did not go. Pt states he feels fine and does not want to go. Chronic left shoulder pain 07/13/2022 Assessment & Plan (07/13/2022 2:57 PM EDT): Pt with previous c/o left shoulder pain, in the absence of any injury. on exam there was markedly decreased rom. I suspected Adhesive capsulitis Pt was seen by Ortho 08/08/2018 who agreed with diagnosis and prescribed Diclofenac and PT. Anxiety 07/13/2022 Assessment & Plan (07/13/2022 9:35 AM EDT): Pt c/o moderate anxiety, reports inability to be waiting in line and avoids being in big crowds. Pt evaluated by our [facility] clinician , open to trying Hydroxyzine for not to mitigate his symptoms and he will let us know if he feels he needs psychotherapy Preventative health care 07/13/2022 Assessment & Plan (11/20/2024 3:40 PM EDT): PSA 12/07/2022 Normal will repeat Colonoscopy: 07/12/2013 Assessment & Plan (11/22/2023 11:55 AM EDT): PSA 12/07/2022 Normal Colonoscopy: 07/12/2013 Assessment & Plan (07/13/2022 9:35 AM EDT): Colonoscopy: 07/12/2013 Tinnitus of both ears 07/13/2022 Assessment & Plan (03/27/2024 4:36 PM EST): Previous visit pt came in with c/o new onset and persistent vertigo. Described as sensation of imbalance, Neuro exam that visit showed no red flags, although he mentioned one episode in which he experienced his right eye to become crossed eyed for a few minutes Denies any decreased hearing, today he is c/o tinnitus Etiology ? Given hx of A.fib we needed to rule out intra cranial etiology Previously I ordered an MRI of brain, pt no showed to the appointment x 2 and cancelled the last time. Pt reports lately having phobia to the MRI I also ordered an ENT and neurology evaluation. Seen 12/26/2023 he recommended brain MRI as well We discussed trying a low dose Ativan and reschedule MRI, pt agreable Assessment & Plan (11/22/2023 11:56 AM EDT): Previous visit pt came in with c/o new onset and persistent vertigo. Described as sensation of imbalance, Neuro exam last visit showed no red flags, although he mentioned one episode in which he experienced his right eye to become crossed eyed for a few minutes Denies any decreased hearing, no tinitus Etiology ? Given hx of A.fib we needed to rule out intra cranial etiology Previously I ordered an MRI of brain, pt no showed to the appointment x 2 I also ordered an ENT and neurology evaluation, pt apparently did not go Pt tells me he cancelled the appointments because of Covid Today will reschedule his MRI Assessment & Plan (08/18/2023 10:28 AM EDT): Pt with c/o new onset and persistent vertigo. Described as sensation of imbalance, Neuro exam today no red flags, although he mentioned one episode in which he experienced his right eye to become crossed eyed for a few minutes Denies any decreased hearing, no tinitus Etiology ? Given hx of A.fib will need to rule out intra cranial etiology Previously I ordered an MRI of brain, pt no showed to the appointment Today I will re order, I will also order an ENT and neurology evaluation Assessment & Plan (07/13/2022 3:00 PM EDT): Pt with c/o new onset and persistent vertigo. Described as sensation of imbalance, Neuro exam today no red flags, although he mentioned one episode in which he experienced his right eye to become crossed eyed for a few minutes Denies any decreased hearing, no tinitus Etiology ? Given hx of A.fib will need to rule out intra cranial etiology Plan: MRI of brain Paroxysmal atrial fibrillation (CMS/HCC) 023 Assessment & Plan (11/20/2024 3:34 PM EDT): Patient with paroxysmal Afib Hx of Hospital admission found to be in PAFG with tachy nivia syndrome that responded to Fleicanide Today Rate is rate controlled He is to continue on Eliquis 5 mg po BID and Toprol XL 25 mg po daily Last note on record from [facility] 06/07/2024 Assessment & Plan (08/18/2023 10:18 AM EDT): Patient with paroxysmal Afib Recent Hospital admission found to be in PAFG with tachy nivia syndrome that responded to Fleicanide Today Rate is rate controlled Diltiazem was discontinued , he is to continue on Eliquis 5 mg po BID started on Toprol XL 25 mg po daily Last note on record from [facility] 05/09/2023 Assessment & Plan (04/05/2023 10:05 AM EST): Patient with paroxysmal Afib Recent Hospital admission found to be in PAFG with tachy nivia syndrome that responded to Fleicanide Today Rate is rate controlled Diltiazem was discontinued , he is to continue on Eliquis 5 mg po BID Last note on record from [facility] 02/01/2023 Referred back to [facility] post hospital discharge. He had a 3 day Holter monitor that he just gave back Assessment & Plan (07/13/2022 2:56 PM EDT): Patient with paroxysmal Afib Rate is rate controlled on Diltiazem ER 300 mg po sara and Eliquis 5 mg po BID Last seen by [facility] 10/28/2021 Community Health Outreach Worker recommended to stay on Eliquis 5 mg po BID. Pt tells me he is been having palpitations more often that ever. 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 to stay with a local clarifier operator Will refer to [facility] Obesity 04/28/2012 Hypertension 11/10/2011 Assessment & Plan (11/20/2024 3:34 PM EDT): Pt here for a f/u BP currently controlled He is on a regimen of: Lisinopril 40 mg po daily. Toprol XL 25 mg po daily ( started by Cardiology) and Hctz 25 mg po daily Pt did not tolerate Chlorthalidone prescribed by our Pharmacist through [facility] due to feeling dizzy Plan: Continue current regimen Most recent electrolytes, Bun and Creatinine done on: Lab Results Component Value Date NA 137 08/05/2024 NA 140 12/16/2023 K 4.0 08/05/2024 K 4.2 12/16/2023 CL 102 08/05/2024 CL 100 12/16/2023 BUN 21 (H) 08/05/2024 BUN 16 12/16/2023 CREATININE 1.25 08/05/2024 CREATININE 1.21 12/16/2023 Within normal limits patient advised to adhere to a low sodium diet, encouraged about medication compliance, counseled about weight loss. f/u 4 months Assessment & Plan (03/27/2024 11:11 AM EST): Pt here for a f/u BP currently controlled He is on a regimen of: Lisinopril 40 mg po daily. Toprol XL 25 mg po daily ( started by Cardiology) and Hctz 25 mg po daily Pt did not tolerate Chlorthalidone prescribed by our Pharmacist through [facility] due to feeling dizzy Plan: Continue current regimen Most recent electrolytes, Bun and Creatinine done on: Lab Results Component Value Date NA 140 12/16/2023 NA 139 12/07/2022 K 4.2 12/16/2023 K 4.1 12/07/2022 CL 100 12/16/2023 CL 100 12/07/2022 BUN 16 12/16/2023 BUN 20 (H) 12/07/2022 CREATININE 1.21 12/16/2023 CREATININE 1.27 12/07/2022 Within normal limits patient advised to adhere to a low sodium diet, encouraged about medication compliance, counseled about weight loss. f/u 4 months Assessment & Plan (11/22/2023 12:39 PM EDT): Pt here for a f/u BP currently controlled He is on a regimen of: Lisinopril 40 mg po daily. Toprol XL 25 mg po daily ( started by Cardiology) and Hctz 12.5 mg po daily Pt did not tolerate Chlorthalidone prescribed by our Pharmacist through [facility] due to feeling dizzy Plan: Continue current regimen Most recent electrolytes, Bun and Creatinine done on: 12/07/2022 will repeat. Pt did not get the lab work I ordered previous visit patient advised to adhere to a low sodium diet, encouraged about medication compliance, counseled about weight loss. f/u 4 months Assessment & Plan (08/18/2023 10:18 AM EDT): Pt here for a f/u BP currently controlled He is on a regimen of: Lisinopril 40 mg po daily. Toprol XL 25 mg po daily ( started by Cardiology) and Hctz 12.5 mg po daily Pt did not tolerate Chlorthalidone prescribed by our Pharmacist through [facility] due to feeling dizzy Plan: Continue current regimen Most recent electrolytes, Bun and Creatinine done on: 12/07/2022 will repeat patient advised to adhere to a low sodium diet, encouraged about medication compliance, counseled about weight loss. f/u 4 months Assessment & Plan (05/02/2023 11:25 AM EST): Assessment: BP is at goal of less than 140/90 per JNC8 guidelines Plan: Re-assess at next visit. Patient wanted to go back to diltiazem due to side effects with flecainide. Advised patient to seek immediate care with cardiology instead of self-d/c'ing flecainide. Assessment & Plan (01/24/2023 12:28 PM EST): Assessment: BP is at goal of less than 140/90 per JNC8 Guidelines Plan: - Continue with current therapy and monitoring. Assessment & Plan (07/13/2022 9:31 AM EDT): Pt here for a f/u BP currently controlled He is on a regimen of: Diltiazem ER 300 mg po daily, Lisinopril 40 mg po daily. and Hctz 12.5 mg po daily Pt did not tolerate Chlorthalidone prescribed by our Pharmacist through [facility] due to feeling dizzy Plan: Continue current regimen Most recent electrolytes, Bun and Creatinine done on: 09/30/2021 showed a SCr 1.43. Will repeat patient advised to adhere to a low sodium diet, encouraged about medication compliance, counseled about weight loss. f/u 4 months Chronic low back pain 11/10/2011 Diabetes mellitus, type 2 07/26/2011 Assessment & Plan (11/20/2024 3:39 PM EDT): Patient Is here for a follow up DM improved Pt tells me he still finds his BG elevated at home Hgb A1c 11/20/2024 : 6.9 from 7.3 He is on a regimen of: Metformin 1000 BID, and Trulicity 1.5 weekly. Following with our [facility] team Eye exam was last done on: 11/25/[address] Domínguez today Microalbumin 12/16/2023 was 8 Pt on an CALVIN inhibitor. Foot check risk of zero Pt reports compliance with Asa 81 mg po daily Plan: Increase Trulicity to 3 mg once a week f/u with me in 3 months Pt advised to: adhere to diabetic diet check your blood sugars regularly check your feet on a daily basis. Assessment & Plan (03/27/2024 11:09 AM EST): Patient Is here for a follow up DM controlled Hgb A1c 03/27/2024 : 7.3 from 6.8 He is on a regimen of: Metformin 1000 BID, and Trulicity 0.75 weekly. Following with our [facility] team Eye exam was last done on: 11/25/[address] Domínguez today Microalbumin 12/16/2023 was 8 Pt on an CALVIN inhibitor. Foot check risk of zero Pt reports compliance with Asa 81 mg po daily Plan: Increase Trulicity to 1.5 mg once a week f/u with me in 3 months Pt advised to: adhere to diabetic diet check your blood sugars regularly check your feet on a daily basis. Assessment & Plan (11/22/2023 12:38 PM EDT): Patient Is here for a follow up DM controlled Hgb A1c 11/22/2023 : 6.8 He is on a regimen of: Metformin 1000 BID, and Trulicity 0.75 weekly. Following with our [facility] team Eye exam was last done on: 11/25/[address] Domínguez today Microalbumin 11/13/2020 was 3.4 Pt on an CALVIN inhibitor, ordered today Foot check risk of zero Pt reports compliance with Asa 81 mg po daily Plan: continue current regimen f/u with me in 3 months Pt advised to: adhere to diabetic diet check your blood sugars regularly check your feet on a daily basis. Assessment & Plan (08/18/2023 10:20 AM EDT): Patient Is here for a follow up He is on a regimen of: Metformin 1000 BID, off Glipizide due to hypoglycemia symptoms Pt did not continue to take the Actos 15 mg po daily started on Trulicity 0.75 weekly Hgb A1c 08/18/2023 : 6.9 : following with our [facility] team Eye exam was last done on: 11/25/[address] Domínguez today Microalbumin 11/13/2020 was 3.4 Pt on an CALVIN inhibitor, ordered today Foot check risk of zero Pt reports compliance with Asa 81 mg po daily Plan: continue current regimen f/u with me in 3 months Pt advised to: adhere to diabetic diet check your blood sugars regularly check your feet on a daily basis. Assessment & Plan (05/02/2023 11:24 AM EST): Assessment: A1c is at goal of less than 7% per ADA guidelines but is trending towards a higher A1c based on SMBG. Plan: - START trulicity 0.75mg weekly - F/U in 1 month to assess Education: - Provided counseling on Trulicity including ADRs to watch and benefits vs. risk Assessment & Plan (04/05/2023 10:22 AM EST): Patient Is here for a follow up He is on a regimen of: Metformin 500 mg po in am and 1000 in pm, off Glipizide due to hypoglycemia symptoms Pt did not continue to take the Actos 15 mg po daily Hgb A1c 01/24/2023: 6.6 : following with our [facility] team Eye exam was last done on: 11/25/[address] Domínguez today Microalbumin 11/13/2020 was 3.4 Pt on an CALVIN inhibitor, ordered today Foot check risk of zero Pt reports compliance with Asa 81 mg po daily Plan: continue current regimen f/u with me in 3 months Pt advised to: adhere to diabetic diet check your blood sugars regularly check your feet on a daily basis. Assessment & Plan (01/24/2023 12:34 PM EST): Assessment: - A1c is at goal of less than 6.6% today Plan: - STOP Glipizide today. - Continue with current therapy and monitoring. - Option to Add Januvia at next visit if A1c starts to go back up. Assessment & Plan (07/13/2022 10:08 AM EDT): Patient Is here for a follow up He is on a regimen of: Metformin 500 mg po in am and 1000 in pm and Glipizide XL 2.5 mg po daily Pt did not continue to take the Actos 15 mg po daily Hgb A1c 07/13/2022: 7.1 Eye exam was last done on: 11/25/[address] Domínguez today Microalbumin 11/13/2020 was 3.4 Pt on an CALVIN inhibitor, ordered today Foot check risk of zero Pt reports compliance with Asa 81 mg po daily Plan: f/u with me in 4 months Pt advised to: adhere to diabetic diet check your blood sugars regularly check your feet on a daily basis. Hyperlipidemia 07/26/2011 Assessment & Plan (11/20/2024 3:35 PM EDT): Pt here for a f/u Patient with elevated lipids. Most recent lipid profile from: Lab Results Component Value Date TRIG 128 12/16/2023 TRIG 95 12/07/2022 CHOL 167 12/16/2023 CHOL 176 12/07/2022 LDLCHOLCAL 99 12/16/2023 LDLCHOLCAL 116 (H) 12/07/2022 HDL 43 12/16/2023 HDL 41 12/07/2022 Currently on a regimen of: Lipitor 80 mg po qhs and Zetia 10 mg po qhs Plan: For now will continue with current regimen. Repeat Lipid profile advised to try to adhere to a low cholesterol diet, counseled and educated about diet and exercise, Patient encouraged to come up with a personal goal for weight loss Assessment & Plan (03/27/2024 10:15 AM EST): Pt here for a f/u Patient with elevated lipids. Most recent lipid profile from: Lab Results Component Value Date TRIG 128 12/16/2023 TRIG 95 12/07/2022 CHOL 167 12/16/2023 CHOL 176 12/07/2022 LDLCHOLCAL 99 12/16/2023 LDLCHOLCAL 116 (H) 12/07/2022 HDL 43 12/16/2023 HDL 41 12/07/2022 Currently on a regimen of: Lipitor 80 mg po qhs and Zetia 10 mg po qhs Plan: For now will continue with current regimen. advised to try to adhere to a low cholesterol diet, counseled and educated about diet and exercise, Patient encouraged to come up with a personal goal for weight loss Assessment & Plan (11/22/2023 11:48 AM EDT): Pt here for a f/u Patient with elevated lipids. Most recent lipid profile from: 12/07/2022 Lab Results Component Value Date TRIG 95 12/07/2022 CHOL 176 12/07/2022 LDLCHOLCAL 116 (H) 12/07/2022 HDL 41 12/07/2022 Currently on a regimen of: Lipitor 80 mg po qhs and Zetia 10 mg po qhs Plan: For now will continue with current regimen, will repeat Lipid profile. Pt did not do it advised to try to adhere to a low cholesterol diet, counseled and educated about diet and exercise, Patient encouraged to come up with a personal goal for weight loss Assessment & Plan (08/18/2023 10:21 AM EDT): Pt here for a f/u Patient with elevated lipids. Most recent lipid profile from: 12/07/2022 Lab Results Component Value Date TRIG 95 12/07/2022 CHOL 176 12/07/2022 LDLCHOLCAL 116 (H) 12/07/2022 HDL 41 12/07/2022 Currently on a regimen of: Lipitor 80 mg po qhs and Zetia 10 mg po qhs Plan: For now will continue with current regimen, will repeat Lipid profile advised to try to adhere to a low cholesterol diet, counseled and educated about diet and exercise, Patient encouraged to come up with a personal goal for weight loss Assessment & Plan (07/13/2022 2:58 PM EDT): Pt here for a f/u Patient with elevated lipids. 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 Also found to be in AFib with RVR, rate 115 bpm. W/o intervention patient developed AFib with slow ventricular rate with HR down to 48 bpm. He was admitted for paroxysmal Afib with tachy-nivia syndrome. While in the hospital he was continued on Eliquis and diltiazem was held. Cardiology recommended Flecainide. He converted to NSR and will continue on flecainide. Encounters Date Type Department Care Team Description 12/27/2024 Refill [facility] [place] [address] Gregg Nelson MD 12/04/2024 Refill [facility] [address] [place] [address] Gregg Nelson MD 12/03/2024 Refill [facility] [address] [place] [id number] Gregg Nelson MD 11/20/2024 3:00 PM EDT Office Visit [facility] [address] [place] [address] Gregg Nelson MD Type 2 diabetes mellitus without complication, without long-term current use of insulin ([facility]) (Primary Dx); Paroxysmal atrial fibrillation ([facility]); Primary hypertension; Mixed hyperlipidemia; Preventative health care 11/20/2024 Travel 11/19/2024 Telephone [facility] [address] [place] [address] Gregg Nelson MD chart prep 10/28/2024 Refill [facility] [address] [place] [address] Gregg Nelson MD Allergic rhinitis, unspecified seasonality, unspecified trigger 10/05/2024 Refill [facility] [address] [place] [address] Gregg Nelson MD from Last 3 Months Immunizations Immunization Administration Dates Next Due Influenza injectable quadrivalent preservative f ree 03/29/2019,02/21/2018 Influenza, IIV3, injectable 12/19/2008 Influenza, seasonal, injectable, preservative fr ee 11/22/2023 MMR 11/28/2001 Pneumococcal Polysaccharide PPSV23 11/11/2006 Pneumococcal, Unspecified 11/11/2006 TD (adult), 2 Lf tetanus tox oid, preservative free, adsorbed 11/28/2001 Tdap 05/05/2017 Social History Tobacco Use Types Packs/Day Years Used Date Smoking Tobacco: Never Passive Smoke Exposure: Never Smokeless Tobacco: Never Tobacco Cessation:Counseling Given: Not Answered Alcohol Use Standard Drinks/Week Comments Yes 10 (1 standard drink = 0.6 oz pu re alcohol) Depression Answer Date Recorded Patient Health Questionnaire-9 Score 0 08/18/2023 Patient Health Questionnaire-9 Score 0 08/18/2023 Last PHQ-9: Questionnaire Data Not on file 0 08/18/2023 Housing Stability Answer Date Recorded What is your housing situation today? I have foster hyman 03/27/[address] you li [...] not to disclose 2021 10:15 AM EDT Last Filed Vital Signs Vital Sign Reading Time Taken Comments Blood Pressure 120/74 11/20/2024 3:04 PM EDT Pulse 65 11/20/2024 3:04 PM EDT Temperature 36.1 C (96.9 F) 11/20/2024 3:04 PM EDT Respiratory Rate 20 11/20/2024 3:04 PM EDT Oxygen Saturation 99% 11/20/2024 3:04 PM EDT Inhaled Oxygen Concentration - - Weight 80.5 kg (177 lb 6.4 oz) 11/20/2024 3:04 P M EDT Height 170.2 cm (5' 7 ) 11/20/2024 3:04 PM EDT Body Mass Index 27.78 11/20/2024 3:04 PM EDT Plan of Treatment Health Maintenance Due Date Last Done Comments CT Colonography 1961 FIT DNA/Cologuard 1961 FIT 1961 FOBT 1961 Sigmoidoscopy 1961 Disability Screening 1961 Diabetes: Foot Exam 1971 Eye Exam 1971 Pneumococcal Vaccine: 50+ Years (2 of 2 - PCV) 11/12/2007 11/11/2006, 11/11/2006 Zoster Vaccines (1 of 2) 2011 RSV Patients and Patients Aged 60 years or older (1 - Risk 60-74 years 1-dose series) 2021 Colonoscopy 07/13/2023 07/12/2013 Colorectal Cancer Screening 07/13/2023 Depression Screening 08/17/2024 08/18/2023, 08/18/19 24 COVID-19 Vaccine ( - season) 2024 11/25/2020, 11/04/2020 Influenza Vaccine (#1) 2024 , 03/29/2019, 02/21/2018, Additional history exists Diabetes: Urine Protein Screening 12/15/2024 12/16/2023, 12/07/2022, 11/13/2020, Additional history exists Alcohol/Substance Use Screening 03/27/2025 03/27/2024 SDOH Screening 03/27/2025 03/27/2024 Diabetes: Hemoglobin A1C 05/20/2025 025, 03/27/2024, 11/22/2023, Additional history exists Tobacco Screening 11/20/2025 11/20/2024 Lipid Panel 12/14/2025 12/14/2024, 12/05, 12/07/2022, Additional history exists DTaP/Tdap/Td Vaccines (2 - Td or Tdap) 05/06/2027 05/05/2017, 11/28/2001 HIV Screening Completed 12/07/2022 Hepatitis C Screening Completed 12/07/2022 HIB Vaccines Aged Out No longer eligi ble based on patient's age to complete this topic HPV Vaccines Aged Out No longer eligi ble based on patient's age to complete this topic Hepatitis A Vaccines Aged Out No long er eligible based on patient's age to complete this topic Hepatitis B Vaccines Aged Out No long er eligible based on patient's age to complete this topic IPV Vaccines Aged Out No longer eligi ble based on patient's age to complete this topic Meningococcal B Vaccine Aged Out No l onger eligible based on patient's age to complete this topic Meningococcal Vaccine Aged Out No josephine funmilayo eligible based on patient's age to complete this topic RSV under 20 months Aged Out No longe r eligible based on patient's age to complete this topic Rotavirus Vaccines Aged Out No longer eligible based on patient's age to complete this topic Goals Goal Patient Goal Type Associated Problems Recent Progress Patient-Stated? Author Blood Pressure < 140/90 Blood Pressure Hypertension 120/74(2024 3:04 PM EDT) No Kaz Cespedes PharmD Procedures Procedure Name Priority Date/Time Associated Diagnosis Comments PSA, SCREEN Routine 12/14/2024 8:34 AM EDT Preventative health care LIPID PANEL, STANDARD Routine 12/14/2024 8:34 AM EDT Mixed hyperlipidemia POCT GLUCOSE Routine 11/20/2024 3:23 PM EDT Type 2 diabetes mellitus without complication, without long-term current use of insulin (CMS/HCC) POCT GLYCATED HEMOGLOBIN, TOTAL Routine 11/20/2024 3:17 PM EDT Type 2 diabetes mellitus without complication, without long-term current use of insulin (CMS/HCC) ALBUMIN, RANDOM URINE W/CREATININE Routine 12/16/2023 8:10 AM EDT Type 2 diabetes mellitus without complication, without long-term current use of insulin (CMS/HCC) HEPATITIS C AB W/REFL TO HCV RNA, QN, PCR Routine 12/07/2022 8:29 AM EDT Primary hypertension Type 2 diabetes mellitus without complication, unspecified whether grain commodity manager insulin use (CMS/HCC) Mixed hyperlipidemia HIV ANTIBODY/ANTIGEN (IL DP) Routine 12/07/2022 8:29 AM EDT HM COLONOSCOPY Routine 07/12/2013 from Last 3 Months or Most Recently Relevant to Health Maintenance Results * PSA, Screen (12/14/2024 8:34 AM EDT) PSA, Total 1.48 <0.05 - 4.0 ng/mL [facility] Comment:PSA methodology: Redd Melvin i ChemiluminescentMicroparticle Immunoassay (CMIA) Blood Venous blood specimen / Unknown 12/14/2024 8:34 AM EDT 12/14/2024 11:16 AM EDT us Gregg Gonzalez MD LAB BLOOD ORDERABLES Final Result [facility] [address] [place] [phone] * Lipid Panel, Standard (12/14/2024 8:34 AM EDT) Triglycerides 108 <150 mg/dL [facility] Comment:Desirable Triglyceri de: less than 150 mg/dLBorderline High Triglyceride 150-199 mg/dLHigh Triglyceride: 200-499 mg/dLVery High Triglyceride: greater than or equal to 5OO mg/dL Cholesterol 136 <200 mg/dL [facility] Comment:Desirable Cholestero l: less than 200 mg/dLBorderline High Cholesterol: 200-239 mg/dLHigh Cholesterol: greater than 239 mg/dL LDL Cholesterol Calculated 74 <100 mg/dL [facility] Comment:Desirable LDL: less than 100 mg/dLNear Optimal/Above Optimal LDL: 110- 129 mg/dLBorderline High LDL: 130-159 mg/dLHigh LDL: 160-189 mg/dLVery High LDL: greater than or equal to 190 mg/dL HDL Cholesterol 41 >40 mg/dL [facility] Comment:Desirable HDL: great er than 40 mg/dL Note: This HDL assay may give artificially low results in patients with liver disease. Blood Venous blood specimen / Unknown 12/14/2024 8:34 AM EDT 12/14/2024 11:32 AM EDT us Gregg Gonzalez MD LAB BLOOD ORDERABLES Final Result [facility] [address] [place] [phone] * POCT Glucose (11/20/2024 3:23 PM EDT) Glucose Blood, POC 175 60 - 200 mg/dL QC Media Lot # [id number] Lot# Expiration Date [id number] Blood Capillary blood specimen / Unknown 11/20/2024 3:23 PM EDT us Gregg Gonzalez MD POINT OF CARE TEST EN TER/EDIT ORDERABLES Final Result * (ABNORMAL) POCT Hgb A1c (11/20/2024 3:17 PM EDT) Hemoglobin A1C 6.9(A) 4.0 - 5.7 % QC Media Lot # [id number] Lot# Expiration Date [id number] Blood 11/20/2024 3:17 PM EDT us Gregg Gonzalez MD POINT OF CARE TEST EN TER/EDIT ORDERABLES Final Result * Albumin, Random Urine W/Creatinine (12/16/2023 8:10 AM EDT) Creatinine, Urine 184.29 mg/dL [facility] Microalbumin Urine 8.0 mg/L [facility] Microalbum Creatinine Ratio Ur 4.3 <30 ug/mg cr [facility] Comment:Albumin/Creatinine R atio Reference Ranges: Normal: < 30 ug/mg creatinine Microalbuminuria: 30 - 300 ug/mg creatinineClinical Albuminuria: > 300 ug/mg creatinine Urine (Urine, Random) 12/16/2023 8:10 AM EDT 12/16/2023 11:10 AM EDT Gregg Gonzalez MD LAB URINE ORDERABLES Final Result Performing Organization Address [facility]/ZIP Co de Phone Number [facility] [address] [place] [phone] [phone] * HIV Ab/Ag ([facility]) (12/07/2022 8:29 AM EDT) Pathologist [facility] HIV AB/AG Nonreactive Nonreactive [facility] Comment:HIV-1 p24 Ag and/or HIV-1/HIV-2 Ab not detected.A test result that is nonreactive does not exclude thepossibility of exposure to or infection with HIV-1 and/orHIV-2. Nonreactive results in this assay for individualswith prior exposure to HIV-1 and/or HIV-2 may be due toantigen and antibody levels that are below the limit ofdetection of this assay.The [employer] HIV Ag/Ab Combo assay result andsupplemental assay results should be interpreted inconjunction with the patient's clinical presentation,history and other laboratory results. If the results areinconsistent with clinical evidence, additional testing issuggested to confirm the result. 12/07/2022 8:29 AM EDT 12/07/2022 11:40 AM EDT Gregg Gonzalez MD LAB BLOOD ORDERABLES Final Result Performing Organization Address [facility]/ZIP Co de Phone Number [facility] [address] [place] [address] [phone] * Hepatitis C Antibody with Reflex to HCV, RNA, Quantitative, Real-Time PCR (12/07/2022 8:29 AM EDT) Hepatitis C Antibody Nonreactive Nonreactive [facility] Comment:Antibodies to HCV no t detected; does not exclude early acuteHCV infection. Blood Venous blood specimen / Unknown 12/07/2022 8:29 AM EDT 12/07/2022 11:40 AM EDT Gregg Gonzalez MD LAB BLOOD ORDERABLES Final Result [facility] [address] [place] [phone] * Hm Colonoscopy (07/12/2013) Colonoscopy Normal Normal 07/12/2013 Narrative Bree Rudolph - 07/12/2013 1:38 PM EDT Recommended 10 year follow up per provider unable to find path results Historical Provider HEALTH MAINTENANCE Edited Result - Final from Last 3 Months or Most Recently Relevant to Health Maintenance Insurance [employer] < [address] [place] [phone] Care Teams Personal Lines Insurance Agent Relationship Specialty Start Date End Date Gregg Nelson MD [address] [place] [phone] PCP - General Internal Medicine 10/15/16 Kaz Cespedes PharmD [address] [place] [phone] Pharmacist Internal Medicine 01/24/23
--- OUTSIDE RECORDS SUMMARY | 2024-12-27 09:11 | XMS_ITS | Encounter Summary ---
Author Organization [employer] Address [address] [facility] [address] [place] [address] Care Team Providers Care Auto Tech Name Role Phone Gregg Nelson MD Primary Care Provide r Kaz Cespedes PharmD Unavailable [phone] Encounter Details Date Type Department Care Team ([facility] st Contact Info) Description 12/04/2024 Refill [facility] [address] [place] [address] Gregg Nelson MD [address] [place] [address] Social History Tobacco Use Types Packs/Day Years [...] Hypertension 120/74(2024 3:04 PM EDT) No Kaz Cespedes, PharmD documented as of this encounter Visit Diagnoses Not on filedocumented in this encounter Additional Health Concerns Assessment Noted Time PHQ-9 Depression Total Score: 0 08/18/19 24 10:07 AM EDT documented as of this encounter Care Teams Auto Tech Relationship Specialty Start Date End Date Gregg Nelson MD [address] [place] [address] PCP - General Internal Medicine 10/15/16 Kaz Cespedes, PharmD [address] [place] [address] Pharmacist Internal Medicine 01/24/23 documented as of this encounter
--- OUTSIDE RECORDS SUMMARY | 2024-12-27 09:11 | XMS_ITS | Encounter Summary ---
Author Organization [employer] Address [address] [facility] [address] [place] [address] Care Team Providers Care Nickel Plant Operator Name Role Phone Gregg Nelson MD Primary Care Provide r Kaz Cespedes PharmD Unavailable [phone] Encounter Details Date Type Department Care Team (Late st Contact Info) Description 02/18/2022 Abstract [facility] [address] [place] [address] Shaniqua Mendes, PharmD [address] [place] [address] Social History Tobacco Use Types Packs/Day Years Used Date Smoking Tobacco: Never Assessed Sex and Gender Information Value Date Recorded Sex Assigned at Male 01/04/2022 10:15 AM EDT Legal Sex Male 10:15 AM EDT Gender Identity Male 01/04/2022 10:15 AM EDT Sexual Orientation Choose not to disclose 2021 10:15 AM EDT COVID-19 Exposure Response Date Recorded In the last 10 days, have yo u been in contact with someone who was confirmed or suspected to have Coronavirus/COVID-19? No / Unsure 02/18/2022 10:11 AM EST documented as of this encounter Plan of Treatment Not on file documented as of this encounter Visit Diagnoses Not on filedocumented in this encounter Care Teams Nickel Plant Operator Relationship Specialty Start Date End Date Gregg Nelson MD [address] [place] [address] PCP - General Internal Medicine 10/15/16 Kaz Cespedes, IrlandaD [address] [place] [phone] Pharmacist Internal Medicine 01/24/23 documented as of this encounter
--- OUTSIDE RECORDS SUMMARY | 2024-12-27 09:11 | XMS_ITS | Encounter Summary ---
Author Organization [employer] Address [address] [facility] [address] [place] [address] Care Team Providers Care Manager Mountain Name Role Phone Gregg Nelson MD Primary Care Provide r Kaz Cespedes PharmD Unavailable [phone] Reason for Visit * Reason Onset Date Comments Hospital Follow-up 03/25/2023 Encounter Details Date Type Department Care Team ([facility] st Contact Info) Description 03/25/2023 Telephone [facility] [address] [place] [address] Gregg Nelson MD [address] [place] [address] Hospital Follow-up Social History Tobacco Use Types Packs/Day Years Used Date Smoking Tobacco: Never Passive Smoke Exposure: Never Smokeless Tobacco: Never Alcohol Use Standard Drinks/Week Comments Yes 10 (1 standard drink = 0.6 oz pu re alcohol) Depression Answer Date Recorded Patient Health Questionnaire-9 Score 5 07/13/2022 Housing Stability Answer Date Recorded What is [...] Date Recorded Patient Health Questionnaire-2 Score 0 07/13/2022 Sex and Gender Information Value Date Recorded Sex Assigned at Male 01/04/2022 10:15 AM EDT Legal Sex Male 10:15 AM EDT Gender Identity Male 01/04/2022 10:15 AM EDT Sexual Orientation Choose not to disclose 2021 10:15 AM EDT documented as of this encounter Miscellaneous Notes * Telephone Encounter - Sally Carrillo - 03/25/2023 8:59 AM EST Tc from pt requesting a HDF appt. [facility]: [facility] Date of admission: 03/22 Discharge date: 03/24 Diagnosed: PAF (paroxysmal atrial fibrillation) Please contact pt at [phone] (Scottish) documented in this encounter Plan of Treatment Not on file documented as of this encounter Goals Goal Patient Goal Type Associated Problems Recent Progress Patient-Stated? Author Blood Pressure < 140/90 Blood Pressure Hypertension 120/74(2024 3:04 PM EDT) No Kaz Cespedes PharmD documented as of this encounter Visit Diagnoses Not on filedocumented in this encounter Additional Health Concerns Assessment Noted Time PHQ-9 Depression Total Score: 5 07/14/19 9:58 AM EDT documented as of this encounter Care Teams Manager Mountain Relationship Specialty Start Date End Date Gregg Nelson MD [address] [place] [address] PCP - General Internal Medicine 10/15/16 Kaz Cespedes PharmD [address] [place] [address] Pharmacist Internal Medicine 01/24/23 documented as of this encounter
--- OUTSIDE RECORDS SUMMARY | 2024-12-27 09:11 | XMS_ITS | Encounter Summary ---
Author Organization [employer] Address [address] [facility] [address] [place] [address] Care Team Providers Care Glass Ribbon Machine Operator Name Role Phone Gregg Nelson MD Primary Care Provide r Kaz Cespedes PharmD Unavailable [phone] Encounter Details Date Type Department Care Team ([facility] st Contact Info) Description 07/14/2022 Abstract [facility] [address] [place] [address] Gregg Nelson MD [address] [place] [address] Social History Tobacco Use Types Packs/Day Years Used Date Smoking Tobacco: Never Passive Smoke Exposure: Never Smokeless Tobacco: Never Alcohol Use Standard Drinks/Week Comments Yes 20 (1 standard drink = 0.6 oz pu re alcohol) Depression Answer Date Recorded Patient Health Questionnaire-9 Score 5 07/13/2022 Depression Answer Date Recorded Patient Health Questionnaire-2 [...] suspected to have Coronavirus/COVID-19? No / Unsure 07/13/2022 9:38 AM EDT documented as of this encounter Plan of Treatment Not on file documented as of this encounter Procedures Procedure Name Priority Date/Time Associated Diagnosis Comments HM COLONOSCOPY Routine 07/12/2013 documented in this encounter Results * Hm Colonoscopy (07/12/2013) Colonoscopy Normal Normal 07/12/2013 Bree Lopez - 07/12/2013 1:38 PM EDT Recommended 10 year follow up per provider unable to find path results us Historical Provider HEALTH MAINTENANCE Edited Result - Final documented in this encounter Visit Diagnoses Not on filedocumented in this encounter Additional Health Concerns Assessment Noted Time PHQ-9 Depression Total Score: 5 07/14/19 23 9:58 AM EDT documented as of this encounter Care Teams Glass Ribbon Machine Operator Relationship Specialty Start Date End Date Gregg Nelson MD [address] [place] [address] PCP - General Internal Medicine 10/15/16 Kaz Cespedes, [place] [address] [place] [phone] Pharmacist Internal Medicine 01/24/23 documented as of this encounter
--- OUTSIDE RECORDS SUMMARY | 2024-12-27 09:11 | XMS_ITS | Encounter Summary ---
Author Organization [employer] Address [address] [facility] [address] [place] [address] Care Team Providers Care Vice Squad Police Officer Name Role Phone Gregg Nelson MD Primary Care Provide r Kaz Cespedes PharmD Unavailable [phone] Reason for Visit * Reason Comments Med Refill Encounter Details Date Type Department Care Team ([facility] st Contact Info) Description 12/27/[address] [facility] [address] [place] [address] Gregg Nelson MD [address] [place] [address] Social History Tobacco Use Types Packs/Day Years [...] your housing situation today? I have foster sing 03/27/[address] you li [...] enough money to get more: Never True 01/ Transportation Answer Date Recorded In the past [...] documented as of this encounter Care Teams Vice Squad Police Officer Relationship Specialty Start Date End Date Gregg Nelson MD [address] [place] [address] PCP - General Internal Medicine 10/15/16 Kaz Cespedes, PharmD [address] [place] [address] Pharmacist Internal Medicine 01/24/23 documented as of this encounter
--- OUTSIDE RECORDS SUMMARY | 2024-12-27 09:11 | XMS_ITS | Encounter Summary ---
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
[2024-12-27 09:41] VITALS: BP 110/72; PULSE 68; BMI 27.7
--- NOTE | 2024-12-27 09:41 | MHC.OFFVIS ---
Vital Signs 12/27/24 09:41 Height 5 ft 7 in Weight 176 lb 12.972 oz BMI 27.7 BP 110/72 Blood Pressure Location Lt brachial Position Sitting Pulse 68 Pulse Source Monitor Intake Visit Reasons: 6m follow up Finish Production Manager Required: Yes Finish Production Manager Language: Section Housekeeper Name: clary pichardo [phone] Sustainability Purchasing Agent: Sustainability Purchasing Agent Present Allergies No Known Allergies Allergy (Verified 12/27/24 09:49) Medication List - Last Reconciled 12/27/24 by Caren Olivia NP-C apixaban (Eliquis) 5 mg PO BID atorvastatin 80 mg PO BEDTIME cetirizine 10 mg PO DAILY dicyclomine 10 mg PO BID PRN dulaglutide (Trulicity) mg subcut ezetimibe (Zetia) 10 mg PO DAILY famotidine 40 mg PO BEDTIME flecainide 50 mg PO BID fluticasone propionate 50 mcg/actuation 1 spray intranasal DAILY hydrochlorothiazide 25 mg PO QAM lisinopril 40 mg PO BEDTIME metformin ER 1,000 mg PO BID metoprolol succinate ER 25 mg PO DAILY omeprazole 20 mg PO BID HPI HPI 6m follow up: Details: Kanu is a 64-year-old male with past medical history of hypertension, hyperlipidemia, nonobstructive CAD, paroxysmal atrial fibrillation who presents for follow-up. Today he reports that he will get brief heart palpitations lasting only seconds. He says it does not happen often and the frequency or length of episode is not changing. He is overall pleased with how he is feeling. He is not interested in medicine changes at this time. No chest discomfort at rest or with activity. No lightheadedness, presyncope, syncope, falls. No concerning shortness of breath, PND, orthopnea or edema. No bleeding issues reported. Taking meds as directed. Admits to still drinking 2-3 caffeinated beverages per day. present. 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 [facility] Medical History PAF (paroxysmal atrial fibrillation) Type 2 diabetes mellitus with unspecified complications Essential hypertension High cholesterol Diabetes mellitus HTN (hypertension) Surgical History No pertinent past surgical history Family History Mother Hyperlipidemia Hypertension Diabetes Father Diabetes Social History Household Members: Spouse Household Members Other:: 1 Housing: Unknown / Unable to assess Do you presently have visiting nurse or other home services: No Alcohol intake: current Alcohol intake frequency: a few times a week Alcohol type: beer and hard liquor Patient Tobacco Use Status: Never used Tobacco Second Hand Smoke Exposure: No Advance Directives Date on File: 05/27/20 service: No Current occupational status: unemployed Review of Systems Const All systems reviewed & are unremarkable except as noted in HPI and below ENT Denies dizziness Card Denies chest pain, Denies chest pain at rest, Denies chest pain with activity, Reports rapid heart rate (Brief episode), Denies pedal edema, Denies edema, Denies leg edema, Denies lightheadedness, Denies palpitations, Denies dyspnea, Denies dyspnea on exertion and Denies orthopnea Resp Denies cough, Denies dyspnea and Denies dyspnea on exertion GI Denies hematochezia and Denies change in stool character Musc Denies abnormal gait, Denies limited range of motion, Denies muscle cramps, Denies muscle weakness, Denies numbness, Denies radiating pain into limb, Denies stiffness and Denies tingling Neuro Denies abnormal gait, Denies dizziness, Denies numbness and Denies tingling Endo Denies palpitations Physical Exam Vital Signs: Last Vital Signs Pulse 68 12/27/24 09:41 BP 110/72 12/27/24 09:41 BMI result Body Mass Index 27.7 Const General: cooperative, healthy appearing, comfortable and no acute distress Orientation/consciousness: patient oriented x3 Neck Neck: Yes normal visual inspection and Yes no JVD Resp Effort & Inspection: normal respiratory effort Auscultation: clear to auscultation bilaterally, no crackles, no rales, no rhonchi and no wheezes Cardio Jugular venous distension: no JVD Rate: regular rate Rhythm: regular rhythm Heart sounds: S1 normal heart sound present, S2 normal heart sound present, no murmurs and no rubs Neuro General: patient oriented x3 Extrem General: Yes normal to inspection, No no pedal edema and No calf tenderness Psych Appearance: grossly normal Mental Status: mental status grossly normal Speech and movement: Normal speech and movement present Office Procedures EKG Details: Today, read by me, normal sinus rhythm, no acute ST or T-wave abnormalities, rate 68, QT 412 milliseconds [id number], Complete Assessment & Plan Assessment & Plan (1) PAF (paroxysmal atrial fibrillation): Code(s): I48.0 - Paroxysmal atrial fibrillation Category: Medical Plan: History of paroxysmal atrial fibrillation that is currently suppressed with flecainide and metoprolol. EKG done today shows sinus rhythm, rate 68, QTC 412 milliseconds. He will get very brief heart palpitations lasting seconds which is not changing. Last echo done 02/23/2023 was normal study. CTA of the coronary arteries done on 08/17/2023 showing no hemodynamically significant coronary artery disease, mild calcific plaque in the proximal LAD causing less than 25% stenosis. Since he is prone to have bradycardia will avoid increase in meds at this time. Will continue on same flecainide 50 mg b.i.d. and metoprolol XL 25 mg daily. He is on Eliquis for anticoagulation. Biannual renal function nathan should be pursued. Labs 08/05/2024 showed creatinine 1.25. Instructed to reduce caffiene intake to 1 daily. Cardiology follow-up 6 months, sooner if needed. (2) Symptomatic bradycardia: Code(s): R00.1 - Bradycardia, unspecified Category: Medical Plan: Has had in the past. No recent episodes. (3) HTN (hypertension): Code(s): I10 - Essential (primary) hypertension Category: Medical Plan: Blood pressure goal less than 130/80. Well controlled at present. Continue metoprolol, lisinopril, hydrochlorothiazide. (4) High cholesterol: Code(s): E78.00 - Pure hypercholesterolemia, unspecified Category: Medical Plan: [place] LDL goal less than 70 in patient with diabetes. Labs done 12/14/2024 showed LDL 74. Continue atorvastatin 80 mg daily and Zetia 10 mg daily. Diet and exercise reviewed. (5) CAD (coronary artery disease): Code(s): I25.10 - Atherosclerotic heart disease of [place] coronary artery without angina pectoris Category: Medical Plan: Mild nonobstructive LAD stenosis as seen on prior CTA of the coronary arteries. Continue with risk factor modification. LDL goal less than 70. Hemoglobin A1c goal less than 7. Blood pressure goal less than 130/80. Plan I discussed his heart conditions of atrial fibrillation and mild coronary artery disease. We reviewed the possibility of increasing flecainide if palpitations become more frequent or bothersome. We also talked about avoiding stimulants like caffeine to reduce palpitations. The patient is advised to stay physically active and monitor symptoms, with a follow-up scheduled in six months. Patient Instructions: - Avoid caffeinated drinks to reduce palpitations. - Stay physically active. - Monitor for new chest discomfort or increased palpitations and contact if they worsen. - Follow-up in six months. Patient was informed and verbally consented to the use of an ambient scribe for clinic note documentation during this visit. Visit time spent on chart review, interview, assessment, orders, documentation. Coding Level of Care Code Est Pt Level 4 (02690) Complex EM visit Add On G2211 Diagnoses PAF (paroxysmal atrial fibrillation) I48.0 Symptomatic bradycardia R00.1 HTN (hypertension) I10 High cholesterol E78.00 CAD (coronary artery disease) I25.10 CPT Codes EKG - CPT: 52060-[id number], Complete ([id number]) Time Spent (min) 28
== END 2024-12-27 10:16 | disposition home or self-care (01) ==
LOC: HO.HCS 08:40
PROVIDERS: PCP Internal Medicine; Visit Provider Nurse Practitioner Family
DX: I48.0 Paroxysmal atrial fibrillation (principal); R00.1 Bradycardia, unspecified; I10 Essential (primary) hypertension; E78.00 Pure hypercholesterolemia, unspecified; I25.10 Atherosclerotic heart disease of native coronary artery without angina pectoris
CPT/HCPCS: 93010; 99214; G2211

== ENCOUNTER → 2024-12-27 08:40 | Outpatient (BNVA) | payer OTHER, SELFPAY | PROVIDERS: PCP Internal Medicine; Visit Provider Nurse Practitioner Family | DX: I48.0 Paroxysmal atrial fibrillation (principal); R00.1 Bradycardia, unspecified; I10 Essential (primary) hypertension; I25.10 Atherosclerotic heart disease of native coronary artery without angina pectoris; E78.00 Pure hypercholesterolemia, unspecified | CPT/HCPCS: 93005; 99212 ==

== ENCOUNTER 2025-01-22 18:50 | Emergency (ER) | payer OTHER, SELFPAY ==
[2025-01-22 19:52] VITALS: BP 152/84; PULSE 61; RESP 16; TEMP 36.6; O2SAT 96; BMI 28.0
--- NOTE | 2025-01-22 19:56 | ED.GENADULT ---
HPI - General Adult General Chief complaint: General Medical Stated complaint: High Blood Pressure Related Data Home Medications ?Medication ?Instructions ?Recorded ?Confirmed atorvastatin 80 mg tablet 80 mg PO BEDTIME 05/27/20 12/27/24 lisinopril 40 mg tablet 40 mg PO BEDTIME 05/27/20 12/27/24 cetirizine 10 mg tablet 10 mg PO DAILY 03/22/23 12/27/24 famotidine 40 mg tablet 40 mg PO BEDTIME 03/22/23 12/27/24 fluticasone propionate 50 1 spray intranasal DAILY 03/22/23 12/27/24 mcg/actuation nasal spray,suspension metformin 500 mg tablet,extended 1,000 mg PO BID 03/22/23 12/27/24 release 24 hr omeprazole 20 mg capsule,delayed 20 mg PO BID 03/22/23 12/27/24 release dulaglutide 1.5 mg/0.5 mL mg subcut 12/27/24 12/27/24 subcutaneous pen injector (Trulicity) hydrochlorothiazide 25 mg tablet 25 mg PO QAM 12/27/24 12/27/24 Previous Rx's ?Medication ?Instructions ?Recorded metoprolol succinate 25 mg 25 mg PO DAILY for blood pressure 05/11/24 tablet,extended release 24 hr #90 tabs flecainide 50 mg tablet 50 mg PO BID for blood pressure 05/31/24 #180 tabs ezetimibe 10 mg tablet (Zetia) 10 mg PO DAILY #90 tabs 06/07/24 apixaban 5 mg tablet (Eliquis) 5 mg PO BID #180 tabs 08/03/24 dicyclomine 10 mg capsule 10 mg PO BID PRN abdominal pain #5 08/05/24 caps omeprazole 20 mg capsule,delayed 20 mg PO DAILY 14 days #14 caps 01/23/25 release ondansetron 4 mg disintegrating 4 mg PO Q8H PRN nausea and 01/23/25 tablet vomiting #14 tabs Allergies Allergy/AdvReac Type Severity Reaction Status Date / Time No Known Allergies Allergy Verified 01/23/25 11:58 [facility] Past Medical History Medical History PAF (paroxysmal atrial fibrillation) Type 2 diabetes mellitus with unspecified complications Essential hypertension High cholesterol Diabetes mellitus HTN (hypertension) Surgical History No pertinent past surgical history Family History Family History Mother Hyperlipidemia Hypertension Diabetes Father Diabetes Social History Social History Household Members: Spouse Household Members Other:: 1 Housing: Unknown / Unable to assess Do you presently have visiting nurse or other home services: No Alcohol intake: current Alcohol intake frequency: a few times a week Alcohol type: beer and hard liquor Patient Tobacco Use Status: Never used Tobacco Second Hand Smoke Exposure: No Advance Directives: Yes Advance Directives on File: Yes Advance Directives Date on File: 05/27/20 service: No Current occupational status: unemployed Physical Exam ED Vital Signs: BMI result Body Mass Index 28.0 Course Course Course Narrative: This is an RME: Additional HPI, ROS, PE not included below will be deferred to primary provider. RME assessment and note performed by: Lucille Pro PA-C This is a 43-giww-mii-kiswahili speaking male, with a hx of HTN, CAD, HLD, a fib on eliquis, who presents to the ER with complaints of dizziness. Reports that he ate cod fish which he was told not to consume due to blood pressure elevation - reports that he took his bp and it was high. He is no longer dizzy. No CP or SOB during this episode. Plan: Labs, EKG, CXR, further Er eval needed Reevaluation(s) Reevaluation #1: Patient left without completing treatment. Medical Decision Making Lab Data 01/22/25 20:15 01/22/25 20:15 Labs: Lab Results 01/22/25 Range/Units 20:15 WBC 8.5 (4.8-10.8) X10*3/uL RBC 4.06 L (4.60-5.80) X10*6/uL Hgb 12.7 L (14.0-18.0) g/dl Hct 37.0 L (42.0-52.0) % MCV 91.1 (80.0-98.0) fL MCH 31.3 (27.0-33.0) pg MCHC 34.3 (31.0-36.0) g/dl RDW 12.9 (11.0-16.0) % Plt Count 191 (160-400) X10*3/uL MPV 10.3 (9.4-12.4) fL Immature Gran % (Auto) 0.1 (0.0-0.4) % Neut % (Auto) 66.9 (45-73) % Lymph % (Auto) 20.7 (20-40) % [place] % (Auto) 10.8 (2-11) % Eos % (Auto) 1.1 (0-4) % Baso % (Auto) 0.4 (0-2) % Lymph # (Auto) 1.8 (1.2-4.9) X10*3/uL [place] # (Auto) 0.9 (0.1-1.2) X10*3/uL Eos # (Auto) 0.1 (0.0-0.4) X10*3/uL Baso # (Auto) 0.0 (0.0-0.2) X10*3/uL Abs Immat Gran (auto) 0.01 (0.00-0.03) X10*3/uL Absolute Neuts (auto) 5.7 (2.0-8.3) x10*3/uL Absolute Nucleated RBC 0.000 (0.0-0.012) X10*3/uL Nucleated RBC % (auto) 0.0 (0.0-0.2) /100WBC Sodium 139 (135-145) mmol/L Potassium 3.9 (3.3-5.1) mmol/L Chloride 105 (96-108) mmol/L Carbon Dioxide 26 (22-29) mmol/L Anion Gap 12 (12-20) BUN 18 H (9-16) mg/dL Creatinine 1.28 (0.5-1.4) mg/dL Estim Creat Clear Calc 60.2 Estimated GFR 57 Random Glucose 148 H (60-115) mg/dL Calcium 9.0 (8.4-10.2) mg/dL Magnesium 1.8 (1.6-2.6) mg/dL Total Bilirubin 0.5 (0.0-1.0) mg/dL Direct Bilirubin 0.2 (0.0-0.5) mg/dL AST 27 (5-37) U/L ALT 29 (0-40) U/L Alkaline Phosphatase 98 (39-117) U/L Troponin I High Sens 3.2 (<3.5-35.0) ng/L Total Protein 7.7 (6.5-8.0) g/dL Albumin 4.3 (3.5-5.0) g/dL Discharge Plan Discharge Clinical Impression: Diagnosis unknown Patient Disposition: Left W/O Completing Treatment Prescriptions: No Action metoprolol succinate 25 mg tablet extended release 24 hr 25 mg PO DAILY Qty: 90 3RF flecainide 50 mg tablet 50 mg PO BID Qty: 180 3RF Eliquis 5 mg tablet 5 mg PO BID Qty: 180 3RF lisinopril 40 mg Tablet 40 mg PO BEDTIME atorvastatin 80 mg Tablet 80 mg PO BEDTIME dicyclomine 10 mg capsule 10 mg PO BID PRN (Reason: abdominal pain) Qty: 5 0RF cetirizine 10 mg tablet 10 mg PO DAILY famotidine 40 mg tablet 40 mg PO BEDTIME omeprazole 20 mg capsule,delayed release(DR/EC) 20 mg PO BID fluticasone propionate 50 mcg/actuation spray,suspension 1 spray intranasal DAILY metformin 500 mg tablet extended release 24 hr 1,000 mg PO BID ondansetron 4 mg tablet,disintegrating 4 mg PO Q8H PRN (Reason: nausea and vomiting) Qty: 14 0RF omeprazole 20 mg capsule,delayed release(DR/EC) 20 mg PO DAILY 14 Days Qty: 14 0RF hydrochlorothiazide 25 mg tablet 25 mg PO QAM Trulicity 1.5 mg/0.5 mL pen injector subcut ezetimibe [Zetia] 10 mg tablet 10 mg PO DAILY Qty: 90 3RF Rx Instructions: Cholesterol lowering agent Discharge Date/Time: 01/22/25 23:54
--- NOTE | 2025-01-22 19:58 | ECG_ITS ---
Test Reason : DIZINESS Blood Pressure : */* mmHG Vent. Rate : 63 BPM Atrial Rate : 63 BPM P-R Int : 186 ms QRS Dur : 86 ms QT Int : 406 ms P-R-T Axes : 44 1 32 degrees QTcB Int : 415 ms Sinus rhythm with Premature atrial complexes Otherwise normal ECG When compared with ECG of 05-Aug-2024 08:33, Premature atrial complexes are now Present Referred By: Lucille Pro Electronically Signed By: DAVE ECHEVARRIA
[2025-01-22 20:18] LABS: MANUAL DIFF FLAG NO
[2025-01-22 20:21] LABS: Hematocrit 37.0 % (42.0-52.0); Hemoglobin 12.7 g/dl (14.0-18.0); Imm Gran Abs Auto 0.01 X10*3/uL (0.00-0.03); Imm Gran Pct Auto 0.1 % (0.0-0.4); Lymphocytes Absolute Auto 1.8 X10*3/uL (1.2-4.9); Mean Corpuscular HGB Conc 34.3 g/dl (31.0-36.0); Mean Corpuscular Hemoglobin 31.3 pg (27.0-33.0); Mean Corpuscular Volume 91.1 fL (80.0-98.0); NRBC Abs Auto 0.000 X10*3/uL (0.0-0.012); NRBC Pct Auto 0.0 /100WBC (0.0-0.2); Platelet Count 191 X10*3/uL (160-400); Red Blood Count 4.06 X10*6/uL (4.60-5.80); White Blood Count 8.5 X10*3/uL (4.8-10.8)
[2025-01-22 20:37] LABS: Alanine Aminotransferase 29 U/L (0-40); Albumin Level 4.3 g/dL (3.5-5.0); Alkaline Phosphatase 98 U/L (39-117); Anion Gap 12 (12-20); Aspartate Amino Transferase 27 U/L (5-37); Blood Urea Nitrogen 18 mg/dL (9-16); Calcium 9.0 mg/dL (8.4-10.2); Carbon Dioxide 26 mmol/L (22-29); Chloride 105 mmol/L (96-108); Creatinine Clr Calc Pharmacy 60.2; Estimated Glomerular Filt Rate 57; Magnesium 1.8 mg/dL (1.6-2.6); Potassium 3.9 mmol/L (3.3-5.1); Sodium 139 mmol/L (135-145); Total Protein 7.7 g/dL (6.5-8.0)
[2025-01-22 20:44] LABS: Troponin-I High Sensitivity 3.2 ng/L (<3.5-35.0)
--- OUTSIDE RECORDS SUMMARY | 2025-01-23 14:29 | XMS_ITS | Encounter Summary ---
Author Organization [employer] Address [address] [facility] 7t [place] [address] Care Team Providers Care Signal Circuit Designer Name Role Phone Gregg Nelson MD Primary Care Provide r Kaz Cespedes PharmD Unavailable [phone] Reason for Visit * Reason Comments Med Refill Encounter Details Date Type Department Care Team ([facility] st Contact Info) Description 03/09/2024 Refill [facility] MEDICINE [address] [place] [address] Gregg Nelson MD [address] [place] [address] Social History Tobacco Use Types Packs/Day Years [...] Care Team (Late st Contact Info) Description 03/12/2025 10:15 AM EST Office Visit [facility] MEDICINE [address] [place] [phone] Gregg Nelson MD [address] [place] [phone] documented as of this encounter Goals Goal [...] documented as of this encounter Care Teams Signal Circuit Designer Relationship Specialty Start Date End Date Gregg Nelson MD [address] [place] [phone] PCP - General Internal Medicine 10/15/16 Kaz Cespedes PharmD [address] [place] [phone] Pharmacist Internal Medicine 01/24/23 documented as of this encounter
--- OUTSIDE RECORDS SUMMARY | 2025-01-23 14:29 | XMS_ITS | Clinical Summary ---
Author Organization [employer] Address [address] [facility] 7t [place] [address] Care Team Providers Care Director Of Materials Name Role Phone Gregg Nelson MD Primary Care Provide r Kaz Cespedes PharmD Unavailable [phone] Allergies No known active allergies Medications apixaban (Eliquis) 5 MG tablet take 1 tablet by oral route 2 times every day 07/30/19 21 Active Blood Glucose Monitoring Suppl (RIVS Lite) w/Device kit TEST BLOOD SUGAR TWICE DAILY 11/26/19 22 Active Multiple Vitamins-Minera ls (MULTIVITAMIN ADULTS 50+ PO) Patient purchasing OTC - as directed Active Oral Medication Containers misc USE DIRECTED 06/17/19 23 Active V-R GAS RELIEF 80 MG chewable tablet CHEW 1 TABLET BY MOUTH EVERY 6 HOURS NEEDED FOR GAS 06/17/19 23 Active meclizine (Antivert) 25 MG tabletIndicatio ns:Vertigo Take 1 tablet (25 mg) by mouth if needed in the morning, at noon, and at bedtime for dizziness. 30 tablet 07/14/19 23 Active flecainide (Tambocor) 50 MG tabletIndicatio ns:Paroxysmal atrial fibrillation (CMS/HCC) (HCC) Take 1 tablet (50 mg) by mouth 2 times daily. 60 tablet 04/05/19 24 Active metoprolol succinate XL (Toprol-XL) 25 MG 24 hr tablet Take 25 mg by mouth Once per day. 08/15/19 24 Active hydroCHLOROthia zide (HYDRODiuril) 25 MG tablet Take 1 tablet (25 mg) by mouth Once per day. 30 tablet 11 02/17/20 24 025 Active ammonium lactate (Lac-Hydrin) 12 % lotion APPLY TO THE AFFECTED AREA(S) TWICE DAILY 400 g 4 02/21/20 24 Active Blood Pressure kit 1 each 2 times daily. 1 kit 02/27/20 24 025 Active LORazepam (Ativan) 0.5 MG tabletIndicatio ns:Fear associated with healthcare Take 1 tab 30 minutes prior to MRI, may repeat x 1 if still anxious while having the MRI 2 tablet 03/27/19 25 Active omeprazole (PriLOSEC) [address] capsuleIndicati ons:Nausea TAKE 1 CAPSULE BY MOUTH TWICE DAILY IN THE MORNING AND IN THE EVENING BEFORE MEALS 180 capsule 3 04/10/19 25 Active TRUEplus Lancets 33G misc USE TO TEST BLOOD SUGAR THREE TIMES A DAY 100 each 11 04/10/19 25 Active lisinopril 40 MG tabletIndicatio ns:Essential hypertension TAKE 1 TABLET BY MOUTH EVERY EVENING 90 tablet 3 05/09/19 25 Active FREESTYLE LITE test stripIndication s:Type 2 diabetes mellitus without complication, unspecified whether adjunct faculty for medical terminology insulin use TEST BLOOD SUGAR THREE TIMES DAILY 100 strip 11 5 11:24 AM EST 08/08/19 25 Active famotidine (Pepcid) 40 MG tabletIndicatio ns:Epigastric pain TAKE 1/2 TABLET BY MOUTH AT BEDTIME 45 tablet 1 09/05/19 25 Active fluticasone (Flonase) 50 MCG/ACT nasal sprayIndication s:Allergic rhinitis, unspecified seasonality, unspecified trigger INSTILL 1 SPRAY IN EACH NOSTRIL ONCE DAILY 16 g 2 10/30/19 25 Active Dulaglutide (Trulicity) 3 MG/0.5ML solution auto-injectorIn dications:Type 2 diabetes mellitus without complication, without long-term current use of insulin (HCC) Inject 3 mg under the skin 1 (one) time per week. 0.5 mL 3 11/21/19 25 Active atorvastatin (Lipitor) 80 MG tablet TAKE 1 TABLET BY MOUTH EVERY EVENING 90 tablet 1 12/05/19 25 Active cetirizine (ZyrTEC) 10 MG tablet TAKE 1 TABLET BY MOUTH EVERY MORNING 30 tablet 11 12/29/19 25 Active metFORMIN XR (Glucophage-XR) 500 MG 24 hr tablet Take 2 tablets (1,000 mg) by mouth 2 times daily. Do not crush, chew, or split. 360 tablet 01/02/20 25 Active cetirizine (ZyrTEC) 10 MG tablet TAKE 1 TABLET BY MOUTH EVERY MORNING 30 tablet 11 01/17/20 24 025 Discontinued metFORMIN XR (Glucophage-XR) 500 MG 24 hr tablet TAKE 2 TABLETS BY MOUTH TWICE DAILY AT NOON AND IN THE EVENING 360 tablet 10/09/19 25 025 Discontinued(R eorder (will not trigger notification to Pharmacy)) Active Problems Problem Noted Date Diagnosed Date [...] in big crowds. Pt evaluated by our [facility] clinician , open to trying Hydroxyzine [...] po daily Last note on record from [facility] Cardiology 06/07/2024 Assessment & Plan (08/18/2023 10:18 AM EDT): Patient with paroxysmal Afib Recent Hospital admission found to be in PAFG with tachy nivia syndrome that responded to Fleicanide Today Rate is rate controlled Diltiazem was discontinued , he is to continue on Eliquis 5 mg po BID started on Toprol XL 25 mg po daily Last note on record from [facility] Cardiology 05/09/2023 Assessment & Plan (04/05/2023 10:05 AM EST): Patient with paroxysmal Afib Recent Hospital admission found to be in PAFG with tachy nivia syndrome that responded to Fleicanide Today Rate is rate controlled Diltiazem was discontinued , he is to continue on Eliquis 5 mg po BID Last note on record from [facility] Cardiology 02/01/2023 Referred back to [facility] Cardiology post hospital discharge. He had a 3 day Holter monitor that he just gave back Assessment & Plan (07/13/2022 2:56 PM EDT): Patient with paroxysmal Afib Rate is rate controlled on Diltiazem ER 300 mg po ruiz and Eliquis 5 mg po BID Last seen by [facility] Cardiology 10/28/2021 Nitroglycerin Supervisor recommended to stay on Eliquis 5 mg po BID. Pt tells me he is been having palpitations more often that ever. 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 to stay with a local concrete sculptor Will refer to [facility] Cardiology Obesity 04/28/2012 Hypertension 11/10/2011 Assessment & [...] last done on: 11/25/[address] Sang henao Microalbumin 11/13/2020 was 3.4 Pt on an [...] here after a recent Hospital admission to [facility] from 03/22-03/24 ) Patient presented for evaluation [...] Encounters Date Type Department Care Team Description 01/01/2025 Refill [facility] MEDICINE [address] Gregg Nelson MD 12/29/2024 Telephone [facility] [place] [address] Gregg Nelson MD February12/27/2024 Refill [facility] [address] [phone] Gregg Nelson MD 12/04/2024 Refill [facility] [place] [address] Gregg Nelson MD 12/03/2024 Refill [facility] [place] [address] Gregg Nelson MD 11/20/2024 3:00 PM EDT Office Visit [facility] [place] [address] Gregg Nelson MD Type 2 diabetes mellitus without complication, without long-term current use of insulin (CMS/HCC) (Primary Dx); Paroxysmal atrial fibrillation (CMS/HCC); Primary hypertension; Mixed hyperlipidemia; Preventative health care 11/20/2024 Travel 11/19/2024 Telephone [facility] [place] [address] Gregg Nelson MD chart prep 10/28/2024 Refill [facility] [address] [place] [address] Gregg Nelson MD Allergic rhinitis, unspecified seasonality, unspecified trigger from Last 3 Months Immunizations Immunization Administration [...] 11/20/2024 3:04 PM EDT Plan of Treatment Upcoming Encounters Date Type Department Care Team (Late st Contact Info) Description 03/12/2025 10:15 AM EST Office Visit [facility] MED[facility] 230 [place] [address] Gregg Nelson MD [address] [place] [address] Health Maintenance Due Date Last Done Comments CT Colonography 1961 FIT DNA/Cologuard 1961 FIT 1961 FOBT 1961 Sigmoidoscopy 1961 Disability Screening 1961 Diabetes: Foot Exam 1971 Eye Exam 1971 Pneumococcal Vaccine: 50+ Years (2 of 2 - PCV) 11/12/2007 11/11/2006, 11/11/2006 RSV Patients and Patients Aged 60 years or older (1 - Risk 50-74 years 1-dose series) 2011 Zoster Vaccines (1 of 2) 2011 Colonoscopy 07/13/2023 07/12/2013 Colorectal Cancer Screening 07/13/2023 Depression Screening 08/17/2024 08/18/2023, 08/18/19 24 COVID-19 Vaccine ( season) 2024 11/25/2020, 11/04/2020 Influenza Vaccine (#1) [...] 3:04 PM EDT) No Kaz Cespedes, PharmD Procedures Procedure Name Priority Date/Time Associated [...] 2 diabetes mellitus without complication, unspecified whether chcf insulin use (CMS/HCC) Mixed hyperlipidemia HIV ANTIBODY/ANTIGEN ([place] DPH) Routine 12/07/2022 8:29 AM EDT HM COLONOSCOPY Routine 07/12/2013 from Last 3 Months or Most Recently Relevant to Health Maintenance Results * PSA, Screen (12/14/2024 8:34 AM EDT) PSA, Total 1.48 <0.05 - 4.0 ng/mL [facility] Comment:PSA methodology: Redd Melvin i ChemiluminescentMicroparticle Immunoassay (CMIA) Blood Venous blood specimen / Unknown 12/14/2024 8:34 AM EDT 12/14/2024 11:16 AM EDT Gregg Gonzalez MD LAB BLOOD ORDERABLES Final Result Performing Organization Address [facility] Co de Phone Number [facility] [address] [place] [address] [phone] * Lipid Panel, Standard (12/14/2024 8:34 AM EDT) Triglycerides 108 <150 mg/dL [facility] Comment:Desirable Triglyceri de: less than 150 mg/dLBorderline High Triglyceride 150-199 mg/dLHigh Triglyceride: 200-499 mg/dLVery High Triglyceride: greater than or equal to 5OO mg/dL Cholesterol 136 <200 mg/dL [facility] Comment:Desirable Cholestero l: less than 200 mg/dLBorderline High Cholesterol: 200-239 mg/dLHigh Cholesterol: greater than 239 mg/dL LDL Cholesterol Calculated 74 <100 mg/dL [facility] Comment:Desirable LDL: less than 100 mg/dLNear Optimal/Above Optimal LDL: 110- 129 mg/dLBorderline High LDL: 130-159 mg/dLHigh LDL: 160-189 mg/dLVery High LDL: greater than or equal to 190 mg/dL HDL Cholesterol 41 >40 mg/dL [facility] Comment:Desirable HDL: great er than 40 mg/dL Note: This HDL assay may give artificially low results in patients with liver disease. Blood Venous blood specimen / Unknown 12/14/2024 8:34 AM EDT 12/14/2024 11:32 AM EDT Gregg Gonzalez MD LAB BLOOD ORDERABLES Final Result Performing Organization Address [facility] Co de Phone Number [facility] [address] [place] [address] [phone] * POCT Glucose (11/20/2024 3:23 PM EDT) Glucose Blood, POC 175 60 - 200 mg/dL QC Media Lot # [id number] Lot# Expiration Date [id number] Blood Capillary blood specimen / Unknown 11/20/2024 3:23 PM EDT us Gregg Gonzalez MD POINT OF CARE TEST EN TER/EDIT ORDERABLES Final Result * (ABNORMAL) POCT Hgb A1c (11/20/2024 3:17 PM EDT) Hemoglobin A1C 6.9(A) 4.0 - 5.7 % QC Media Lot # [id number] Lot# Expiration Date ,[id number] Blood 11/20/2024 3:17 PM EDT Gregg Gonzalez MD POINT OF CARE TEST EN TER/EDIT ORDERABLES Final Result * Albumin, Random Urine W/Creatinine (12/16/2023 8:10 AM EDT) Creatinine, Urine 184.29 mg/dL [facility] Microalbumin Urine 8.0 mg/L [facility] Microalbum Creatinine Ratio Ur 4.3 <30 ug/mg cr [facility] Comment:Albumin/Creatinine R atio Reference Ranges: Normal: < 30 ug/mg creatinine Microalbuminuria: 30 - 300 ug/mg creatinineClinical Albuminuria: > 300 ug/mg creatinine Urine (Urine, Random) 12/16/2023 8:10 AM EDT 12/16/2023 11:10 AM EDT us Gregg Gonzalez MD LAB URINE ORDERABLES Final Result [facility] [address] [place] [phone] * HIV Ab/Ag (CO DP) (12/07/2022 8:29 AM EDT) HIV AB/AG Nonreactive Nonreactive [facility] Comment:HIV-1 p24 Ag and/or HIV-1/HIV-2 Ab not detected.A test result that is nonreactive does not exclude thepossibility of exposure to or infection with HIV-1 and/orHIV-2. Nonreactive results in this assay for individualswith prior exposure to HIV-1 and/or HIV-2 may be due toantigen and antibody levels that are below the limit ofdetection of this assay.The gifteenity HIV Ag/Ab Combo assay result andsupplemental assay results should be interpreted inconjunction with the patient's clinical presentation,history and other laboratory results. If the results areinconsistent with clinical evidence, additional testing issuggested to confirm the result. 12/07/2022 8:29 AM EDT 12/07/2022 11:40 AM EDT Gregg Gonzalez MD LAB BLOOD ORDERABLES Final Result Performing Organization Address City/[facility]/ZIP Co de Phone Number [facility] [address] [place] [phone] * Hepatitis C Antibody with Reflex to HCV, RNA, Quantitative, Real-Time PCR (12/07/2022 8:29 AM EDT) Hepatitis C Antibody Nonreactive Nonreactive [facility] Comment:Antibodies to HCV no t detected; does not exclude early acuteHCV infection. Blood Venous blood specimen / Unknown 12/07/2022 8:29 AM EDT 12/07/2022 11:40 AM EDT Gregg Gonzalez MD LAB BLOOD ORDERABLES Final Result [facility] [address] [place] [phone] * Hm Colonoscopy (07/12/2013) Colonoscopy Normal Normal 07/12/2013 Bree Lopez - 07/12/2013 1:38 PM EDT Recommended 10 year follow up per provider unable to find path results Historical Provider HEALTH MAINTENANCE Edited Result - Final from Last 3 Months or Most Recently Relevant to Health Maintenance Insurance [employer] [id number] Care Teams Director Of Materials Relationship Specialty Start Date End Date Gregg Nelson MD [address] [place] [address] PCP - General Internal Medicine 10/15/16 Kaz Cespedes PharmD [address] [place] [address] Pharmacist Internal Medicine 01/24/23
--- OUTSIDE RECORDS SUMMARY | 2025-01-23 14:29 | XMS_ITS | Encounter Summary ---
Author Organization [employer] Address [address] [facility] 7t [place] [address] Care Team Providers Care Planograph Operator Name Role Phone Gregg Nelson MD Primary Care Provide r Kaz Cespedes PharmD Unavailable [phone] Encounter Details Date Type Department Care Team (Late Contact Info) Description 02/18/2022 Abstract [facility] MEDICINE [address] [place] [address] Shaniqua Mendes, PharmD [address] [place] [address] Social History Tobacco Use Types Packs/Day Years [...] Description 03/12/2025 10:15 AM EST Office Visit [facility] MEDICINE [address] [place] [address] Gregg Nelson MD [address] [place], [place] [phone] documented as of this encounter Visit Diagnoses Not on filedocumented in this encounter Care Teams Planograph Operator Relationship Specialty Start Date End Date Gregg Nelson MD [address] [place] [address] PCP - General Internal Medicine 10/15/16 Kaz Cespedes PharmD [address] [place] [address] Pharmacist Internal Medicine 01/24/23 documented as of this encounter
--- OUTSIDE RECORDS SUMMARY | 2025-01-23 14:29 | XMS_ITS | Encounter Summary ---
Author Organization [employer] Address [address] [facility] 7t [place] [address] Care Team Providers Care Business Practices Officer Name Role Phone Gregg Nelson MD Primary Care Provide r Kaz Cespedes PharmD Unavailable [phone] Encounter Details Date Type Department Care Team (Late Contact Info) Description 07/14/2022 Abstract [facility] MEDICINE [address] [place] [address] Gregg Nelson MD [address] [place] [address] Social History Tobacco Use Types Packs/Day Years [...] Encounters Date Type Department Care Team (Late Contact Info) Description 03/12/2025 10:15 AM EST Office Visit [facility] [place] [address] [place] [address] documented as of this encounter Procedures Procedure Name Priority Date/Time Associated Diagnosis Comments COLONOSCOPY Routine 07/12/2013 documented in this encounter Results * Colonoscopy (07/12/2013) Colonoscopy Normal Normal 07/12/2013 Narrative [...] documented as of this encounter Care Teams Business Practices Officer Relationship Specialty Start Date End [place] [address] PCP - General Internal Medicine 10/15/16 Kaz Cespedes, IrlandaD [place] [address] Pharmacist Internal Medicine 01/24/23 documented as of this encounter
--- OUTSIDE RECORDS SUMMARY | 2025-01-23 14:29 | XMS_ITS | Encounter Summary ---
Author Organization [employer] Address 75 [facility] 7t [place] [address] Care Team Providers Care Programmer Name Role Phone Gregg Nelson MD Primary Care Provide r Kaz Cespedes PharmD Unavailable [phone] Reason for Visit * Reason Onset Date Comments Hospital Follow-up 03/25/2023 Encounter Details Date Type Department Care Team ([facility] st Contact Info) Description 03/25/2023 Telephone [facility] MEDICINE [address] [place] [address] Gregg Nelson MD [address] [place] [address] Hospital Follow-up Social History Tobacco Use Types [...] from pt requesting a HDF appt. Hospital: [facility] Date of admission: 03/22 Discharge date: 03/24 Diagnosed: PAF (paroxysmal atrial fibrillation) Please contact pt at [phone] (Malagasy) documented in this encounter Plan of Treatment Upcoming Encounters Date Type Department Care Team (Late st Contact Info) Description 03/12/2025 10:15 AM EST Office Visit [facility] MED[facility]INE [address] [place] [address] Gregg Nelson MD [address] [place] [address] documented as of this encounter Goals Goal Patient Goal Type Associated Problems Recent Progress Patient-Stated? Author Blood Pressure < 140/90 Blood Pressure Hypertension 120/74(2024 3:04 PM EDT) No Kaz Cespedes, [place] documented as of this encounter Visit Diagnoses Not on filedocumented in this encounter Additional Health Concerns Assessment Noted Time PHQ-9 Depression Total Score: 5 07/14/19 23 9:58 AM EDT documented as of this encounter Care Teams Programmer Relationship Specialty Start Date End Date Gregg Nelson MD [address] [place] [address] PCP - General Internal Medicine 10/15/16 Kaz Cespedes, IrlandaD [address] [place] [phone] Pharmacist Internal Medicine 01/24/23 documented as of this encounter
--- OUTSIDE RECORDS SUMMARY | 2025-01-23 14:29 | XMS_ITS | Encounter Summary ---
Author Organization [employer] Address 75 [facility] 7t [place] [address] Care Team Providers Care Displayer Name Role Phone Gregg Nelson MD Primary Care Provide r Kaz Cespedes PharmD Unavailable [phone] Reason for Visit * Reason Comments Med Refill Encounter Details Date Type Department Care Team ([facility] st Contact Info) Description 02/14/[address] 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 MEDICINE [address] [place] [address] Gregg Nelson MD [address] [place] [address] documented as of this encounter Goals Goal [...] documented as of this encounter Care Teams Displayer Relationship Specialty Start Date End Date Gregg Nelson MD [address] [place] [phone] PCP - General Internal Medicine 10/15/16 Kaz Cespedes PharmD [address] [place] [phone] Pharmacist Internal Medicine 01/24/23 documented as of this encounter
--- OUTSIDE RECORDS SUMMARY | 2025-01-23 14:29 | XMS_ITS | Encounter Summary ---
Author Organization [employer] Address 75 [facility] 7t [place] [address] Care Team Providers Care Blacksmith Assistant Name Role Phone Gregg Nelson MD Primary Care Provide r Kaz Cespedes PharmD Unavailable [phone] Encounter Details Date Type Department Care Team ([facility] st Contact Info) Description 12/04/2024 Refill [facility] MEDICINE [address] [place] [address] Gregg Nelson MD [address] [place] [address] Social History Tobacco Use Types Packs/Day Years [...] Description 03/12/2025 10:15 AM EST Office Visit [facility] MED[facility]INE [address] [place] [address] Gregg Nelson MD [address] [place] [address] documented as of this encounter Goals Goal [...] documented as of this encounter Care Teams Blacksmith Assistant Relationship Specialty Start Date End Date Gregg Nelosn MD [address] [place] [address] [phone] PCP - General Internal Medicine 10/15/16 Kaz Cespedes, PharmD [address] [place] [address] [phone] Pharmacist Internal Medicine 01/24/23 documented as of this encounter
== END 2025-01-22 23:54 | disposition left against medical advice (07) ==
LOC: HO.ED 23:45
PROVIDERS: Physician Assistant Medical; Emergency Provider Emergency Medicine
DX: Z71.1 Person with feared health complaint in whom no diagnosis is made (principal); I10 Essential (primary) hypertension; I48.91 Unspecified atrial fibrillation; Z79.01 Long term (current) use of anticoagulants
CPT/HCPCS: 36415; 80048; 80076; 83735; 84484; 85025; 93005; 99283

== ENCOUNTER → 2025-01-22 19:58 | Outpatient (BNV) | payer OTHER, SELFPAY | PROVIDERS: Emergency Provider Emergency Medicine; Visit Provider Internal Medicine | DX: I49.1 Atrial premature depolarization (principal) | CPT/HCPCS: 93010 ==

== ENCOUNTER 2025-01-23 11:15 | Emergency (ER) | payer OTHER, SELFPAY ==
[2025-01-23 11:58] VITALS: BP 139/84; PULSE 59; RESP 18; TEMP 36.8; O2SAT 97; BMI 26.8
--- NOTE | 2025-01-23 12:01 | ED.GENADULT ---
HPI - General Adult General Chief complaint: Abdominal Pain Stated complaint: Stomach Pain Time Seen by Provider: 01/23/25 12:42 Source: patient Mode of arrival: ambulatory Limitations: no limitations History of Present Illness ED Provider: Dr. Ko HPI narrative: 64-year-old male history of hypertension, CAD presented hospital today for evaluation of nausea. He is not complaining of any diarrhea. He does have slight epigastric abdominal pain. Patient has difficulty eating due to persistent nausea since Tuesday. He is also complaining of some sore throat. He is also complaining of some nasal congestion and cough as well. Related Data Home Medications ?Medication ?Instructions ?Recorded ?Confirmed atorvastatin 80 mg tablet 80 mg PO BEDTIME 05/27/20 12/27/24 lisinopril 40 mg tablet 40 mg PO BEDTIME 05/27/20 12/27/24 cetirizine 10 mg tablet 10 mg PO DAILY 03/22/23 12/27/24 famotidine 40 mg tablet 40 mg PO BEDTIME 03/22/23 12/27/24 fluticasone propionate 50 1 spray intranasal DAILY 03/22/23 12/27/24 mcg/actuation nasal spray,suspension metformin 500 mg tablet,extended 1,000 mg PO BID 03/22/23 12/27/24 release 24 hr omeprazole 20 mg capsule,delayed 20 mg PO BID 03/22/23 12/27/24 release dulaglutide 1.5 mg/0.5 mL mg subcut 12/27/24 12/27/24 subcutaneous pen injector (Trulicity) hydrochlorothiazide 25 mg tablet 25 mg PO QAM 12/27/24 12/27/24 Previous Rx's ?Medication ?Instructions ?Recorded metoprolol succinate 25 mg 25 mg PO DAILY for blood pressure 05/11/24 tablet,extended release 24 hr #90 tabs flecainide 50 mg tablet 50 mg PO BID for blood pressure 05/31/24 #180 tabs ezetimibe 10 mg tablet (Zetia) 10 mg PO DAILY #90 tabs 06/07/24 apixaban 5 mg tablet (Eliquis) 5 mg PO BID #180 tabs 08/03/24 dicyclomine 10 mg capsule 10 mg PO BID PRN abdominal pain #5 08/05/24 caps omeprazole 20 mg capsule,delayed 20 mg PO DAILY 14 days #14 caps 01/23/25 release ondansetron 4 mg disintegrating 4 mg PO Q8H PRN nausea and 01/23/25 tablet vomiting #14 tabs Allergies Allergy/AdvReac Type Severity Reaction Status Date / Time No Known Allergies Allergy Verified 01/23/25 11:58 Review of Systems Review of Systems: Pertinent review of systems as mentioned in HPI. All other system otherwise negative. PMFSH Past Medical History PMF Narrative: Medical history as mentioned in HPI Medical History PAF (paroxysmal atrial fibrillation) Type 2 diabetes mellitus with unspecified complications Essential hypertension High cholesterol Diabetes mellitus HTN (hypertension) Surgical History No pertinent past surgical history Family History Family History Mother Hyperlipidemia Hypertension Diabetes Father Diabetes Social History Social History Household Members: Spouse Household Members Other:: 1 Housing: Unknown / Unable to assess Do you presently have visiting nurse or other home services: No Alcohol intake: current Alcohol intake frequency: a few times a week Alcohol type: beer and hard liquor Patient Tobacco Use Status: Never used Tobacco Second Hand Smoke Exposure: No Advance Directives: Yes Advance Directives on File: Yes Advance Directives Date on File: 05/27/20 service: No Current occupational status: unemployed Physical Exam ED Exam Exam: General: Pleasant, no distress, interacting appropriately Head: Normacephalic, atraumatic ENT: oral mucosa moist, neck supple, no tracheal deviation Cardiovascular: regular rate, regular rhythm, no murmurs, rubbing, gallops Respiratory: CTAB, no wheeze, rales, rhonchi Gastrointestinal: Soft, non distended, epigastric tenderness Skin: Warm and dry Psychiatric: Appropriate mood and thoughts Vital Signs: Vital Signs - 24 hr 01/23/25 11:58 Temperature 98.3 F Pulse Rate 59 Respiratory Rate 18 Blood Pressure 139/84 Pulse Oximetry 97 Oxygen Delivery Method Room Air BMI result Body Mass Index 26.8 Course Course Course Narrative: This is a Rapid Medical Exam performed in triage by Aracelis Syed PA-C. Full HPI, ROS and PE to be performed by primary ED provider. 64 yo M w/pmhx HTN, CAD, HLD, PAF presenting to the ED c/o high blood pressure 156/105, nausea, dec PO intake x Tuesday. +lethargy. Was seen in our ED yesterday however LWCT. denies CP/SOB, dizziness PE: NAD, nontoxic appearing, talking in complete sentences Plan: EKG, labs, UA Medications Administered Discontinued Medications Generic Name Dose Route Start Last Admin Trade Name Akil PRN Reason Stop Dose Admin Al Hydroxide/Mg Hydroxide 30 ml 01/23/25 13:33 01/23/25 13:48 Magnesium Hydrox/Alum Hydrox 30 Ml Oral.Susp PO 01/23/25 13:34 30 ml ONCE ONE Administration Lidocaine HCl 15 ml 01/23/25 13:33 01/23/25 13:48 Lidocaine Hcl Viscous 2 % 15 Ml Solution MUCOUS MEM 01/23/25 13:34 15 ml ONCE ONE Administration Ondansetron HCl 4 mg 01/23/25 13:33 01/23/25 13:48 Ondansetron Odt 4 Mg Tab.Rapdis TRANSLINGU 01/23/25 13:34 4 mg ONCE ONE Administration Medical Decision Making Medical Decision Making [facility] Narrative: 64-year-old male presented hospital today for evaluation of nausea since Tuesday. I suspect patient likely has viral gastroenteritis. Patient is complaining of nausea with epigastric tenderness in setting of a upper respiratory infection. Abdominal lab work were obtained from patient. No leukocytosis, slight anemia at 12.9, slight hyperglycemia at 01:25. Liver function otherwise normal. Patient's chemistries unremarkable. Patient has no sign of acute surgical abdomen on exam. We will plan to give patient a dose of Zofran ODT, GI cocktail and reassess. Patient's EKG shows sinus bradycardia with first-degree AV block. No sign of acute ischemic changes. Patient stated that his symptom has improved after reassessment. We will plan to discharge patient at this time. I suspect this is gastroenteritis. Differential Diagnosis Differential Diagnoses: The differential diagnosis associated with the presentation includes Gastroenteritis, nausea, ACS Lab Data [facility] Lab Attestation statement: I reviewed the patient's lab results. 01/23/25 12:31 01/23/25 12:31 Labs: Lab Results 01/23/25 01/23/25 Range/Units 12:31 12:49 WBC 8.8 (4.8-10.8) X10*3/uL RBC 4.15 L (4.60-5.80) X10*6/uL Hgb 12.9 L (14.0-18.0) g/dl Hct 38.0 L (42.0-52.0) % MCV 91.6 (80.0-98.0) fL MCH 31.1 (27.0-33.0) pg MCHC 33.9 (31.0-36.0) g/dl RDW 12.7 (11.0-16.0) % Plt Count 198 (160-400) X10*3/uL MPV 10.2 (9.4-12.4) fL Immature Gran % (Auto) 0.3 (0.0-0.4) % Neut % (Auto) 64.3 (45-73) % Lymph % (Auto) 21.5 (20-40) % [place] % (Auto) 12.5 H (2-11) % Eos % (Auto) 0.9 (0-4) % Baso % (Auto) 0.5 (0-2) % Lymph # (Auto) 1.9 (1.2-4.9) X10*3/uL [place] # (Auto) 1.1 (0.1-1.2) X10*3/uL Eos # (Auto) 0.1 (0.0-0.4) X10*3/uL Baso # (Auto) 0.0 (0.0-0.2) X10*3/uL Abs Immat Gran (auto) 0.03 (0.00-0.03) X10*3/uL Absolute Neuts (auto) 5.7 (2.0-8.3) x10*3/uL Absolute Nucleated RBC 0.000 (0.0-0.012) X10*3/uL Nucleated RBC % (auto) 0.0 (0.0-0.2) /100WBC Sodium 137 (135-145) mmol/L Potassium 3.6 (3.3-5.1) mmol/L Chloride 100 (96-108) mmol/L Carbon Dioxide 29 (22-29) mmol/L Anion Gap 12 (12-20) BUN 20 H (9-16) mg/dL Creatinine 1.27 (0.5-1.4) mg/dL Estim Creat Clear Calc 57.5 Estimated GFR 57 Random Glucose 125 H (60-115) mg/dL Calcium 9.0 (8.4-10.2) mg/dL Magnesium 1.8 (1.6-2.6) mg/dL Total Bilirubin 0.6 (0.0-1.0) mg/dL Direct Bilirubin 0.2 (0.0-0.5) mg/dL AST 28 (5-37) U/L ALT 30 (0-40) U/L Alkaline Phosphatase 96 (39-117) U/L Troponin I High Sens 3.0 (<3.5-35.0) ng/L Total Protein 7.4 (6.5-8.0) g/dL Albumin 4.3 (3.5-5.0) g/dL Lipase 37 (8-78) U/L Urine Color Yellow Urine Appearance Clear Urine pH 5.5 (5.0-9.0) Ur Specific [place] 1.010 (1.005-1.025) Urine Protein Negative (Neg-Trace) mg/dL Urine Glucose (UA) Negative (Negative) mg/dL Urine Ketones Negative (Negative) mg/dL Urine Blood Trace H (Negative) Urine Nitrite Negative (Negative) Ur Leukocyte Esterase Negative (Negative) Urine RBC 0-2 (0-2) /HPF Urine WBC 0-5 (0-5) /HPF Ur Squamous Epith Cells 0-2 (0-2) /HPF Urine Bacteria None Seen (None Seen) Hyaline Casts 0-2 (0-2) /LPF COVID-19 (TAIWO) Negative (Negative) COVID-19 Clin Com See Note Influenza Type A (TYRELL) Negative (Negative) Influenza Type B (TYRELL) Negative (Negative) Influenza A & B Note See Note Discharge Plan Discharge Clinical Impression: Gastroenteritis Patient Disposition: Home, Self-Care Instructions: Gastroenteritis (ED) Prescriptions: New ondansetron 4 mg tablet,disintegrating 4 mg PO Q8H PRN (Reason: nausea and vomiting) Qty: 14 0RF omeprazole 20 mg capsule,delayed release(DR/EC) 20 mg PO DAILY 14 Days Qty: 14 0RF No Action metoprolol succinate 25 mg tablet extended release 24 hr 25 mg PO DAILY Qty: 90 3RF flecainide 50 mg tablet 50 mg PO BID Qty: 180 3RF Eliquis 5 mg tablet 5 mg PO BID Qty: 180 3RF lisinopril 40 mg Tablet 40 mg PO BEDTIME atorvastatin 80 mg Tablet 80 mg PO BEDTIME dicyclomine 10 mg capsule 10 mg PO BID PRN (Reason: abdominal pain) Qty: 5 0RF cetirizine 10 mg tablet 10 mg PO DAILY famotidine 40 mg tablet 40 mg PO BEDTIME omeprazole 20 mg capsule,delayed release(DR/EC) 20 mg PO BID fluticasone propionate 50 mcg/actuation spray,suspension 1 spray intranasal DAILY metformin 500 mg tablet extended release 24 hr 1,000 mg PO BID hydrochlorothiazide 25 mg tablet 25 mg PO QAM Trulicity 1.5 mg/0.5 mL pen injector subcut ezetimibe [Zetia] 10 mg tablet 10 mg PO DAILY Qty: 90 3RF Rx Instructions: Cholesterol lowering agent Print Language: Chinese
--- NOTE | 2025-01-23 12:03 | ECG_ITS ---
Test Reason : NAUSEA Blood Pressure : */* mmHG Vent. Rate : 59 BPM Atrial Rate : 59 BPM P-R Int : 218 ms QRS Dur : 88 ms QT Int : 420 ms P-R-T Axes : 49 2 34 degrees QTcB Int : 415 ms Sinus bradycardia with 1st degree A-V block Otherwise normal ECG When compared with ECG of 22-Jan-2025 20:07, Premature atrial complexes are no longer Present MS interval has increased Referred By: Aracelis Syed Electronically Signed By: DAVE ECHEVARRIA
[2025-01-23 12:35] LABS: MANUAL DIFF FLAG NO
[2025-01-23 12:36] LABS: Hematocrit 38.0 % (42.0-52.0); Hemoglobin 12.9 g/dl (14.0-18.0); Imm Gran Abs Auto 0.03 X10*3/uL (0.00-0.03); Imm Gran Pct Auto 0.3 % (0.0-0.4); Lymphocytes Absolute Auto 1.9 X10*3/uL (1.2-4.9); Mean Corpuscular HGB Conc 33.9 g/dl (31.0-36.0); Mean Corpuscular Hemoglobin 31.1 pg (27.0-33.0); Mean Corpuscular Volume 91.6 fL (80.0-98.0); NRBC Abs Auto 0.000 X10*3/uL (0.0-0.012); NRBC Pct Auto 0.0 /100WBC (0.0-0.2); Platelet Count 198 X10*3/uL (160-400); Red Blood Count 4.15 X10*6/uL (4.60-5.80); White Blood Count 8.8 X10*3/uL (4.8-10.8)
[2025-01-23 12:55] LABS: Appearance Urine Clear; Glucose Urine UA Negative (Negative); PH 5.5 (5.0-9.0); Specific Gravity - Urine 1.010 (1.005-1.025); UMIC TRIGGER UACC YES
[2025-01-23 12:58] LABS: Alanine Aminotransferase 30 U/L (0-40); Albumin Level 4.3 g/dL (3.5-5.0); Alkaline Phosphatase 96 U/L (39-117); Anion Gap 12 (12-20); Aspartate Amino Transferase 28 U/L (5-37); Blood Urea Nitrogen 20 mg/dL (9-16); Calcium 9.0 mg/dL (8.4-10.2); Carbon Dioxide 29 mmol/L (22-29); Chloride 100 mmol/L (96-108); Creatinine Clr Calc Pharmacy 57.5; Estimated Glomerular Filt Rate 57; Lipase 37 U/L (8-78); Magnesium 1.8 mg/dL (1.6-2.6); Potassium 3.6 mmol/L (3.3-5.1); Sodium 137 mmol/L (135-145); Total Protein 7.4 g/dL (6.5-8.0)
[2025-01-23 13:00] LABS: Troponin-I High Sensitivity 3.0 ng/L (<3.5-35.0)
[2025-01-23 13:09] LABS: COVID-19 Test Negative (Negative); IDNOW Serial# 55D5AD1C; IDNOW Serial# 58CA691E; Influenza B2 Negative (Negative)
[2025-01-23] MEDS: Lidocaine HCl Viscous 2 % 15 ML SOLUTION MUCOUS MEM (13:48)
[2025-01-23] MEDS: Magnesium Hydrox/Alum Hydrox 30 ML ORAL.SUSP PO (13:48)
[2025-01-23 15:24] VITALS: BP 147/85; PULSE 62; RESP 18; TEMP 36.5; O2SAT 97
--- OUTSIDE RECORDS SUMMARY | 2025-01-23 23:45 | XMS_ITS | Encounter Summary ---
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
--- OUTSIDE RECORDS SUMMARY | 2025-01-23 23:45 | XMS_ITS | Encounter Summary ---
Author Organization [employer] Address 75 [facility] 7t [place] [address] Care Team Providers Care Loom Winder Tender Name Role Phone Gregg Nelson MD Primary Care Provide r Kaz Cespedes PharmD Unavailable [phone] Encounter Details Date Type Department Care Team (Late Contact Info) Description 02/18/2022 Abstract [facility] MEDICINE [address] [place] [address] Shaniqua Mendes, PharmD [address] [place] [address] Social History Tobacco Use Types Packs/Day Years [...] Description 03/12/2025 10:15 AM EST Office Visit [facility] MEDICINE [address] [place] [address] Gregg Nelson MD [address] [place], [place] [phone] documented as of this encounter Visit Diagnoses Not on filedocumented in this encounter Care Teams Loom Winder Tender Relationship Specialty Start Date End Date Gregg Nelson MD [address] [place] [address] PCP - General Internal Medicine 10/15/16 Kaz Cespedes PharmD [address] [place] [address] Pharmacist Internal Medicine 01/24/23 documented as of this encounter
--- OUTSIDE RECORDS SUMMARY | 2025-01-23 23:45 | XMS_ITS | Encounter Summary ---
Author Organization [employer] Address [address] [facility] 7t [place] [address] Care Team Providers Care Broadcast Systems Engineer Name Role Phone Gregg Nelson MD Primary Care Provide r Kaz Cespedes PharmD Unavailable [phone] Reason for Visit * Reason Onset Date Comments Hospital Follow-up 03/25/2023 Encounter Details Date Type Department Care Team ([facility] st Contact Info) Description 03/25/2023 Telephone [facility] [address] [place] [address] Gregg Nelson MD [address] [place] [address] Hospital Follow-up Social History Tobacco Use Types [...] from pt requesting a HDF appt. Hospital: [facility] Date of admission: 03/22 Discharge date: 03/24 Diagnosed: PAF (paroxysmal atrial fibrillation) Please contact pt at [phone] (Nigerian) documented in this encounter Plan of Treatment Upcoming Encounters Date Type Department Care Team (Late st Contact Info) Description 03/12/2025 10:15 AM EST Office Visit [facility] [address] [place] [phone] Gregg Nelson MD [address] [place] [address] documented as of this encounter Goals Goal [...] documented as of this encounter Care Teams Broadcast Systems Engineer Relationship Specialty Start Date End Date Gregg Nelson MD [address] [place] [address] PCP - General Internal Medicine 10/15/16 Kaz Cespedes, IrlandaD [address] [place] [phone] Pharmacist Internal Medicine 01/24/23 documented as of this encounter
--- OUTSIDE RECORDS SUMMARY | 2025-01-23 23:45 | XMS_ITS | Encounter Summary ---
Author Organization [employer] Address [address] [facility] 7t [place] [address] Care Team Providers Care Recruiting Scheduler Name Role Phone Gregg Nelson MD Primary Care Provide r Kaz Cespedes PharmD Unavailable [phone] Reason for Visit * Reason Comments Med Refill Encounter Details Date Type Department Care Team ([facility] st Contact Info) Description 03/09/2024 Refill [facility] [address] [place] [address] Gregg Nelson MD [address] [place] [address] Social History Tobacco Use Types Packs/Day Years [...] Description 03/12/2025 10:15 AM EST Office Visit [facility] [address] [place] [phone] Gregg Nelson MD [address] [place] [phone] documented as of this encounter Goals Goal [...] documented as of this encounter Care Teams Recruiting Scheduler Relationship Specialty Start Date End Date Gregg Nelson MD [address] [place] [phone] PCP - General Internal Medicine 10/15/16 Kaz Cespedes PharmD [address] [place] [address] Pharmacist Internal Medicine 01/24/23 documented as of this encounter
--- OUTSIDE RECORDS SUMMARY | 2025-01-23 23:45 | XMS_ITS | Encounter Summary ---
Author Organization [employer] Address [address] [facility] 7t [place] [address] Care Team Providers Care Tornado Chaser Name Role Phone Gregg Nelson MD Primary Care Provide r Kaz Cespedes PharmD Unavailable [phone] Encounter Details Date Type Department Care Team (Late Contact Info) Description 07/14/2022 Abstract [facility] [address] [place] [address] Gregg Nelson MD [address] [place] [address] Social History Tobacco Use Types Packs/Day Years [...] Description 03/12/2025 10:15 AM EST Office Visit [facility] [place] [address] [place] [address] documented as of this encounter Procedures Procedure [...] documented as of this encounter Care Teams Tornado Chaser Relationship Specialty Start Date End [place] [address] PCP - General Internal Medicine 10/15/16 Kaz Cespedes, [place] [address] Pharmacist Internal Medicine 01/24/23 documented as of this encounter
--- OUTSIDE RECORDS SUMMARY | 2025-01-23 23:46 | XMS_ITS | Encounter Summary ---
Author Organization [employer] Address [address] [facility] 7t [place] [address] Care Team Providers Care Laborer Concrete Plant Name Role Phone Gregg Nelson MD Primary Care Provide r Kaz Cespedes PharmD Unavailable [phone] Encounter Details Date Type Department Care Team ([facility] st Contact Info) Description 12/04/2024 Refill [facility] [address] [place] [address] Gregg Nelson MD [address] [place] [address] Social History Tobacco Use Types Packs/Day Years [...] Description 03/12/2025 10:15 AM EST Office Visit [facility] [address] [place] [address] Gregg Nelson MD [address] [place] [address] documented as of this encounter Goals Goal [...] documented as of this encounter Care Teams Laborer Concrete Plant Relationship Specialty Start Date End Date Gregg Nelson MD [address] [place] [address] [phone] PCP - General Internal Medicine 10/15/16 Kaz Cespedes, PharmD [address] [place] [address] [phone] Pharmacist Internal Medicine 01/24/23 documented as of this encounter
--- OUTSIDE RECORDS SUMMARY | 2025-01-23 23:46 | XMS_ITS | Clinical Summary ---
Author Organization [employer] Address [address] [facility] 7t [place] [address] Care Team Providers Care Outside Machinist Apprentice Name Role Phone Gregg Nelson MD Primary Care Provide r Kaz Cespedes PharmD Unavailable [phone] Allergies No known active allergies Medications apixaban (Eliquis) 5 MG tablet take 1 tablet by oral route 2 times every day 07/30/19 21 Active Blood Glucose Monitoring Suppl ([employer] Lite) w/Device kit TEST BLOOD SUGAR TWICE [...] 2 diabetes mellitus without complication, unspecified whether extermination supervisor insulin use TEST BLOOD SUGAR THREE TIMES [...] in big crowds. Pt evaluated by our [facility] clinician , open to trying Hydroxyzine for [...] Last note on record from [facility] Cardiology 06/07/2024 Assessment & [...] Last note on record from [facility] Cardiology 05/09/2023 Assessment & Plan (04/05/2023 10:05 AM EST): Patient with paroxysmal Afib Recent Hospital admission found to be in PAFG with tachy nivia syndrome that responded to Fleicanide Today Rate is rate controlled Diltiazem was discontinued , he is to continue on Eliquis 5 mg po BID Last note on record from [facility] Cardiology 02/01/2023 Referred back to [facility] Cardiology post hospital discharge. He had a 3 day Holter monitor that he just gave back Assessment & Plan (07/13/2022 2:56 PM EDT): Patient with paroxysmal Afib Rate is rate controlled on Diltiazem ER 300 mg po ruiz and Eliquis 5 mg po BID Last seen by [facility] Cardiology 10/28/2021 [place] Blower recommended to stay on Eliquis 5 mg po BID. Pt tells me he is been having palpitations more often that ever. 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 Will refer to [facility] Cardiology Obesity 04/28/2012 Hypertension [...] a recent Hospital admission to [facility] from 03/22-03/24 ) Patient [...] Type Department Care Team Description 01/01/2025 Refill [facility] [address] Gregg Nelson MD 12/29/2024 Telephone [facility] [address] Gregg Nelson MD February12/27/2024 Refill [facility] [address] [phone] Grgeg Nelson MD 12/04/2024 Refill [facility] [place] [address] Gregg Nelson MD 12/03/2024 Refill [facility] [place] [address] Gregg Nelson MD 11/20/2024 3:00 PM EDT Office Visit [facility] [address] Gregg Nelson MD Type 2 diabetes mellitus without complication, without long-term current use of insulin (CMS/HCC) (Primary Dx); Paroxysmal atrial fibrillation (CMS/HCC); Primary hypertension; Mixed hyperlipidemia; Preventative health care 11/20/2024 Travel 11/19/2024 Telephone [facility] [address] Gregg Nelson MD chart prep 10/28/2024 Refill [facility] [address] [place] [address] Gregg Nelson MD Allergic rhinitis, unspecified seasonality, [...] Description 03/12/2025 10:15 AM EST Office Visit [facility] [address] [place] [address] Gregg Nelson MD [address] [place] [address] Health Maintenance Due Date Last Done Comments [...] 2 diabetes mellitus without complication, unspecified whether retirement insulin use (CMS/HCC) Mixed hyperlipidemia HIV ANTIBODY/ANTIGEN ([place] DPH) Routine 12/07/2022 8:29 AM EDT HM COLONOSCOPY Routine 07/12/2013 from Last 3 Months or Most Recently Relevant to Health Maintenance Results * PSA, Screen (12/14/2024 8:34 AM EDT) PSA, Total 1.48 <0.05 - 4.0 ng/mL [facility] Comment:PSA methodology: Redd Melvin i ChemiluminescentMicroparticle Immunoassay (CMIA) Blood Venous blood specimen / Unknown 12/14/2024 8:34 AM EDT 12/14/2024 11:16 AM EDT Gregg Gonzalez MD LAB BLOOD ORDERABLES Final Result Performing Organization Address [facility] Co de Phone Number [facility] [address] [place] [address] [phone] * Lipid Panel, Standard (12/14/2024 8:34 AM EDT) Triglycerides 108 <150 mg/dL [facility] Comment:Desirable Triglyceri de: less than 150 mg/dLBorderline High Triglyceride 150-199 mg/dLHigh Triglyceride: 200-499 mg/dLVery High Triglyceride: greater than or equal to 5OO mg/dL Cholesterol 136 <200 mg/dL [facility] Comment:Desirable Cholestero l: less than 200 mg/dLBorderline High Cholesterol: 200-239 mg/dLHigh Cholesterol: greater than 239 mg/dL LDL Cholesterol Calculated 74 <100 mg/dL [facility] Comment:Desirable LDL: less than 100 mg/dLNear Optimal/Above Optimal LDL: 110- 129 mg/dLBorderline High LDL: 130-159 mg/dLHigh LDL: 160-189 mg/dLVery High LDL: greater than or equal to 190 mg/dL HDL Cholesterol 41 >40 mg/dL [facility] Comment:Desirable HDL: great er than 40 mg/dL Note: This HDL assay may give artificially low results in patients with liver disease. Blood Venous blood specimen / Unknown 12/14/2024 8:34 AM EDT 12/14/2024 11:32 AM EDT Gregg Gonzalez MD LAB BLOOD ORDERABLES Final Result Performing Organization Address [facility] Co de Phone Number [facility] [address] [place] [phone] [phone] * POCT Glucose (11/20/2024 3:23 PM EDT) Glucose Blood, POC 175 60 - 200 mg/dL QC Media Lot # [id number] Lot# Expiration Date [id number] Blood Capillary blood specimen / Unknown 11/20/2024 3:23 PM EDT us Gregg Gonzalez MD POINT OF CARE TEST EN TER/EDIT ORDERABLES Final Result * (ABNORMAL) POCT Hgb A1c (11/20/2024 3:17 PM EDT) Hemoglobin A1C 6.9(A) 4.0 - 5.7 % QC Media Lot # [id number] Lot# Expiration Date ,[id number] Blood 11/20/2024 3:17 PM EDT Gregg Gonzalez MD POINT OF CARE TEST EN TER/EDIT ORDERABLES Final Result * Albumin, Random Urine W/Creatinine (12/16/2023 8:10 AM EDT) Creatinine, Urine 184.29 mg/dL [facility] Microalbumin Urine 8.0 mg/L [facility] Microalbum Creatinine Ratio Ur 4.3 <30 ug/mg cr [facility] Comment:Albumin/Creatinine R atio Reference Ranges: Normal: < 30 ug/mg creatinine Microalbuminuria: 30 - 300 ug/mg creatinineClinical Albuminuria: > 300 ug/mg creatinine Urine (Urine, Random) 12/16/2023 8:10 AM EDT 12/16/2023 11:10 AM EDT us Gregg Gonzalez MD LAB URINE ORDERABLES Final Result [facility] [address] [place] [phone] * HIV Ab/Ag (DC DP) (12/07/2022 8:29 AM EDT) HIV AB/AG Nonreactive Nonreactive [facility] Comment:HIV-1 p24 Ag and/or HIV-1/HIV-2 Ab not detected.A test result that is nonreactive does not exclude thepossibility of exposure to or infection with HIV-1 and/orHIV-2. Nonreactive results in this assay for individualswith prior exposure to HIV-1 and/or HIV-2 may be due toantigen and antibody levels that are below the limit ofdetection of this assay.The [employer] HIV Ag/Ab Combo assay result andsupplemental assay results should be interpreted inconjunction with the patient's clinical presentation,history and other laboratory results. If the results areinconsistent with clinical evidence, additional testing issuggested to confirm the result. 12/07/2022 8:29 AM EDT 12/07/2022 11:40 AM EDT Gregg Gonzalez MD LAB BLOOD ORDERABLES Final Result Performing Organization Address City/[facility]/ZIP Co de Phone Number [facility] [address] [place] [phone] * Hepatitis C Antibody with Reflex to HCV, RNA, Quantitative, Real-Time PCR (12/07/2022 8:29 AM EDT) Hepatitis C Antibody Nonreactive Nonreactive [facility] Comment:Antibodies to HCV no t detected; does not exclude early acuteHCV infection. Blood Venous blood specimen / Unknown 12/07/2022 8:29 AM EDT 12/07/2022 11:40 AM EDT Gregg Gonzalez MD LAB BLOOD ORDERABLES Final Result [facility] [address] [place] [phone] * Hm Colonoscopy (07/12/2013) Colonoscopy Normal Normal 07/12/2013 Bree Lopez - 07/12/2013 1:38 PM EDT Recommended 10 year follow up per provider unable to find path results Historical Provider HEALTH MAINTENANCE Edited Result - Final from Last 3 Months or Most Recently Relevant to Health Maintenance Insurance [employer] [id number] Care Teams Outside Machinist Apprentice Relationship Specialty Start Date End Date Gregg Nelson MD [address] [place] [address] PCP - General Internal Medicine 10/15/16 Kaz Cespedes PharmD [address] [place] [address] Pharmacist Internal Medicine 01/24/23
== END 2025-01-23 15:24 | disposition home or self-care (01) ==
PROVIDERS: Physician Assistant; Emergency Provider Student in an Organized Health Care Education/Training Program
DX: K52.9 Noninfective gastroenteritis and colitis, unspecified (principal); R00.1 Bradycardia, unspecified; I44.0 Atrioventricular block, first degree; R11.0 Nausea; Z03.818 Encounter for observation for suspected exposure to other biological agents ruled out; E11.9 Type 2 diabetes mellitus without complications; I10 Essential (primary) hypertension; E78.00 Pure hypercholesterolemia, unspecified; I25.10 Atherosclerotic heart disease of native coronary artery without angina pectoris; Z79.899 Other long term (current) drug therapy
CPT/HCPCS: 36415; 80048; 80076; 81001; 83690; 83735; 84484; 85025; 87502; 87635; 93005; 99283

== ENCOUNTER → 2025-01-23 12:03 | Outpatient (BNV) | payer OTHER, SELFPAY | PROVIDERS: Emergency Provider Student in an Organized Health Care Education/Training Program; Visit Provider Internal Medicine | DX: R00.1 Bradycardia, unspecified (principal); I44.0 Atrioventricular block, first degree | CPT/HCPCS: 93010 ==